=== PATIENT | male | born 1935 | race Caucasian/White ===

== ENCOUNTER → 2016-10-11 | Outpatient (CLI) | payer MEDICARE ==
[2016-07-22 11:00] VITALS: BP 111/53
[~2016-10-11] MED LIST: ALLO300T PO; ALPR0.5T6 PO; ALPR1TAB6 PO; AMIO200T2 PO; AMOX1TAB61 PO; ASPI81TA2 PO; ATOR20TA58 PO; CARV3.12 PO; CARV3.122 PO; CARV6.252 PO; CEFD300C PO; DEXL60CA PO; DIGO125T PO; DILT180C2 PO; FLUT16SP NS; FURO20TA3 PO; GLEEVEC400 MG PO; ISOS30TA4 PO; LANS30CA17 PO; LISI-338 PO; METO100T11 PO; METO25TA9 PO; ONDA-36 PO; PANT40TA5 PO; POTA10CA PO; PRED50TA PO; SIMV20TA3 PO; TAMS0.4C2 PO; TOLT4CAP PO
--- NOTE | 2016-10-11 16:12 | RAD ---
APPROVED REPORT Patient Location: OUT-PATIENT Laterality:Bilateral Indications Bruit Risk Factors CAD, Doppler Spectral Velocity Analysis Right Left mCCA 89/89 cm/smCCA 71/71 cm/s ECA 82/ cm/sECA 79/ cm/s pICA 75/20 cm/spICA 84/23 cm/s Ralph 103/28 cm/smICA 108/29 cm/s dICA 116/25 cm/sdICA 110/33 cm/s ICA/CCA 1.30ICA/CCA 1.60 Findings Bilateral grayscale images of the common carotid, external carotid, internal carotid and vertebral ar teries was performed. There is mild intimal thickening and plaque without any significant obstructiv e disease noted. Spectral waveforms in color Doppler reveals normal flow patterns and no evidence of significant stenosis. Critical Notification Critical Value: No <Conclusion> No high-grade lesions identified in the bilateral carotid arterial vessels. Bilateral antegrade vertebral velocities.
== END | disposition home or self-care (01) ==
LOC: US 10:19
PROVIDERS: ATTEND Internal Medicine Cardiovascular Disease
DX: I25.10 Atherosclerotic heart disease of native coronary artery without angina pectoris (principal)
CPT/HCPCS: 93880

== ENCOUNTER → 2016-11-07 | Outpatient (CLI) | payer MEDICARE ==
[2016-07-22 11:00] VITALS: BP 111/53
--- NOTE | 2016-11-07 16:56 | KCIC ---
PROCEDURE CT maxillofacial without contrast. HISTORY Ringing in the left ear x3 months. Hearing loss. TECHNIQUE Helical CT imaging of the facial bones is performed without IV contrast. PQRS: One or more the following individualized dose reduction techniques were utilized for the study: 1. Automated exposure control. 2. Adjustment of the mA and/or kV according to patient size. 3. Use of iterative reconstruction technique. COMPARISON None. FINDINGS The frontal sinuses are clear. Mild mucosal thickening of the bilateral ethmoid sinuses. Minimal mucosal thickening inferior right sphenoid sinus. There is moderate mucosal thickening of the right maxillary sinus. The left maxillary sinus is clear. There is small curvilinear near bone density in the right maxillary sinus, image 21. Bony nasal septum is midline. The right infundibular canal is narrow but patent. The ostiomeatal complexes are patent. Study does not constitute a diagnostic same of the temporal bones. The slice thickness is 2 millimeters. Given this limitation, the mastoid air cells are opacified bilaterally. There is soft tissue density in the bilateral middle ear cavities. No obvious erosion of the ossicular chain is seen. Cochleae and semicircular canals unremarkable. No obvious midline shift or mass effect in the brain. Probable cerebral atrophy. The globes and orbits are intact. IMPRESSION 1. Bilateral mastoid air cells and middle ear cavities are opacified. Otomastoiditis is in the differential. 2. Ostiomeatal complexes are narrow but patent. 3. Moderate mucosal thickening of the right maxillary sinus. No acute sinusitis. Electronically signed by: Froilan Horton MD (Nov 07, 2016 16:54:39)
== END | disposition home or self-care (01) ==
LOC: KCIC CT 10:46
PROVIDERS: ATTEND Otolaryngology
DX: J32.9 Chronic sinusitis, unspecified (principal)
CPT/HCPCS: 70486

== ENCOUNTER 2017-01-19 12:06 | Emergency (ER) | payer BC ==
[~2017-01-19] VITALS: Ht 188 cm; Wt 101.6 kg
[~2017-01-19 12:06] MED LIST changes: -POTA10CA PO; +POTASSIUM CHLO10 MEQ PO
[2017-01-19 12:20] LABS: BASO # 0.1 x10^3/uL (0.0-0.2); BASO % 1 % (0-3); EOS % 4 % (0-3); HEMATOCRIT 39.5 % (39.0-53.0); HEMOGLOBIN 13.2 g/dL (13.0-17.5); LYMPH # 0.9 x10^3/uL (1.0-4.8); LYMPH % 12 % (24-48); MEAN CORPUSCULAR HEMOGLOBIN 34 pg (25-35); MEAN CORPUSCULAR HGB CONC 34 g/dL (31-37); MEAN CORPUSCULAR VOLUME 102 fL (79-100); MONO % 7 % (0-9); NEUT % 77 % (31-73); PLATELET COUNT 156 x10^3/uL (140-400); RED BLOOD COUNT 3.89 x10^6/uL (4.30-5.70); RED CELL DISTRIBUTION WIDTH 13.5 % (11.5-14.5); WHITE BLOOD COUNT 7.3 x10^3/uL (4.0-11.0)
--- NOTE | 2017-01-19 12:28 | EKG ---
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
[2017-01-19 12:29] LABS: CALCIUM 8.7 mg/dL (8.5-10.1); CREATININE 1.4 mg/dL (0.7-1.3); GFR 48.6; POTASSIUM 4.2 mmol/L (3.5-5.1)
[2017-01-19 12:36] LABS: ALBUMIN 3.7 g/dL (3.4-5.0); TOTAL PROTEIN 6.1 g/dL (6.4-8.2)
[2017-01-19 12:37] LABS: ALBUMIN/GLOBULIN RATIO 1.5 (1.0-1.7); TOTAL BILIRUBIN 0.5 mg/dL (0.2-1.0)
[2017-01-19] MEDS ORDERED: GABA-585 PO (12:37)
--- NOTE | 2017-01-19 12:38 | PHYS DOC ---
Past Medical History Past Medical History: CAD, Cancer, COPD, [place], Other Additional Past Medical Histor: stomach CA TREATED W/ CHEMO,LEUKEMIA, pancreatic cancer Past Surgical History: Angioplasty, Lumbar Laminectomy Additional Past Surgical Histo: STENTS X'S 3, right port a cath,L KNEE SURG Alcohol Use: Rarely Drug Use: None Adult General Chief Complaint Chief Complaint: LOWER EXT PAIN HPI HPI 81-year-old male presenting to the emergency department with a pain sensation in his lower extremities bilaterally for the last 2 months. He describes it as a sharp electric shooting pain that is worse at night and without alleviating factors. It radiates down the legs bilaterally. He reports having a small bit of anxiety prior to arrival. He felt mildly anxious. Currently he does not feel anxious he does not have chest pain or shortness of breath. The primary reason the patient is here is for his leg pain. Review of systems is negative for abdominal pain nausea vomiting diaphoresis fevers chills cough diarrhea or constipation. All other review of systems is negative unless otherwise noted in history of present illness. Pertinent physical exam findings showed a normal neurologic exam. Sensation present in both lower extremities. Able to move his extremities. Abdomen is soft and nontender and lungs are clear to auscultation bilaterally. ED course: 81-year-old male presenting to the emergency department with bilateral leg pain. Afebrile with a mildly bradycardic heart rate which is chronic for the patient. Physical exam is unremarkable. The patient deserved pain sounds like a peripheral neuropathy area the patient does not have diabetes. He does not drink alcohol excessively. The patient was given oral gabapentin in the emergency department. Basic blood work and EKG were performed. ProBNP is mildly elevated. Patient is not hypoxic and is able to walk without shortness of breath. The patient was then discharged home in stable condition to follow up with their primary care physician over the next 2- 3 days. They were to return if their symptoms worsened or if they were concerned for any reason. [id number] discharge instructions and return precautions were given. Patient's questions were answered to their satisfaction. Patient is comfortable plan. Review of Systems Review of Systems SEE ABOVE. Current Medications Current Medications Current Medications Medications (Trade) Dose Ordered Sig/Winifred Start Time Stop Time Status Last Admin Dose Admin Gabapentin (Neurontin) 100 mg 1X ONCE 01/19/17 12:45 01/19/17 12:46 DC 01/19/17 12:33 100 MG Allergies Allergies Allergies Coded Allergies Type Severity Reaction Last Updated Verified codeine Allergy Intermediate 03/02/15 Yes tetanus and diphtheria toxoids Allergy Intermediate 10/19/15 Yes Physical Exam Physical Exam Constitutional: Well developed, well nourished, no acute distress, non-toxic appearance. [] HENT: Normocephalic, atraumatic, bilateral external ears normal, oropharynx moist, no oral exudates, nose normal. [] Eyes: PERRLA, EOMI, conjunctiva normal, no discharge. [] Neck: Normal range of motion, no tenderness, supple, no stridor. [] Cardiovascular:Heart rate regular rhythm, no murmur [] Lungs & Thorax: Bilateral breath sounds clear to auscultation [] Abdomen: Bowel sounds normal, soft, no tenderness, no masses, no pulsatile masses. [] Skin: Warm, dry, no erythema, no rash. [] Back: No tenderness, no CVA tenderness. [] Extremities: No tenderness, no cyanosis, no clubbing, no edema. see above Neurologic: Alert and oriented X 3, normal motor function, normal sensory function, no focal deficits noted. [] Psychologic: Affect normal, judgement normal, mood normal. [] Current Patient Data Vital Signs Vital Signs Date Time Temp Pulse Resp B/P (MAP) Pulse Ox O2 Delivery O2 Flow Rate FiO2 01/19/17 12:06 98.0 53 18 142/67 (92) 96 Room Air 98.0 Lab Values Laboratory Tests Test 01/19/17 12:12 White Blood Count 7.3 x10^3/uL (4.0-11.0) Red Blood Count 3.89 x10^6/uL (4.30-5.70) L Hemoglobin 13.2 g/dL (13.0-17.5) Hematocrit 39.5 % (39.0-53.0) Mean Corpuscular Volume 102 fL (79-100) H Mean Corpuscular Hemoglobin 34 pg (25-35) Mean Corpuscular Hemoglobin Concent 34 g/dL (31-37) Red Cell Distribution Width 13.5 % (11.5-14.5) Platelet Count 156 x10^3/uL (140-400) Neutrophils (%) (Auto) 77 % (31-73) H Lymphocytes (%) (Auto) 12 % (24-48) L Monocytes (%) (Auto) 7 % (0-9) Eosinophils (%) (Auto) 4 % (0-3) H Basophils (%) (Auto) 1 % (0-3) Neutrophils # (Auto) 5.6 x10^3uL (1.8-7.7) Lymphocytes # (Auto) 0.9 x10^3/uL (1.0-4.8) L Monocytes # (Auto) 0.5 x10^3/uL (0.0-1.1) Eosinophils # (Auto) 0.3 x10^3/uL (0.0-0.7) Basophils # (Auto) 0.1 x10^3/uL (0.0-0.2) Sodium Level 142 mmol/L (136-145) Potassium Level 4.2 mmol/L (3.5-5.1) Chloride Level 107 mmol/L (98-107) Carbon Dioxide Level 29 mmol/L (21-32) Anion Gap 6 (6-14) Blood Urea Nitrogen 18 mg/dL (8-26) Creatinine 1.4 mg/dL (0.7-1.3) H Estimated GFR (Cockcroft-Gault) 48.6 BUN/Creatinine Ratio 13 (6-20) Glucose Level 107 mg/dL (70-99) H Calcium Level 8.7 mg/dL (8.5-10.1) Total Bilirubin 0.5 mg/dL (0.2-1.0) Aspartate Amino Transferase (AST) 29 U/L (15-37) Alanine Aminotransferase (ALT) 29 U/L (16-63) Alkaline Phosphatase 107 U/L (46-116) Troponin I Quantitative 0.030 ng/mL (0.000-0.055) MQ-Qyd-L-Type Natriuretic Peptide 1846 pg/mL (0-449) H Total Protein 6.1 g/dL (6.4-8.2) L Albumin 3.7 g/dL (3.4-5.0) Albumin/Globulin Ratio 1.5 (1.0-1.7) Lipase 110 U/L (73-393) Laboratory Tests 01/19/17 12:12 Laboratory Tests 01/19/17 12:12 EKG EKG EKG compared to previous on April 25, 2014 shows no acute changes. Mildly bradycardic. Sinus rhythm. [place] is leftward. Intervals show prolonged QRS. ST segments are congruent. Reviewed by myself. [] Radiology/Procedures Radiology/Procedures [] Course & Med Decision Making Course & Med Decision Making Pertinent Labs and Imaging studies reviewed. (See chart for details) [] Dragon Disclaimer Dragon Disclaimer This electronic medical record was generated, in whole or in part, using a voice recognition dictation system. Departure Departure Impression: Primary Impression: Peripheral neuropathy Disposition: HOME, SELF-CARE Condition: STABLE Referrals: KVNG BADILLO DO (PCP) Patient Instructions: Pain, Neuropathic Additional Instructions: Thank you for allowing us to participate in your care today. Followup with your primary care physician in 3 days if your symptoms do not improve. If you do not have a primary care provider you can ask for a list of our primary care providers. Return to the emergency department you have any new or concerning findings. This should be evaluated by the primary care physician and any necessary consulting services for continued management within a few days after discharge. Return to emergency room if you have any new or concerning symptoms including but not limited to fever, chills, nausea, vomiting, intractable pain, any new rashes, chest pain, shortness of air, uncontrolled bleeding, difficulty breathing, and/or vision loss. Scripts Gabapentin (GABAPENTIN) 100 Mg Capsule 100 MG PO TID, #12 CAP Prov: SYDNEE BROWNLEE MD 01/19/17 Problem Qualifiers Primary Impression: Peripheral neuropathy Peripheral neuropathy type: polyneuropathy, unspecified Qualified Codes: G62.9 - Polyneuropathy, unspecified SYDNEE BROWNLEE MD Jan 19, 2017 12:38
[2017-01-19] MEDS ORDERED: GABAPENTIN 100 MG CAPSULE. PO ONE (12:45)
[2017-01-19 13:39] VITALS: BP 121/58
== END 2017-01-19 13:39 | disposition home or self-care (01) ==
LOC: ER 12:06
DX: G62.9 Polyneuropathy, unspecified (principal); F41.9 Anxiety disorder, unspecified; R00.1 Bradycardia, unspecified; I25.10 Atherosclerotic heart disease of native coronary artery without angina pectoris; J44.9 Chronic obstructive pulmonary disease, unspecified; I25.2 Old myocardial infarction; Z88.5 Allergy status to narcotic agent; Z88.7 Allergy status to serum and vaccine; Z95.5 Presence of coronary angioplasty implant and graft; Z95.1 Presence of aortocoronary bypass graft
CPT/HCPCS: 36415; 80053; 83690; 83880; 84484; 85027; 93005; 99285-25

== ENCOUNTER 2017-04-19 17:10 | Emergency (ER) | payer BC ==
[~2017-04-19] VITALS: Ht 188 cm; Wt 99.8 kg
[~2017-04-19 17:10] MED LIST changes: +ASPI-630 PO; -ASPI81TA2 PO; -DEXL60CA PO; +DEXL60CA2 PO; +GABA-585 PO; -LANS30CA17 PO; +LANS30CA66 PO; +METO-239 PO; +METO-247 PO; -METO100T11 PO; -METO25TA9 PO; -ONDA-36 PO; +ONDA8TAB14 PO
[2017-04-19 17:36] LABS: BASO % 0 % (0-3); EOS % 3 % (0-3); HEMATOCRIT 37.7 % (39.0-53.0); LYMPH % 9 % (24-48); MEAN CORPUSCULAR HEMOGLOBIN 36 pg (25-35); MEAN CORPUSCULAR HGB CONC 35 g/dL (31-37); MEAN CORPUSCULAR VOLUME 103 fL (79-100); MONO % 12 % (0-9); NEUT % 75 % (31-73); PLATELET COUNT 196 x10^3/uL (140-400); RED BLOOD COUNT 3.67 x10^6/uL (4.30-5.70); RED CELL DISTRIBUTION WIDTH 13.5 % (11.5-14.5); WHITE BLOOD COUNT 10.6 x10^3/uL (4.0-11.0)
[2017-04-19 17:44] LABS: CALCIUM 8.2 mg/dL (8.5-10.1); CREATININE 1.3 mg/dL (0.7-1.3); POTASSIUM 3.6 mmol/L (3.5-5.1)
--- NOTE | 2017-04-19 17:45 | PHYS DOC ---
Past Medical History Past Medical History: CAD, Cancer, COPD, [place], Other Additional Past Medical Histor: stomach CA TREATED W/ CHEMO,LEUKEMIA, pancreatic cancer Past Surgical History: Angioplasty, Lumbar Laminectomy Additional Past Surgical Histo: STENTS X'S 3, right port a cath,L KNEE SURG Alcohol Use: Rarely Drug Use: None Adult General Chief Complaint Chief Complaint: ABDOMINAL PAIN HPI HPI Patient is a 81 year old male with a history of lymphoma who last had chemotherapy treatment on the presents with complaints of headache similar to previous for which he's had multiple workups but no source found the headache started since an episode of head trauma but also the patient today's having some abdominal discomfort/pain with vomiting. No diarrhea. No fevers no rashes. No known sick contacts. No other in the mid members in the family having the same symptoms. Patient thinks his abdomen may be a little bit more distended than usual. Patient will complaints of bilateral hip pain but does also chronic. Review of Systems Review of Systems Constitutional: Denies fever or chills [] Eyes: Denies change in visual acuity, redness, or eye pain [] HENT: Denies nasal congestion or sore throat [] Respiratory: Denies cough or shortness of breath [] Cardiovascular: No additional information not addressed in HPI [] GI: Denies abdominal pain, nausea, vomiting, bloody stools or diarrhea [] : Denies dysuria or hematuria [] Musculoskeletal: Denies back pain or joint pain [] Integument: Denies rash or skin lesions [] Neurologic: Denies headache, focal weakness or sensory changes [] Endocrine: Denies polyuria or polydipsia [] Current Medications Current Medications Current Medications Medications (Trade) Dose Ordered Sig/Winifred Start Time Stop Time Status Last Admin Dose Admin Fentanyl Citrate (Fentanyl 2ml Vial) 75 mcg 1X ONCE 04/19/17 18:00 04/19/17 18:01 DC 04/19/17 17:57 75 MCG Info (Do NOT chart on this entry -- for MONITORING) 1 each PRN DAILY PRN 04/19/17 18:00 04/21/17 17:59 Iohexol (Omnipaque 300 Mg/ml) 60 ml 1X ONCE 04/19/17 18:00 04/19/17 18:01 DC 04/19/17 18:04 60 ML Ondansetron HCl (Zofran) 4 mg 1X ONCE 04/19/17 18:00 04/19/17 18:01 DC 04/19/17 17:56 4 MG Sodium Chloride 1,000 ml @ 1,000 mls/hr 1X ONCE 04/19/17 18:00 04/19/17 18:59 DC 04/19/17 17:56 1,000 MLS/HR Allergies Allergies Allergies Coded Allergies Type Severity Reaction Last Updated Verified codeine Allergy Intermediate 03/02/15 Yes tetanus and diphtheria toxoids Allergy Intermediate 10/19/15 Yes Physical Exam Physical Exam Constitutional: Well developed, well nourished, mild distress, non-toxic appearance. [] HENT: Normocephalic, atraumatic, bilateral external ears normal, oropharynx dry , no oral exudates, nose normal. [] Eyes: EOMI, conjunctiva normal, no discharge. [] Neck: Normal range of motion, no tenderness, supple, no stridor. [] Cardiovascular:Heart rate regular rhythm, no murmur, normal perfusion, equal pulses Lungs & Thorax: Bilateral breath sounds clear to auscultation, no tachypnea Abdomen: Bowel sounds normal, soft, no tenderness, no masses, no pulsatile masses. [] Skin: Warm, dry, no erythema, no rash. [] Back: No tenderness, no CVA tenderness. [] Extremities: No tenderness, no cyanosis, no DVT ROM intact, no edema. [] Neurologic: Alert and oriented X 3, normal motor function, ambulates in the ED with the assistance of a cane that is his baseline, no focal deficits noted. [] Psychologic: Affect normal, judgement normal, mood normal. [] Current Patient Data Vital Signs Vital Signs Date Time Temp Pulse Resp B/P (MAP) Pulse Ox O2 Delivery O2 Flow Rate FiO2 04/19/17 18:43 58 20 123/59 (80) 95 Room Air 04/19/17 17:20 97.5 97.5 Lab Values Laboratory Tests Test 04/19/17 17:25 04/19/17 17:41 White Blood Count 10.6 x10^3/uL (4.0-11.0) Red Blood Count 3.67 x10^6/uL (4.30-5.70) L Hemoglobin 13.0 g/dL (13.0-17.5) Hematocrit 37.7 % (39.0-53.0) L Mean Corpuscular Volume 103 fL (79-100) H Mean Corpuscular Hemoglobin 36 pg (25-35) H Mean Corpuscular Hemoglobin Concent 35 g/dL (31-37) Red Cell Distribution Width 13.5 % (11.5-14.5) Platelet Count 196 x10^3/uL (140-400) Neutrophils (%) (Auto) 75 % (31-73) H Lymphocytes (%) (Auto) 9 % (24-48) L Monocytes (%) (Auto) 12 % (0-9) H Eosinophils (%) (Auto) 3 % (0-3) Basophils (%) (Auto) 0 % (0-3) Neutrophils # (Auto) 8.0 x10^3uL (1.8-7.7) H Lymphocytes # (Auto) 1.0 x10^3/uL (1.0-4.8) Monocytes # (Auto) 1.3 x10^3/uL (0.0-1.1) H Eosinophils # (Auto) 0.3 x10^3/uL (0.0-0.7) Basophils # (Auto) 0.0 x10^3/uL (0.0-0.2) Sodium Level 140 mmol/L (136-145) Potassium Level 3.6 mmol/L (3.5-5.1) Chloride Level 105 mmol/L (98-107) Carbon Dioxide Level 27 mmol/L (21-32) Anion Gap 8 (6-14) Blood Urea Nitrogen 19 mg/dL (8-26) Creatinine 1.3 mg/dL (0.7-1.3) Estimated GFR (Cockcroft-Gault) 53.0 BUN/Creatinine Ratio 15 (6-20) Glucose Level 104 mg/dL (70-99) H Calcium Level 8.2 mg/dL (8.5-10.1) L Total Bilirubin 0.5 mg/dL (0.2-1.0) Aspartate Amino Transferase (AST) 20 U/L (15-37) Alanine Aminotransferase (ALT) 21 U/L (16-63) Alkaline Phosphatase 123 U/L (46-116) H Total Protein 5.8 g/dL (6.4-8.2) L Albumin 3.3 g/dL (3.4-5.0) L Albumin/Globulin Ratio 1.3 (1.0-1.7) Lipase 177 U/L (73-393) Urine Collection Type Unknown Urine Color Yellow Urine Clarity Clear Urine pH 6.0 Urine Specific [place] 1.020 Urine Protein Negative mg/dL (NEG-TRACE) Urine Glucose (UA) Negative mg/dL (NEG) Urine Ketones (Stick) Negative mg/dL (NEG) Urine Blood Negative (NEG) Urine Nitrite Negative (NEG) Urine Bilirubin Negative (NEG) Urine Urobilinogen Dipstick 0.2 mg/dL (0.2 mg/dL) Urine Leukocyte Esterase Negative (NEG) Urine RBC 0 /HPF (0-2) Urine WBC Occ /HPF (0-4) Urine Squamous Epithelial Cells Occ /LPF Urine Bacteria 0 /HPF (0-FEW) Urine Mucus Mod /LPF Laboratory Tests 04/19/17 17:25 Laboratory Tests 04/19/17 17:25 EKG EKG 61 SR no stemi, similar to previous 02/01[] Radiology/Procedures Radiology/Procedures CT read noted: Inflammation or lymph nodes, possibly inflammation of the pancreas[] Course & Med Decision Making Course & Med Decision Making Pertinent Labs and Imaging studies reviewed. (See chart for details) 2001 patient feels improved. Results of labs and CT discussed with the family, there are no reservations being discharged home. Pt is having his usual headaches for which he has had multiple negative work ups. There are no signs of meningitis. Pt has not vomited in the ED. I explained this may be an early process and observation at home is warranted. Strict return precautions discussed as well as other modes of treatment for headache. Nurse in ED is family member and she will be checking on him [] Dragon Disclaimer Dragon Disclaimer This electronic medical record was generated, in whole or in part, using a voice recognition dictation system. Departure Departure Impression: Primary Impression: Abdominal pain Additional Impression: Headache Disposition: 01 HOME, SELF-CARE Condition: STABLE Referrals: KVNG BADILLO DO (PCP) follow up with your doctor for recheck and re-evaluation in 2-3 days. Please discuss possible need for referral to neurology for further treatment of recurrent headaches. Patient Instructions: Abdominal Pain (Nonspecific), Epidural Blood Patching in Spinal Headache Problem Qualifiers Renny TEJEDA MD Apr 19, 2017 17:45
[2017-04-19 17:49] LABS: BILIRUBIN,URINE NEGATIVE (NEG); GLUCOSE,URINE NEGATIVE (NEG); NITRITE,URINE NEGATIVE (NEG); PROTEIN,URINE NEGATIVE (NEG-TRACE); UROBILINOGEN,URINE 0.2 mg/dL (0.2 mg/dL)
[2017-04-19 17:50] LABS: ALBUMIN 3.3 g/dL (3.4-5.0); ALBUMIN/GLOBULIN RATIO 1.3 (1.0-1.7); TOTAL BILIRUBIN 0.5 mg/dL (0.2-1.0); TOTAL PROTEIN 5.8 g/dL (6.4-8.2)
[2017-04-19 17:57] LABS: BACTERIA,URINE 0 /HPF (0-FEW); RBC,URINE 0 /HPF (0-2); SQUAMOUS EPITHELIAL CELL,UR OCC /LPF; WBC,URINE OCC /HPF (0-4)
[2017-04-19] MEDS ORDERED: IOHEXOL 300 MG/ML 75 ML VIAL IV ONE (18:00)
[2017-04-19] MEDS ORDERED: fentaNYL PF VIAL 100 MCG/2 ML VIAL IV ONE (18:00)
[2017-04-19] MEDS ORDERED: IV NORMAL SALINE 1000ML BAG 1,000 ML IV ONE (18:00)
[2017-04-19] MEDS ORDERED: CONTRAST GIVEN MC PRN (18:00)
[2017-04-19] MEDS ORDERED: ONDANSETRON PF 4 MG/2 ML VIAL. IV ONE (18:00)
--- NOTE | 2017-04-19 18:50 | RAD ---
Examination: CT of the abdomen pelvis with IV contrast HISTORY: History of abdominal pain COMPARISON: 08/13/2016 TECHNIQUE: Axial CT images of the abdomen pelvis were performed with IV contrast. Coronal and sagittal reformats are performed. Exposure: One or more of the following individualized dose reduction techniques were utilized for this examination: 1. Automated exposure control 2. Adjustment of the mA and/or kV according to patient size 3. Use of iterative reconstruction technique Findings: Minimal bibasilar lung atelectasis. No evidence of free air identified in the abdomen. The visualized liver demonstrates tiny subcentimeter cystic is identified in the left lobe of the liver which is too small to characterize. The gallbladder is mildly distended. The visualized spleen demonstrates a few calcified granulomas. The stomach is mildly distended. There is moderate inflammatory fat stranding identified around the pancreas with the mild edema. The small bowel is nondilated. Few prominent mesenteric lymph nodes identified on the pancreas. The appendix is normal. Feces and gas noted in the colon Urinary bladder is mildly distended. Moderate aortic atherosclerosis. The bilateral kidneys enhance symmetrically. No evidence of hydronephrosis. Moderately enlarged prostate gland. Few enlarged retroperitoneal lymph nodes identified with the largest measuring 2.1 cm. Moderate degenerative changes lumbar spine. 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 IMPRESSION: 1. Moderate inflammatory fat stranding identified about the pancreas likely acute pancreatitis. Correlate with lab values. 2. Few prominent mesenteric and retroperitoneal lymph nodes probably reactive. Electronically signed by: Kris Luther MD (04/19/2017 6:47 PM) [facility]
[2017-04-19 19:45] VITALS: BP 132/63
--- NOTE | 2017-04-20 11:02 | EKG ---
[facility] [address] [place] [address] Test Date: 2017-04-19 Test Time: 17:25:33 Pat Name: HARSHIL MALONE Department: Room: Gender: M [employer] G[employer]: : 1935 Requested By: Renny TEJEDA Order Number: [id number] Reading MD: Jorge Carlos Measurements Intervals [place] Rate: 61 P: [place]: QRS: -38 QRSD: 122 T: -24 QT: 432 QTc: 436 Interpretive Statements SR 1ST DEGREE AVB RBBB Electronically Signed On 04-22-2017 10:15:34 CDT by Jorge Carlos
== END 2017-04-19 20:15 | disposition home or self-care (01) ==
LOC: ER 17:10
DX: R51 Headache (principal); R10.9 Unspecified abdominal pain; J44.9 Chronic obstructive pulmonary disease, unspecified; I25.2 Old myocardial infarction; I25.10 Atherosclerotic heart disease of native coronary artery without angina pectoris; Z85.028 Personal history of other malignant neoplasm of stomach; Z85.07 Personal history of malignant neoplasm of pancreas; Z85.72 Personal history of non-Hodgkin lymphomas; Z95.5 Presence of coronary angioplasty implant and graft; Z51.11 Encounter for antineoplastic chemotherapy; Z88.5 Allergy status to narcotic agent; Z88.7 Allergy status to serum and vaccine
CPT/HCPCS: 36415; 74177; 80053; 81001; 83690; 85025; 93005; 96361; 96374; 96375; 99285; J2405; J3010; J7030; Q9967

== ENCOUNTER → 2017-05-07 | Outpatient (CLI) | payer BC ==
[2017-04-19 19:45] VITALS: BP 132/63
[2017-05-07 16:56] LABS: BASO # 0.1 x10^3/uL (0.0-0.2); BASO % 1 % (0-3); EOS % 5 % (0-3); HEMATOCRIT 38.3 % (39.0-53.0); LYMPH # 1.5 x10^3/uL (1.0-4.8); LYMPH % 19 % (24-48); MEAN CORPUSCULAR HEMOGLOBIN 35 pg (25-35); MEAN CORPUSCULAR HGB CONC 34 g/dL (31-37); MEAN CORPUSCULAR VOLUME 103 fL (79-100); MONO % 9 % (0-9); NEUT % 66 % (31-73); PLATELET COUNT 245 x10^3/uL (140-400); RED BLOOD COUNT 3.73 x10^6/uL (4.30-5.70); WHITE BLOOD COUNT 7.7 x10^3/uL (4.0-11.0)
[2017-05-07 17:18] LABS: ALBUMIN 3.4 g/dL (3.4-5.0); ALBUMIN/GLOBULIN RATIO 1.4 (1.0-1.7); CALCIUM 8.3 mg/dL (8.5-10.1); CREATININE 1.4 mg/dL (0.7-1.3); GFR 48.6; TOTAL BILIRUBIN 0.3 mg/dL (0.2-1.0); TOTAL PROTEIN 5.8 g/dL (6.4-8.2)
== END | disposition home or self-care (01) ==
LOC: LAB 16:33
PROVIDERS: ATTEND Psychiatry & Neurology Neurology
DX: R51 Headache (principal); R41.89 Other symptoms and signs involving cognitive functions and awareness
CPT/HCPCS: 36415; 80053; 82607; 85025; 85651

== ENCOUNTER 2017-05-11 16:54 | Inpatient (IN) | payer BC ==
[~2017-05-11] VITALS: Ht 188 cm; Wt 107.5 kg
[2017-05-11] MEDS ORDERED: IV NORMAL SALINE 1000ML BAG 1,000 ML IV SCH (17:09)
[2017-05-11 17:19] LABS: BASO # 0.2 x10^3/uL (0.0-0.2); BASO % 1 % (0-3); EOS % 0 % (0-3); HEMATOCRIT 39.2 % (39.0-53.0); HEMOGLOBIN 13.3 g/dL (13.0-17.5); LYMPH # 0.5 x10^3/uL (1.0-4.8); LYMPH % 2 % (24-48); MEAN CORPUSCULAR HEMOGLOBIN 35 pg (25-35); MEAN CORPUSCULAR HGB CONC 34 g/dL (31-37); MEAN CORPUSCULAR VOLUME 103 fL (79-100); MONO % 9 % (0-9); NEUT % 88 % (31-73); PLATELET COUNT 167 x10^3/uL (140-400); RED CELL DISTRIBUTION WIDTH 14.1 % (11.5-14.5); WHITE BLOOD COUNT 22.6 x10^3/uL (4.0-11.0)
[2017-05-11 17:26] LABS: BILIRUBIN,URINE NEGATIVE (NEG); GLUCOSE,URINE NEGATIVE (NEG); NITRITE,URINE NEGATIVE (NEG); PH,URINE 6.5; PROTEIN,URINE 30 mg/dL (NEG-TRACE)
[2017-05-11 17:27] LABS: CALCIUM 8.9 mg/dL (8.5-10.1); CREATININE 1.8 mg/dL (0.7-1.3); GFR 36.4; POTASSIUM 3.9 mmol/L (3.5-5.1)
[2017-05-11 17:33] LABS: ALBUMIN 3.5 g/dL (3.4-5.0); ALBUMIN/GLOBULIN RATIO 1.3 (1.0-1.7); TOTAL BILIRUBIN 0.8 mg/dL (0.2-1.0); TOTAL PROTEIN 6.2 g/dL (6.4-8.2)
[2017-05-11 17:33] LABS: BACTERIA,URINE MANY /HPF (0-FEW); RBC,URINE OCC /HPF (0-2); SQUAMOUS EPITHELIAL CELL,UR OCC /LPF; WBC,URINE 20-40 /HPF (0-4)
--- NOTE | 2017-05-11 17:52 | PHYS DOC ---
Past Medical History Past Medical History: CAD, Cancer, COPD, VA, Other Additional Past Medical Histor: stomach CA TREATED W/ CHEMO,LEUKEMIA, pancreatic cancer Past Surgical History: Angioplasty, Lumbar Laminectomy Additional Past Surgical Histo: STENTS X'S 3, right port a cath,L KNEE SURG Alcohol Use: Rarely Drug Use: None Adult General Chief Complaint Chief Complaint: WEAKNESS/GENERALIZED HPI HPI Patient is a 81 year old male brought from home by EMS with a complaint of weakness today. The patient is a bit confused and the history is from his . Patient got up and vomited last night. He got hot and had chills during the night. EMS reported a tympanic temp of 100.4. Today, the patient has been weak and "his legs just won't work". Temp like he has generalized weakness and was not able to support himself with his legs. Patient denies any pain right now but says earlier he had a headache. Patient's says that Review of Systems Review of Systems Constitutional: Positive fever and chills Eyes: Denies change in visual acuity, redness, or eye pain [] HENT: Denies nasal congestion or sore throat [] Respiratory: Denies cough or shortness of breath [] Cardiovascular: Denies chest pain GI: He had one episode of nausea and vomiting last night : Denies dysuria or hematuria [] Musculoskeletal: Denies back pain or joint pain [] Integument: Denies rash or skin lesions [] Neurologic: He has had headaches lately and was recently started on a new medication for "migraines". Current Medications Current Medications Current Medications Medications (Trade) Dose Ordered Sig/Winifred Start Time Stop Time Status Last Admin Dose Admin Levofloxacin/ Dextrose 100 ml @ 100 mls/hr 1X ONCE 05/11/17 18:30 05/11/17 19:29 Sodium Chloride 1,000 ml @ 1,000 mls/hr Q1H 05/11/17 17:09 05/11/17 18:08 DC 05/11/17 17:33 1,000 MLS/HR Allergies Allergies Allergies Coded Allergies Type Severity Reaction Last Updated Verified codeine Allergy Intermediate 03/02/15 Yes tetanus and diphtheria toxoids Allergy Intermediate 10/19/15 Yes Physical Exam Physical Exam Constitutional: Well developed, well nourished, alert, seems a little globally confused, does answer questions mostly appropriately, warm and dry. HENT: Normocephalic, atraumatic, bilateral external ears normal, oropharynx slightly dry, nose normal. [] Eyes: conjunctiva normal, no discharge. [] Neck: Normal range of motion, no stridor. [] Cardiovascular:Heart rate regular rhythm, no murmur [] Lungs & Thorax: Bilateral breath sounds clear to auscultation [] Abdomen: Bowel sounds normal, soft, no tenderness, no masses, no pulsatile masses. [] Skin: Warm, dry, no erythema, no rash. [] Extremities: No tenderness, no cyanosis, no clubbing, ROM intact, no edema. [] Neurologic: Alert and oriented X 3, normal motor function, no focal deficits noted. [] Current Patient Data Vital Signs Vital Signs Date Time Temp Pulse Resp B/P (MAP) Pulse Ox O2 Delivery O2 Flow Rate FiO2 05/11/17 17:00 98.8 77 20 133/62 (85) 97 Room Air 98.8 Lab Values Laboratory Tests Test 05/11/17 17:07 05/11/17 17:18 White Blood Count 22.6 x10^3/uL (4.0-11.0) H Red Blood Count 3.80 x10^6/uL (4.30-5.70) L Hemoglobin 13.3 g/dL (13.0-17.5) Hematocrit 39.2 % (39.0-53.0) Mean Corpuscular Volume 103 fL (79-100) H Mean Corpuscular Hemoglobin 35 pg (25-35) Mean Corpuscular Hemoglobin Concent 34 g/dL (31-37) Red Cell Distribution Width 14.1 % (11.5-14.5) Platelet Count 167 x10^3/uL (140-400) Neutrophils (%) (Auto) 88 % (31-73) H Lymphocytes (%) (Auto) 2 % (24-48) L Monocytes (%) (Auto) 9 % (0-9) Eosinophils (%) (Auto) 0 % (0-3) Basophils (%) (Auto) 1 % (0-3) Neutrophils # (Auto) 19.9 x10^3uL (1.8-7.7) H Lymphocytes # (Auto) 0.5 x10^3/uL (1.0-4.8) L Monocytes # (Auto) 2.0 x10^3/uL (0.0-1.1) H Eosinophils # (Auto) 0.0 x10^3/uL (0.0-0.7) Basophils # (Auto) 0.2 x10^3/uL (0.0-0.2) Segmented Neutrophils % 74 % (35-66) H Band Neutrophils % 15 % (0-9) H Lymphocytes % 5 % (24-48) L Monocytes % 6 % (0-10) Toxic Granulation Slight Platelet Estimate Adequate (ADEQUATE) Sodium Level 139 mmol/L (136-145) Potassium Level 3.9 mmol/L (3.5-5.1) Chloride Level 103 mmol/L (98-107) Carbon Dioxide Level 27 mmol/L (21-32) Anion Gap 9 (6-14) Blood Urea Nitrogen 24 mg/dL (8-26) Creatinine 1.8 mg/dL (0.7-1.3) H Estimated GFR (Cockcroft-Gault) 36.4 BUN/Creatinine Ratio 13 (6-20) Glucose Level 139 mg/dL (70-99) H Lactic Acid Level 2.4 mmol/L (0.4-2.0) H Calcium Level 8.9 mg/dL (8.5-10.1) Total Bilirubin 0.8 mg/dL (0.2-1.0) Aspartate Amino Transferase (AST) 24 U/L (15-37) Alanine Aminotransferase (ALT) 29 U/L (16-63) Alkaline Phosphatase 105 U/L (46-116) Total Protein 6.2 g/dL (6.4-8.2) L Albumin 3.5 g/dL (3.4-5.0) Albumin/Globulin Ratio 1.3 (1.0-1.7) Urine Collection Type Unknown Urine Color Yellow Urine Clarity Cloudy Urine pH 6.5 Urine Specific [place] 1.015 Urine Protein 30 mg/dL (NEG-TRACE) Urine Glucose (UA) Negative mg/dL (NEG) Urine Ketones (Stick) Negative mg/dL (NEG) Urine Blood Negative (NEG) Urine Nitrite Negative (NEG) Urine Bilirubin Negative (NEG) Urine Urobilinogen Dipstick 1.0 mg/dL (0.2 mg/dL) Urine Leukocyte Esterase Moderate (NEG) Urine RBC Occ /HPF (0-2) Urine WBC 20-40 /HPF (0-4) Urine Squamous Epithelial Cells Occ /LPF Urine Bacteria Many /HPF (0-FEW) Urine Mucus Slight /LPF Laboratory Tests 05/11/17 17:07 Laboratory Tests 05/11/17 17:07 EKG EKG Twelve-lead EKG read by me. Sinus rhythm. Heart rate 74. Right bundle branch block. There are ST abnormalities resulting from repolarization changes, there are no acute ST or T wave changes indicative of ischemia or infarction. No STEMI. [id number][] Radiology/Procedures Radiology/Procedures One view portable chest x-ray read by me. No acute infiltrates.[] Course & Med Decision Making Course & Med Decision Making Pertinent Labs and Imaging studies reviewed. (See chart for details) 81-year-old male brought by EMS for weakness. He has some mild global confusion. He is nonfocal. He looks septic to me. He was started on IV fluids while labs were pending. Patient does have a UTI and his white count is elevated. He was given a dose of Levaquin. X-rays 500 mg because his creatinine is elevated. I discussed with the patient and his family that I recommend admitting him to the hospital for IV fluids and IV antibiotics. They are agreeable to that. Discussed the case with Dr. Franklin who will admit the patient. I wrote bridge orders. [] Dragon Disclaimer Dragon Disclaimer This electronic medical record was generated, in whole or in part, using a voice recognition dictation system. Departure Departure Impression: Primary Impression: Sepsis Additional Impression: UTI (urinary tract infection) Disposition: ADMITTED INPATIENT Admitting Physician: Pamela Franklin Condition: STABLE Referrals: KVNG BADILLO DO (PCP) Problem Qualifiers DIMAS BALL MD May 11, 2017 17:52
[2017-05-11 17:58] LABS: PLT ESTIMATE ADEQUATE (ADEQUATE); TOXIC GRANULATION SLIGHT
[2017-05-11] MEDS ORDERED: ONDANSETRON PF 4 MG/2 ML VIAL. IV PRN ×2 (18:30→19:15)
[2017-05-11] MEDS: IV NORMAL SALINE 1000ML BAG 1,000 ML IV SCH (19:04)
[2017-05-11] MEDS ORDERED: DOCUSATE SODIUM 100 MG CAPSULE. PO PRN (19:15)
[2017-05-11] MEDS ORDERED: hydrALAZINE 20 MG/ML VIAL. IVP PRN (19:15)
[2017-05-11] MEDS ORDERED: VANCOMYCIN PER PHARMACY MC PRN (19:15)
[2017-05-11] MEDS ORDERED: MORPHINE SULFATE 2 MG/ML DISP.SYRIN. IV PRN (19:15)
[2017-05-11] MEDS ORDERED: traMADol 50 MG TABLET PO PRN (19:15)
--- NOTE | 2017-05-11 19:27 | PDOC1 ---
History and Physical Date of Admission Date of Admission 05/11/17 Identification/Chief Complaint Chief Complaint generalized weakness Problems: Source Source: Caregiver, Chart review, Patient History of Present Illness History of Present Illness HPI HPI Patient is a 81 year old male brought from home by EMS with a complaint of weakness today. Pt looks very weak, his help for the history. Pt has been ok till last night, felt both subjective fever, chills, then N/V non bloody nor greenish. He then feels very tired, fatigue, generalized weakness , slept a lot. He admits has dysuria, h/o BPH with more frequency urination now. EMS reported a tympanic temp of 100.4. h/o pancreatic Ca 1.5ys ago, on chemo every 2months with dr. Villalta. mild cough with some mucus, denies sick contact or traveling recently. Past Medical History Cardiovascular: CAD, CHF, HTN, Hyperlipidemia Pulmonary: COPD, Other CENTRAL NERVOUS SYSTEM: Other GI: GERD Heme/Onc: Other Hepatobiliary: No pertinent hx Psych: Anxiety Rheumatologic: No pertinent hx Infectious disease: No pertinent hx Renal/: Chronic renal insuff, Benign prostatic enlarg. Endocrine: No pertinent hx Past Surgical History Past Surgical History Lumbar Laminectomy Past Surgical History: Other Family History Family History: Coronary Artery Disease, Hypertension Social History Smoke: No ALCOHOL: none Drugs: None Current Problem List Problem List Problems Medical Problems: (1) Sepsis Status: Acute (2) UTI (urinary tract infection) Status: Acute Current Medications Current Medications Current Medications Medications (Trade) Dose Ordered Sig/Winifred Start Time Stop Time Status Last Admin Dose Admin Acetaminophen (Tylenol) 650 mg PRN Q4HRS PRN 05/11/17 18:30 05/12/17 18:29 Levofloxacin/ Dextrose 100 ml @ 100 mls/hr 1X ONCE 05/11/17 18:30 05/11/17 19:29 05/11/17 18:38 100 MLS/HR Ondansetron HCl (Zofran) 4 mg PRN Q8HRS PRN 05/11/17 18:30 05/12/17 18:29 Sodium Chloride 1,000 ml @ 100 mls/hr Q10H 05/11/17 18:29 05/12/17 18:28 05/11/17 19:04 100 MLS/HR Allergies Allergies Allergies Coded Allergies Type Severity Reaction Last Updated Verified codeine Allergy Intermediate 03/02/15 Yes tetanus and diphtheria toxoids Allergy Intermediate 10/19/15 Yes ROS Review of System CONSTITUTIONAL: No fever or chills EYES: No recent changes SKIN: No rash or itching CARDIOVASCULAR: No chest pain, syncope, palpitations, or edema RESPIRATORY: No SOB or cough GASTROINTESTINAL: No nausea, vomiting or abdominal pain NEUROLOGICAL: No headaches or weakness ENDOCRINE: No cold or heat intolerance GENITOURINARY: No urgency or frequency of urination MUSCULOSKELETAL: No back pain or joint pain LYMPHATICS: No enlarged lymph nodes PSYCHIATRIC: No anxiety or depression Physical Exam Physical Exam GEN.: No apparent distress. Alert and oriented. looks very weak. HEENT: Head is normocephalic, atraumatic NECK: Supple. LUNGS: Clear to auscultation. HEART: RRR, S1, S2 present. Peripheral pulses intact ABDOMEN: Soft, nontender. Positive bowel sounds. EXTREMITIES: Without any cyanosis. NEUROLOGIC: Normal speech, normal tone PSYCHIATRIC: Normal affect, normal mood. SKIN: No ulcerations Vitals Vitals Vital Signs Date Time Temp Pulse Resp B/P (MAP) Pulse Ox O2 Delivery O2 Flow Rate FiO2 05/11/17 19:00 77 127/61 (83) 97 Room Air 05/11/17 17:00 98.8 20 98.8 Labs Labs Laboratory Tests Test 05/11/17 17:07 05/11/17 17:18 White Blood Count 22.6 x10^3/uL (4.0-11.0) Red Blood Count 3.80 x10^6/uL (4.30-5.70) Hemoglobin 13.3 g/dL (13.0-17.5) Hematocrit 39.2 % (39.0-53.0) Mean Corpuscular Volume 103 fL (79-100) Mean Corpuscular Hemoglobin 35 pg (25-35) Mean Corpuscular Hemoglobin Concent 34 g/dL (31-37) Red Cell Distribution Width 14.1 % (11.5-14.5) Platelet Count 167 x10^3/uL (140-400) Neutrophils (%) (Auto) 88 % (31-73) Lymphocytes (%) (Auto) 2 % (24-48) Monocytes (%) (Auto) 9 % (0-9) Eosinophils (%) (Auto) 0 % (0-3) Basophils (%) (Auto) 1 % (0-3) Neutrophils # (Auto) 19.9 x10^3uL (1.8-7.7) Lymphocytes # (Auto) 0.5 x10^3/uL (1.0-4.8) Monocytes # (Auto) 2.0 x10^3/uL (0.0-1.1) Eosinophils # (Auto) 0.0 x10^3/uL (0.0-0.7) Basophils # (Auto) 0.2 x10^3/uL (0.0-0.2) Segmented Neutrophils % 74 % (35-66) Band Neutrophils % 15 % (0-9) Lymphocytes % 5 % (24-48) Monocytes % 6 % (0-10) Toxic Granulation Slight Platelet Estimate Adequate (ADEQUATE) Sodium Level 139 mmol/L (136-145) Potassium Level 3.9 mmol/L (3.5-5.1) Chloride Level 103 mmol/L (98-107) Carbon Dioxide Level 27 mmol/L (21-32) Anion Gap 9 (6-14) Blood Urea Nitrogen 24 mg/dL (8-26) Creatinine 1.8 mg/dL (0.7-1.3) Estimated GFR (Cockcroft-Gault) 36.4 BUN/Creatinine Ratio 13 (6-20) Glucose Level 139 mg/dL (70-99) Lactic Acid Level 2.4 mmol/L (0.4-2.0) Calcium Level 8.9 mg/dL (8.5-10.1) Total Bilirubin 0.8 mg/dL (0.2-1.0) Aspartate Amino Transf (AST/SGOT) 24 U/L (15-37) Alanine Aminotransferase (ALT/SGPT) 29 U/L (16-63) Alkaline Phosphatase 105 U/L (46-116) Total Protein 6.2 g/dL (6.4-8.2) Albumin 3.5 g/dL (3.4-5.0) Albumin/Globulin Ratio 1.3 (1.0-1.7) Urine Collection Type Unknown Urine Color Yellow Urine Clarity Cloudy Urine pH 6.5 Urine Specific [place] 1.015 Urine Protein 30 mg/dL (NEG-TRACE) Urine Glucose (UA) Negative mg/dL (NEG) Urine Ketones (Stick) Negative mg/dL (NEG) Urine Blood Negative (NEG) Urine Nitrite Negative (NEG) Urine Bilirubin Negative (NEG) Urine Urobilinogen Dipstick 1.0 mg/dL (0.2 mg/dL) Urine Leukocyte Esterase Moderate (NEG) Urine RBC Occ /HPF (0-2) Urine WBC 20-40 /HPF (0-4) Urine Squamous Epithelial Cells Occ /LPF Urine Bacteria Many /HPF (0-FEW) Urine Mucus Slight /LPF Laboratory Tests Test 05/11/17 17:07 05/11/17 17:18 White Blood Count 22.6 x10^3/uL (4.0-11.0) Red Blood Count 3.80 x10^6/uL (4.30-5.70) Hemoglobin 13.3 g/dL (13.0-17.5) Hematocrit 39.2 % (39.0-53.0) Mean Corpuscular Volume 103 fL (79-100) Mean Corpuscular Hemoglobin 35 pg (25-35) Mean Corpuscular Hemoglobin Concent 34 g/dL (31-37) Red Cell Distribution Width 14.1 % (11.5-14.5) Platelet Count 167 x10^3/uL (140-400) Neutrophils (%) (Auto) 88 % (31-73) Lymphocytes (%) (Auto) 2 % (24-48) Monocytes (%) (Auto) 9 % (0-9) Eosinophils (%) (Auto) 0 % (0-3) Basophils (%) (Auto) 1 % (0-3) Neutrophils # (Auto) 19.9 x10^3uL (1.8-7.7) Lymphocytes # (Auto) 0.5 x10^3/uL (1.0-4.8) Monocytes # (Auto) 2.0 x10^3/uL (0.0-1.1) Eosinophils # (Auto) 0.0 x10^3/uL (0.0-0.7) Basophils # (Auto) 0.2 x10^3/uL (0.0-0.2) Segmented Neutrophils % 74 % (35-66) Band Neutrophils % 15 % (0-9) Lymphocytes % 5 % (24-48) Monocytes % 6 % (0-10) Toxic Granulation Slight Platelet Estimate Adequate (ADEQUATE) Sodium Level 139 mmol/L (136-145) Potassium Level 3.9 mmol/L (3.5-5.1) Chloride Level 103 mmol/L (98-107) Carbon Dioxide Level 27 mmol/L (21-32) Anion Gap 9 (6-14) Blood Urea Nitrogen 24 mg/dL (8-26) Creatinine 1.8 mg/dL (0.7-1.3) Estimated GFR (Cockcroft-Gault) 36.4 BUN/Creatinine Ratio 13 (6-20) Glucose Level 139 mg/dL (70-99) Lactic Acid Level 2.4 mmol/L (0.4-2.0) Calcium Level 8.9 mg/dL (8.5-10.1) Total Bilirubin 0.8 mg/dL (0.2-1.0) Aspartate Amino Transf (AST/SGOT) 24 U/L (15-37) Alanine Aminotransferase (ALT/SGPT) 29 U/L (16-63) Alkaline Phosphatase 105 U/L (46-116) Total Protein 6.2 g/dL (6.4-8.2) Albumin 3.5 g/dL (3.4-5.0) Albumin/Globulin Ratio 1.3 (1.0-1.7) Urine Collection Type Unknown Urine Color Yellow Urine Clarity Cloudy Urine pH 6.5 Urine Specific [place] 1.015 Urine Protein 30 mg/dL (NEG-TRACE) Urine Glucose (UA) Negative mg/dL (NEG) Urine Ketones (Stick) Negative mg/dL (NEG) Urine Blood Negative (NEG) Urine Nitrite Negative (NEG) Urine Bilirubin Negative (NEG) Urine Urobilinogen Dipstick 1.0 mg/dL (0.2 mg/dL) Urine Leukocyte Esterase Moderate (NEG) Urine RBC Occ /HPF (0-2) Urine WBC 20-40 /HPF (0-4) Urine Squamous Epithelial Cells Occ /LPF Urine Bacteria Many /HPF (0-FEW) Urine Mucus Slight /LPF VTE Prophylaxis Ordered VTE Prophylaxis Devices: Yes VTE Pharmacological Prophylaxi: Yes Assessment/Plan Assessment/Plan generalized weakness, 2/2 sepsis likely sepsis with UTI likely BPH ANNMARIE, vasomotor pancreatic Ca on chemo chronically chronic lower back pain h/o CAD WITH PCI lactate acidosis right port cath for chemo [id number] h/o COPD PAFIB? plan; h/o UTI with enterococcus, add vanco for now, change levaquin to ceftriaxone cont home meds, need verify ivf fu ucx, bcx check flu, labs tmr renal US clear liquid diet for now dvt ppx PTOT REBECCA BRIONES MD May 11, 2017 19:26
[2017-05-11] MEDS ORDERED: VANCOMYCIN 2 GM in IV NORMAL SALINE 500ML BAG 500 ML IV ONE (20:00)
[2017-05-11] MEDS: ATORVASTATIN CALCIUM 20 MG TABLET PO SCH (20:36)
[2017-05-11] MEDS: ALLOPURINOL 300 MG TABLET. PO SCH (20:37)
[2017-05-11] MEDS: GABAPENTIN 100 MG CAPSULE. PO SCH (20:37)
[2017-05-11] MEDS: HEPARIN PF for SUB-Q USE 5,000 UNIT/0.5 ML VIAL. SQ SCH (20:45)
[2017-05-11 23:00] VITALS: BP 137/48
[2017-05-12] VITALS (7 sets, daily range): BP systolic 97–141; BP diastolic 44–61
[2017-05-12] MEDS: ACETAMINOPHEN 325 MG TABLET. PO PRN ×2 (03:16→15:19)
[2017-05-12] MEDS: HEPARIN PF for SUB-Q USE 5,000 UNIT/0.5 ML VIAL. SQ SCH ×3 (05:16→21:22)
[2017-05-12] MEDS: IV NORMAL SALINE 1000ML BAG 1,000 ML IV SCH ×2 (05:17→14:29)
[2017-05-12 05:32] LABS: BASO # 0.1 x10^3/uL (0.0-0.2); BASO % 0 % (0-3); EOS % 0 % (0-3); HEMOGLOBIN 11.8 g/dL (13.0-17.5); LYMPH # 0.8 x10^3/uL (1.0-4.8); LYMPH % 4 % (24-48); MEAN CORPUSCULAR HEMOGLOBIN 35 pg (25-35); MEAN CORPUSCULAR HGB CONC 34 g/dL (31-37); MEAN CORPUSCULAR VOLUME 104 fL (79-100); MONO % 11 % (0-9); NEUT % 85 % (31-73); PLATELET COUNT 136 x10^3/uL (140-400); RED BLOOD COUNT 3.36 x10^6/uL (4.30-5.70); RED CELL DISTRIBUTION WIDTH 13.5 % (11.5-14.5)
[2017-05-12 06:15] LABS: GFR 32.2; POTASSIUM 3.3 mmol/L (3.5-5.1)
--- NOTE | 2017-05-12 07:47 | EKG ---
[facility] [address] [place] [address] Test Date: 2017-05-11 Test Time: 16:59:52 Pat Name: HARSHIL MALONE Department: Room: 674 1 Gender: M [employer]iller: : 1935 Requested By: DIMAS BALL Order Number: [id number] Reading MD: Imtiaz Phipps Measurements Intervals [place] Rate: 74 P: -8 SC: 206 QRS: -33 QRSD: 126 T: -20 QT: 474 QTc: 533 Interpretive Statements SINUS RHYTHM ABNORMAL LEFT AXIS DEVIATION RIGHT BUNDLE BRANCH BLOCK QRS(T) CONTOUR ABNORMALITY CONSIDER ANTEROLATERAL MYOCARDIAL DAMAGE CONSISTENT WITH INFERIOR INFARCT AGE UNDETERMINED RI6.01 Unconfirmed report Compared to ECG 04/19/2017 17:25:33 Left-axis deviation now present Myocardial infarct finding now present Electronically Signed On 05-23-2017 12:10:15 CDT by Imtiaz Phipps
--- NOTE | 2017-05-12 07:48 | RAD ---
EXAM: Renal/retroperitonal ultrasound HISTORY: Acute renal injury. COMPARISON: CT 04/19/2017. FINDINGS: Ultrasound of the kidneys, bladder and retroperitoneum was performed. The right kidney measures 11.9 cm. Cortical thickness and echogenicity are preserved. There is no hydronephrosis. Hypoechoic focus in the right interpolar region measures 8 x 7 mm. There is no clear correlate on prior CT. The left kidney measures 11.2 cm. Cortical thickness and echogenicity are preserved. There is no hydronephrosis. Images of the bladder reveal no gross abnormality. The prostate is severely enlarged at 8.3 x 6.4 x 5.1 cm. It impresses on the bladder base. IMPRESSION: 1. Severe benign prostatic hypertrophy. 2. A 7 mm hyperechoic focus in the right renal interpolar region is not well seen on prior CT. Disc and may followed sonographically or with CT in 6 months to exclude an underlying small mass.
[2017-05-12] MEDS: DIGOXIN 125 MCG TABLET. PO SCH (09:00)
[2017-05-12] MEDS: FLUTICASONE 50MCG/NASAL SPRAY 16GM BOTTLE. NS SCH (09:00)
[2017-05-12] MEDS: METOPROLOL SUCC 24HR ER 25 MG TAB.ER.24H. PO SCH (09:00)
--- NOTE | 2017-05-12 09:50 | RAD ---
EXAM: Chest one view. HISTORY: Fever. COMPARISON: 04/13/2016. FINDINGS: A frontal view of the chest is obtained. A right-sided port catheter has its tip in the superior cavoatrial junction. There are no confluent infiltrates. Hyperinflation is consistent with chronic obstructive pulmonary disease. There is a calcified granuloma in the left upper lobe. There is no pneumothorax or pleural effusion. The heart is moderately enlarged. The aorta is calcified and tortuous. IMPRESSION: 1. Chronic obstructive pulmonary disease. 2. Moderate cardiomegaly.
[2017-05-12] MEDS: PANTOPRAZOLE 40 MG TABLET.DR. PO SCH (10:20)
[2017-05-12] MEDS: AMIODARONE HCL 200 MG TABLET. PO SCH (10:31)
[2017-05-12] MEDS: ASPIRIN CHEWABLE 81 MG TABLET. PO SCH (10:32)
[2017-05-12] MEDS: GABAPENTIN 100 MG CAPSULE. PO SCH ×3 (10:33→21:19)
--- NOTE | 2017-05-12 11:21 | PDOC ---
Infectious Disease Note Vital Sign Vital Signs Vital Signs Date Time Temp Pulse Resp B/P (MAP) Pulse Ox O2 Delivery O2 Flow Rate FiO2 05/12/17 10:31 56 97/46 05/12/17 07:20 98.4 24 96 Nasal Cannula 2.0 98.4 Labs Lab Laboratory Tests Test 05/11/17 17:07 05/11/17 17:18 05/12/17 05:15 White Blood Count 22.6 x10^3/uL (4.0-11.0) 21.0 x10^3/uL (4.0-11.0) Red Blood Count 3.80 x10^6/uL (4.30-5.70) 3.36 x10^6/uL (4.30-5.70) Hemoglobin 13.3 g/dL (13.0-17.5) 11.8 g/dL (13.0-17.5) Hematocrit 39.2 % (39.0-53.0) 35.0 % (39.0-53.0) Mean Corpuscular Volume 103 fL (79-100) 104 fL (79-100) Mean Corpuscular Hemoglobin 35 pg (25-35) 35 pg (25-35) Mean Corpuscular Hemoglobin Concent 34 g/dL (31-37) 34 g/dL (31-37) Red Cell Distribution Width 14.1 % (11.5-14.5) 13.5 % (11.5-14.5) Platelet Count 167 x10^3/uL (140-400) 136 x10^3/uL (140-400) Neutrophils (%) (Auto) 88 % (31-73) 85 % (31-73) Lymphocytes (%) (Auto) 2 % (24-48) 4 % (24-48) Monocytes (%) (Auto) 9 % (0-9) 11 % (0-9) Eosinophils (%) (Auto) 0 % (0-3) 0 % (0-3) Basophils (%) (Auto) 1 % (0-3) 0 % (0-3) Neutrophils # (Auto) 19.9 x10^3uL (1.8-7.7) 17.8 x10^3uL (1.8-7.7) Lymphocytes # (Auto) 0.5 x10^3/uL (1.0-4.8) 0.8 x10^3/uL (1.0-4.8) Monocytes # (Auto) 2.0 x10^3/uL (0.0-1.1) 2.3 x10^3/uL (0.0-1.1) Eosinophils # (Auto) 0.0 x10^3/uL (0.0-0.7) 0.0 x10^3/uL (0.0-0.7) Basophils # (Auto) 0.2 x10^3/uL (0.0-0.2) 0.1 x10^3/uL (0.0-0.2) Segmented Neutrophils % 74 % (35-66) Band Neutrophils % 15 % (0-9) Lymphocytes % 5 % (24-48) Monocytes % 6 % (0-10) Toxic Granulation Slight Platelet Estimate Adequate (ADEQUATE) Sodium Level 139 mmol/L (136-145) 140 mmol/L (136-145) Potassium Level 3.9 mmol/L (3.5-5.1) 3.3 mmol/L (3.5-5.1) Chloride Level 103 mmol/L (98-107) 107 mmol/L (98-107) Carbon Dioxide Level 27 mmol/L (21-32) 24 mmol/L (21-32) Anion Gap 9 (6-14) 9 (6-14) Blood Urea Nitrogen 24 mg/dL (8-26) 29 mg/dL (8-26) Creatinine 1.8 mg/dL (0.7-1.3) 2.0 mg/dL (0.7-1.3) Estimated GFR (Cockcroft-Gault) 36.4 32.2 BUN/Creatinine Ratio 13 (6-20) Glucose Level 139 mg/dL (70-99) 121 mg/dL (70-99) Lactic Acid Level 2.4 mmol/L (0.4-2.0) 1.1 mmol/L (0.4-2.0) Calcium Level 8.9 mg/dL (8.5-10.1) 8.0 mg/dL (8.5-10.1) Total Bilirubin 0.8 mg/dL (0.2-1.0) Aspartate Amino Transf (AST/SGOT) 24 U/L (15-37) Alanine Aminotransferase (ALT/SGPT) 29 U/L (16-63) Alkaline Phosphatase 105 U/L (46-116) Total Protein 6.2 g/dL (6.4-8.2) Albumin 3.5 g/dL (3.4-5.0) Albumin/Globulin Ratio 1.3 (1.0-1.7) Urine Collection Type Unknown Urine Color Yellow Urine Clarity Cloudy Urine pH 6.5 Urine Specific [place] 1.015 Urine Protein 30 mg/dL (NEG-TRACE) Urine Glucose (UA) Negative mg/dL (NEG) Urine Ketones (Stick) Negative mg/dL (NEG) Urine Blood Negative (NEG) Urine Nitrite Negative (NEG) Urine Bilirubin Negative (NEG) Urine Urobilinogen Dipstick 1.0 mg/dL (0.2 mg/dL) Urine Leukocyte Esterase Moderate (NEG) Urine RBC Occ /HPF (0-2) Urine WBC 20-40 /HPF (0-4) Urine Squamous Epithelial Cells Occ /LPF Urine Bacteria Many /HPF (0-FEW) Urine Mucus Slight /LPF Objective Assessment G neg arcelia bacteremia UTI with sepsis Fever and chills Leukocytosis Renal insuff BPH rule out obstruction Plan Plan of Care zosyn cont levaquin check culture and adjust supportive care care GRAHAM TRISTAN MD May 12, 2017 11:21
[2017-05-12 12:24] LABS: OBC FLU VALID
[2017-05-12] MEDS: PIPERACILLIN/TAZOBACTAM 3.375 GM in IV NORMAL SALINE 50ML 50 ML IV SCH ×3 (12:43→23:54)
--- NOTE | 2017-05-12 13:54 | PDOC ---
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 chronically chronic lower back pain h/o CAD WITH PCI weakness, acquired h/o COPD History of Present Illness History of Present Illness bolus NS liter 10 hr after that IV abx pt and ot as randy Vitals Vitals Vital Signs Date Time Temp Pulse Resp B/P (MAP) Pulse Ox O2 Delivery O2 Flow Rate FiO2 05/12/17 11:11 97.8 55 24 97/46 (63) 94 Room Air 97.8 05/12/17 08:00 2.0 Physical Exam General: Alert, Oriented X3, Cooperative, No acute distress Heart: Regular rate, No murmurs Lungs: Clear Abdomen: Normal bowel sounds Skin: No breakdown Labs LABS Laboratory Tests Test 05/11/17 17:07 05/11/17 17:18 05/12/17 05:15 05/12/17 11:58 White Blood Count 22.6 x10^3/uL (4.0-11.0) 21.0 x10^3/uL (4.0-11.0) Red Blood Count 3.80 x10^6/uL (4.30-5.70) 3.36 x10^6/uL (4.30-5.70) Hemoglobin 13.3 g/dL (13.0-17.5) 11.8 g/dL (13.0-17.5) Hematocrit 39.2 % (39.0-53.0) 35.0 % (39.0-53.0) Mean Corpuscular Volume 103 fL (79-100) 104 fL (79-100) Mean Corpuscular Hemoglobin 35 pg (25-35) 35 pg (25-35) Mean Corpuscular Hemoglobin Concent 34 g/dL (31-37) 34 g/dL (31-37) Red Cell Distribution Width 14.1 % (11.5-14.5) 13.5 % (11.5-14.5) Platelet Count 167 x10^3/uL (140-400) 136 x10^3/uL (140-400) Neutrophils (%) (Auto) 88 % (31-73) 85 % (31-73) Lymphocytes (%) (Auto) 2 % (24-48) 4 % (24-48) Monocytes (%) (Auto) 9 % (0-9) 11 % (0-9) Eosinophils (%) (Auto) 0 % (0-3) 0 % (0-3) Basophils (%) (Auto) 1 % (0-3) 0 % (0-3) Neutrophils # (Auto) 19.9 x10^3uL (1.8-7.7) 17.8 x10^3uL (1.8-7.7) Lymphocytes # (Auto) 0.5 x10^3/uL (1.0-4.8) 0.8 x10^3/uL (1.0-4.8) Monocytes # (Auto) 2.0 x10^3/uL (0.0-1.1) 2.3 x10^3/uL (0.0-1.1) Eosinophils # (Auto) 0.0 x10^3/uL (0.0-0.7) 0.0 x10^3/uL (0.0-0.7) Basophils # (Auto) 0.2 x10^3/uL (0.0-0.2) 0.1 x10^3/uL (0.0-0.2) Segmented Neutrophils % 74 % (35-66) Band Neutrophils % 15 % (0-9) Lymphocytes % 5 % (24-48) Monocytes % 6 % (0-10) Toxic Granulation Slight Platelet Estimate Adequate (ADEQUATE) Sodium Level 139 mmol/L (136-145) 140 mmol/L (136-145) Potassium Level 3.9 mmol/L (3.5-5.1) 3.3 mmol/L (3.5-5.1) Chloride Level 103 mmol/L (98-107) 107 mmol/L (98-107) Carbon Dioxide Level 27 mmol/L (21-32) 24 mmol/L (21-32) Anion Gap 9 (6-14) 9 (6-14) Blood Urea Nitrogen 24 mg/dL (8-26) 29 mg/dL (8-26) Creatinine 1.8 mg/dL (0.7-1.3) 2.0 mg/dL (0.7-1.3) Estimated GFR (Cockcroft-Gault) 36.4 32.2 BUN/Creatinine Ratio 13 (6-20) Glucose Level 139 mg/dL (70-99) 121 mg/dL (70-99) Lactic Acid Level 2.4 mmol/L (0.4-2.0) 1.1 mmol/L (0.4-2.0) Calcium Level 8.9 mg/dL (8.5-10.1) 8.0 mg/dL (8.5-10.1) Total Bilirubin 0.8 mg/dL (0.2-1.0) Aspartate Amino Transf (AST/SGOT) 24 U/L (15-37) Alanine Aminotransferase (ALT/SGPT) 29 U/L (16-63) Alkaline Phosphatase 105 U/L (46-116) Total Protein 6.2 g/dL (6.4-8.2) Albumin 3.5 g/dL (3.4-5.0) Albumin/Globulin Ratio 1.3 (1.0-1.7) Urine Collection Type Unknown Urine Color Yellow Urine Clarity Cloudy Urine pH 6.5 Urine Specific [place] 1.015 Urine Protein 30 mg/dL (NEG-TRACE) Urine Glucose (UA) Negative mg/dL (NEG) Urine Ketones (Stick) Negative mg/dL (NEG) Urine Blood Negative (NEG) Urine Nitrite Negative (NEG) Urine Bilirubin Negative (NEG) Urine Urobilinogen Dipstick 1.0 mg/dL (0.2 mg/dL) Urine Leukocyte Esterase Moderate (NEG) Urine RBC Occ /HPF (0-2) Urine WBC 20-40 /HPF (0-4) Urine Squamous Epithelial Cells Occ /LPF Urine Bacteria Many /HPF (0-FEW) Urine Mucus Slight /LPF Influenza Type A Antigen Negative (NEGATIVE) Influenza Type B Antigen Negative (NEGATIVE) Review of Systems Review of Systems no n.v.d' sitting up, reports feeling stronger today Assessment and Plan Assessmemt and Plan Problems Medical Problems: (1) Sepsis Status: Acute (2) UTI (urinary tract infection) Status: Acute Problems: Comment Review of Relevant I have reviewed the following items jannet (where applicable) has been applied. Labs Laboratory Tests Test 05/11/17 17:07 05/11/17 17:18 05/12/17 05:15 05/12/17 11:58 White Blood Count 22.6 x10^3/uL (4.0-11.0) 21.0 x10^3/uL (4.0-11.0) Red Blood Count 3.80 x10^6/uL (4.30-5.70) 3.36 x10^6/uL (4.30-5.70) Hemoglobin 13.3 g/dL (13.0-17.5) 11.8 g/dL (13.0-17.5) Hematocrit 39.2 % (39.0-53.0) 35.0 % (39.0-53.0) Mean Corpuscular Volume 103 fL (79-100) 104 fL (79-100) Mean Corpuscular Hemoglobin 35 pg (25-35) 35 pg (25-35) Mean Corpuscular Hemoglobin Concent 34 g/dL (31-37) 34 g/dL (31-37) Red Cell Distribution Width 14.1 % (11.5-14.5) 13.5 % (11.5-14.5) Platelet Count 167 x10^3/uL (140-400) 136 x10^3/uL (140-400) Neutrophils (%) (Auto) 88 % (31-73) 85 % (31-73) Lymphocytes (%) (Auto) 2 % (24-48) 4 % (24-48) Monocytes (%) (Auto) 9 % (0-9) 11 % (0-9) Eosinophils (%) (Auto) 0 % (0-3) 0 % (0-3) Basophils (%) (Auto) 1 % (0-3) 0 % (0-3) Neutrophils # (Auto) 19.9 x10^3uL (1.8-7.7) 17.8 x10^3uL (1.8-7.7) Lymphocytes # (Auto) 0.5 x10^3/uL (1.0-4.8) 0.8 x10^3/uL (1.0-4.8) Monocytes # (Auto) 2.0 x10^3/uL (0.0-1.1) 2.3 x10^3/uL (0.0-1.1) Eosinophils # (Auto) 0.0 x10^3/uL (0.0-0.7) 0.0 x10^3/uL (0.0-0.7) Basophils # (Auto) 0.2 x10^3/uL (0.0-0.2) 0.1 x10^3/uL (0.0-0.2) Segmented Neutrophils % 74 % (35-66) Band Neutrophils % 15 % (0-9) Lymphocytes % 5 % (24-48) Monocytes % 6 % (0-10) Toxic Granulation Slight Platelet Estimate Adequate (ADEQUATE) Sodium Level 139 mmol/L (136-145) 140 mmol/L (136-145) Potassium Level 3.9 mmol/L (3.5-5.1) 3.3 mmol/L (3.5-5.1) Chloride Level 103 mmol/L (98-107) 107 mmol/L (98-107) Carbon Dioxide Level 27 mmol/L (21-32) 24 mmol/L (21-32) Anion Gap 9 (6-14) 9 (6-14) Blood Urea Nitrogen 24 mg/dL (8-26) 29 mg/dL (8-26) Creatinine 1.8 mg/dL (0.7-1.3) 2.0 mg/dL (0.7-1.3) Estimated GFR (Cockcroft-Gault) 36.4 32.2 BUN/Creatinine Ratio 13 (6-20) Glucose Level 139 mg/dL (70-99) 121 mg/dL (70-99) Lactic Acid Level 2.4 mmol/L (0.4-2.0) 1.1 mmol/L (0.4-2.0) Calcium Level 8.9 mg/dL (8.5-10.1) 8.0 mg/dL (8.5-10.1) Total Bilirubin 0.8 mg/dL (0.2-1.0) Aspartate Amino Transf (AST/SGOT) 24 U/L (15-37) Alanine Aminotransferase (ALT/SGPT) 29 U/L (16-63) Alkaline Phosphatase 105 U/L (46-116) Total Protein 6.2 g/dL (6.4-8.2) Albumin 3.5 g/dL (3.4-5.0) Albumin/Globulin Ratio 1.3 (1.0-1.7) Urine Collection Type Unknown Urine Color Yellow Urine Clarity Cloudy Urine pH 6.5 Urine Specific [place] 1.015 Urine Protein 30 mg/dL (NEG-TRACE) Urine Glucose (UA) Negative mg/dL (NEG) Urine Ketones (Stick) Negative mg/dL (NEG) Urine Blood Negative (NEG) Urine Nitrite Negative (NEG) Urine Bilirubin Negative (NEG) Urine Urobilinogen Dipstick 1.0 mg/dL (0.2 mg/dL) Urine Leukocyte Esterase Moderate (NEG) Urine RBC Occ /HPF (0-2) Urine WBC 20-40 /HPF (0-4) Urine Squamous Epithelial Cells Occ /LPF Urine Bacteria Many /HPF (0-FEW) Urine Mucus Slight /LPF Influenza Type A Antigen Negative (NEGATIVE) Influenza Type B Antigen Negative (NEGATIVE) Laboratory Tests Test 05/11/17 17:07 05/11/17 17:18 05/12/17 05:15 05/12/17 11:58 White Blood Count 22.6 x10^3/uL (4.0-11.0) 21.0 x10^3/uL (4.0-11.0) Red Blood Count 3.80 x10^6/uL (4.30-5.70) 3.36 x10^6/uL (4.30-5.70) Hemoglobin 13.3 g/dL (13.0-17.5) 11.8 g/dL (13.0-17.5) Hematocrit 39.2 % (39.0-53.0) 35.0 % (39.0-53.0) Mean Corpuscular Volume 103 fL (79-100) 104 fL (79-100) Mean Corpuscular Hemoglobin 35 pg (25-35) 35 pg (25-35) Mean Corpuscular Hemoglobin Concent 34 g/dL (31-37) 34 g/dL (31-37) Red Cell Distribution Width 14.1 % (11.5-14.5) 13.5 % (11.5-14.5) Platelet Count 167 x10^3/uL (140-400) 136 x10^3/uL (140-400) Neutrophils (%) (Auto) 88 % (31-73) 85 % (31-73) Lymphocytes (%) (Auto) 2 % (24-48) 4 % (24-48) Monocytes (%) (Auto) 9 % (0-9) 11 % (0-9) Eosinophils (%) (Auto) 0 % (0-3) 0 % (0-3) Basophils (%) (Auto) 1 % (0-3) 0 % (0-3) Neutrophils # (Auto) 19.9 x10^3uL (1.8-7.7) 17.8 x10^3uL (1.8-7.7) Lymphocytes # (Auto) 0.5 x10^3/uL (1.0-4.8) 0.8 x10^3/uL (1.0-4.8) Monocytes # (Auto) 2.0 x10^3/uL (0.0-1.1) 2.3 x10^3/uL (0.0-1.1) Eosinophils # (Auto) 0.0 x10^3/uL (0.0-0.7) 0.0 x10^3/uL (0.0-0.7) Basophils # (Auto) 0.2 x10^3/uL (0.0-0.2) 0.1 x10^3/uL (0.0-0.2) Segmented Neutrophils % 74 % (35-66) Band Neutrophils % 15 % (0-9) Lymphocytes % 5 % (24-48) Monocytes % 6 % (0-10) Toxic Granulation Slight Platelet Estimate Adequate (ADEQUATE) Sodium Level 139 mmol/L (136-145) 140 mmol/L (136-145) Potassium Level 3.9 mmol/L (3.5-5.1) 3.3 mmol/L (3.5-5.1) Chloride Level 103 mmol/L (98-107) 107 mmol/L (98-107) Carbon Dioxide Level 27 mmol/L (21-32) 24 mmol/L (21-32) Anion Gap 9 (6-14) 9 (6-14) Blood Urea Nitrogen 24 mg/dL (8-26) 29 mg/dL (8-26) Creatinine 1.8 mg/dL (0.7-1.3) 2.0 mg/dL (0.7-1.3) Estimated GFR (Cockcroft-Gault) 36.4 32.2 BUN/Creatinine Ratio 13 (6-20) Glucose Level 139 mg/dL (70-99) 121 mg/dL (70-99) Lactic Acid Level 2.4 mmol/L (0.4-2.0) 1.1 mmol/L (0.4-2.0) Calcium Level 8.9 mg/dL (8.5-10.1) 8.0 mg/dL (8.5-10.1) Total Bilirubin 0.8 mg/dL (0.2-1.0) Aspartate Amino Transf (AST/SGOT) 24 U/L (15-37) Alanine Aminotransferase (ALT/SGPT) 29 U/L (16-63) Alkaline Phosphatase 105 U/L (46-116) Total Protein 6.2 g/dL (6.4-8.2) Albumin 3.5 g/dL (3.4-5.0) Albumin/Globulin Ratio 1.3 (1.0-1.7) Urine Collection Type Unknown Urine Color Yellow Urine Clarity Cloudy Urine pH 6.5 Urine Specific [place] 1.015 Urine Protein 30 mg/dL (NEG-TRACE) Urine Glucose (UA) Negative mg/dL (NEG) Urine Ketones (Stick) Negative mg/dL (NEG) Urine Blood Negative (NEG) Urine Nitrite Negative (NEG) Urine Bilirubin Negative (NEG) Urine Urobilinogen Dipstick 1.0 mg/dL (0.2 mg/dL) Urine Leukocyte Esterase Moderate (NEG) Urine RBC Occ /HPF (0-2) Urine WBC 20-40 /HPF (0-4) Urine Squamous Epithelial Cells Occ /LPF Urine Bacteria Many /HPF (0-FEW) Urine Mucus Slight /LPF Influenza Type A Antigen Negative (NEGATIVE) Influenza Type B Antigen Negative (NEGATIVE) Microbiology 05/11/17 Blood Culture - Final, Complete 05/11/17 Urine Culture - Preliminary, Resulted 05/11/17 Urine Culture Result 1 (MAZIN) - Preliminary, Resulted Medications Current Medications Sodium Chloride 1,000 ml @ 1,000 mls/hr Q1H IV Last administered on 05/11/17 17:33; Start 05/11/17 at 17:09; Stop 05/11/17 at 18:08; Status DC Levofloxacin/ Dextrose 100 ml @ 100 mls/hr 1X ONCE IV Last administered on 18:38; Start 05/11/17 at 18:30; Stop 05/11/17 at 19:29; Status DC Ondansetron HCl (Zofran) 4 mg PRN Q8HRS PRN IV NAUSEA/VOMITING; Start 05/11/17 at 18:30; Stop 05/12/17 at 18:29 Sodium Chloride 1,000 ml @ 100 mls/hr Q10H IV Last administered on 05/12/17 05:17; Start 05/11/17 at 18:29; Stop 05/12/17 at 18:28 Acetaminophen (Tylenol) 650 mg PRN Q4HRS PRN PO FEVER Last administered on 05/12 03:16; Start 05/11/17 at 18:30; Stop 05/12/17 at 18:29 Allopurinol (Zyloprim) 300 mg HS PO Last administered on 05/11/17 20:37; Start 05/11/17 at 21:00 Amiodarone HCl (Cordarone) 200 mg DAILY PO Last administered on 05/12/17 10:31 ; Start 05/12/17 at 09:00 Aspirin (Children'S Aspirin) 81 mg DAILY PO Last administered on 05/12/17 10: 32; Start 05/12/17 at 09:00 Atorvastatin Calcium (Lipitor) 20 mg QHS PO Last administered on 05/11/17 20: 36; Start 05/11/17 at 21:00 Digoxin (Lanoxin) 125 mcg DAILY PO ; Start 05/12/17 at 09:00 Fluticasone Propionate (Flonase) 2 spray DAILY NS ; Start 05/12/17 at 09:00 Gabapentin (Neurontin) 100 mg TID PO Last administered on 05/12/17 10:33; Start 05/11/17 at 21:00 Metoprolol Succinate (Toprol Xl) 25 mg DAILY PO ; Start 05/12/17 at 09:00 Pantoprazole Sodium (Protonix) 40 mg DAILYAC PO Last administered on 05/12/17 10:20; Start 05/12/17 at 07:30 Heparin Sodium (Porcine) (Heparin Sq) 5,000 unit Q8HRS SQ Last administered on 05/12/17 05:16; Start 05/11/17 at 20:00 Vancomycin HCl 2 gm/Sodium Chloride 500 ml @ 250 mls/hr 1X ONCE IV Last administered on 05/11/17 22:01; Start 05/11/17 at 20:00; Stop 05/11/17 at 21:59 ; Status DC Vancomycin HCl (Vanco Per Pharmacy) 1 each PRN DAILY PRN MC SEE COMMENTS Last administered on 05/11/17 21:52; Start 05/11/17 at 19:15; Stop 05/12/17 at 11:17 ; Status DC Acetaminophen (Tylenol) 650 mg PRN Q6HRS PRN PO FEVER; Start 05/11/17 at 19:15 Ondansetron HCl (Zofran) 4 mg PRN Q6HRS PRN IV NAUSEA/VOMITING; Start 05/11/17 at 19:15 Morphine Sulfate 2 mg PRN Q2HR PRN IV PAIN; Start 05/11/17 at 19:15 Tramadol HCl (Ultram) 50 mg PRN Q6HRS PRN PO PAIN; Start 05/11/17 at 19:15 Hydralazine HCl (Apresoline) 10 mg PRN Q4HRS PRN IVP ELEVATED BP, SEE COMMENTS ; Start 05/11/17 at 19:15 Docusate Sodium (Colace) 100 mg PRN DAILY PRN PO CONSTIPATION; Start 05/11/17 at 19:15 Ceftriaxone Sodium 1 gm/ Sodium Chloride 50 ml @ 100 mls/hr Q24H IV Last administered on 05/11/17 22:36; Start 05/11/17 at 20:00; Stop 05/12/17 at 11:23 ; Status DC Vancomycin HCl 1.5 gm/Sodium Chloride 500 ml @ 250 mls/hr Q24H IV ; Start 05/12 at 22:00; Stop 05/12/17 at 22:00; Status DC Vancomycin HCl 1 each 1X ONCE MC ; Start 05/13/17 at 21:30; Stop 05/13/17 at 21 :30; Status DC Piperacillin Sod/ Tazobactam Sod 3.375 gm/Sodium Chloride 50 ml @ 100 mls/hr Q6HRS IV Last administered on 05/12/17 12:43; Start 05/12/17 at 12:00 Active Scripts Active Gabapentin 100 Mg Capsule 100 Mg PO TID Augmentin 875-125 Tablet (Amoxicillin/Potassium Clav) 1 Each Tablet 1 Tab PO BID Metoprolol Succinate ( Xl ) (Metoprolol Succinate) 25 Mg Tab.er.24h 1 Tab PO DAILY Reported Atorvastatin Calcium 20 Mg Tablet 20 Mg PO DAILY Ondansetron Hcl 8 Mg Tablet 8 Mg PO BID PRN Fluticasone Propionate Nasal [place] (Fluticasone Propionate) 16 Gm [place].susp 2 [place] NS DAILY Allopurinol 300 Mg Tablet 1 Tab PO HS Gleevec (Imatinib Mesylate) 400 Mg Tablet 400 Mg PO DAILY Digoxin 125 Mcg Tablet 1 Tab PO DAILY Amiodarone Hcl 200 Mg Tablet 1 Tab PO DAILY Aspirin 81 Mg Tab.chew 1 Tab PO DAILY Prevacid (Lansoprazole) 30 Mg Capsule.dr 1 Cap PO DAILY Alprazolam 0.5 Mg Tablet 1 Tab PO BID Vitals/I & O Vital Sign - Last 24 Hours 05/11/17 05/11/17 05/11/17 05/11/17 17:00 18:00 19:00 20:30 Temp 98.8 98.8 Pulse 77 74 77 Resp 20 B/P (MAP) 133/62 (85) 129/59 (82) 127/61 (83) Pulse Ox 97 98 97 O2 Delivery Room Air Room Air Room Air Nasal Cannula O2 Flow Rate 2.0 05/11/17 05/12/17 05/12/17 05/12/17 23:00 03:00 04:00 07:20 Temp 100.1 101.2 99.8 98.4 100.1 101.2 99.8 98.4 Pulse 75 73 56 Resp 19 22 24 B/P (MAP) 137/48 (77) 115/49 (71) 105/50 (68) Pulse Ox 97 92 96 O2 Delivery Nasal Cannula Nasal Cannula Nasal Cannula O2 Flow Rate 2.0 2.0 2.0 05/12/17 05/12/17 05/12/17 05/12/17 08:00 09:00 09:00 10:31 Pulse 56 56 56 B/P (MAP) 97/46 97/46 97/46 O2 Delivery Nasal Cannula O2 Flow Rate 2.0 05/12/17 11:11 Temp 97.8 97.8 Pulse 55 Resp 24 B/P (MAP) 97/46 (63) Pulse Ox 94 O2 Delivery Room Air JT BOSS MD May 12, 2017 13:54
--- NOTE | 2017-05-12 15:17 | CONS ---
DATE OF CONSULTATION: 05/12/2017 DATE OF SERVICE: 05/12/2017 REQUESTING PHYSICIAN: Dr. Franklin. REASON FOR CONSULTATION: Gram-negative arcelia bacteremia. HISTORY OF PRESENT ILLNESS: This is an 81-year-old gentleman with history of COPD, coronary artery disease. He has had cancer chemotherapy in the past, who comes in, on Friday, he started having fever and chills. He is still chilling, but has Gram-negative arcelia in the blood. He has had temperature up to 101.2 here. Blood pressure is actually dropping on the low side, 97 now systolic. White count has been high at 22,000. Urinalysis showed 240 wbc's and BUN and creatinine is abnormal. The patient was given Levaquin 1 dose and on Rocephin and vancomycin and consult has been requested. The patient denies any nausea, vomiting, diarrhea. Denies any chest pain, shortness of breath, abdominal pain, urinary symptoms. He did have urinary frequency, but no burning or pain, denies any diarrhea, headache or visual symptoms. PAST MEDICAL HISTORY: Positive for COPD, coronary artery disease, SD in the past, stomach cancer versus pancreatic cancer, has had chemotherapy. He has had a lumbar laminectomy done and a knee surgery done. SOCIAL HISTORY: Negative for smoking, alcohol, illicit drug use. ALLERGIES: Listed as ALLERGIC TO TETANUS AND DIPHTHERIA TOXOID, CODEINE. CURRENT MEDICATIONS: Reviewed. REVIEW OF SYSTEMS: As per HPI, all other systems reviewed are negative. PHYSICAL EXAMINATION: GENERAL: Alert, oriented gentleman, not in any distress. VITAL SIGNS: Stable. Afebrile, although, he had a 101.2 not too long ago earlier today. HEENT: Anicteric. NECK: Supple, no JVP, no lymphadenopathy. LUNGS: Clear. HEART: S1, S2 regular. ABDOMEN: Benign. EXTREMITIES: No edema or cyanosis. SKIN: Unremarkable. NEUROLOGIC: The patient is neurologically intact. LABORATORY DATA: White count is 21,000, platelets are 136. BUN 29, creatinine 2.0. Lactic acid was 2.4. Urinalysis abnormal. Blood culture is Gram-negative arcelia. Urine culture is pending. IMPRESSION: 1. Gram-negative arcelia bacteremia with sepsis. 2. Fever with chills. 3. Leukocytosis. 4. Urinary tract infection with sepsis. 5. Benign prostatic hypertrophy. 6. Coronary artery disease. 7. Hypotension. 8. Chronic obstructive pulmonary disease. RECOMMENDATION: Would change Rocephin to Zosyn, one dose of Levaquin is given, although there is really concerning to redose because of amiodarone, more fluids, supportive care, close monitoring, check the cultures and adjust and we will continue to follow. Thank you very much Dr. Franklin for giving me the opportunity to participate in this patient's care. GRAHAM TRISTAN MD DR: YINA/jenny JOB#: [id number] / [id number]
[2017-05-12] MEDS: ATORVASTATIN CALCIUM 20 MG TABLET PO SCH (21:19)
[2017-05-12] MEDS: ALLOPURINOL 300 MG TABLET. PO SCH (21:19)
[2017-05-12] MEDS ORDERED: VANCOMYCIN 1.5 GM in IV NORMAL SALINE 500ML BAG 500 ML IV SCH (22:00)
[2017-05-13] VITALS (7 sets, daily range): BP systolic 91–160; BP diastolic 35–72
[2017-05-13] MEDS: IV NORMAL SALINE 1000ML BAG 1,000 ML IV SCH ×2 (00:01→10:00)
[2017-05-13] MEDS: PIPERACILLIN/TAZOBACTAM 3.375 GM in IV NORMAL SALINE 50ML 50 ML IV SCH ×3 (05:47→21:44)
[2017-05-13] MEDS: HEPARIN PF for SUB-Q USE 5,000 UNIT/0.5 ML VIAL. SQ SCH ×3 (05:53→21:46)
[2017-05-13] MEDS: ACETAMINOPHEN 325 MG TABLET. PO PRN ×2 (07:25→21:46)
[2017-05-13] MEDS: PANTOPRAZOLE 40 MG TABLET.DR. PO SCH (07:36)
--- NOTE | 2017-05-13 09:50 | PDOC ---
Infectious Disease Note Subjective Subjective pt still running fever, weak ROS ROS HEENT: Denies blurred vision, sore throat CV: Denies chest pain RESP: Denies shortness of air, cough GI: Denies n/v/d NEURO: Denies confusion, dizziness MSK: Denies weakness, joint pain/swelling Vital Sign Vital Signs Vital Signs Date Time Temp Pulse Resp B/P (MAP) Pulse Ox O2 Delivery O2 Flow Rate FiO2 05/13/17 07:40 102.2 79 18 115/64 (81) 92 Nasal Cannula 2.0 102.2 Physical Exam PHYSICAL EXAM GENERAL: NAD, Alert HEENT: PERRL, OC/OP NECK: Supple, no JVD, no LN LUNGS: Clear HEART: S1S2, no gallop, no murmur ABD: Soft, NT, no organomegaly, no rebound EXT: No edema, no cyanosis STRINGED 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
[2017-05-13] MEDS ORDERED: CONTRAST GIVEN MC PRN (10:15)
[2017-05-13] MEDS ORDERED: IOHEXOL 240 MG/ML 50ML VIAL. PO ONE (10:15)
[2017-05-13] MEDS: ASPIRIN CHEWABLE 81 MG TABLET. PO SCH (10:17)
[2017-05-13] MEDS: GABAPENTIN 100 MG CAPSULE. PO SCH ×3 (10:17→21:44)
[2017-05-13] MEDS: DIGOXIN 125 MCG TABLET. PO SCH (10:18)
[2017-05-13] MEDS: METOPROLOL SUCC 24HR ER 25 MG TAB.ER.24H. PO SCH (10:18)
[2017-05-13] MEDS: AMIODARONE HCL 200 MG TABLET. PO SCH (10:19)
[2017-05-13] MEDS: FLUTICASONE 50MCG/NASAL SPRAY 16GM BOTTLE. NS SCH (10:19)
--- NOTE | 2017-05-13 11:36 | PDOC2 ---
CONSULT Date of Consult Date of Consult DATE: 05/13/17 TIME: 11:29 Reason for Consult Reason for Consult: ANNMARIE Referring Physician Referring Physician: ANSELMO Identification/Chief Complaint Chief Complaint WEAKNESS Problems: Source Source: Chart review, Patient History of Present Illness Reason for Visit: THIS IS AN 81 YR OLD ADMITTED WITH WEAKNESS, N/V AND FEVERS. HE HAS BEEN DX WITH GRAM NEG [place] SEPSIS. CR IS 2.0. HE HAS CKD WITH CR OF 1.5. HE HAS HAD SOME LOW BP BUT NOW IMPROVED. HX NOTABLE FOR PANCREATIC CA AND HAS ON CHEMO EVERY COUPLE MONTHS. NO APPETITE. NO HX OF ANY KIDNEY OR BLADDER SURGERIES HEMATURIA DYSURIA OR FREQUENCY NOTED Past Medical History Past Medical History PANCREATIC CA WITH ONGOING CHEMO Cardiovascular: CAD, CHF, HTN, Hyperlipidemia Pulmonary: COPD, Other CENTRAL NERVOUS SYSTEM: Other GI: GERD Heme/Onc: Other Hepatobiliary: No pertinent hx Psych: Anxiety Musculoskeletal: low back pain, Osteoarthritis Rheumatologic: No pertinent hx Infectious disease: No pertinent hx Renal/: Chronic renal insuff, Benign prostatic enlarg. Endocrine: No pertinent hx Past Surgical History Past Surgical History: Other Family History Family History: Coronary Artery Disease, Hypertension Social History No ALCOHOL: none Drugs: None Lives: with Family Domestic Violence: Neg Current Problem List Problem List Problems Medical Problems: (1) Sepsis Status: Acute (2) UTI (urinary tract infection) Status: Acute Current Medications Current Medications Current Medications Sodium Chloride 1,000 ml @ 1,000 mls/hr Q1H IV Last administered on 05/11/17 17:33; Start 05/11/17 at 17:09; Stop 05/11/17 at 18:08; Status DC Levofloxacin/ Dextrose 100 ml @ 100 mls/hr 1X ONCE IV Last administered on 18:38; Start 05/11/17 at 18:30; Stop 05/11/17 at 19:29; Status DC Ondansetron HCl (Zofran) 4 mg PRN Q8HRS PRN IV NAUSEA/VOMITING; Start 05/11/17 at 18:30; Stop 05/12/17 at 18:29; Status DC Sodium Chloride 1,000 ml @ 100 mls/hr Q10H IV Last administered on 05/12/17 05:17; Start 05/11/17 at 18:29; Stop 05/12/17 at 18:28; Status DC Acetaminophen (Tylenol) 650 mg PRN Q4HRS PRN PO FEVER Last administered on 05/12 15:19; Start 05/11/17 at 18:30; Stop 05/12/17 at 18:29; Status DC Allopurinol (Zyloprim) 300 mg HS PO Last administered on 05/12/17 21:19; Start 05/11/17 at 21:00 Amiodarone HCl (Cordarone) 200 mg DAILY PO Last administered on 05/13/17 10:19 ; Start 05/12/17 at 09:00 Aspirin (Children'S Aspirin) 81 mg DAILY PO Last administered on 05/13/17 10: 17; Start 05/12/17 at 09:00 Atorvastatin Calcium (Lipitor) 20 mg QHS PO Last administered on 05/12/17 21: 19; Start 05/11/17 at 21:00 Digoxin (Lanoxin) 125 mcg DAILY PO Last administered on 05/13/17 10:18; Start 05/12/17 at 09:00 Fluticasone Propionate (Flonase) 2 spray DAILY NS Last administered on 10:19; Start 05/12/17 at 09:00 Gabapentin (Neurontin) 100 mg TID PO Last administered on 05/13/17 10:17; Start 05/11/17 at 21:00 Metoprolol Succinate (Toprol Xl) 25 mg DAILY PO Last administered on 05/13/17 10:18; Start 05/12/17 at 09:00 Pantoprazole Sodium (Protonix) 40 mg DAILYAC PO Last administered on 05/13/17 07:36; Start 05/12/17 at 07:30 Heparin Sodium (Porcine) (Heparin Sq) 5,000 unit Q8HRS SQ Last administered on 05/13/17 05:53; Start 05/11/17 at 20:00 Vancomycin HCl 2 gm/Sodium Chloride 500 ml @ 250 mls/hr 1X ONCE IV Last administered on 05/11/17 22:01; Start 05/11/17 at 20:00; Stop 05/11/17 at 21:59 ; Status DC Vancomycin HCl (Vanco Per Pharmacy) 1 each PRN DAILY PRN MC SEE COMMENTS Last administered on 05/11/17 21:52; Start 05/11/17 at 19:15; Stop 05/12/17 at 11:17 ; Status DC Acetaminophen (Tylenol) 650 mg PRN Q6HRS PRN PO FEVER Last administered on 05/13 07:25; Start 05/11/17 at 19:15 Ondansetron HCl (Zofran) 4 mg PRN Q6HRS PRN IV NAUSEA/VOMITING; Start 05/11/17 at 19:15 Morphine Sulfate 2 mg PRN Q2HR PRN IV PAIN Last administered on 05/13/17 03:50 ; Start 05/11/17 at 19:15 Tramadol HCl (Ultram) 50 mg PRN Q6HRS PRN PO PAIN; Start 05/11/17 at 19:15 Hydralazine HCl (Apresoline) 10 mg PRN Q4HRS PRN IVP ELEVATED BP, SEE COMMENTS ; Start 05/11/17 at 19:15 Docusate Sodium (Colace) 100 mg PRN DAILY PRN PO CONSTIPATION; Start 05/11/17 at 19:15 Ceftriaxone Sodium 1 gm/ Sodium Chloride 50 ml @ 100 mls/hr Q24H IV Last administered on 05/11/17 22:36; Start 05/11/17 at 20:00; Stop 05/12/17 at 11:23 ; Status DC Vancomycin HCl 1.5 gm/Sodium Chloride 500 ml @ 250 mls/hr Q24H IV ; Start 05/12 at 22:00; Stop 05/12/17 at 22:00; Status DC Vancomycin HCl 1 each 1X ONCE MC ; Start 05/13/17 at 21:30; Stop 05/13/17 at 21 :30; Status DC Piperacillin Sod/ Tazobactam Sod 3.375 gm/Sodium Chloride 50 ml @ 100 mls/hr Q6HRS IV Last administered on 05/13/17 05:47; Start 05/12/17 at 12:00 Sodium Chloride 1,000 ml @ 100 mls/hr Q10H IV Last administered on 05/13/17 00:01; Start 05/13/17 at 00:00 Iohexol (Omnipaque 240 Mg/ml) 30 ml 1X ONCE PO ; Start 05/13/17 at 10:15; Stop 05/13/17 at 10:16; Status DC Info (Do NOT chart on this entry -- for MONITORING) 1 each PRN DAILY PRN MC SEE COMMENTS; Start 05/13/17 at 10:15; Stop 05/15/17 at 10:14 Active Scripts Active Gabapentin 100 Mg Capsule 100 Mg PO TID Augmentin 875-125 Tablet (Amoxicillin/Potassium Clav) 1 Each Tablet 1 Tab PO BID Metoprolol Succinate ( Xl ) (Metoprolol Succinate) 25 Mg Tab.er.24h 1 Tab PO DAILY Reported Atorvastatin Calcium 20 Mg Tablet 20 Mg PO DAILY Ondansetron Hcl 8 Mg Tablet 8 Mg PO BID PRN Fluticasone Propionate Nasal [place] (Fluticasone Propionate) 16 Gm [place].susp 2 [place] NS DAILY Allopurinol 300 Mg Tablet 1 Tab PO HS Gleevec (Imatinib Mesylate) 400 Mg Tablet 400 Mg PO DAILY Digoxin 125 Mcg Tablet 1 Tab PO DAILY Amiodarone Hcl 200 Mg Tablet 1 Tab PO DAILY Aspirin 81 Mg Tab.chew 1 Tab PO DAILY Prevacid (Lansoprazole) 30 Mg Capsule.dr 1 Cap PO DAILY Alprazolam 0.5 Mg Tablet 1 Tab PO BID Allergies Allergies: Coded Allergies: codeine (Verified Allergy, Intermediate, 05/11/17) Has tolerated Hydromorphone, Tramadol and Oxycodone in the past. tetanus and diphtheria toxoids (Verified Allergy, Intermediate, 10/19/15) immunocompromised ROS Review of System VERY POOR HISTORIAN. DENIES EVERYTHING EXCEPT ABOVE DUE TO FATIGUE AND WANTING TO SLEEP Physical Exam General: Alert, Cooperative, No acute distress HEENT: Atraumatic, PERRLA, Other (DRY MUCOSA) Lungs: Clear to auscultation Heart: Regular rate Abdomen: Normal bowel sounds, No tenderness Extremities: No clubbing Skin: No breakdown Neuro: Normal speech Psych/Mental Status: Other (FLAT AFFECT) MUSCULOSKELETAL: No joint tenderness, Other (DIFFUSE MUSCLE ATROPHY) Vitals VITALS Vital Signs Date Time Temp Pulse Resp B/P (MAP) Pulse Ox O2 Delivery O2 Flow Rate FiO2 05/13/17 10:19 79 115/64 05/13/17 08:00 Nasal Cannula 2.0 05/13/17 07:40 102.2 18 92 102.2 Labs Labs Laboratory Tests Test 05/11/17 17:07 05/11/17 17:18 05/12/17 05:15 05/12/17 11:58 White Blood Count 22.6 x10^3/uL (4.0-11.0) 21.0 x10^3/uL (4.0-11.0) Red Blood Count 3.80 x10^6/uL (4.30-5.70) 3.36 x10^6/uL (4.30-5.70) Hemoglobin 13.3 g/dL (13.0-17.5) 11.8 g/dL (13.0-17.5) Hematocrit 39.2 % (39.0-53.0) 35.0 % (39.0-53.0) Mean Corpuscular Volume 103 fL (79-100) 104 fL (79-100) Mean Corpuscular Hemoglobin 35 pg (25-35) 35 pg (25-35) Mean Corpuscular Hemoglobin Concent 34 g/dL (31-37) 34 g/dL (31-37) Red Cell Distribution Width 14.1 % (11.5-14.5) 13.5 % (11.5-14.5) Platelet Count 167 x10^3/uL (140-400) 136 x10^3/uL (140-400) Neutrophils (%) (Auto) 88 % (31-73) 85 % (31-73) Lymphocytes (%) (Auto) 2 % (24-48) 4 % (24-48) Monocytes (%) (Auto) 9 % (0-9) 11 % (0-9) Eosinophils (%) (Auto) 0 % (0-3) 0 % (0-3) Basophils (%) (Auto) 1 % (0-3) 0 % (0-3) Neutrophils # (Auto) 19.9 x10^3uL (1.8-7.7) 17.8 x10^3uL (1.8-7.7) Lymphocytes # (Auto) 0.5 x10^3/uL (1.0-4.8) 0.8 x10^3/uL (1.0-4.8) Monocytes # (Auto) 2.0 x10^3/uL (0.0-1.1) 2.3 x10^3/uL (0.0-1.1) Eosinophils # (Auto) 0.0 x10^3/uL (0.0-0.7) 0.0 x10^3/uL (0.0-0.7) Basophils # (Auto) 0.2 x10^3/uL (0.0-0.2) 0.1 x10^3/uL (0.0-0.2) Segmented Neutrophils % 74 % (35-66) Band Neutrophils % 15 % (0-9) Lymphocytes % 5 % (24-48) Monocytes % 6 % (0-10) Toxic Granulation Slight Platelet Estimate Adequate (ADEQUATE) Sodium Level 139 mmol/L (136-145) 140 mmol/L (136-145) Potassium Level 3.9 mmol/L (3.5-5.1) 3.3 mmol/L (3.5-5.1) Chloride Level 103 mmol/L (98-107) 107 mmol/L (98-107) Carbon Dioxide Level 27 mmol/L (21-32) 24 mmol/L (21-32) Anion Gap 9 (6-14) 9 (6-14) Blood Urea Nitrogen 24 mg/dL (8-26) 29 mg/dL (8-26) Creatinine 1.8 mg/dL (0.7-1.3) 2.0 mg/dL (0.7-1.3) Estimated GFR (Cockcroft-Gault) 36.4 32.2 BUN/Creatinine Ratio 13 (6-20) Glucose Level 139 mg/dL (70-99) 121 mg/dL (70-99) Lactic Acid Level 2.4 mmol/L (0.4-2.0) 1.1 mmol/L (0.4-2.0) Calcium Level 8.9 mg/dL (8.5-10.1) 8.0 mg/dL (8.5-10.1) Total Bilirubin 0.8 mg/dL (0.2-1.0) Aspartate Amino Transf (AST/SGOT) 24 U/L (15-37) Alanine Aminotransferase (ALT/SGPT) 29 U/L (16-63) Alkaline Phosphatase 105 U/L (46-116) Total Protein 6.2 g/dL (6.4-8.2) Albumin 3.5 g/dL (3.4-5.0) Albumin/Globulin Ratio 1.3 (1.0-1.7) Urine Collection Type Unknown Urine Color Yellow Urine Clarity Cloudy Urine pH 6.5 Urine Specific [place] 1.015 Urine Protein 30 mg/dL (NEG-TRACE) Urine Glucose (UA) Negative mg/dL (NEG) Urine Ketones (Stick) Negative mg/dL (NEG) Urine Blood Negative (NEG) Urine Nitrite Negative (NEG) Urine Bilirubin Negative (NEG) Urine Urobilinogen Dipstick 1.0 mg/dL (0.2 mg/dL) Urine Leukocyte Esterase Moderate (NEG) Urine RBC Occ /HPF (0-2) Urine WBC 20-40 /HPF (0-4) Urine Squamous Epithelial Cells Occ /LPF Urine Bacteria Many /HPF (0-FEW) Urine Mucus Slight /LPF Influenza Type A Antigen Negative (NEGATIVE) Influenza Type B Antigen Negative (NEGATIVE) Laboratory Tests Test 05/12/17 11:58 Influenza Type A Antigen Negative (NEGATIVE) Influenza Type B Antigen Negative (NEGATIVE) Assessment/Plan Assessment/Plan IMP SEPSIS ANNMARIE WITH CR OF 2.0 CKD STAGE 3 WITH CR OF 1.5 URINARY TRACT INFECTION HYPOTENSION HYPOKALEMIA DEHYDRATION PANCREATIC CA IMMUNOCOMPROMISED PLAN IVF'S PPN REPLACE K ANTIBIOTICS LABS IN AM LEE OTTO MD May 13, 2017 11:36
[2017-05-13] MEDS: POTASSIUM CHLORIDE 10MEQ 100 ML IV SCH ×2 (12:48→17:14)
--- NOTE | 2017-05-13 14:26 | RAD ---
Examination: CT chest abdomen pelvis without IV contrast and with oral contrast History: History of fever. Comparison: CT abdomen and pelvis from 04/19/[address] chest abdomen pelvis from 08/13/2016 Technique: Axial CT images of the abdomen is performed with oral contrast. No IV contrast was given. Coronal and sagittal reformats were performed PQRS Compliance Statement: One or more of the following individualized dose reduction techniques were utilized for this examination: 1. Automated exposure control 2. Adjustment of the mA and/or kV according to patient size 3. Use of iterative reconstruction technique Findings: The visualized thyroid gland grossly appears unremarkable. The central airways are patent. The ascending aorta measures 4.2 cm in transverse dimension. Mild cardiomegaly. Diffuse coronary artery calcifications. Minimal bibasal lung atelectasis with trace bilateral pleural effusions are identified. No evidence of free air identified in the abdomen. The visualized noncontrasted liver, spleen, adrenals grossly appears unremarkable. The gallbladder is moderately distended. The small bowel is nondilated. There is mild inflammatory fat stranding identified about the head of the pancreas. No evidence of intrarenal collecting system calculi identified. Mild prominent appearing descending an yacht master lymph nodes identified with the largest measuring 1.2 cm in the retroperitoneum. Small amount of fluid identified in the retroperitoneum. The appendix is not identified. Contrast and fluid identified in the colon throughout. Few sigmoid colon diverticulosis. Small duodenal diverticulum identified in the third part of the duodenum. Urinary bladder is mildly distended. Mildly limited fat stranding identified on the urinary bladder. The prostate is moderately enlarged. 6.6 cm fatty density identified in the anterior aspect of the right gluteal muscles grossly similar to prior exam likely lipoma. Moderate aortic atherosclerosis Moderate degenerative changes throughout the lumbar spine. Impression: 1. Mild inflammatory fat stranding identified about the head of the pancreas likely acute pancreatitis. Compared to prior exam from 04/19/2017 the inflammation has somewhat decreased. 2. Mild inflammatory fat stranding identified around the urinary bladder. Correlate for cystitis. 3. Moderate prostatomegaly. 4. Moderate distended gallbladder. 5. Mild bibasal lung atelectasis with trace bilateral pleural effusions. 6. Diffuse coronary artery calcifications.
[2017-05-13] MEDS: AMINO AC 3%/ELECTROLYTE/GLYCER 1,000 ML IV SCH (14:48)
--- NOTE | 2017-05-13 16:22 | PDOC ---
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 chronically chronic lower back pain h/o CAD WITH PCI weakness, acquired h/o COPD History of Present Illness History of Present Illness still weak BP still low range pain OK IV abx pt and ot Vitals Vitals Vital Signs Date Time Temp Pulse Resp B/P (MAP) Pulse Ox O2 Delivery O2 Flow Rate FiO2 05/13/17 15:41 98.5 52 18 106/60 (75) 95 Nasal Cannula 2.0 98.5 Physical Exam General: Alert, Oriented X3, Cooperative, No acute distress Heart: Regular rate Lungs: Clear Abdomen: Normal bowel sounds, No tenderness Extremities: No clubbing Skin: No breakdown Review of Systems Review of Systems lethargy, weak Assessment and Plan Assessmemt and Plan Problems Medical Problems: (1) Sepsis Status: Acute (2) UTI (urinary tract infection) Status: Acute Problems: Comment Review of Relevant I have reviewed the following items jannet (where applicable) has been applied. Labs Laboratory Tests Test 05/11/17 17:07 05/11/17 17:18 05/12/17 05:15 05/12/17 11:58 White Blood Count 22.6 x10^3/uL (4.0-11.0) 21.0 x10^3/uL (4.0-11.0) Red Blood Count 3.80 x10^6/uL (4.30-5.70) 3.36 x10^6/uL (4.30-5.70) Hemoglobin 13.3 g/dL (13.0-17.5) 11.8 g/dL (13.0-17.5) Hematocrit 39.2 % (39.0-53.0) 35.0 % (39.0-53.0) Mean Corpuscular Volume 103 fL (79-100) 104 fL (79-100) Mean Corpuscular Hemoglobin 35 pg (25-35) 35 pg (25-35) Mean Corpuscular Hemoglobin Concent 34 g/dL (31-37) 34 g/dL (31-37) Red Cell Distribution Width 14.1 % (11.5-14.5) 13.5 % (11.5-14.5) Platelet Count 167 x10^3/uL (140-400) 136 x10^3/uL (140-400) Neutrophils (%) (Auto) 88 % (31-73) 85 % (31-73) Lymphocytes (%) (Auto) 2 % (24-48) 4 % (24-48) Monocytes (%) (Auto) 9 % (0-9) 11 % (0-9) Eosinophils (%) (Auto) 0 % (0-3) 0 % (0-3) Basophils (%) (Auto) 1 % (0-3) 0 % (0-3) Neutrophils # (Auto) 19.9 x10^3uL (1.8-7.7) 17.8 x10^3uL (1.8-7.7) Lymphocytes # (Auto) 0.5 x10^3/uL (1.0-4.8) 0.8 x10^3/uL (1.0-4.8) Monocytes # (Auto) 2.0 x10^3/uL (0.0-1.1) 2.3 x10^3/uL (0.0-1.1) Eosinophils # (Auto) 0.0 x10^3/uL (0.0-0.7) 0.0 x10^3/uL (0.0-0.7) Basophils # (Auto) 0.2 x10^3/uL (0.0-0.2) 0.1 x10^3/uL (0.0-0.2) Segmented Neutrophils % 74 % (35-66) Band Neutrophils % 15 % (0-9) Lymphocytes % 5 % (24-48) Monocytes % 6 % (0-10) Toxic Granulation Slight Platelet Estimate Adequate (ADEQUATE) Sodium Level 139 mmol/L (136-145) 140 mmol/L (136-145) Potassium Level 3.9 mmol/L (3.5-5.1) 3.3 mmol/L (3.5-5.1) Chloride Level 103 mmol/L (98-107) 107 mmol/L (98-107) Carbon Dioxide Level 27 mmol/L (21-32) 24 mmol/L (21-32) Anion Gap 9 (6-14) 9 (6-14) Blood Urea Nitrogen 24 mg/dL (8-26) 29 mg/dL (8-26) Creatinine 1.8 mg/dL (0.7-1.3) 2.0 mg/dL (0.7-1.3) Estimated GFR (Cockcroft-Gault) 36.4 32.2 BUN/Creatinine Ratio 13 (6-20) Glucose Level 139 mg/dL (70-99) 121 mg/dL (70-99) Lactic Acid Level 2.4 mmol/L (0.4-2.0) 1.1 mmol/L (0.4-2.0) Calcium Level 8.9 mg/dL (8.5-10.1) 8.0 mg/dL (8.5-10.1) Total Bilirubin 0.8 mg/dL (0.2-1.0) Aspartate Amino Transf (AST/SGOT) 24 U/L (15-37) Alanine Aminotransferase (ALT/SGPT) 29 U/L (16-63) Alkaline Phosphatase 105 U/L (46-116) Total Protein 6.2 g/dL (6.4-8.2) Albumin 3.5 g/dL (3.4-5.0) Albumin/Globulin Ratio 1.3 (1.0-1.7) Urine Collection Type Unknown Urine Color Yellow Urine Clarity Cloudy Urine pH 6.5 Urine Specific [place] 1.015 Urine Protein 30 mg/dL (NEG-TRACE) Urine Glucose (UA) Negative mg/dL (NEG) Urine Ketones (Stick) Negative mg/dL (NEG) Urine Blood Negative (NEG) Urine Nitrite Negative (NEG) Urine Bilirubin Negative (NEG) Urine Urobilinogen Dipstick 1.0 mg/dL (0.2 mg/dL) Urine Leukocyte Esterase Moderate (NEG) Urine RBC Occ /HPF (0-2) Urine WBC 20-40 /HPF (0-4) Urine Squamous Epithelial Cells Occ /LPF Urine Bacteria Many /HPF (0-FEW) Urine Mucus Slight /LPF Influenza Type A Antigen Negative (NEGATIVE) Influenza Type B Antigen Negative (NEGATIVE) Microbiology 05/11/17 Blood Culture - Preliminary, Resulted 05/11/17 Blood Culture Result 1 (MAZIN) - Preliminary, Resulted 05/11/17 Urine Culture - Final, Complete 05/11/17 Urine Culture Result 1 (MAZIN) - Final, Complete 05/11/17 Antimicrobic Susceptibility - Final, Complete Medications Current Medications Sodium Chloride 1,000 ml @ 1,000 mls/hr Q1H IV Last administered on 05/11/17 17:33; Start 05/11/17 at 17:09; Stop 05/11/17 at 18:08; Status DC Levofloxacin/ Dextrose 100 ml @ 100 mls/hr 1X ONCE IV Last administered on 18:38; Start 05/11/17 at 18:30; Stop 05/11/17 at 19:29; Status DC Ondansetron HCl (Zofran) 4 mg PRN Q8HRS PRN IV NAUSEA/VOMITING; Start 05/11/17 at 18:30; Stop 05/12/17 at 18:29; Status DC Sodium Chloride 1,000 ml @ 100 mls/hr Q10H IV Last administered on 05/12/17 05:17; Start 05/11/17 at 18:29; Stop 05/12/17 at 18:28; Status DC Acetaminophen (Tylenol) 650 mg PRN Q4HRS PRN PO FEVER Last administered on 05/12 15:19; Start 05/11/17 at 18:30; Stop 05/12/17 at 18:29; Status DC Allopurinol (Zyloprim) 300 mg HS PO Last administered on 05/12/17 21:19; Start 05/11/17 at 21:00 Amiodarone HCl (Cordarone) 200 mg DAILY PO Last administered on 05/13/17 10:19 ; Start 05/12/17 at 09:00 Aspirin (Children'S Aspirin) 81 mg DAILY PO Last administered on 05/13/17 10: 17; Start 05/12/17 at 09:00 Atorvastatin Calcium (Lipitor) 20 mg QHS PO Last administered on 05/12/17 21: 19; Start 05/11/17 at 21:00 Digoxin (Lanoxin) 125 mcg DAILY PO Last administered on 05/13/17 10:18; Start 05/12/17 at 09:00 Fluticasone Propionate (Flonase) 2 spray DAILY NS Last administered on 10:19; Start 05/12/17 at 09:00 Gabapentin (Neurontin) 100 mg TID PO Last administered on 05/13/17 15:37; Start 05/11/17 at 21:00 Metoprolol Succinate (Toprol Xl) 25 mg DAILY PO Last administered on 05/13/17 10:18; Start 05/12/17 at 09:00 Pantoprazole Sodium (Protonix) 40 mg DAILYAC PO Last administered on 05/13/17 07:36; Start 05/12/17 at 07:30 Heparin Sodium (Porcine) (Heparin Sq) 5,000 unit Q8HRS SQ Last administered on 05/13/17 15:42; Start 05/11/17 at 20:00 Vancomycin HCl 2 gm/Sodium Chloride 500 ml @ 250 mls/hr 1X ONCE IV Last administered on 05/11/17 22:01; Start 05/11/17 at 20:00; Stop 05/11/17 at 21:59 ; Status DC Vancomycin HCl (Vanco Per Pharmacy) 1 each PRN DAILY PRN MC SEE COMMENTS Last administered on 05/11/17 21:52; Start 05/11/17 at 19:15; Stop 05/12/17 at 11:17 ; Status DC Acetaminophen (Tylenol) 650 mg PRN Q6HRS PRN PO FEVER Last administered on 05/13 07:25; Start 05/11/17 at 19:15 Ondansetron HCl (Zofran) 4 mg PRN Q6HRS PRN IV NAUSEA/VOMITING; Start 05/11/17 at 19:15 Morphine Sulfate 2 mg PRN Q2HR PRN IV PAIN Last administered on 05/13/17 03:50 ; Start 05/11/17 at 19:15 Tramadol HCl (Ultram) 50 mg PRN Q6HRS PRN PO PAIN; Start 05/11/17 at 19:15 Hydralazine HCl (Apresoline) 10 mg PRN Q4HRS PRN IVP ELEVATED BP, SEE COMMENTS ; Start 05/11/17 at 19:15 Docusate Sodium (Colace) 100 mg PRN DAILY PRN PO CONSTIPATION; Start 05/11/17 at 19:15 Ceftriaxone Sodium 1 gm/ Sodium Chloride 50 ml @ 100 mls/hr Q24H IV Last administered on 05/11/17 22:36; Start 05/11/17 at 20:00; Stop 05/12/17 at 11:23 ; Status DC Vancomycin HCl 1.5 gm/Sodium Chloride 500 ml @ 250 mls/hr Q24H IV ; Start 05/12 at 22:00; Stop 05/12/17 at 22:00; Status DC Vancomycin HCl 1 each 1X ONCE MC ; Start 05/13/17 at 21:30; Stop 05/13/17 at 21 :30; Status DC Piperacillin Sod/ Tazobactam Sod 3.375 gm/Sodium Chloride 50 ml @ 100 mls/hr Q6HRS IV Last administered on 05/13/17 15:32; Start 05/12/17 at 12:00 Sodium Chloride 1,000 ml @ 50 mls/hr Q20H IV Last administered on 05/13/17 00 :01; Start 05/13/17 at 00:00 Iohexol (Omnipaque 240 Mg/ml) 30 ml 1X ONCE PO Last administered on 05/13/17 10:15; Start 05/13/17 at 10:15; Stop 05/13/17 at 10:16; Status DC Info (Do NOT chart on this entry -- for MONITORING) 1 each PRN DAILY PRN MC SEE COMMENTS; Start 05/13/17 at 10:15; Stop 05/15/17 at 10:14 Amino Acids/ Glycerin/ Electrolytes 1,000 ml @ 80 mls/hr [id number] IV Last administered on 05/13/17 14:48; Start 05/13/17 at 12:00 Potassium Chloride 100 ml @ 100 mls/hr Q1H IV Last administered on 05/13/17 12:48; Start 05/13/17 at 12:00; Stop 05/13/17 at 13:59; Status DC Active Scripts Active Gabapentin 100 Mg Capsule 100 Mg PO TID Augmentin 875-125 Tablet (Amoxicillin/Potassium Clav) 1 Each Tablet 1 Tab PO BID Metoprolol Succinate ( Xl ) (Metoprolol Succinate) 25 Mg Tab.er.24h 1 Tab PO DAILY Reported Atorvastatin Calcium 20 Mg Tablet 20 Mg PO DAILY Ondansetron Hcl 8 Mg Tablet 8 Mg PO BID PRN Fluticasone Propionate Nasal [place] (Fluticasone Propionate) 16 Gm Mineral.susp 2 Mineral NS DAILY Allopurinol 300 Mg Tablet 1 Tab PO HS Gleevec (Imatinib Mesylate) 400 Mg Tablet 400 Mg PO DAILY Digoxin 125 Mcg Tablet 1 Tab PO DAILY Amiodarone Hcl 200 Mg Tablet 1 Tab PO DAILY Aspirin 81 Mg Tab.chew 1 Tab PO DAILY Prevacid (Lansoprazole) 30 Mg Capsule.dr 1 Cap PO DAILY Alprazolam 0.5 Mg Tablet 1 Tab PO BID Vitals/I & O Vital Sign - Last 24 Hours 05/12/17 05/12/17 05/12/17 05/12/17 19:55 21:45 21:45 23:17 Temp 99.5 103.1 100.6 99.5 103.1 100.6 Pulse 81 79 Resp 16 16 B/P (MAP) 141/61 (87) 115/48 (70) Pulse Ox 94 92 O2 Delivery Nasal Cannula Nasal Cannula Nasal Cannula O2 Flow Rate 2.0 2.0 2.0 05/13/17 05/13/17 05/13/17 05/13/17 03:40 03:50 04:20 07:40 Temp 101.2 102.2 101.2 102.2 Pulse 91 79 Resp 18 22 24 18 B/P (MAP) 138/71 (93) 115/64 (81) Pulse Ox 96 92 O2 Delivery Nasal Cannula Nasal Cannula Nasal Cannula Nasal Cannula O2 Flow Rate 2.0 2.0 2.0 2.0 05/13/17 05/13/17 05/13/17 05/13/17 08:00 10:18 10:18 10:19 Pulse 79 79 79 B/P (MAP) 115/64 115/64 115/64 O2 Delivery Nasal Cannula O2 Flow Rate 2.0 05/13/17 05/13/17 11:37 15:41 Temp 98.9 98.5 98.9 98.5 Pulse 57 52 Resp 19 18 B/P (MAP) 91/35 (53) 106/60 (75) Pulse Ox 93 95 O2 Delivery Nasal Cannula Nasal Cannula O2 Flow Rate 2.0 2.0 JT BOSS MD May 13, 2017 16:22
[2017-05-13] MEDS: ATORVASTATIN CALCIUM 20 MG TABLET PO SCH (21:44)
[2017-05-13] MEDS: ALLOPURINOL 300 MG TABLET. PO SCH (21:44)
[2017-05-14] MEDS: PIPERACILLIN/TAZOBACTAM 3.375 GM in IV NORMAL SALINE 50ML 50 ML IV SCH ×2 (01:37→06:17)
[2017-05-14 03:00] VITALS: BP 142/56
[2017-05-14] MEDS: AMINO AC 3%/ELECTROLYTE/GLYCER 1,000 ML IV SCH ×2 (03:42→17:33)
[2017-05-14] MEDS: ALBUTEROL SULFATE 2.5 MG/3 ML NEBU. NEB PRN (04:35)
[2017-05-14] MEDS: guaiFENesin DM 200MG/20MG 10 ML SYRUP PO PRN (04:49)
[2017-05-14] MEDS: ACETAMINOPHEN 325 MG TABLET. PO PRN (06:11)
[2017-05-14] MEDS: HEPARIN PF for SUB-Q USE 5,000 UNIT/0.5 ML VIAL. SQ SCH ×3 (06:13→22:19)
[2017-05-14] MEDS: PANTOPRAZOLE 40 MG TABLET.DR. PO SCH (06:13)
[2017-05-14] MEDS: IV NORMAL SALINE 1000ML BAG 1,000 ML IV SCH (06:15)
[2017-05-14] MEDS: IPRATRPIUM/ALBUTEROL 0.5/2.5MG 3 ML NEBU. NEB SCH ×4 (07:25→19:17)
[2017-05-14 07:39] LABS: CALCIUM 8.3 mg/dL (8.5-10.1); CREATININE 1.7 mg/dL (0.7-1.3); GFR 38.9; PHOSPHORUS 2.2 mg/dL (2.6-4.7); POTASSIUM 3.7 mmol/L (3.5-5.1)
[2017-05-14 07:40] VITALS: BP 122/50
--- NOTE | 2017-05-14 09:12 | PDOC ---
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 chronically chronic lower back pain h/o CAD WITH PCI weakness, acquired h/o COPD History of Present Illness History of Present Illness still weak BP still low range pain OK IV abx pt and ot Vitals Vitals Vital Signs Date Time Temp Pulse Resp B/P (MAP) Pulse Ox O2 Delivery O2 Flow Rate FiO2 05/14/17 07:40 98.2 57 19 122/50 (74) 96 Nasal Cannula 2.0 98.2 Physical Exam General: Alert, Oriented X3, Cooperative, No acute distress Heart: Regular rate Lungs: Clear Abdomen: Normal bowel sounds, No tenderness Extremities: No clubbing Skin: No breakdown Labs LABS Laboratory Tests Test 05/14/17 06:30 Sodium Level 142 mmol/L (136-145) Potassium Level 3.7 mmol/L (3.5-5.1) Chloride Level 109 mmol/L (98-107) Carbon Dioxide Level 26 mmol/L (21-32) Anion Gap 7 (6-14) Blood Urea Nitrogen 25 mg/dL (8-26) Creatinine 1.7 mg/dL (0.7-1.3) Estimated GFR (Cockcroft-Gault) 38.9 Glucose Level 111 mg/dL (70-99) Calcium Level 8.3 mg/dL (8.5-10.1) Phosphorus Level 2.2 mg/dL (2.6-4.7) Magnesium Level 2.0 mg/dL (1.8-2.4) Review of Systems Review of Systems str better still weak some clear liq PO intake no event Assessment and Plan Assessmemt and Plan Problems Medical Problems: (1) Sepsis Status: Acute (2) UTI (urinary tract infection) Status: Acute Problems: Comment Review of Relevant I have reviewed the following items jannet (where applicable) has been applied. Labs Laboratory Tests Test 05/12/17 11:58 05/14/17 06:30 Influenza Type A Antigen Negative (NEGATIVE) Influenza Type B Antigen Negative (NEGATIVE) Sodium Level 142 mmol/L (136-145) Potassium Level 3.7 mmol/L (3.5-5.1) Chloride Level 109 mmol/L (98-107) Carbon Dioxide Level 26 mmol/L (21-32) Anion Gap 7 (6-14) Blood Urea Nitrogen 25 mg/dL (8-26) Creatinine 1.7 mg/dL (0.7-1.3) Estimated GFR (Cockcroft-Gault) 38.9 Glucose Level 111 mg/dL (70-99) Calcium Level 8.3 mg/dL (8.5-10.1) Phosphorus Level 2.2 mg/dL (2.6-4.7) Magnesium Level 2.0 mg/dL (1.8-2.4) Laboratory Tests Test 05/14/17 06:30 Sodium Level 142 mmol/L (136-145) Potassium Level 3.7 mmol/L (3.5-5.1) Chloride Level 109 mmol/L (98-107) Carbon Dioxide Level 26 mmol/L (21-32) Anion Gap 7 (6-14) Blood Urea Nitrogen 25 mg/dL (8-26) Creatinine 1.7 mg/dL (0.7-1.3) Estimated GFR (Cockcroft-Gault) 38.9 Glucose Level 111 mg/dL (70-99) Calcium Level 8.3 mg/dL (8.5-10.1) Phosphorus Level 2.2 mg/dL (2.6-4.7) Magnesium Level 2.0 mg/dL (1.8-2.4) Microbiology 05/11/17 Blood Culture - Preliminary, Resulted 05/11/17 Blood Culture Result 1 (MAZIN) - Preliminary, Resulted 05/11/17 Urine Culture - Final, Complete 05/11/17 Urine Culture Result 1 (MAZIN) - Final, Complete 05/11/17 Antimicrobic Susceptibility - Final, Complete Medications Current Medications Sodium Chloride 1,000 ml @ 1,000 mls/hr Q1H IV Last administered on 05/11/17 17:33; Start 05/11/17 at 17:09; Stop 05/11/17 at 18:08; Status DC Levofloxacin/ Dextrose 100 ml @ 100 mls/hr 1X ONCE IV Last administered on 18:38; Start 05/11/17 at 18:30; Stop 05/11/17 at 19:29; Status DC Ondansetron HCl (Zofran) 4 mg PRN Q8HRS PRN IV NAUSEA/VOMITING; Start 05/11/17 at 18:30; Stop 05/12/17 at 18:29; Status DC Sodium Chloride 1,000 ml @ 100 mls/hr Q10H IV Last administered on 05/12/17 05:17; Start 05/11/17 at 18:29; Stop 05/12/17 at 18:28; Status DC Acetaminophen (Tylenol) 650 mg PRN Q4HRS PRN PO FEVER Last administered on 05/12 15:19; Start 05/11/17 at 18:30; Stop 05/12/17 at 18:29; Status DC Allopurinol (Zyloprim) 300 mg HS PO Last administered on 05/13/17 21:44; Start 05/11/17 at 21:00 Amiodarone HCl (Cordarone) 200 mg DAILY PO Last administered on 05/13/17 10:19 ; Start 05/12/17 at 09:00 Aspirin (Children'S Aspirin) 81 mg DAILY PO Last administered on 05/13/17 10: 17; Start 05/12/17 at 09:00 Atorvastatin Calcium (Lipitor) 20 mg QHS PO Last administered on 05/13/17 21: 44; Start 05/11/17 at 21:00 Digoxin (Lanoxin) 125 mcg DAILY PO Last administered on 05/13/17 10:18; Start 05/12/17 at 09:00 Fluticasone Propionate (Flonase) 2 spray DAILY NS Last administered on 10:19; Start 05/12/17 at 09:00 Gabapentin (Neurontin) 100 mg TID PO Last administered on 05/13/17 21:44; Start 05/11/17 at 21:00 Metoprolol Succinate (Toprol Xl) 25 mg DAILY PO Last administered on 05/13/17 10:18; Start 05/12/17 at 09:00 Pantoprazole Sodium (Protonix) 40 mg DAILYAC PO Last administered on 05/14/17 06:13; Start 05/12/17 at 07:30 Heparin Sodium (Porcine) (Heparin Sq) 5,000 unit Q8HRS SQ Last administered on 05/14/17 06:13; Start 05/11/17 at 20:00 Vancomycin HCl 2 gm/Sodium Chloride 500 ml @ 250 mls/hr 1X ONCE IV Last administered on 05/11/17 22:01; Start 05/11/17 at 20:00; Stop 05/11/17 at 21:59 ; Status DC Vancomycin HCl (Vanco Per Pharmacy) 1 each PRN DAILY PRN MC SEE COMMENTS Last administered on 05/11/17 21:52; Start 05/11/17 at 19:15; Stop 05/12/17 at 11:17 ; Status DC Acetaminophen (Tylenol) 650 mg PRN Q6HRS PRN PO FEVER Last administered on 05/14 06:11; Start 05/11/17 at 19:15 Ondansetron HCl (Zofran) 4 mg PRN Q6HRS PRN IV NAUSEA/VOMITING; Start 05/11/17 at 19:15 Morphine Sulfate 2 mg PRN Q2HR PRN IV PAIN Last administered on 05/13/17 03:50 ; Start 05/11/17 at 19:15 Tramadol HCl (Ultram) 50 mg PRN Q6HRS PRN PO PAIN; Start 05/11/17 at 19:15 Hydralazine HCl (Apresoline) 10 mg PRN Q4HRS PRN IVP ELEVATED BP, SEE COMMENTS ; Start 05/11/17 at 19:15 Docusate Sodium (Colace) 100 mg PRN DAILY PRN PO CONSTIPATION; Start 05/11/17 at 19:15 Ceftriaxone Sodium 1 gm/ Sodium Chloride 50 ml @ 100 mls/hr Q24H IV Last administered on 05/11/17 22:36; Start 05/11/17 at 20:00; Stop 05/12/17 at 11:23 ; Status DC Vancomycin HCl 1.5 gm/Sodium Chloride 500 ml @ 250 mls/hr Q24H IV ; Start 05/12 at 22:00; Stop 05/12/17 at 22:00; Status DC Vancomycin HCl 1 each 1X ONCE MC ; Start 05/13/17 at 21:30; Stop 05/13/17 at 21 :30; Status DC Piperacillin Sod/ Tazobactam Sod 3.375 gm/Sodium Chloride 50 ml @ 100 mls/hr Q6HRS IV Last administered on 05/14/17 06:17; Start 05/12/17 at 12:00 Sodium Chloride 1,000 ml @ 50 mls/hr Q20H IV Last administered on 05/14/17 06 :15; Start 05/13/17 at 00:00 Iohexol (Omnipaque 240 Mg/ml) 30 ml 1X ONCE PO Last administered on 05/13/17 10:15; Start 05/13/17 at 10:15; Stop 05/13/17 at 10:16; Status DC Info (Do NOT chart on this entry -- for MONITORING) 1 each PRN DAILY PRN MC SEE COMMENTS; Start 05/13/17 at 10:15; Stop 05/15/17 at 10:14 Amino Acids/ Glycerin/ Electrolytes 1,000 ml @ 80 mls/hr [id number] IV Last administered on 05/14/17 03:42; Start 05/13/17 at 12:00 Potassium Chloride 100 ml @ 100 mls/hr Q1H IV Last administered on 05/13/17 17:14; Start 05/13/17 at 12:00; Stop 05/13/17 at 13:59; Status DC Albuterol/ Ipratropium (Duoneb) 3 ml RTQID NEB Last administered on 05/14/17 07:25; Start 05/14/17 at 08:00 Albuterol Sulfate (Ventolin Neb Soln) 2.5 mg PRN Q2HR PRN NEB SHORTNESS OF BREATH Last administered on 05/14/17 04:35; Start 05/14/17 at 04:30 Guaifenesin (Robitussin Dm) 10 ml PRN QID PRN PO cough Last administered on 04:49; Start 05/14/17 at 04:30 Active Scripts Active Gabapentin 100 Mg Capsule 100 Mg PO TID Augmentin 875-125 Tablet (Amoxicillin/Potassium Clav) 1 Each Tablet 1 Tab PO BID Metoprolol Succinate ( Xl ) (Metoprolol Succinate) 25 Mg Tab.er.24h 1 Tab PO DAILY Reported Atorvastatin Calcium 20 Mg Tablet 20 Mg PO DAILY Ondansetron Hcl 8 Mg Tablet 8 Mg PO BID PRN Fluticasone Propionate Nasal Ririe (Fluticasone Propionate) 16 Gm Ririe.susp 2 Ririe NS DAILY Allopurinol 300 Mg Tablet 1 Tab PO HS Gleevec (Imatinib Mesylate) 400 Mg Tablet 400 Mg PO DAILY Digoxin 125 Mcg Tablet 1 Tab PO DAILY Amiodarone Hcl 200 Mg Tablet 1 Tab PO DAILY Aspirin 81 Mg Tab.chew 1 Tab PO DAILY Prevacid (Lansoprazole) 30 Mg Capsule.dr 1 Cap PO DAILY Alprazolam 0.5 Mg Tablet 1 Tab PO BID Vitals/I & O Vital Sign - Last 24 Hours 05/13/17 05/13/17 05/13/17 05/13/17 10:18 10:18 10:19 11:37 Temp 98.9 98.9 Pulse 79 79 79 57 Resp 19 B/P (MAP) 115/64 115/64 115/64 91/35 (53) Pulse Ox 93 O2 Delivery Nasal Cannula O2 Flow Rate 2.0 05/13/17 05/13/17 05/13/17 05/13/17 15:41 19:00 20:00 23:00 Temp 98.5 101.2 100.0 98.5 101.2 100.0 Pulse 52 69 56 Resp 18 24 21 B/P (MAP) 106/60 (75) 160/58 (92) 108/39 (62) Pulse Ox 95 93 94 O2 Delivery Nasal Cannula Nasal Cannula Nasal Cannula Nasal Cannula O2 Flow Rate 2.0 2.0 2.0 2.0 05/14/17 05/14/17 05/14/17 03:00 04:36 07:40 Temp 100.3 98.2 100.3 98.2 Pulse 51 57 Resp 21 19 B/P (MAP) 142/56 (84) 122/50 (74) Pulse Ox 94 98 96 O2 Delivery Nasal Cannula Nasal Cannula Nasal Cannula O2 Flow Rate 2.0 2.0 2.0 Intake and Output 05/14/17 05/14/17 05/15/17 15:00 23:00 07:00 Output Total 100 ml Balance -100 ml JT BOSS MD May 14, 2017 09:12
[2017-05-14] MEDS: FLUTICASONE 50MCG/NASAL SPRAY 16GM BOTTLE. NS SCH (09:32)
[2017-05-14] MEDS: ASPIRIN CHEWABLE 81 MG TABLET. PO SCH (09:52)
[2017-05-14] MEDS: METOPROLOL SUCC 24HR ER 25 MG TAB.ER.24H. PO SCH (09:52)
[2017-05-14] MEDS: GABAPENTIN 100 MG CAPSULE. PO SCH ×3 (09:52→22:12)
[2017-05-14] MEDS: AMIODARONE HCL 200 MG TABLET. PO SCH (09:52)
[2017-05-14] MEDS: DIGOXIN 125 MCG TABLET. PO SCH (09:53)
--- NOTE | 2017-05-14 10:33 | PDOC ---
Infectious Disease Note Subjective Subjective pt feeling better ROS ROS GEN: Denies fevers, chills, sweats HEENT: Denies blurred vision, sore throat CV: Denies chest pain RESP: Denies shortness of air, cough GI: Denies n/v/d NEURO: Denies confusion, dizziness MSK: Denies weakness, joint pain/swelling Vital Sign Vital Signs Vital Signs Date Time Temp Pulse Resp B/P (MAP) Pulse Ox O2 Delivery O2 Flow Rate FiO2 05/14/17 09:59 98 Nasal Cannula 2.0 05/14/17 09:53 57 122/50 05/14/17 07:40 98.2 19 98.2 Physical Exam PHYSICAL EXAM GENERAL: NAD, Alert HEENT: PERRL, OC/OP NECK: Supple, no JVD, no LN LUNGS: Clear HEART: S1S2, no gallop, no murmur ABD: Soft, NT, no organomegaly, no rebound EXT: No edema, no cyanosis 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, 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, no focal neurologic deficit SKIN: No rash IV: ok Labs Lab Laboratory Tests Test 05/14/17 06:30 Sodium Level 142 mmol/L (136-145) Potassium Level 3.7 mmol/L (3.5-5.1) Chloride Level 109 mmol/L (98-107) Carbon Dioxide Level 26 mmol/L (21-32) Anion Gap 7 (6-14) Blood Urea Nitrogen 25 mg/dL (8-26) Creatinine 1.7 mg/dL (0.7-1.3) Estimated GFR (Cockcroft-Gault) 38.9 Glucose Level 111 mg/dL (70-99) Calcium Level 8.3 mg/dL (8.5-10.1) Phosphorus Level 2.2 mg/dL (2.6-4.7) Magnesium Level 2.0 mg/dL (1.8-2.4) Micro BLOOD CULTURE PRL Preliminary Preliminary report BLD CULT RESULT 1 Preliminary Klebsiella ozaenae Recovered from anaerobic bottle only. ANTIMICROBIAL SUSCEPTIBILITY Preliminary Comment S = Susceptible; I = Intermediate; R = Resistant P = Positive; N = Negative MICS are expressed in micrograms per mL Antibiotic RSLT#1 RSLT#2 RSLT#3 RSLT#4 Amoxicillin/Clavulanic Acid S Ampicillin R Cefepime S Ceftriaxone S Cefuroxime S Cephalothin S Ciprofloxacin S Ertapenem S Gentamicin S Imipenem S Levofloxacin S Nitrofurantoin I Piperacillin S Tetracycline S Tobramycin S Trimethoprim/Sulfa S Performed at: [facility] [place], [place] [id number] Dna Analyst: Nancy Sierra MD, Phone: [phone] END OF REPORT URINE CULTURE Final Final report URINE CULTURE RES 1 Final Klebsiella pneumoniae Greater than 100,000 colony forming units per mL Cefazolin <=4 ug/mL Cefazolin with an MAZIN <=16 predicts susceptibility to the oral agents cefaclor, cefdinir, cefpodoxime, cefprozil, cefuroxime, cephalexin, and loracarbef when used for therapy of uncomplicated urinary tract infections due to E. coli, Klebsiella pneumoniae, and Proteus mirabilis. ANTIMICROBIAL SUSCEPTIBILITY Final Comment S = Susceptible; I = Intermediate; R = Resistant P = Positive; N = Negative MICS are expressed in micrograms per mL Antibiotic RSLT#1 RSLT#2 RSLT#3 RSLT#4 Amoxicillin/Clavulanic Acid S Ampicillin R Cefepime S Ceftriaxone S Cefuroxime S Cephalothin S Ciprofloxacin S Ertapenem S Gentamicin S Imipenem S Levofloxacin S Nitrofurantoin I Piperacillin S Tetracycline S Tobramycin S Trimethoprim/Sulfa S Performed at: [facility] [place], [place] [id number] CONTINUED ON NEXT PAGE RUN DATE: 05/13/17 PAGE 2 RUN TIME: 6292 [facility] [address] [place] [address] Daryl Yang M.D., Rf Test Technician Objective Assessment G neg arcelia bacteremia UTI with sepsis Fever and chills Leukocytosis Renal insuff BPH Plan Plan of Care cont levaquin, d/c zosyn, repeat culture to rule out port infection check culture and adjust supportive care care ct chest, abd and pelvis noted GRAHAM TRISTAN MD May 14, 2017 10:33
[2017-05-14 11:20] VITALS: BP 132/57
--- NOTE | 2017-05-14 12:56 | PDOC ---
Renal-Progress Notes Subjective Notes Notes NONE History of Present Illness Hx of present illness NO CHANGE Vitals Vitals Vital Signs Date Time Temp Pulse Resp B/P (MAP) Pulse Ox O2 Delivery O2 Flow Rate FiO2 05/14/17 11:32 Nasal Cannula 2.0 05/14/17 11:20 97.9 51 19 132/57 (82) 97 97.9 Weight Weight [ ] I.O. Intake and Output Intake and Output 05/15/17 07:00 Output Total 100 ml Balance -100 ml Output Urine Total 100 ml Labs Labs Laboratory Tests Test 05/14/17 06:30 Sodium Level 142 mmol/L (136-145) Potassium Level 3.7 mmol/L (3.5-5.1) Chloride Level 109 mmol/L (98-107) Carbon Dioxide Level 26 mmol/L (21-32) Anion Gap 7 (6-14) Blood Urea Nitrogen 25 mg/dL (8-26) Creatinine 1.7 mg/dL (0.7-1.3) Estimated GFR (Cockcroft-Gault) 38.9 Glucose Level 111 mg/dL (70-99) Calcium Level 8.3 mg/dL (8.5-10.1) Phosphorus Level 2.2 mg/dL (2.6-4.7) Magnesium Level 2.0 mg/dL (1.8-2.4) Micro Micro Microbiology 05/11/17 Blood Culture - Preliminary, Resulted 05/11/17 Blood Culture Result 1 (MAZIN) - Preliminary, Resulted 05/11/17 Antimicrobic Susceptibility - Preliminary, Resulted 05/11/17 Urine Culture - Final, Complete 05/11/17 Urine Culture Result 1 (MAZIN) - Final, Complete 05/11/17 Antimicrobic Susceptibility - Final, Complete Review of Systems Constitutional: yes: weakness, alert Ears/Nose/Throat: Yes: no symptom reported Eyes: Yes: no symptom reported Cardiovascular: Yes no symptom reported Gastrointestional: Yes: nausea Genitourinary: Yes: no symptom reported Musculoskeletal: Yes: muscle stiffness Skin: Yes no symptom reported Psychiatric/Neurological: Yes: no symptom reported Endocrine: Yes: no symptom reported Hematologic/Lymphatic: Yes: no symptom reported Physical Exam General Appearance: no apparent distress Respiratory: bilateral CTA Heart: S1S2 Abdomen: soft, bowel sounds present Genitourinary: bladder flat Extremities: pulses present Neurology: alert Assessment Assessment IMP G NEG [place] SEPSIS ANNMARIE-CR DOWN TO 1.7 CKD STAGE 3 WITH CR OF 1.0 UTI DEHYDRATION BPH PANCREATIC CA HX PLAN CONT PPN CONT IVF'S CONT ANTIBIOTICS LABS IN AM LEE OTTO MD May 14, 2017 12:56
[2017-05-14 15:26] VITALS: BP 131/59
[2017-05-14 19:26] VITALS: BP 147/72
[2017-05-14] MEDS: ATORVASTATIN CALCIUM 20 MG TABLET PO SCH (22:12)
[2017-05-14] MEDS: ALLOPURINOL 300 MG TABLET. PO SCH (22:12)
[2017-05-14 23:00] VITALS: BP 129/37
[2017-05-15] MEDS: guaiFENesin DM 200MG/20MG 10 ML SYRUP PO PRN ×3 (00:39→22:05)
[2017-05-15 03:26] VITALS: BP 152/68
[2017-05-15] MEDS: IV NORMAL SALINE 1000ML BAG 1,000 ML IV SCH (03:41)
[2017-05-15] MEDS: PANTOPRAZOLE 40 MG TABLET.DR. PO SCH (06:04)
[2017-05-15] MEDS: AMINO AC 3%/ELECTROLYTE/GLYCER 1,000 ML IV SCH ×2 (06:04→20:12)
[2017-05-15] MEDS: HEPARIN PF for SUB-Q USE 5,000 UNIT/0.5 ML VIAL. SQ SCH ×3 (06:16→22:15)
[2017-05-15 07:03] LABS: BASO # 0.1 x10^3/uL (0.0-0.2); BASO % 1 % (0-3); EOS % 6 % (0-3); HEMATOCRIT 31.4 % (39.0-53.0); HEMOGLOBIN 10.9 g/dL (13.0-17.5); LYMPH # 0.5 x10^3/uL (1.0-4.8); LYMPH % 9 % (24-48); MEAN CORPUSCULAR HEMOGLOBIN 35 pg (25-35); MEAN CORPUSCULAR HGB CONC 35 g/dL (31-37); MEAN CORPUSCULAR VOLUME 101 fL (79-100); MONO % 15 % (0-9); NEUT % 70 % (31-73); PLATELET COUNT 82 x10^3/uL (140-400); RED BLOOD COUNT 3.11 x10^6/uL (4.30-5.70); WHITE BLOOD COUNT 6.1 x10^3/uL (4.0-11.0)
[2017-05-15 07:14] LABS: ALBUMIN 2.6 g/dL (3.4-5.0); CALCIUM 7.9 mg/dL (8.5-10.1); CREATININE 1.3 mg/dL (0.7-1.3); POTASSIUM 3.1 mmol/L (3.5-5.1); TOTAL BILIRUBIN 0.3 mg/dL (0.2-1.0); TOTAL PROTEIN 5.1 g/dL (6.4-8.2)
[2017-05-15 07:26] VITALS: BP 156/77
[2017-05-15] MEDS: IPRATRPIUM/ALBUTEROL 0.5/2.5MG 3 ML NEBU. NEB SCH ×4 (07:49→20:06)
[2017-05-15] MEDS: DIGOXIN 125 MCG TABLET. PO SCH (09:00)
[2017-05-15] MEDS: GABAPENTIN 100 MG CAPSULE. PO SCH ×3 (09:29→22:05)
[2017-05-15] MEDS: FLUTICASONE 50MCG/NASAL SPRAY 16GM BOTTLE. NS SCH (09:29)
[2017-05-15] MEDS: AMIODARONE HCL 200 MG TABLET. PO SCH (09:29)
[2017-05-15] MEDS: METOPROLOL SUCC 24HR ER 25 MG TAB.ER.24H. PO SCH (09:30)
[2017-05-15] MEDS: ASPIRIN CHEWABLE 81 MG TABLET. PO SCH (09:31)
--- NOTE | 2017-05-15 10:15 | PDOC ---
Infectious Disease Note Subjective Subjective pt feeling better , no fever ROS ROS GEN: Denies fevers, chills, sweats HEENT: Denies blurred vision, sore throat CV: Denies chest pain RESP: Denies shortness of air, cough GI: Denies n/v/d NEURO: Denies confusion, dizziness MSK: Denies weakness, joint pain/swelling Vital Sign Vital Signs Vital Signs Date Time Temp Pulse Resp B/P (MAP) Pulse Ox O2 Delivery O2 Flow Rate FiO2 05/15/17 09:30 59 156/77 05/15/17 08:00 Nasal Cannula 2.0 05/15/17 07:49 95 05/15/17 07:26 98.2 19 98.2 Physical Exam PHYSICAL EXAM GENERAL: NAD, Alert HEENT: PERRL, OC/OP NECK: Supple, no JVD, no LN LUNGS: Clear HEART: S1S2, no gallop, no murmur ABD: Soft, NT, no organomegaly, no rebound EXT: No edema, no cyanosis 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, 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, no focal neurologic deficit SKIN: No rash IV: ok Labs Lab Laboratory Tests Test 05/15/17 05:45 White Blood Count 6.1 x10^3/uL (4.0-11.0) Red Blood Count 3.11 x10^6/uL (4.30-5.70) Hemoglobin 10.9 g/dL (13.0-17.5) Hematocrit 31.4 % (39.0-53.0) Mean Corpuscular Volume 101 fL (79-100) Mean Corpuscular Hemoglobin 35 pg (25-35) Mean Corpuscular Hemoglobin Concent 35 g/dL (31-37) Red Cell Distribution Width 14.0 % (11.5-14.5) Platelet Count 82 x10^3/uL (140-400) Neutrophils (%) (Auto) 70 % (31-73) Lymphocytes (%) (Auto) 9 % (24-48) Monocytes (%) (Auto) 15 % (0-9) Eosinophils (%) (Auto) 6 % (0-3) Basophils (%) (Auto) 1 % (0-3) Neutrophils # (Auto) 4.2 x10^3uL (1.8-7.7) Lymphocytes # (Auto) 0.5 x10^3/uL (1.0-4.8) Monocytes # (Auto) 0.9 x10^3/uL (0.0-1.1) Eosinophils # (Auto) 0.4 x10^3/uL (0.0-0.7) Basophils # (Auto) 0.1 x10^3/uL (0.0-0.2) Sodium Level 140 mmol/L (136-145) Potassium Level 3.1 mmol/L (3.5-5.1) Chloride Level 107 mmol/L (98-107) Carbon Dioxide Level 25 mmol/L (21-32) Anion Gap 8 (6-14) Blood Urea Nitrogen 20 mg/dL (8-26) Creatinine 1.3 mg/dL (0.7-1.3) Estimated GFR (Cockcroft-Gault) 53.0 BUN/Creatinine Ratio 15 (6-20) Glucose Level 102 mg/dL (70-99) Calcium Level 7.9 mg/dL (8.5-10.1) Total Bilirubin 0.3 mg/dL (0.2-1.0) Aspartate Amino Transf (AST/SGOT) 32 U/L (15-37) Alanine Aminotransferase (ALT/SGPT) 34 U/L (16-63) Alkaline Phosphatase 93 U/L (46-116) Total Protein 5.1 g/dL (6.4-8.2) Albumin 2.6 g/dL (3.4-5.0) Albumin/Globulin Ratio 1.0 (1.0-1.7) Micro BLOOD CULTURE PRL Preliminary Preliminary report BLD CULT RESULT 1 Preliminary Klebsiella ozaenae Recovered from anaerobic bottle only. ANTIMICROBIAL SUSCEPTIBILITY Preliminary Comment S = Susceptible; I = Intermediate; R = Resistant P = Positive; N = Negative MICS are expressed in micrograms per mL Antibiotic RSLT#1 RSLT#2 RSLT#3 RSLT#4 Amoxicillin/Clavulanic Acid S Ampicillin R Cefepime S Ceftriaxone S Cefuroxime S Cephalothin S Ciprofloxacin S Ertapenem S Gentamicin S Imipenem S Levofloxacin S Nitrofurantoin I Piperacillin S Tetracycline S Tobramycin S Trimethoprim/Sulfa S Performed at: [address], [place], [place] [id number] Test Engine Mechanic: Nancy Sierra MD, Phone: [phone] END OF REPORT URINE CULTURE Final Final report URINE CULTURE RES 1 Final Klebsiella pneumoniae Greater than 100,000 colony forming units per mL Cefazolin <=4 ug/mL Cefazolin with an MAZIN <=16 predicts susceptibility to the oral agents cefaclor, cefdinir, cefpodoxime, cefprozil, cefuroxime, cephalexin, and loracarbef when used for therapy of uncomplicated urinary tract infections due to E. coli, Klebsiella pneumoniae, and Proteus mirabilis. ANTIMICROBIAL SUSCEPTIBILITY Final Comment S = Susceptible; I = Intermediate; R = Resistant P = Positive; N = Negative MICS are expressed in micrograms per mL Antibiotic RSLT#1 RSLT#2 RSLT#3 RSLT#4 Amoxicillin/Clavulanic Acid S Ampicillin R Cefepime S Ceftriaxone S Cefuroxime S Cephalothin S Ciprofloxacin S Ertapenem S Gentamicin S Imipenem S Levofloxacin S Nitrofurantoin I Piperacillin S Tetracycline S Tobramycin S Trimethoprim/Sulfa S Performed at: [address] [id number] CONTINUED ON NEXT PAGE RUN DATE: 05/13/17 PAGE 2 RUN TIME: 1532 [facility] [address] [place] [address] Daryl Yang M.D., Lead Case Manager Objective Assessment Kleb bacteremia UTI with sepsis Fever and chills Leukocytosis Renal insuff BPH Plan Plan of Care kaylee lemos/ to rehab soon on po vantin check culture and adjust supportive care care ct chest, abd and pelvis noted GRAHAM TRISTAN MD May 15, 2017 10:15
[2017-05-15 11:12] VITALS: BP 144/95
--- NOTE | 2017-05-15 11:47 | PDOC ---
Renal-Progress Notes Subjective Notes Notes NO NEW COMPLAINTS History of Present Illness Hx of present illness STABLE Vitals Vitals Vital Signs Date Time Temp Pulse Resp B/P (MAP) Pulse Ox O2 Delivery O2 Flow Rate FiO2 05/15/17 11:12 98.1 60 18 144/95 (111) 98 Room Air 98.1 05/15/17 08:00 2.0 Weight Weight [ ] Labs Labs Laboratory Tests Test 05/15/17 05:45 White Blood Count 6.1 x10^3/uL (4.0-11.0) Red Blood Count 3.11 x10^6/uL (4.30-5.70) Hemoglobin 10.9 g/dL (13.0-17.5) Hematocrit 31.4 % (39.0-53.0) Mean Corpuscular Volume 101 fL (79-100) Mean Corpuscular Hemoglobin 35 pg (25-35) Mean Corpuscular Hemoglobin Concent 35 g/dL (31-37) Red Cell Distribution Width 14.0 % (11.5-14.5) Platelet Count 82 x10^3/uL (140-400) Neutrophils (%) (Auto) 70 % (31-73) Lymphocytes (%) (Auto) 9 % (24-48) Monocytes (%) (Auto) 15 % (0-9) Eosinophils (%) (Auto) 6 % (0-3) Basophils (%) (Auto) 1 % (0-3) Neutrophils # (Auto) 4.2 x10^3uL (1.8-7.7) Lymphocytes # (Auto) 0.5 x10^3/uL (1.0-4.8) Monocytes # (Auto) 0.9 x10^3/uL (0.0-1.1) Eosinophils # (Auto) 0.4 x10^3/uL (0.0-0.7) Basophils # (Auto) 0.1 x10^3/uL (0.0-0.2) Sodium Level 140 mmol/L (136-145) Potassium Level 3.1 mmol/L (3.5-5.1) Chloride Level 107 mmol/L (98-107) Carbon Dioxide Level 25 mmol/L (21-32) Anion Gap 8 (6-14) Blood Urea Nitrogen 20 mg/dL (8-26) Creatinine 1.3 mg/dL (0.7-1.3) Estimated GFR (Cockcroft-Gault) 53.0 BUN/Creatinine Ratio 15 (6-20) Glucose Level 102 mg/dL (70-99) Calcium Level 7.9 mg/dL (8.5-10.1) Total Bilirubin 0.3 mg/dL (0.2-1.0) Aspartate Amino Transf (AST/SGOT) 32 U/L (15-37) Alanine Aminotransferase (ALT/SGPT) 34 U/L (16-63) Alkaline Phosphatase 93 U/L (46-116) Total Protein 5.1 g/dL (6.4-8.2) Albumin 2.6 g/dL (3.4-5.0) Albumin/Globulin Ratio 1.0 (1.0-1.7) Micro Micro Microbiology 05/11/17 Blood Culture - Preliminary, Resulted 05/11/17 Blood Culture Result 1 (MAZIN) - Preliminary, Resulted 05/11/17 Antimicrobic Susceptibility - Preliminary, Resulted 05/11/17 Urine Culture - Final, Complete 05/11/17 Urine Culture Result 1 (MAZIN) - Final, Complete 05/11/17 Antimicrobic Susceptibility - Final, Complete Review of Systems Constitutional: yes: weakness, alert Ears/Nose/Throat: Yes: no symptom reported Eyes: Yes: no symptom reported Cardiovascular: Yes no symptom reported Gastrointestional: Yes: nausea Genitourinary: Yes: no symptom reported Musculoskeletal: Yes: muscle stiffness Skin: Yes no symptom reported Psychiatric/Neurological: Yes: no symptom reported Endocrine: Yes: no symptom reported Hematologic/Lymphatic: Yes: no symptom reported Physical Exam General Appearance: no apparent distress Respiratory: bilateral CTA Heart: S1S2 Abdomen: soft, bowel sounds present Genitourinary: bladder flat Extremities: pulses present Neurology: alert Assessment Assessment IMP G NEG [place] SEPSIS ANNMARIE-CR DOWN TO 1.3 CKD STAGE 3 WITH CR OF 1.0 UTI DEHYDRATION BPH PANCREATIC CA HX HYPOKALEMIA LEUCOCYTOSIS-BETTER PLAN CONT PPN STOP IVF'S CONT ANTIBIOTICS REPLACE K AND CHECK MAG LABS IN AM LEE OTTO MD May 15, 2017 11:47
[2017-05-15] MEDS ORDERED: POTASSIUM CHLORIDE 20 MEQ TABLET.ER. PO ONE (12:00)
[2017-05-15 12:44] LABS: % EOS 3 % (0-5)
[2017-05-15 12:45] LABS: PLT ESTIMATE DECREASED (ADEQUATE)
[2017-05-15] MEDS: POTASSIUM CHLORIDE 10MEQ 100 ML IV SCH ×2 (13:26→15:04)
[2017-05-15 15:15] VITALS: BP 133/67
--- NOTE | 2017-05-15 15:20 | PDOC ---
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 chronically chronic lower back pain h/o CAD WITH PCI weakness, acquired h/o COPD History of Present Illness History of Present Illness str better vitals OK pain OK IV abx pt and ot Vitals Vitals Vital Signs Date Time Temp Pulse Resp B/P (MAP) Pulse Ox O2 Delivery O2 Flow Rate FiO2 05/15/17 15:15 98.3 56 20 133/67 (89) 94 Room Air 98.3 05/15/17 08:00 2.0 Physical Exam General: Alert, Oriented X3, Cooperative, No acute distress Heart: Regular rate Lungs: Clear Abdomen: Normal bowel sounds, No tenderness Extremities: No clubbing Skin: No breakdown Labs LABS Laboratory Tests Test 05/15/17 05:45 White Blood Count 6.1 x10^3/uL (4.0-11.0) Red Blood Count 3.11 x10^6/uL (4.30-5.70) Hemoglobin 10.9 g/dL (13.0-17.5) Hematocrit 31.4 % (39.0-53.0) Mean Corpuscular Volume 101 fL (79-100) Mean Corpuscular Hemoglobin 35 pg (25-35) Mean Corpuscular Hemoglobin Concent 35 g/dL (31-37) Red Cell Distribution Width 14.0 % (11.5-14.5) Platelet Count 82 x10^3/uL (140-400) Neutrophils (%) (Auto) 70 % (31-73) Lymphocytes (%) (Auto) 9 % (24-48) Monocytes (%) (Auto) 15 % (0-9) Eosinophils (%) (Auto) 6 % (0-3) Basophils (%) (Auto) 1 % (0-3) Neutrophils # (Auto) 4.2 x10^3uL (1.8-7.7) Lymphocytes # (Auto) 0.5 x10^3/uL (1.0-4.8) Monocytes # (Auto) 0.9 x10^3/uL (0.0-1.1) Eosinophils # (Auto) 0.4 x10^3/uL (0.0-0.7) Basophils # (Auto) 0.1 x10^3/uL (0.0-0.2) Segmented Neutrophils % 74 % (35-66) Band Neutrophils % 5 % (0-9) Lymphocytes % 8 % (24-48) Monocytes % 10 % (0-10) Eosinophils % 3 % (0-5) Platelet Estimate Decreased (ADEQUATE) Sodium Level 140 mmol/L (136-145) Potassium Level 3.1 mmol/L (3.5-5.1) Chloride Level 107 mmol/L (98-107) Carbon Dioxide Level 25 mmol/L (21-32) Anion Gap 8 (6-14) Blood Urea Nitrogen 20 mg/dL (8-26) Creatinine 1.3 mg/dL (0.7-1.3) Estimated GFR (Cockcroft-Gault) 53.0 BUN/Creatinine Ratio 15 (6-20) Glucose Level 102 mg/dL (70-99) Calcium Level 7.9 mg/dL (8.5-10.1) Total Bilirubin 0.3 mg/dL (0.2-1.0) Aspartate Amino Transf (AST/SGOT) 32 U/L (15-37) Alanine Aminotransferase (ALT/SGPT) 34 U/L (16-63) Alkaline Phosphatase 93 U/L (46-116) Total Protein 5.1 g/dL (6.4-8.2) Albumin 2.6 g/dL (3.4-5.0) Albumin/Globulin Ratio 1.0 (1.0-1.7) Review of Systems Review of Systems insomnia last night str. better no n.v/d Assessment and Plan Assessmemt and Plan ambien PRN cont current may do well with rehab, SNU soon, pt prefer home health Problems Medical Problems: (1) Sepsis Status: Acute (2) UTI (urinary tract infection) Status: Acute Problems: Comment Review of Relevant I have reviewed the following items jannet (where applicable) has been applied. Labs Laboratory Tests Test 05/14/17 06:30 05/15/17 05:45 Sodium Level 142 mmol/L (136-145) 140 mmol/L (136-145) Potassium Level 3.7 mmol/L (3.5-5.1) 3.1 mmol/L (3.5-5.1) Chloride Level 109 mmol/L (98-107) 107 mmol/L (98-107) Carbon Dioxide Level 26 mmol/L (21-32) 25 mmol/L (21-32) Anion Gap 7 (6-14) 8 (6-14) Blood Urea Nitrogen 25 mg/dL (8-26) 20 mg/dL (8-26) Creatinine 1.7 mg/dL (0.7-1.3) 1.3 mg/dL (0.7-1.3) Estimated GFR (Cockcroft-Gault) 38.9 53.0 Glucose Level 111 mg/dL (70-99) 102 mg/dL (70-99) Calcium Level 8.3 mg/dL (8.5-10.1) 7.9 mg/dL (8.5-10.1) Phosphorus Level 2.2 mg/dL (2.6-4.7) Magnesium Level 2.0 mg/dL (1.8-2.4) White Blood Count 6.1 x10^3/uL (4.0-11.0) Red Blood Count 3.11 x10^6/uL (4.30-5.70) Hemoglobin 10.9 g/dL (13.0-17.5) Hematocrit 31.4 % (39.0-53.0) Mean Corpuscular Volume 101 fL (79-100) Mean Corpuscular Hemoglobin 35 pg (25-35) Mean Corpuscular Hemoglobin Concent 35 g/dL (31-37) Red Cell Distribution Width 14.0 % (11.5-14.5) Platelet Count 82 x10^3/uL (140-400) Neutrophils (%) (Auto) 70 % (31-73) Lymphocytes (%) (Auto) 9 % (24-48) Monocytes (%) (Auto) 15 % (0-9) Eosinophils (%) (Auto) 6 % (0-3) Basophils (%) (Auto) 1 % (0-3) Neutrophils # (Auto) 4.2 x10^3uL (1.8-7.7) Lymphocytes # (Auto) 0.5 x10^3/uL (1.0-4.8) Monocytes # (Auto) 0.9 x10^3/uL (0.0-1.1) Eosinophils # (Auto) 0.4 x10^3/uL (0.0-0.7) Basophils # (Auto) 0.1 x10^3/uL (0.0-0.2) Segmented Neutrophils % 74 % (35-66) Band Neutrophils % 5 % (0-9) Lymphocytes % 8 % (24-48) Monocytes % 10 % (0-10) Eosinophils % 3 % (0-5) Platelet Estimate Decreased (ADEQUATE) BUN/Creatinine Ratio 15 (6-20) Total Bilirubin 0.3 mg/dL (0.2-1.0) Aspartate Amino Transf (AST/SGOT) 32 U/L (15-37) Alanine Aminotransferase (ALT/SGPT) 34 U/L (16-63) Alkaline Phosphatase 93 U/L (46-116) Total Protein 5.1 g/dL (6.4-8.2) Albumin 2.6 g/dL (3.4-5.0) Albumin/Globulin Ratio 1.0 (1.0-1.7) Laboratory Tests Test 05/15/17 05:45 White Blood Count 6.1 x10^3/uL (4.0-11.0) Red Blood Count 3.11 x10^6/uL (4.30-5.70) Hemoglobin 10.9 g/dL (13.0-17.5) Hematocrit 31.4 % (39.0-53.0) Mean Corpuscular Volume 101 fL (79-100) Mean Corpuscular Hemoglobin 35 pg (25-35) Mean Corpuscular Hemoglobin Concent 35 g/dL (31-37) Red Cell Distribution Width 14.0 % (11.5-14.5) Platelet Count 82 x10^3/uL (140-400) Neutrophils (%) (Auto) 70 % (31-73) Lymphocytes (%) (Auto) 9 % (24-48) Monocytes (%) (Auto) 15 % (0-9) Eosinophils (%) (Auto) 6 % (0-3) Basophils (%) (Auto) 1 % (0-3) Neutrophils # (Auto) 4.2 x10^3uL (1.8-7.7) Lymphocytes # (Auto) 0.5 x10^3/uL (1.0-4.8) Monocytes # (Auto) 0.9 x10^3/uL (0.0-1.1) Eosinophils # (Auto) 0.4 x10^3/uL (0.0-0.7) Basophils # (Auto) 0.1 x10^3/uL (0.0-0.2) Segmented Neutrophils % 74 % (35-66) Band Neutrophils % 5 % (0-9) Lymphocytes % 8 % (24-48) Monocytes % 10 % (0-10) Eosinophils % 3 % (0-5) Platelet Estimate Decreased (ADEQUATE) Sodium Level 140 mmol/L (136-145) Potassium Level 3.1 mmol/L (3.5-5.1) Chloride Level 107 mmol/L (98-107) Carbon Dioxide Level 25 mmol/L (21-32) Anion Gap 8 (6-14) Blood Urea Nitrogen 20 mg/dL (8-26) Creatinine 1.3 mg/dL (0.7-1.3) Estimated GFR (Cockcroft-Gault) 53.0 BUN/Creatinine Ratio 15 (6-20) Glucose Level 102 mg/dL (70-99) Calcium Level 7.9 mg/dL (8.5-10.1) Total Bilirubin 0.3 mg/dL (0.2-1.0) Aspartate Amino Transf (AST/SGOT) 32 U/L (15-37) Alanine Aminotransferase (ALT/SGPT) 34 U/L (16-63) Alkaline Phosphatase 93 U/L (46-116) Total Protein 5.1 g/dL (6.4-8.2) Albumin 2.6 g/dL (3.4-5.0) Albumin/Globulin Ratio 1.0 (1.0-1.7) Microbiology 05/14/17 Blood Culture - Preliminary, Resulted NO GROWTH AFTER 1 DAY 05/11/17 Urine Culture - Final, Complete 05/11/17 Urine Culture Result 1 (MAZIN) - Final, Complete 05/11/17 Antimicrobic Susceptibility - Final, Complete Medications Current Medications Sodium Chloride 1,000 ml @ 1,000 mls/hr Q1H IV Last administered on 05/11/17 17:33; Start 05/11/17 at 17:09; Stop 05/11/17 at 18:08; Status DC Levofloxacin/ Dextrose 100 ml @ 100 mls/hr 1X ONCE IV Last administered on 18:38; Start 05/11/17 at 18:30; Stop 05/11/17 at 19:29; Status DC Ondansetron HCl (Zofran) 4 mg PRN Q8HRS PRN IV NAUSEA/VOMITING; Start 05/11/17 at 18:30; Stop 05/12/17 at 18:29; Status DC Sodium Chloride 1,000 ml @ 100 mls/hr Q10H IV Last administered on 05/12/17 05:17; Start 05/11/17 at 18:29; Stop 05/12/17 at 18:28; Status DC Acetaminophen (Tylenol) 650 mg PRN Q4HRS PRN PO FEVER Last administered on 05/12 15:19; Start 05/11/17 at 18:30; Stop 05/12/17 at 18:29; Status DC Allopurinol (Zyloprim) 300 mg HS PO Last administered on 05/14/17 22:12; Start 05/11/17 at 21:00 Amiodarone HCl (Cordarone) 200 mg DAILY PO Last administered on 05/15/17 09:29 ; Start 05/12/17 at 09:00 Aspirin (Children'S Aspirin) 81 mg DAILY PO Last administered on 05/15/17 09: 31; Start 05/12/17 at 09:00 Atorvastatin Calcium (Lipitor) 20 mg QHS PO Last administered on 05/14/17 22: 12; Start 05/11/17 at 21:00 Digoxin (Lanoxin) 125 mcg DAILY PO Last administered on 05/14/17 09:53; Start 05/12/17 at 09:00 Fluticasone Propionate (Flonase) 2 spray DAILY NS Last administered on 09:29; Start 05/12/17 at 09:00 Gabapentin (Neurontin) 100 mg TID PO Last administered on 05/15/17 15:04; Start 05/11/17 at 21:00 Metoprolol Succinate (Toprol Xl) 25 mg DAILY PO Last administered on 05/15/17 09:30; Start 05/12/17 at 09:00 Pantoprazole Sodium (Protonix) 40 mg DAILYAC PO Last administered on 05/15/17 06:04; Start 05/12/17 at 07:30 Heparin Sodium (Porcine) (Heparin Sq) 5,000 unit Q8HRS SQ Last administered on 05/15/17 15:08; Start 05/11/17 at 20:00 Vancomycin HCl 2 gm/Sodium Chloride 500 ml @ 250 mls/hr 1X ONCE IV Last administered on 05/11/17 22:01; Start 05/11/17 at 20:00; Stop 05/11/17 at 21:59 ; Status DC Vancomycin HCl (Vanco Per Pharmacy) 1 each PRN DAILY PRN MC SEE COMMENTS Last administered on 05/11/17 21:52; Start 05/11/17 at 19:15; Stop 05/12/17 at 11:17 ; Status DC Acetaminophen (Tylenol) 650 mg PRN Q6HRS PRN PO FEVER Last administered on 05/14 06:11; Start 05/11/17 at 19:15 Ondansetron HCl (Zofran) 4 mg PRN Q6HRS PRN IV NAUSEA/VOMITING; Start 05/11/17 at 19:15 Morphine Sulfate 2 mg PRN Q2HR PRN IV PAIN Last administered on 05/13/17 03:50 ; Start 05/11/17 at 19:15 Tramadol HCl (Ultram) 50 mg PRN Q6HRS PRN PO PAIN; Start 05/11/17 at 19:15 Hydralazine HCl (Apresoline) 10 mg PRN Q4HRS PRN IVP ELEVATED BP, SEE COMMENTS ; Start 05/11/17 at 19:15 Docusate Sodium (Colace) 100 mg PRN DAILY PRN PO CONSTIPATION; Start 05/11/17 at 19:15 Ceftriaxone Sodium 1 gm/ Sodium Chloride 50 ml @ 100 mls/hr Q24H IV Last administered on 05/11/17 22:36; Start 05/11/17 at 20:00; Stop 05/12/17 at 11:23 ; Status DC Vancomycin HCl 1.5 gm/Sodium Chloride 500 ml @ 250 mls/hr Q24H IV ; Start 05/12 at 22:00; Stop 05/12/17 at 22:00; Status DC Vancomycin HCl 1 each 1X ONCE MC ; Start 05/13/17 at 21:30; Stop 05/13/17 at 21 :30; Status DC Piperacillin Sod/ Tazobactam Sod 3.375 gm/Sodium Chloride 50 ml @ 100 mls/hr Q6HRS IV Last administered on 05/14/17 06:17; Start 05/12/17 at 12:00; Stop at 10:34; Status DC Sodium Chloride 1,000 ml @ 50 mls/hr Q20H IV Last administered on 05/15/17 03 :41; Start 05/13/17 at 00:00; Stop 05/15/17 at 11:48; Status DC Iohexol (Omnipaque 240 Mg/ml) 30 ml 1X ONCE PO Last administered on 05/13/17 10:15; Start 05/13/17 at 10:15; Stop 05/13/17 at 10:16; Status DC Info (Do NOT chart on this entry -- for MONITORING) 1 each PRN DAILY PRN MC SEE COMMENTS; Start 05/13/17 at 10:15; Stop 05/15/17 at 10:14; Status DC Amino Acids/ Glycerin/ Electrolytes 1,000 ml @ 80 mls/hr [id number] IV Last administered on 05/15/17 06:04; Start 05/13/17 at 12:00 Potassium Chloride 100 ml @ 100 mls/hr Q1H IV Last administered on 05/13/17 17:14; Start 05/13/17 at 12:00; Stop 05/13/17 at 13:59; Status DC Albuterol/ Ipratropium (Duoneb) 3 ml RTQID NEB Last administered on 05/15/17 11:53; Start 05/14/17 at 08:00 Albuterol Sulfate (Ventolin Neb Soln) 2.5 mg PRN Q2HR PRN NEB SHORTNESS OF BREATH Last administered on 05/14/17 04:35; Start 05/14/17 at 04:30 Guaifenesin (Robitussin Dm) 10 ml PRN QID PRN PO cough Last administered on 00:39; Start 05/14/17 at 04:30 Ceftriaxone Sodium 1 gm/ Sodium Chloride 50 ml @ 100 mls/hr Q24H IV Last administered on 05/15/17 12:08; Start 05/14/17 at 11:00 Potassium Chloride 100 ml @ 100 mls/hr Q1H IV Last administered on 05/15/17 15:04; Start 05/15/17 at 12:00; Stop 05/15/17 at 13:59; Status DC Potassium Chloride (Klor-Con) 20 meq 1X ONCE PO Last administered on t 12:23; Start 05/15/17 at 12:00; Stop 05/15/17 at 12:01; Status DC Active Scripts Active Gabapentin 100 Mg Capsule 100 Mg PO TID Augmentin 875-125 Tablet (Amoxicillin/Potassium Clav) 1 Each Tablet 1 Tab PO BID Metoprolol Succinate ( Xl ) (Metoprolol Succinate) 25 Mg Tab.er.24h 1 Tab PO DAILY Reported Atorvastatin Calcium 20 Mg Tablet 20 Mg PO DAILY Ondansetron Hcl 8 Mg Tablet 8 Mg PO BID PRN Fluticasone Propionate Nasal [place] (Fluticasone Propionate) 16 Gm [place].susp 2 [place] NS DAILY Allopurinol 300 Mg Tablet 1 Tab PO HS Gleevec (Imatinib Mesylate) 400 Mg Tablet 400 Mg PO DAILY Digoxin 125 Mcg Tablet 1 Tab PO DAILY Amiodarone Hcl 200 Mg Tablet 1 Tab PO DAILY Aspirin 81 Mg Tab.chew 1 Tab PO DAILY Prevacid (Lansoprazole) 30 Mg Capsule.dr 1 Cap PO DAILY Alprazolam 0.5 Mg Tablet 1 Tab PO BID Vitals/I & O Vital Sign - Last 24 Hours 05/14/17 05/14/17 05/14/17 05/14/17 15:26 16:46 19:18 19:26 Temp 96.6 97.9 96.6 97.9 Pulse 55 58 Resp 20 18 B/P (MAP) 131/59 (83) 147/72 (97) Pulse Ox 96 96 96 O2 Delivery Nasal Cannula Nasal Cannula Room Air Room Air O2 Flow Rate 2.0 2.0 05/14/17 05/14/17 05/15/17 05/15/17 20:00 23:00 03:26 07:26 Temp 97.8 97.9 98.2 97.8 97.9 98.2 Pulse 58 60 59 Resp 18 18 19 B/P (MAP) 129/37 (67) 152/68 (96) 156/77 (103) Pulse Ox 94 94 96 O2 Delivery Nasal Cannula Room Air Room Air Room Air O2 Flow Rate 2.0 05/15/17 05/15/17 05/15/17 05/15/17 07:49 08:00 09:00 09:29 Pulse 59 59 B/P (MAP) 156/77 156/77 Pulse Ox 95 O2 Delivery Nasal Cannula Nasal Cannula O2 Flow Rate 2.0 2.0 05/15/17 05/15/17 05/15/17 05/15/17 09:30 11:12 11:54 15:15 Temp 98.1 98.3 98.1 98.3 Pulse 59 60 56 Resp 18 20 B/P (MAP) 156/77 144/95 (111) 133/67 (89) Pulse Ox 98 96 94 O2 Delivery Room Air Room Air Room Air JT BOSS MD May 15, 2017 15:20
[2017-05-15] MEDS ORDERED: ZOLPIDEM 5 MG TABLET. PO PRN (15:30)
[2017-05-15] MEDS: ACETAMINOPHEN 325 MG TABLET. PO PRN (19:17)
[2017-05-15 19:47] VITALS: BP 161/75
[2017-05-15] MEDS ORDERED: diphenhydrAMINE HCL 25 MG CAPSULE PO PRN (20:45)
[2017-05-15] MEDS: ALLOPURINOL 300 MG TABLET. PO SCH (22:05)
[2017-05-15] MEDS: ATORVASTATIN CALCIUM 20 MG TABLET PO SCH (22:05)
[2017-05-15 23:25] VITALS: BP 151/70
[2017-05-16] MEDS: ALBUTEROL SULFATE 2.5 MG/3 ML NEBU. NEB PRN (00:55)
[2017-05-16] MEDS: AMINO AC 3%/ELECTROLYTE/GLYCER 1,000 ML IV SCH (02:30)
[2017-05-16 03:25] VITALS: BP 156/72
[2017-05-16 05:03] LABS: BASO % 0 % (0-3); EOS % 4 % (0-3); HEMATOCRIT 34.7 % (39.0-53.0); HEMOGLOBIN 11.8 g/dL (13.0-17.5); LYMPH # 0.5 x10^3/uL (1.0-4.8); LYMPH % 6 % (24-48); MEAN CORPUSCULAR HEMOGLOBIN 35 pg (25-35); MEAN CORPUSCULAR HGB CONC 34 g/dL (31-37); MEAN CORPUSCULAR VOLUME 103 fL (79-100); MONO % 11 % (0-9); NEUT % 79 % (31-73); PLATELET COUNT 107 x10^3/uL (140-400); RED BLOOD COUNT 3.38 x10^6/uL (4.30-5.70); RED CELL DISTRIBUTION WIDTH 13.8 % (11.5-14.5); WHITE BLOOD COUNT 8.7 x10^3/uL (4.0-11.0)
[2017-05-16 05:40] LABS: CALCIUM 8.4 mg/dL (8.5-10.1); CREATININE 1.3 mg/dL (0.7-1.3); POTASSIUM 3.3 mmol/L (3.5-5.1)
[2017-05-16] MEDS: HEPARIN PF for SUB-Q USE 5,000 UNIT/0.5 ML VIAL. SQ SCH (06:00)
[2017-05-16] MEDS: IPRATRPIUM/ALBUTEROL 0.5/2.5MG 3 ML NEBU. NEB SCH ×2 (07:01→10:59)
[2017-05-16 07:18] VITALS: BP 156/80
[2017-05-16] MEDS: FLUTICASONE 50MCG/NASAL SPRAY 16GM BOTTLE. NS SCH (09:06)
[2017-05-16] MEDS: GABAPENTIN 100 MG CAPSULE. PO SCH (09:07)
[2017-05-16] MEDS: PANTOPRAZOLE 40 MG TABLET.DR. PO SCH (09:07)
[2017-05-16] MEDS: METOPROLOL SUCC 24HR ER 25 MG TAB.ER.24H. PO SCH (09:07)
[2017-05-16] MEDS: AMIODARONE HCL 200 MG TABLET. PO SCH (09:08)
[2017-05-16] MEDS: DIGOXIN 125 MCG TABLET. PO SCH (09:08)
[2017-05-16] MEDS: ASPIRIN CHEWABLE 81 MG TABLET. PO SCH (09:08)
--- NOTE | 2017-05-16 09:25 | PDOC ---
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 chronically chronic lower back pain h/o CAD WITH PCI weakness, acquired h/o COPD History of Present Illness History of Present Illness str better vitals OK pain OK IV abx pt and ot At baseline, will dc to [facility] See dictation Vitals Vitals Vital Signs Date Time Temp Pulse Resp B/P (MAP) Pulse Ox O2 Delivery O2 Flow Rate FiO2 05/16/17 09:08 84 156/80 05/16/17 08:00 Room Air 05/16/17 07:18 99.0 18 95 99.0 05/15/17 08:00 2.0 Physical Exam General: Alert, Oriented X3, Cooperative, No acute distress Heart: Regular rate Lungs: Clear Abdomen: Normal bowel sounds, No tenderness Extremities: No clubbing Skin: No breakdown Labs LABS Laboratory Tests Test 05/16/17 04:37 White Blood Count 8.7 x10^3/uL (4.0-11.0) Red Blood Count 3.38 x10^6/uL (4.30-5.70) Hemoglobin 11.8 g/dL (13.0-17.5) Hematocrit 34.7 % (39.0-53.0) Mean Corpuscular Volume 103 fL (79-100) Mean Corpuscular Hemoglobin 35 pg (25-35) Mean Corpuscular Hemoglobin Concent 34 g/dL (31-37) Red Cell Distribution Width 13.8 % (11.5-14.5) Platelet Count 107 x10^3/uL (140-400) Neutrophils (%) (Auto) 79 % (31-73) Lymphocytes (%) (Auto) 6 % (24-48) Monocytes (%) (Auto) 11 % (0-9) Eosinophils (%) (Auto) 4 % (0-3) Basophils (%) (Auto) 0 % (0-3) Neutrophils # (Auto) 6.9 x10^3uL (1.8-7.7) Lymphocytes # (Auto) 0.5 x10^3/uL (1.0-4.8) Monocytes # (Auto) 1.0 x10^3/uL (0.0-1.1) Eosinophils # (Auto) 0.3 x10^3/uL (0.0-0.7) Basophils # (Auto) 0.0 x10^3/uL (0.0-0.2) Sodium Level 144 mmol/L (136-145) Potassium Level 3.3 mmol/L (3.5-5.1) Chloride Level 108 mmol/L (98-107) Carbon Dioxide Level 26 mmol/L (21-32) Anion Gap 10 (6-14) Blood Urea Nitrogen 18 mg/dL (8-26) Creatinine 1.3 mg/dL (0.7-1.3) Estimated GFR (Cockcroft-Gault) 53.0 Glucose Level 118 mg/dL (70-99) Calcium Level 8.4 mg/dL (8.5-10.1) Magnesium Level 2.0 mg/dL (1.8-2.4) Assessment and Plan Assessmemt and Plan Problems Medical Problems: (1) Sepsis Status: Acute (2) UTI (urinary tract infection) Status: Acute Problems: Comment Review of Relevant I have reviewed the following items jannet (where applicable) has been applied. Labs Laboratory Tests Test 05/15/17 05:45 05/16/17 04:37 White Blood Count 6.1 x10^3/uL (4.0-11.0) 8.7 x10^3/uL (4.0-11.0) Red Blood Count 3.11 x10^6/uL (4.30-5.70) 3.38 x10^6/uL (4.30-5.70) Hemoglobin 10.9 g/dL (13.0-17.5) 11.8 g/dL (13.0-17.5) Hematocrit 31.4 % (39.0-53.0) 34.7 % (39.0-53.0) Mean Corpuscular Volume 101 fL (79-100) 103 fL (79-100) Mean Corpuscular Hemoglobin 35 pg (25-35) 35 pg (25-35) Mean Corpuscular Hemoglobin Concent 35 g/dL (31-37) 34 g/dL (31-37) Red Cell Distribution Width 14.0 % (11.5-14.5) 13.8 % (11.5-14.5) Platelet Count 82 x10^3/uL (140-400) 107 x10^3/uL (140-400) Neutrophils (%) (Auto) 70 % (31-73) 79 % (31-73) Lymphocytes (%) (Auto) 9 % (24-48) 6 % (24-48) Monocytes (%) (Auto) 15 % (0-9) 11 % (0-9) Eosinophils (%) (Auto) 6 % (0-3) 4 % (0-3) Basophils (%) (Auto) 1 % (0-3) 0 % (0-3) Neutrophils # (Auto) 4.2 x10^3uL (1.8-7.7) 6.9 x10^3uL (1.8-7.7) Lymphocytes # (Auto) 0.5 x10^3/uL (1.0-4.8) 0.5 x10^3/uL (1.0-4.8) Monocytes # (Auto) 0.9 x10^3/uL (0.0-1.1) 1.0 x10^3/uL (0.0-1.1) Eosinophils # (Auto) 0.4 x10^3/uL (0.0-0.7) 0.3 x10^3/uL (0.0-0.7) Basophils # (Auto) 0.1 x10^3/uL (0.0-0.2) 0.0 x10^3/uL (0.0-0.2) Segmented Neutrophils % 74 % (35-66) Band Neutrophils % 5 % (0-9) Lymphocytes % 8 % (24-48) Monocytes % 10 % (0-10) Eosinophils % 3 % (0-5) Platelet Estimate Decreased (ADEQUATE) Sodium Level 140 mmol/L (136-145) 144 mmol/L (136-145) Potassium Level 3.1 mmol/L (3.5-5.1) 3.3 mmol/L (3.5-5.1) Chloride Level 107 mmol/L (98-107) 108 mmol/L (98-107) Carbon Dioxide Level 25 mmol/L (21-32) 26 mmol/L (21-32) Anion Gap 8 (6-14) 10 (6-14) Blood Urea Nitrogen 20 mg/dL (8-26) 18 mg/dL (8-26) Creatinine 1.3 mg/dL (0.7-1.3) 1.3 mg/dL (0.7-1.3) Estimated GFR (Cockcroft-Gault) 53.0 53.0 BUN/Creatinine Ratio 15 (6-20) Glucose Level 102 mg/dL (70-99) 118 mg/dL (70-99) Calcium Level 7.9 mg/dL (8.5-10.1) 8.4 mg/dL (8.5-10.1) Total Bilirubin 0.3 mg/dL (0.2-1.0) Aspartate Amino Transf (AST/SGOT) 32 U/L (15-37) Alanine Aminotransferase (ALT/SGPT) 34 U/L (16-63) Alkaline Phosphatase 93 U/L (46-116) Total Protein 5.1 g/dL (6.4-8.2) Albumin 2.6 g/dL (3.4-5.0) Albumin/Globulin Ratio 1.0 (1.0-1.7) Magnesium Level 2.0 mg/dL (1.8-2.4) Laboratory Tests Test 05/16/17 04:37 White Blood Count 8.7 x10^3/uL (4.0-11.0) Red Blood Count 3.38 x10^6/uL (4.30-5.70) Hemoglobin 11.8 g/dL (13.0-17.5) Hematocrit 34.7 % (39.0-53.0) Mean Corpuscular Volume 103 fL (79-100) Mean Corpuscular Hemoglobin 35 pg (25-35) Mean Corpuscular Hemoglobin Concent 34 g/dL (31-37) Red Cell Distribution Width 13.8 % (11.5-14.5) Platelet Count 107 x10^3/uL (140-400) Neutrophils (%) (Auto) 79 % (31-73) Lymphocytes (%) (Auto) 6 % (24-48) Monocytes (%) (Auto) 11 % (0-9) Eosinophils (%) (Auto) 4 % (0-3) Basophils (%) (Auto) 0 % (0-3) Neutrophils # (Auto) 6.9 x10^3uL (1.8-7.7) Lymphocytes # (Auto) 0.5 x10^3/uL (1.0-4.8) Monocytes # (Auto) 1.0 x10^3/uL (0.0-1.1) Eosinophils # (Auto) 0.3 x10^3/uL (0.0-0.7) Basophils # (Auto) 0.0 x10^3/uL (0.0-0.2) Sodium Level 144 mmol/L (136-145) Potassium Level 3.3 mmol/L (3.5-5.1) Chloride Level 108 mmol/L (98-107) Carbon Dioxide Level 26 mmol/L (21-32) Anion Gap 10 (6-14) Blood Urea Nitrogen 18 mg/dL (8-26) Creatinine 1.3 mg/dL (0.7-1.3) Estimated GFR (Cockcroft-Gault) 53.0 Glucose Level 118 mg/dL (70-99) Calcium Level 8.4 mg/dL (8.5-10.1) Magnesium Level 2.0 mg/dL (1.8-2.4) Microbiology 05/14/17 Blood Culture - Preliminary, Resulted NO GROWTH AFTER 1 DAY 05/11/17 Urine Culture - Final, Complete 05/11/17 Urine Culture Result 1 (MAZIN) - Final, Complete 05/11/17 Antimicrobic Susceptibility - Final, Complete Medications Current Medications Sodium Chloride 1,000 ml @ 1,000 mls/hr Q1H IV Last administered on 05/11/17 17:33; Start 05/11/17 at 17:09; Stop 05/11/17 at 18:08; Status DC Levofloxacin/ Dextrose 100 ml @ 100 mls/hr 1X ONCE IV Last administered on 18:38; Start 05/11/17 at 18:30; Stop 05/11/17 at 19:29; Status DC Ondansetron HCl (Zofran) 4 mg PRN Q8HRS PRN IV NAUSEA/VOMITING; Start 05/11/17 at 18:30; Stop 05/12/17 at 18:29; Status DC Sodium Chloride 1,000 ml @ 100 mls/hr Q10H IV Last administered on 05/12/17 05:17; Start 05/11/17 at 18:29; Stop 05/12/17 at 18:28; Status DC Acetaminophen (Tylenol) 650 mg PRN Q4HRS PRN PO FEVER Last administered on 05/12 15:19; Start 05/11/17 at 18:30; Stop 05/12/17 at 18:29; Status DC Allopurinol (Zyloprim) 300 mg HS PO Last administered on 05/15/17 22:05; Start 05/11/17 at 21:00 Amiodarone HCl (Cordarone) 200 mg DAILY PO Last administered on 05/16/17 09:08 ; Start 05/12/17 at 09:00 Aspirin (Children'S Aspirin) 81 mg DAILY PO Last administered on 05/16/17 09: 08; Start 05/12/17 at 09:00 Atorvastatin Calcium (Lipitor) 20 mg QHS PO Last administered on 05/15/17 22: 05; Start 05/11/17 at 21:00 Digoxin (Lanoxin) 125 mcg DAILY PO Last administered on 05/16/17 09:08; Start 05/12/17 at 09:00 Fluticasone Propionate (Flonase) 2 spray DAILY NS Last administered on 09:06; Start 05/12/17 at 09:00 Gabapentin (Neurontin) 100 mg TID PO Last administered on 05/16/17 09:07; Start 05/11/17 at 21:00 Metoprolol Succinate (Toprol Xl) 25 mg DAILY PO Last administered on 05/16/17 09:07; Start 05/12/17 at 09:00 Pantoprazole Sodium (Protonix) 40 mg DAILYAC PO Last administered on 05/16/17 09:07; Start 05/12/17 at 07:30 Heparin Sodium (Porcine) (Heparin Sq) 5,000 unit Q8HRS SQ Last administered on 05/15/17 22:15; Start 05/11/17 at 20:00 Vancomycin HCl 2 gm/Sodium Chloride 500 ml @ 250 mls/hr 1X ONCE IV Last administered on 05/11/17 22:01; Start 05/11/17 at 20:00; Stop 05/11/17 at 21:59 ; Status DC Vancomycin HCl (Vanco Per Pharmacy) 1 each PRN DAILY PRN MC SEE COMMENTS Last administered on 05/11/17 21:52; Start 05/11/17 at 19:15; Stop 05/12/17 at 11:17 ; Status DC Acetaminophen (Tylenol) 650 mg PRN Q6HRS PRN PO FEVER Last administered on 05/15 19:17; Start 05/11/17 at 19:15 Ondansetron HCl (Zofran) 4 mg PRN Q6HRS PRN IV NAUSEA/VOMITING; Start 05/11/17 at 19:15 Morphine Sulfate 2 mg PRN Q2HR PRN IV PAIN Last administered on 05/13/17 03:50 ; Start 05/11/17 at 19:15 Tramadol HCl (Ultram) 50 mg PRN Q6HRS PRN PO PAIN; Start 05/11/17 at 19:15 Hydralazine HCl (Apresoline) 10 mg PRN Q4HRS PRN IVP ELEVATED BP, SEE COMMENTS ; Start 05/11/17 at 19:15 Docusate Sodium (Colace) 100 mg PRN DAILY PRN PO CONSTIPATION; Start 05/11/17 at 19:15 Ceftriaxone Sodium 1 gm/ Sodium Chloride 50 ml @ 100 mls/hr Q24H IV Last administered on 05/11/17 22:36; Start 05/11/17 at 20:00; Stop 05/12/17 at 11:23 ; Status DC Vancomycin HCl 1.5 gm/Sodium Chloride 500 ml @ 250 mls/hr Q24H IV ; Start 05/12 at 22:00; Stop 05/12/17 at 22:00; Status DC Vancomycin HCl 1 each 1X ONCE MC ; Start 05/13/17 at 21:30; Stop 05/13/17 at 21 :30; Status DC Piperacillin Sod/ Tazobactam Sod 3.375 gm/Sodium Chloride 50 ml @ 100 mls/hr Q6HRS IV Last administered on 05/14/17 06:17; Start 05/12/17 at 12:00; Stop at 10:34; Status DC Sodium Chloride 1,000 ml @ 50 mls/hr Q20H IV Last administered on 05/15/17 03 :41; Start 05/13/17 at 00:00; Stop 05/15/17 at 11:48; Status DC Iohexol (Omnipaque 240 Mg/ml) 30 ml 1X ONCE PO Last administered on 05/13/17 10:15; Start 05/13/17 at 10:15; Stop 05/13/17 at 10:16; Status DC Info (Do NOT chart on this entry -- for MONITORING) 1 each PRN DAILY PRN MC SEE COMMENTS; Start 05/13/17 at 10:15; Stop 05/15/17 at 10:14; Status DC Amino Acids/ Glycerin/ Electrolytes 1,000 ml @ 80 mls/hr [id number] IV Last administered on 05/15/17 20:12; Start 05/13/17 at 12:00 Potassium Chloride 100 ml @ 100 mls/hr Q1H IV Last administered on 05/13/17 17:14; Start 05/13/17 at 12:00; Stop 05/13/17 at 13:59; Status DC Albuterol/ Ipratropium (Duoneb) 3 ml RTQID NEB Last administered on 05/15/17 20:06; Start 05/14/17 at 08:00 Albuterol Sulfate (Ventolin Neb Soln) 2.5 mg PRN Q2HR PRN NEB SHORTNESS OF BREATH Last administered on 05/16/17 00:55; Start 05/14/17 at 04:30 Guaifenesin (Robitussin Dm) 10 ml PRN QID PRN PO cough Last administered on 22:05; Start 05/14/17 at 04:30 Ceftriaxone Sodium 1 gm/ Sodium Chloride 50 ml @ 100 mls/hr Q24H IV Last administered on 05/15/17 12:08; Start 05/14/17 at 11:00 Potassium Chloride 100 ml @ 100 mls/hr Q1H IV Last administered on 05/15/17 15:04; Start 05/15/17 at 12:00; Stop 05/15/17 at 13:59; Status DC Potassium Chloride (Klor-Con) 20 meq 1X ONCE PO Last administered on 12:23; Start 05/15/17 at 12:00; Stop 05/15/17 at 12:01; Status DC Zolpidem Tartrate (Ambien) 5 mg PRN QHS PRN PO INSOMNIA; Start 05/15/17 at 15: 30 Diphenhydramine HCl (Benadryl) 25 mg PRN QHS PRN PO INSOMNIA Last administered on 9/28/17at 22:05; Start 05/15/17 at 20:45 Active Scripts Active Gabapentin 100 Mg Capsule 100 Mg PO TID Augmentin 875-125 Tablet (Amoxicillin/Potassium Clav) 1 Each Tablet 1 Tab PO BID Metoprolol Succinate ( Xl ) (Metoprolol Succinate) 25 Mg Tab.er.24h 1 Tab PO DAILY Reported Atorvastatin Calcium 20 Mg Tablet 20 Mg PO DAILY Ondansetron Hcl 8 Mg Tablet 8 Mg PO BID PRN Fluticasone Propionate Nasal [place] (Fluticasone Propionate) 16 Gm [place].susp 2 [place] NS DAILY Allopurinol 300 Mg Tablet 1 Tab PO HS Gleevec (Imatinib Mesylate) 400 Mg Tablet 400 Mg PO DAILY Digoxin 125 Mcg Tablet 1 Tab PO DAILY Amiodarone Hcl 200 Mg Tablet 1 Tab PO DAILY Aspirin 81 Mg Tab.chew 1 Tab PO DAILY Prevacid (Lansoprazole) 30 Mg Capsule.dr 1 Cap PO DAILY Alprazolam 0.5 Mg Tablet 1 Tab PO BID Vitals/I & O Vital Sign - Last 24 Hours 05/15/17 05/15/17 05/15/17 05/15/17 09:29 09:30 11:12 11:54 Temp 98.1 98.1 Pulse 59 59 60 Resp 18 B/P (MAP) 156/77 156/77 144/95 (111) Pulse Ox 98 96 O2 Delivery Room Air Room Air 05/15/17 05/15/17 05/15/17 05/15/17 15:15 15:31 19:47 20:00 Temp 98.3 97.9 98.3 97.9 Pulse 56 57 Resp 20 19 B/P (MAP) 133/67 (89) 161/75 (103) Pulse Ox 94 95 O2 Delivery Room Air Room Air Room Air Room Air 05/15/17 05/15/17 05/16/17 05/16/17 20:08 23:25 00:55 03:25 Temp 96.6 98.1 96.6 98.1 Pulse 58 66 Resp 24 21 B/P (MAP) 151/70 (97) 156/72 (100) Pulse Ox 92 94 94 O2 Delivery Room Air Room Air Room Air Room Air 05/16/17 05/16/17 05/16/17 05/16/17 07:18 08:00 09:07 09:08 Temp 99.0 99.0 Pulse 84 84 84 Resp 18 B/P (MAP) 156/80 (105) 156/80 156/80 Pulse Ox 95 O2 Delivery Room Air Room Air 05/16/17 09:08 Pulse 84 B/P (MAP) 156/80 CARY WILD III DO May 16, 2017 09:25
--- NOTE | 2017-05-16 09:36 | PDOC ---
Infectious Disease Note Subjective Subjective pt feeling better , no fever ROS ROS GEN: Denies fevers, chills, sweats HEENT: Denies blurred vision, sore throat CV: Denies chest pain RESP: Denies shortness of air, cough GI: Denies n/v/d NEURO: Denies confusion, dizziness MSK: Denies weakness, joint pain/swelling Vital Sign Vital Signs Vital Signs Date Time Temp Pulse Resp B/P (MAP) Pulse Ox O2 Delivery O2 Flow Rate FiO2 05/16/17 09:08 84 156/80 05/16/17 08:00 Room Air 05/16/17 07:18 99.0 18 95 99.0 05/15/17 08:00 2.0 Physical Exam PHYSICAL EXAM GENERAL: NAD, Alert HEENT: PERRL, OC/OP NECK: Supple, no JVD, no LN LUNGS: Clear HEART: S1S2, no gallop, no murmur ABD: Soft, NT, no organomegaly, no rebound EXT: No edema, no cyanosis 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: Alert, 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, no focal neurologic deficit SKIN: No rash IV: ok Labs Lab Laboratory Tests Test 05/16/17 04:37 White Blood Count 8.7 x10^3/uL (4.0-11.0) Red Blood Count 3.38 x10^6/uL (4.30-5.70) Hemoglobin 11.8 g/dL (13.0-17.5) Hematocrit 34.7 % (39.0-53.0) Mean Corpuscular Volume 103 fL (79-100) Mean Corpuscular Hemoglobin 35 pg (25-35) Mean Corpuscular Hemoglobin Concent 34 g/dL (31-37) Red Cell Distribution Width 13.8 % (11.5-14.5) Platelet Count 107 x10^3/uL (140-400) Neutrophils (%) (Auto) 79 % (31-73) Lymphocytes (%) (Auto) 6 % (24-48) Monocytes (%) (Auto) 11 % (0-9) Eosinophils (%) (Auto) 4 % (0-3) Basophils (%) (Auto) 0 % (0-3) Neutrophils # (Auto) 6.9 x10^3uL (1.8-7.7) Lymphocytes # (Auto) 0.5 x10^3/uL (1.0-4.8) Monocytes # (Auto) 1.0 x10^3/uL (0.0-1.1) Eosinophils # (Auto) 0.3 x10^3/uL (0.0-0.7) Basophils # (Auto) 0.0 x10^3/uL (0.0-0.2) Sodium Level 144 mmol/L (136-145) Potassium Level 3.3 mmol/L (3.5-5.1) Chloride Level 108 mmol/L (98-107) Carbon Dioxide Level 26 mmol/L (21-32) Anion Gap 10 (6-14) Blood Urea Nitrogen 18 mg/dL (8-26) Creatinine 1.3 mg/dL (0.7-1.3) Estimated GFR (Cockcroft-Gault) 53.0 Glucose Level 118 mg/dL (70-99) Calcium Level 8.4 mg/dL (8.5-10.1) Magnesium Level 2.0 mg/dL (1.8-2.4) Micro BLOOD CULTURE PRL Preliminary Preliminary report BLD CULT RESULT 1 Preliminary Klebsiella ozaenae Recovered from anaerobic bottle only. ANTIMICROBIAL SUSCEPTIBILITY Preliminary Comment S = Susceptible; I = Intermediate; R = Resistant P = Positive; N = Negative MICS are expressed in micrograms per mL Antibiotic RSLT#1 RSLT#2 RSLT#3 RSLT#4 Amoxicillin/Clavulanic Acid S Ampicillin R Cefepime S Ceftriaxone S Cefuroxime S Cephalothin S Ciprofloxacin S Ertapenem S Gentamicin S Imipenem S Levofloxacin S Nitrofurantoin I Piperacillin S Tetracycline S Tobramycin S Trimethoprim/Sulfa S Performed at: [address] [id number] Radiophone Operator: Nancy Sierra MD, Phone: [phone] END OF REPORT URINE CULTURE Final Final report URINE CULTURE RES 1 Final Klebsiella pneumoniae Greater than 100,000 colony forming units per mL Cefazolin <=4 ug/mL Cefazolin with an MAZIN <=16 predicts susceptibility to the oral agents cefaclor, cefdinir, cefpodoxime, cefprozil, cefuroxime, cephalexin, and loracarbef when used for therapy of uncomplicated urinary tract infections due to E. coli, Klebsiella pneumoniae, and Proteus mirabilis. ANTIMICROBIAL SUSCEPTIBILITY Final Comment S = Susceptible; I = Intermediate; R = Resistant P = Positive; N = Negative MICS are expressed in micrograms per mL Antibiotic RSLT#1 RSLT#2 RSLT#3 RSLT#4 Amoxicillin/Clavulanic Acid S Ampicillin R Cefepime S Ceftriaxone S Cefuroxime S Cephalothin S Ciprofloxacin S Ertapenem S Gentamicin S Imipenem S Levofloxacin S Nitrofurantoin I Piperacillin S Tetracycline S Tobramycin S Trimethoprim/Sulfa S Performed at: [address] [id number] CONTINUED ON NEXT PAGE RUN DATE: 05/13/17 PAGE 2 RUN TIME: 1532 [facility] [address] [place] [address] Daryl Yang M.D., Rod Hanger Objective Assessment Kleb bacteremia UTI with sepsis Fever and chills Leukocytosis Renal insuff BPH Plan Plan of Care po vantin for 7 more days check culture and adjust supportive care care ct chest, abd and pelvis noted GRAHAM TRISTAN MD May 16, 2017 09:36
[2017-05-16 11:20] VITALS: BP 171/92
--- NOTE | 2017-05-16 12:44 | PDOC ---
Renal-Progress Notes Subjective Notes Notes NONE History of Present Illness Hx of present illness NO CHANGE Vitals Vitals Vital Signs Date Time Temp Pulse Resp B/P (MAP) Pulse Ox O2 Delivery O2 Flow Rate FiO2 05/16/17 11:20 98.6 89 20 171/92 (118) 96 Room Air 98.6 05/15/17 08:00 2.0 Weight Weight [ ] Labs Labs Laboratory Tests Test 05/16/17 04:37 White Blood Count 8.7 x10^3/uL (4.0-11.0) Red Blood Count 3.38 x10^6/uL (4.30-5.70) Hemoglobin 11.8 g/dL (13.0-17.5) Hematocrit 34.7 % (39.0-53.0) Mean Corpuscular Volume 103 fL (79-100) Mean Corpuscular Hemoglobin 35 pg (25-35) Mean Corpuscular Hemoglobin Concent 34 g/dL (31-37) Red Cell Distribution Width 13.8 % (11.5-14.5) Platelet Count 107 x10^3/uL (140-400) Neutrophils (%) (Auto) 79 % (31-73) Lymphocytes (%) (Auto) 6 % (24-48) Monocytes (%) (Auto) 11 % (0-9) Eosinophils (%) (Auto) 4 % (0-3) Basophils (%) (Auto) 0 % (0-3) Neutrophils # (Auto) 6.9 x10^3uL (1.8-7.7) Lymphocytes # (Auto) 0.5 x10^3/uL (1.0-4.8) Monocytes # (Auto) 1.0 x10^3/uL (0.0-1.1) Eosinophils # (Auto) 0.3 x10^3/uL (0.0-0.7) Basophils # (Auto) 0.0 x10^3/uL (0.0-0.2) Sodium Level 144 mmol/L (136-145) Potassium Level 3.3 mmol/L (3.5-5.1) Chloride Level 108 mmol/L (98-107) Carbon Dioxide Level 26 mmol/L (21-32) Anion Gap 10 (6-14) Blood Urea Nitrogen 18 mg/dL (8-26) Creatinine 1.3 mg/dL (0.7-1.3) Estimated GFR (Cockcroft-Gault) 53.0 Glucose Level 118 mg/dL (70-99) Calcium Level 8.4 mg/dL (8.5-10.1) Magnesium Level 2.0 mg/dL (1.8-2.4) Micro Micro Microbiology 05/14/17 Blood Culture - Preliminary, Resulted NO GROWTH AFTER 1 DAY 05/11/17 Urine Culture - Final, Complete 05/11/17 Urine Culture Result 1 (MAZIN) - Final, Complete 05/11/17 Antimicrobic Susceptibility - Final, Complete Review of Systems Constitutional: yes: weakness, alert Ears/Nose/Throat: Yes: no symptom reported Eyes: Yes: no symptom reported Cardiovascular: Yes no symptom reported Gastrointestional: Yes: nausea Genitourinary: Yes: no symptom reported Musculoskeletal: Yes: muscle stiffness Skin: Yes no symptom reported Psychiatric/Neurological: Yes: no symptom reported Endocrine: Yes: no symptom reported Hematologic/Lymphatic: Yes: no symptom reported Physical Exam General Appearance: no apparent distress Respiratory: bilateral CTA Heart: S1S2 Abdomen: soft, bowel sounds present Genitourinary: bladder flat Extremities: pulses present Neurology: alert Assessment Assessment IMP G NEG [place] SEPSIS ANNMARIE-RESOLVED CKD STAGE 3 WITH CR OF 1.0 UTI DEHYDRATION BPH PANCREATIC CA HX HYPOKALEMIA-BETTER LEUCOCYTOSIS-RESOLVED PLAN STOP PPN REPLACE K NEEDED WILL SIGN OFF LEE OTTO MD May 16, 2017 12:44
[2017-05-30] MEDS ORDERED: ALPR0.5T6 PO (09:52)
[2017-05-30] MEDS ORDERED: CIPR250T30 PO (09:52)
[2017-05-30] MEDS ORDERED: TAMS0.4C97 PO (09:52)
--- NOTE | 2017-06-05 13:11 | DS ---
DATE OF DISCHARGE: 05/16/2017 ADMISSION DIAGNOSIS: Sepsis. DISCHARGE DIAGNOSIS: Resolving sepsis. HOSPITAL COURSE: The patient is a pleasant 81-year-old male who presented with sepsis and metabolic encephalopathy. He was admitted. We gave him fluids, IV antibiotics. We did physical therapy and occupational therapy. We consulted Nephrology and Infectious Disease. He did well. We discharged to skilled. DISPOSITION: Skilled. ACTIVITY: As tolerated. DIET: Low sodium. MEDICATIONS: Please see the MRAD. TOTAL TIME: 34 minutes. CARY WILD DO DR: ANDREIA/jenny JOB#: [id number] / [id number]
[2017-06-14] MEDS ORDERED: DOCU-109 PO (00:07)
== END 2017-05-16 13:20 | disposition home health service (06) | DRG 871 ==
LOC: ER 16:54 → 6 SOUTH 18:25
PROVIDERS: ADMIT Internal Medicine; ATTEND Internal Medicine
DX: A41.50 Gram-negative sepsis, unspecified (principal); N17.0 Acute kidney failure with tubular necrosis; E87.2 Acidosis; I95.9 Hypotension, unspecified; D89.9 Disorder involving the immune mechanism, unspecified; I13.0 Hypertensive heart and chronic kidney disease with heart failure and stage 1 through stage 4 chronic kidney disease, or unspecified chronic kidney disease; C25.9 Malignant neoplasm of pancreas, unspecified; I50.9 Heart failure, unspecified; N39.0 Urinary tract infection, site not specified; J44.9 Chronic obstructive pulmonary disease, unspecified; N18.3 Chronic kidney disease, stage 3 (moderate); E86.0 Dehydration; E78.5 Hyperlipidemia, unspecified; E87.6 Hypokalemia; F41.9 Anxiety disorder, unspecified; N40.1 Benign prostatic hyperplasia with lower urinary tract symptoms; K21.9 Gastro-esophageal reflux disease without esophagitis; G89.29 Other chronic pain; M54.5 Low back pain; I25.10 Atherosclerotic heart disease of native coronary artery without angina pectoris; I25.2 Old myocardial infarction; Z82.49 Family history of ischemic heart disease and other diseases of the circulatory system; Z85.72 Personal history of non-Hodgkin lymphomas; Z92.21 Personal history of antineoplastic chemotherapy; Z88.5 Allergy status to narcotic agent; Z88.7 Allergy status to serum and vaccine; Z85.028 Personal history of other malignant neoplasm of stomach
CPT/HCPCS: 36415; 71010; 71250; 74176; 76770; 80048; 80053; 81001; 83605; 83735; 84100; 85007; 85025; 87040; 87086; 87186; 87205; 87804; 93005; 94250; 94640; 96360; J0696; J1956; J2270; J2543; J3370; J3480; J7030; J7040; J7613; J7620; Q0163; Q9966; 97110; 97116; 97530; 97535; 99285-25

== ENCOUNTER → 2017-05-26 | Outpatient (CLI) | payer BC ==
[2017-05-16 11:20] VITALS: BP 171/92
[~2017-05-26] MED LIST changes: +CIPR250T30 PO; +GADOBUTROL 10 MMOL/10 ML VIAL IV ONE; +HEPARIN PF 500 UNIT/5 ML DISP.SYRIN. IV ONE; +TAMS0.4C97 PO
--- NOTE | 2017-05-26 10:48 | RAD ---
MRI Cervical Spine with and without contrast History: Unsteady gait, left hand tingling and numbness Technique: Multiplanar, multi sequential pre and postcontrast MR imaging was performed of the cervical spine. Contrast: 10 cc Gadavist Comparison: None Findings: Cervical vertebral body stature is preserved. There is negligible anterior spondylolisthesis C6-7. There is no significant abnormality of the cervical medullary junction. Mild posterior C3-4 endplate edema is likely reactive/degenerative in etiology. Cervical cord caliber is within normal limits without focal signal abnormality or enhancement. There is mild degenerative disc disease greater posteriorly at C3-4, very mild degenerative disc disease at C5-C6, and mild disc desiccation C4-5 and C6-7. There is moderate to severe mucosal thickening of the visualized right maxillary sinus. Barely included, there are likely small old lacunar infarcts of the bilateral cerebellum. There is a 1.2 cm T2 and T1 hyperintense nodule along the superior margin of the left thyroid gland. C2-C3: Spinal canal and neural foramina are adequate. There is mild right facet hypertrophic change. C3-C4: There is buckling of the ligamentum flavum. There is severe left and mild right facet hypertrophic change. There is mild left uncovertebral degenerative change. Central canal is narrowed to 6 to 7 mm. There is fairly severe narrowing of the left neural foramen, right neural foramen adequate. C4-C5: There is severe left facet hypertrophic change. Spinal canal and neural foramina are adequate. C5-C6: There is severe right greater than left facet hypertrophic change. Central canal is borderline 10 mm. There is mild uncovertebral degenerative change. Neural foramina are overall adequate. C6-C7: There is severe left facet hypertrophic change. There is shallow extrusion extending above the intervertebral disc space more centrally. Central canal is adequate 11 mm. Right neural foramen is adequate. There is mild left uncovertebral degenerative change. There is fairly severe narrowing of the left neural foramen. C7-T1: Spinal canal and the neural foramina are adequate. Impression: 1. There is spinal stenosis to 6 to 7 mm at C3-4. 2. There is multilevel facet hypertrophic change, contributes to severe narrowing of the left C6-7 and C3-4 neural foramina. 3. There is a 1.2 cm T2 and T1 hyperintense nodule along the superior margin of the left thyroid gland. 4. There is mild degenerative disc disease as stated. 5. There is moderate to severe degenerative disc disease of visualized right maxillary sinus. Electronically signed by: Jaime Mcgowan MD (05/26/2017 10:45 AM) [id number]
--- NOTE | 2017-05-26 11:22 | RAD ---
MRI Brain with and without contrast History: Unsteady gait, left hand tingling and numbness, pancreatic cancer Technique: Multiplanar, multi sequential pre and postcontrast MR imaging was performed of the brain. Contrast: 10 cc Gadavist Comparison: None Findings: There is no evidence of recent infarct or cytotoxic edema. Ventricular size is within normal limits. There is mild to moderate generalized supratentorial atrophy.There is no significant midline shift, intraaxial mass effect, or focal abnormal extra-axial fluid collection. There is minimal T2 and FLAIR hyperintense signal abnormality of the supratentorial periventricular white matter bilaterally, also tiny focus right deleon radiata. 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 There is tiny focus of old microhemorrhage/hemosiderin deposition of the right occipital lobe. There is no nodular parenchymal or leptomeningeal enhancement. There is preservation of the major intracranial flow-voids at the skull base. The cerebellar tonsils are normal in location. There is no significant abnormality of the pineal gland or pituitary gland. Paranasal sinuses are overall aerated. There is preserved marrow signal of the clivus. There is oblong focus of T2 and T1 hyperintense signal of the right frontal calvarium, associated with mild bony expansion. This measures up to 2.2 cm AP by 0.8 cm transverse by 1.3 cm cc. There has been lens surgery bilaterally. There is moderate to severe right maxillary sinus mucosal thickening, associated mucous retention cyst 1.6 cm. There is prominent fluid in the right mastoid air cells, to lesser degree on the left. There is patchy mild/moderate ethmoid air cell mucosal thickening. There is approximate 1 cm nonenhancing likely cyst associated with the deep aspect of the right parotid gland. Impression: 1. There is no evidence of recent infarct or abnormal intracranial enhancement. 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 Very mild T2 and FLAIR hyperintense abnormality of the supratentorial white matter is nonspecific, may be due to chronic microvascular ischemic disease in a patient this age. 2. There is mild to moderate generalized supratentorial atrophy. 3. Somewhat expansile focus of signal abnormality of the right frontal calvarium may be due to a hemangioma. 4. There is prominent fluid of the right mastoid air cells, to lesser degree on the left of uncertain sterility. 5. There is paranasal sinus mucosal thickening as stated greatest of the right maxillary sinus. Electronically signed by: Jaime Mcgowan MD (05/26/2017 11:18 AM) [id number]
== END | disposition home or self-care (01) ==
LOC: MRI 08:40
PROVIDERS: ATTEND Psychiatry & Neurology Neurology
DX: C91.92 Lymphoid leukemia, unspecified, in relapse (principal); M48.02 Spinal stenosis, cervical region; M50.321 Other cervical disc degeneration at C4-C5 level; M50.323 Other cervical disc degeneration at C6-C7 level; R26.81 Unsteadiness on feet; R20.0 Anesthesia of skin; R20.2 Paresthesia of skin; R51 Headache; Z79.01 Long term (current) use of anticoagulants
CPT/HCPCS: 70553; 72156; A9585

== ENCOUNTER 2017-06-14 19:57 | Emergency (ER) | payer BC ==
[~2017-06-14] VITALS: Ht 188 cm; Wt 98.4 kg
[~2017-06-14 19:57] MED LIST changes: +DOCU-109 PO; -GADOBUTROL 10 MMOL/10 ML VIAL IV ONE; -HEPARIN PF 500 UNIT/5 ML DISP.SYRIN. IV ONE
[2017-06-14 20:35] VITALS: BP 143/68
[2017-06-14] MEDS ORDERED: LIDOCAINE 2% JELLY 6ML IN APPLICATOR. ONE (20:46)
[2017-06-14 21:08] LABS: BILIRUBIN,URINE NEGATIVE (NEG); GLUCOSE,URINE NEGATIVE (NEG); NITRITE,URINE NEGATIVE (NEG); PH,URINE 5.5; PROTEIN,URINE 100 mg/dL (NEG-TRACE); UROBILINOGEN,URINE 0.2 mg/dL (0.2 mg/dL)
[2017-06-14] MEDS ORDERED: CIPR500T94 PO (21:11)
--- NOTE | 2017-06-14 21:11 | PHYS DOC ---
Past Medical History Past Medical History: CAD, Cancer, COPD, [place], Other Additional Past Medical Histor: stomach CA TREATED W/ CHEMO,LEUKEMIA, pancreatic cancer Past Surgical History: Angioplasty, Lumbar Laminectomy Additional Past Surgical Histo: STENTS X'S 3, right port a cath,L KNEE SURG Alcohol Use: None Drug Use: None Adult General Chief Complaint Chief Complaint: URINE CATHETER PROBLEM HPI HPI Patient is a 81 year old male who presents with obstructed angle catheter. The patient recently admitted to the hospital for urosepsis, had angel catheter placed due to urinary retention. He complains of decreased catheter output for the past 6 hours, has noticed clots in the catheter tubing. Reports lower abdominal pain & distention. Denies fevers/chills, nausea/vomiting, flank pain. He saw a urologist after hospital discharge & has follow up appointment in 3 days. He completed antibiotics given at hospital discharge. Review of Systems Review of Systems Constitutional: Denies fever or chills HENT: Denies nasal congestion or sore throat Respiratory: Denies cough or shortness of breath Cardiovascular: Denies chest pain GI: Reports abdominal pain, denies nausea, vomiting : Reports hematuria & catheter obstruction Musculoskeletal: Denies back pain or joint pain Integument: Denies rash Neurologic: Denies headache Current Medications Current Medications Current Medications Medications (Trade) Dose Ordered Sig/[facility] Start Time Stop Time Status Last Admin Dose Admin Lidocaine HCl (Glydo (Lidocaine) Jelly) 1 brooke 1X ONCE 06/14/17 22:30 06/14/17 22:31 DC 06/14/17 20:47 1 BROOKE Oxybutynin Chloride (Ditropan) 5 mg 1X ONCE 06/14/17 22:00 06/14/17 22:01 DC 06/14/17 21:25 5 MG Allergies Allergies Allergies Coded Allergies Type Severity Reaction Last Updated Verified codeine Allergy Intermediate 05/11/17 Yes tetanus and diphtheria toxoids Allergy Intermediate 10/19/15 Yes Physical Exam Physical Exam Constitutional: Well developed, well nourished, no acute distress, non-toxic appearance. HENT: Normocephalic, atraumatic, bilateral external ears normal, oropharynx moist, nose normal. Eyes: conjunctiva normal, no discharge. Cardiovascular: no edema. Lungs & Thorax: no respiratory distress. Abdomen: soft, mild suprapubig tenderness without significant distention, no rebound/guarding, no masses or pulsatile masses. angel catheter with few clots , no output at this time. Skin: Warm, dry, no erythema, no rash. Back: No CVA tenderness. Extremities: No tenderness, no edema. Neurologic: Alert and oriented X 3 Current Patient Data Vital Signs Vital Signs Date Time Temp Pulse Resp B/P (MAP) Pulse Ox O2 Delivery O2 Flow Rate FiO2 06/14/17 20:35 97.5 86 22 143/68 (93) 98 Room Air 97.5 Lab Values Laboratory Tests Test 06/14/17 20:52 Urine Collection Type Unknown Urine Color Red Urine Clarity Cloudy Urine pH 5.5 Urine Specific [place] 1.015 Urine Protein 100 mg/dL (NEG-TRACE) Urine Glucose (UA) Negative mg/dL (NEG) Urine Ketones (Stick) Negative mg/dL (NEG) Urine Blood Large (NEG) Urine Nitrite Negative (NEG) Urine Bilirubin Negative (NEG) Urine Urobilinogen Dipstick 0.2 mg/dL (0.2 mg/dL) Urine Leukocyte Esterase Large (NEG) Urine RBC Tntc /HPF (0-2) Urine WBC 11-20 /HPF (0-4) Urine Squamous Epithelial Cells None /LPF Urine Amorphous Sediment Present /HPF Urine Bacteria 0 /HPF (0-FEW) Urine Mucus Slight /LPF Microbiology 06/14/17 Urine Culture - Preliminary, Resulted 06/14/17 Urine Culture Result 1 (MAZIN) - Preliminary, Resulted EKG EKG [] Radiology/Procedures Radiology/Procedures [] Course & Med Decision Making Course & Med Decision Making Pertinent Labs and Imaging studies reviewed. (See chart for details) The patient presents with malfunctioning angel catheter. RN attempted to flush but could not clear obstruction. Replaced with 3 way angel, had output of >100 mL of urine, UA consistent with hematuria possible UTI. He felt better after catheter was changed but had bladder spasm, gave oxybutinin here as well as prescription, also prescribed cipro for UTI. Recommend rest, hydration, follow up with urology as scheduled. Come back for high fever, severe pain, uncontrolled vomiting, any otherwise worsening condition. Discharged home in stable & improved condition. [] Dragon Disclaimer Dragon Disclaimer This electronic medical record was generated, in whole or in part, using a voice recognition dictation system. Departure Departure Impression: Primary Impression: Obstructed Angel catheter Disposition: 01 HOME, SELF-CARE Condition: STABLE Referrals: KVNG BADILLO DO (PCP) Patient Instructions: Angel Catheter Care, Adult Additional Instructions: You were seen in the emergency department today for problems with Angel catheter. A new catheter was placed here. Please take the prescribed antibiotic. Drink fluids to stay hydrated. Follow-up with urology as scheduled this week. Return to the emergency department for high fever, severe pain, uncontrolled vomiting, any otherwise worsening condition. Scripts Oxybutynin Chloride (OXYBUTYNIN CHLORIDE) 5 Mg Tablet 1 TAB PO BID, #20 TAB 0 Refills Prov: JUANJOSE AGUIRRE MD 06/14/17 Ciprofloxacin Hcl (CIPRO) 500 Mg Tablet 1 TAB PO BID, #14 TAB Prov: JUANJOSE AGUIRRE MD 06/14/17 JUANJOSE AGUIRRE MD Jun 14, 2017 21:11
[2017-06-14 21:15] LABS: BACTERIA,URINE 0 /HPF (0-FEW); RBC,URINE TNTC /HPF (0-2)
[2017-06-14] MEDS ORDERED: OXYB5TAB7 PO (21:42)
[2017-06-14] MEDS ORDERED: OXYBUTYNIN CHLORIDE 5 MG TABLET PO ONE (22:00)
[2017-06-14] MEDS ORDERED: LIDOCAINE 2% JELLY 6ML IN APPLICATOR. MM ONE (22:30)
== END 2017-06-14 21:36 | disposition home or self-care (01) ==
LOC: ER 19:57
DX: T83.098A Other mechanical complication of other urinary catheter, initial encounter (principal); J44.9 Chronic obstructive pulmonary disease, unspecified; I25.10 Atherosclerotic heart disease of native coronary artery without angina pectoris; I25.2 Old myocardial infarction; Z90.49 Acquired absence of other specified parts of digestive tract; Z88.5 Allergy status to narcotic agent; Z88.7 Allergy status to serum and vaccine; Z85.028 Personal history of other malignant neoplasm of stomach; Y82.8 Other medical devices associated with adverse incidents; Y92.89 Other specified places as the place of occurrence of the external cause
CPT/HCPCS: 81001; 87086; 99284

== ENCOUNTER 2017-08-25 08:06 | Outpatient (CLI) | payer BC ==
[2017-08-25] MEDS ORDERED: LIDOCAINE 2%/EPI 1:100,000 20 ML VIAL. (09:07)
[2017-08-25 09:36] LABS: ADD MAN DIFF? NO
[2017-08-25 09:42] LABS: BASO # 0.1 x10^3/uL (0.0-0.2); BASO % 1 % (0-3); EOS # 0.5 x10^3/uL (0.0-0.7); EOS % 7 % (0-3); HEMATOCRIT 42.5 % (39.0-53.0); HEMOGLOBIN 13.8 g/dL (13.0-17.5); LYMPH # 1.1 x10^3/uL (1.0-4.8); LYMPH % 13 % (24-48); MEAN CORPUSCULAR HEMOGLOBIN 32 pg (25-35); MEAN CORPUSCULAR HGB CONC 32 g/dL (31-37); MEAN CORPUSCULAR VOLUME 99 fL (79-100); MONO # 0.7 x10^3/uL (0.0-1.1); MONO % 9 % (0-9); NEUT # 5.9 x10^3uL (1.8-7.7); NEUT % 71 % (31-73); PLATELET COUNT 172 x10^3/uL (140-400); RED BLOOD COUNT 4.32 x10^6/uL (4.30-5.70); RED CELL DISTRIBUTION WIDTH 15.3 % (11.5-14.5); WHITE BLOOD COUNT 8.3 x10^3/uL (4.0-11.0)
[2017-08-25 09:54] LABS: PROTHROMBIN TIME PATIENT 12.3 SEC (11.7-14.0)
[2017-08-25] MEDS: LIDOCAINE 2%/EPI 1:100,000 20 ML VIAL. IJ (10:47)
== END 2017-08-25 11:30 | disposition home or self-care (01) ==
LOC: INTRAD 08:06
DX: Z45.2 Encounter for adjustment and management of vascular access device (principal); Z79.01 Long term (current) use of anticoagulants; I11.0 Hypertensive heart disease with heart failure; I50.9 Heart failure, unspecified; J44.9 Chronic obstructive pulmonary disease, unspecified; E78.00 Pure hypercholesterolemia, unspecified; I25.10 Atherosclerotic heart disease of native coronary artery without angina pectoris; F17.200 Nicotine dependence, unspecified, uncomplicated; F41.9 Anxiety disorder, unspecified; K21.9 Gastro-esophageal reflux disease without esophagitis; Z87.39 Personal history of other diseases of the musculoskeletal system and connective tissue; Z88.6 Allergy status to analgesic agent
CPT/HCPCS: 36415; 36590; 77001; 85025; 85610; 99152; 99153; J3490

== ENCOUNTER 2018-10-20 16:06 | Emergency (ER) | payer BC ==
[~2018-10-20] VITALS: Ht 188 cm; Wt 108.9 kg
[~2018-10-20 16:06] MED LIST changes: -AMIO200T2 PO; +AMIO200T4 PO; +CARV3.1210 PO; -CARV3.122 PO; +CARV6.2511 PO; -CARV6.252 PO; +CHOL2000 PO; +CIPR500T94 PO; +OMEP40CA5 PO; +OXYB5TAB7 PO; +POTA10TA12 PO; -POTASSIUM CHLO10 MEQ PO; +TOPI25TA7 PO
[2018-10-20] MEDS ORDERED: IV NORMAL SALINE 500ML BAG 500 ML IV ONE (16:30)
[2018-10-20] MEDS ORDERED: ONDANSETRON PF 4 MG/2 ML VIAL. IV ONE (16:45)
[2018-10-20 16:49] LABS: BILIRUBIN,URINE NEGATIVE (NEG); CLARITY,URINE CLEAR; COLOR,URINE YELLOW; NITRITE,URINE NEGATIVE (NEG); PH,URINE 7.5; PROTEIN,URINE NEGATIVE (NEG-TRACE); UROBILINOGEN,URINE 0.2 mg/dL (0.2 mg/dL)
[2018-10-20 16:57] LABS: BACTERIA,URINE 0 /HPF (0-FEW); RBC,URINE OCC /HPF (0-2); SQUAMOUS EPITHELIAL CELL,UR OCC /LPF; WBC,URINE OCC /HPF (0-4)
[2018-10-20 17:18] LABS: BASO # 0.1 x10^3/uL (0.0-0.2); BASO % 1 % (0-3); EOS # 0.2 x10^3/uL (0.0-0.7); EOS % 2 % (0-3); HEMATOCRIT 43.3 % (39.0-53.0); HEMOGLOBIN 14.9 g/dL (13.0-17.5); LYMPH # 1.3 x10^3/uL (1.0-4.8); LYMPH % 17 % (24-48); MEAN CORPUSCULAR HEMOGLOBIN 33 pg (25-35); MEAN CORPUSCULAR HGB CONC 34 g/dL (31-37); MEAN CORPUSCULAR VOLUME 97 fL (79-100); MONO # 0.7 x10^3/uL (0.0-1.1); MONO % 9 % (0-9); NEUT # 5.5 x10^3uL (1.8-7.7); NEUT % 71 % (31-73); PLATELET COUNT 196 x10^3/uL (140-400); RED BLOOD COUNT 4.46 x10^6/uL (4.30-5.70); WHITE BLOOD COUNT 7.7 x10^3/uL (4.0-11.0)
[2018-10-20 17:30] LABS: CALCIUM 9.2 mg/dL (8.5-10.1); CREATININE 1.6 mg/dL (0.7-1.3); GFR 41.5; POTASSIUM 4.1 mmol/L (3.5-5.1)
[2018-10-20 17:38] LABS: ALBUMIN 3.9 g/dL (3.4-5.0); ALBUMIN/GLOBULIN RATIO 1.3 (1.0-1.7); TOTAL BILIRUBIN 0.7 mg/dL (0.2-1.0); TOTAL PROTEIN 6.8 g/dL (6.4-8.2)
[2018-10-20] MEDS ORDERED: hydrALAZINE 20 MG/ML VIAL. IVP ONE (17:45)
[2018-10-20] MEDS ORDERED: IOHEXOL 240 MG/ML 50ML VIAL. PO ONE (17:45)
[2018-10-20] MEDS ORDERED: CONTRAST GIVEN. MC PRN (17:45)
--- NOTE | 2018-10-20 18:07 | PHYS DOC ---
Past Medical History Past Medical History: CAD, Cancer, COPD, [place], Other Additional Past Medical Histor: stomach CA TREATED W/ CHEMO,LEUKEMIA, pancreatic cancer (BRYN DOBBS MD) Past Surgical History: Angioplasty, Lumbar Laminectomy Additional Past Surgical Histo: STENTS X'S 3, right port a cath,L KNEE SURG (BRYN DOBBS MD) Additional Information: Denies smoking: Alcohol Use: Sober Additional Information: ETOH Stopped 1972 Drug Use: None (BRYN DOBBS MD) Adult General Chief Complaint Chief Complaint: CONSTIPATION HPI HPI Patient is a 83 year old male brought in by EMS because of constipation. Patient states he did not have a good bowel movement for the last 2-3 months and small amount of bowel movement 4 days ago and since then did not have any bowel movement. Patient states he passes foul smelling gas like his usual and complaining of distention of abdomen. Patient states he has had dry heaves since this morning without vomiting. Patient states he had anorexia and did not eat anything since yesterday and had small amount of liquid today. Patient denies fever or chills, urinary symptoms, history of abdominal surgery, taking narcotic pain medication, melena and hematemesis. Patient was seen at urgent care today and 911 was called to bring him to the hospital. Patient had unremarkable EGD and colonoscopy several years ago. (BRYN DOBBS MD) Review of Systems Review of Systems Constitutional: Denies fever or chills [] Eyes: Denies change in visual acuity, redness, or eye pain [] HENT: Denies nasal congestion or sore throat [] Respiratory: Denies cough or shortness of breath [] Cardiovascular: No additional information not addressed in HPI [] GI: Reports abdominal pain, nausea, constipation, denies vomiting and bloody stools. : Denies dysuria or hematuria [] Musculoskeletal: Denies back pain or joint pain [] Integument: Denies rash or skin lesions [] Neurologic: Denies headache, focal weakness or sensory changes [] Endocrine: Denies polyuria or polydipsia [] All other systems were reviewed and found to be within normal limits, except as documented in this note. (BRYN DOBBS MD) Current Medications Current Medications Current Medications Medications (Trade) Dose Ordered Sig/[facility]red Start Time Stop Time Status Last Admin Dose Admin Hydralazine HCl (Apresoline Inj) 10 mg 1X ONCE 10/20/18 17:45 10/20/18 17:46 DC 10/20/18 18:11 10 MG Info (CONTRAST GIVEN -- Rx MONITORING) 1 each PRN DAILY PRN 10/20/18 17:45 10/20/18 21:25 DC Iohexol (Omnipaque 240 Mg/ml) 30 ml 1X ONCE 10/20/18 17:45 10/20/18 17:46 DC 10/20/18 17:45 30 ML Ondansetron HCl (Zofran) 4 mg 1X ONCE 10/20/18 16:45 10/20/18 16:46 DC Sodium Chloride 500 ml @ 500 mls/hr 1X ONCE 10/20/18 16:30 10/20/18 17:29 DC 10/20/18 17:02 500 MLS/HR (CAMI FERMIN DO) Allergies Allergies Allergies Coded Allergies Type Severity Reaction Last Updated Verified codeine Allergy Intermediate 05/11/17 Yes tetanus and diphtheria toxoids Allergy Intermediate 10/19/15 Yes (CAMI FERMIN DO) Physical Exam Physical Exam Constitutional: Well developed, well nourished, mild distress, non-toxic appearance. [] HENT: Normocephalic, atraumatic, oropharynx moist. Eyes: PERRLA, EOMI, conjunctiva normal, no discharge. [] Neck: Normal range of motion, no tenderness, supple, no stridor. [] Cardiovascular: Sinus bradycardia Thorax: Bilateral breath sounds clear to auscultation [] Abdomen: Bowel sounds hyperactive, mildly distended with gas, soft, no tenderness, no masses, no pulsatile masses. Rectal exam with present of mallet cutter showed small amount told liquid stool in rectum without fecal impaction no gross blood. Skin: Warm, dry, no erythema, no rash. [] Back: No tenderness, no CVA tenderness. [] Extremities: No tenderness, no cyanosis, no clubbing, ROM intact, no edema. [] Neurologic: Alert and oriented X 3, normal motor function, normal sensory function, no focal deficits noted. [] Psychologic: Affect is anxious, judgement normal, mood normal. [] (BRYN DOBBS MD) Physical Exam Constitutional: Well developed, well nourished, mild distress, non-toxic appearance. [] Abdomen: Mildly distended, soft, no tenderness Skin: Warm, dry, no erythema, no rash. [] Neurologic: Alert and oriented X 3, no focal deficits noted. [] (CAMI FERMIN DO) Current Patient Data Vital Signs Vital Signs Date Time Temp Pulse Resp B/P (MAP) Pulse Ox O2 Delivery O2 Flow Rate FiO2 10/20/18 21:05 82 23 166/96 (119) 98 Room Air 10/20/18 16:15 97.8 97.8 (CAMI FERMIN DO) Lab Values Laboratory Tests Test 10/20/18 16:40 10/20/18 16:55 Urine Collection Type Void Urine Color Yellow Urine Clarity Clear Urine pH 7.5 Urine Specific [place] <=1.005 Urine Protein Negative mg/dL (NEG-TRACE) Urine Glucose (UA) Negative mg/dL (NEG) Urine Ketones (Stick) Negative mg/dL (NEG) Urine Blood Negative (NEG) Urine Nitrite Negative (NEG) Urine Bilirubin Negative (NEG) Urine Urobilinogen Dipstick 0.2 mg/dL (0.2 mg/dL) Urine Leukocyte Esterase Negative (NEG) Urine RBC Occ /HPF (0-2) Urine WBC Occ /HPF (0-4) Urine Squamous Epithelial Cells Occ /LPF Urine Bacteria 0 /HPF (0-FEW) White Blood Count 7.7 x10^3/uL (4.0-11.0) Red Blood Count 4.46 x10^6/uL (4.30-5.70) Hemoglobin 14.9 g/dL (13.0-17.5) Hematocrit 43.3 % (39.0-53.0) Mean Corpuscular Volume 97 fL (79-100) Mean Corpuscular Hemoglobin 33 pg (25-35) Mean Corpuscular Hemoglobin Concent 34 g/dL (31-37) Red Cell Distribution Width 13.0 % (11.5-14.5) Platelet Count 196 x10^3/uL (140-400) Neutrophils (%) (Auto) 71 % (31-73) Lymphocytes (%) (Auto) 17 % (24-48) L Monocytes (%) (Auto) 9 % (0-9) Eosinophils (%) (Auto) 2 % (0-3) Basophils (%) (Auto) 1 % (0-3) Neutrophils # (Auto) 5.5 x10^3uL (1.8-7.7) Lymphocytes # (Auto) 1.3 x10^3/uL (1.0-4.8) Monocytes # (Auto) 0.7 x10^3/uL (0.0-1.1) Eosinophils # (Auto) 0.2 x10^3/uL (0.0-0.7) Basophils # (Auto) 0.1 x10^3/uL (0.0-0.2) Sodium Level 144 mmol/L (136-145) Potassium Level 4.1 mmol/L (3.5-5.1) Chloride Level 105 mmol/L (98-107) Carbon Dioxide Level 29 mmol/L (21-32) Anion Gap 10 (6-14) Blood Urea Nitrogen 12 mg/dL (8-26) Creatinine 1.6 mg/dL (0.7-1.3) H Estimated GFR (Cockcroft-Gault) 41.5 BUN/Creatinine Ratio 8 (6-20) Glucose Level 106 mg/dL (70-99) H Calcium Level 9.2 mg/dL (8.5-10.1) Total Bilirubin 0.7 mg/dL (0.2-1.0) Aspartate Amino Transferase (AST) 22 U/L (15-37) Alanine Aminotransferase (ALT) 22 U/L (16-63) Alkaline Phosphatase 113 U/L (46-116) Troponin I Quantitative < 0.017 ng/mL (0.000-0.055) GG-Hky-J-Type Natriuretic Peptide 1268 pg/mL (0-449) H Total Protein 6.8 g/dL (6.4-8.2) Albumin 3.9 g/dL (3.4-5.0) Albumin/Globulin Ratio 1.3 (1.0-1.7) Lipase 82 U/L (73-393) Laboratory Tests 10/20/18 16:55 Laboratory Tests 10/20/18 16:55 (CAMI FERMIN DO) EKG EKG [] (BRYN DOBBS MD) EKG @1825 Sinus bradycardia at 52bpm, NO ST elevation (CAMI FERMIN DO) Radiology/Procedures Radiology/Procedures [] (BRYN DOBBS MD) Course & Med Decision Making Course & Med Decision Making Pertinent Labs and Imaging studies reviewed. (See chart for details) Evaluation of patient in ER showed 82-year-old male patient with complaining of constipation. Patient had mild distention of abdomen. CT of abdomen and pelvis is pending. Patient had blood pressure of more than 200 without history of hypertension. Hydralazine was given. CT of abdomen and pelvis is pending. Patient care transferred to Dr. Fermin at 1800 . (BRYN DOBBS MD) Course & Med Decision Making 1800- Sign out received from Dr. Dobbs for patient with history of constipation. Labs reviewed. CT abd/pelvis pending. Patient seen and evaluated by myself. CT abd/pelvis with signs of constipation. Hx of pancreatic abnormality which appears improved from prior. A copy of CT results provided to patient to give to PCP. Patient stable for discharge with outpatient follow-up with PCP. Discussed findings and plan with patient and family, who acknowledge understanding and agreement. (CAMI FERMIN DO) Dragon Disclaimer Dragon Disclaimer This electronic medical record was generated, in whole or in part, using a voice recognition dictation system. (BRYN DOBBS MD) Departure Departure Impression: Primary Impression: Constipation Disposition: 01 HOME, SELF-CARE Condition: STABLE Referrals: KVNG BADILLO DO (PCP) Patient Instructions: Constipation, Adult, Icyx-qm-Eavc Scripts Peg 3350/Na Sulf,Bicarb,Cl/Kcl (GOLYTELY SOLUTION) 4,000 Ml Soln.recon 4000 ML PO 1X PRN for CONSTIPATION, #1 BOT Prov: CAMI FERMIN DO 10/20/18 Sennosides/Docusate Sodium (Colace 2-in-1 Tablet) 1 Each Tablet 1-2 EACH PO QHS PRN for CONSTIPATION, #30 TAB Prov: CAMI FERMIN DO 10/20/18 Problem Qualifiers Primary Impression: Constipation Constipation type: unspecified constipation type Qualified Codes: K59.00 - Constipation, unspecified BRYN DOBBS MD Oct 20, 2018 18:07 CAMI FERMIN DO Oct 20, 2018 20:02
--- NOTE | 2018-10-20 18:37 | RAD ---
CT ABD PEL W/ORAL CONTRST ONLY Indication: Abdominal pain, distention, constipation Technique: Noncontrast CT imaging was performed of the abdomen and pelvis, multiplanar reconstruction images submitted. Oral contrast was given. One or more of the following individualized dose reduction techniques were utilized for this examination: 1. Automated exposure control 2. Adjustment of the mA and/or kV according to patient size 3. Use of iterative reconstruction technique. Comparison: May 13, 2017 Findings: There is stable small left lower lobe nodule about 0.3 to 0.4 cm axial image 3 series 2. Evaluation of the abdominal visceral organs is limited without intravenous contrast. There is no new obvious focal abnormality liver or spleen. There are splenic granulomas. There is stable hypodense lesion left lobe of the liver about 1 cm, density measurements cyst 8 Hounsfield units. There is coronary calcification. There is no adrenal nodularity. Gallbladder is present without obvious intraluminal abnormality by CT. There is no renal calculus or hydronephrosis, mild left segmental hydroureter unchanged. There is atherosclerotic calcification abdominal aorta and iliac arteries. There is some persistent although decreased density of the more central mesenteric fat extending about the superior mesenteric artery and vein, extent near the inferior margin of the pancreatic head, other mild adjacent hazy density also less prominent than previously. There are several small nonspecific mesenteric nodes somewhat less prominent. Bowel is not significantly dilated. There is no free air or free fluid. There is mild distention of urinary bladder. There is fat in the inguinal canals greater on the left, no bowel. There is again intramuscular lipoma anterior to the right proximal femur. There is multilevel lumbar facet degenerative change. There is likely moderate to severe spinal stenosis L4-5 and to lesser degree at L3-4. IMPRESSION: 1. There is persistent although decreased nonspecific density extending inferior to the pancreatic head about the superior mesenteric artery and vein. Sequela of more focal pancreatitis would be included in the differential considerations. Mass in this region is difficult to exclude although again findings less prominent than 2017 exam. Sequela of fibrosis is another consideration. There is no focal fluid collection. No other significant inflammatory type change is identified. Short-term follow-up such as in 3 months may be beneficial. Electronically signed by: Jaime Mcgowan MD (10/20/2018 6:34 PM) [facility]
[2018-10-20] MEDS ORDERED: SENN-121 PO (20:02)
[2018-10-20] MEDS ORDERED: PEG4000S8 PO (20:02)
[2018-10-20 21:05] VITALS: BP 166/96
--- NOTE | 2018-10-21 06:49 | EKG ---
[facility] [address] [place] [address] Test Date: 2018-10-20 Test Time: 18:25:00 Pat Name: HARSHIL MALONE Department: Room: Gender: M Health Service Coordinator: : 1935 Requested By: BRYN DOBBS Order Number: [id number] Reading MD: Jorge Carlos MD Measurements Intervals [place] Rate: 52 P: 0 DC: 220 QRS: -36 QRSD: 130 T: -24 QT: 498 QTc: 465 Interpretive Statements SINUS RHYTHM PROLONGED DC INTERVAL ABNORMAL LEFT AXIS DEVIATION RBBB CONSISTENT WITH INFERIOR INFARCT AGE UNDETERMINED ABNORMAL ECG Electronically Signed On 10-22-2018 11:29:36 VIDEO PRODUCTION SPECIALIST by Jorge Carlos MD
== END 2018-10-20 21:20 | disposition home or self-care (01) ==
LOC: ER 16:06
DX: K59.00 Constipation, unspecified (principal); R14.0 Abdominal distension (gaseous); R63.0 Anorexia; I25.10 Atherosclerotic heart disease of native coronary artery without angina pectoris; J44.9 Chronic obstructive pulmonary disease, unspecified; I25.2 Old myocardial infarction; Z88.5 Allergy status to narcotic agent; Z88.7 Allergy status to serum and vaccine
CPT/HCPCS: 36415; 74176; 80053; 81001; 83690; 83880; 84484; 85025; 93005; 96374; 99284; J0360; J7040; Q9966; 96361

== ENCOUNTER 2018-12-24 12:23 | Emergency (ER) | payer BC ==
[~2018-12-24] VITALS: Ht 188 cm; Wt 109.3 kg
[~2018-12-24 12:23] MED LIST changes: +PEG4000S8 PO; +SENN-121 PO
[2018-12-24 13:30] LABS: BILIRUBIN,URINE NEGATIVE (NEG); CLARITY,URINE CLEAR; COLOR,URINE YELLOW; NITRITE,URINE NEGATIVE (NEG); PROTEIN,URINE NEGATIVE (NEG-TRACE); UROBILINOGEN,URINE 0.2 mg/dL (0.2 mg/dL)
[2018-12-24 13:31] LABS: BASO # 0.1 x10^3/uL (0.0-0.2); BASO % 1 % (0-3); EOS # 0.4 x10^3/uL (0.0-0.7); EOS % 4 % (0-3); HEMATOCRIT 44.5 % (39.0-53.0); HEMOGLOBIN 14.8 g/dL (13.0-17.5); LYMPH # 1.2 x10^3/uL (1.0-4.8); LYMPH % 13 % (24-48); MEAN CORPUSCULAR HEMOGLOBIN 32 pg (25-35); MEAN CORPUSCULAR HGB CONC 33 g/dL (31-37); MEAN CORPUSCULAR VOLUME 96 fL (79-100); MONO # 0.9 x10^3/uL (0.0-1.1); MONO % 10 % (0-9); NEUT # 6.7 x10^3uL (1.8-7.7); NEUT % 72 % (31-73); PLATELET COUNT 203 x10^3/uL (140-400); RED BLOOD COUNT 4.63 x10^6/uL (4.30-5.70); RED CELL DISTRIBUTION WIDTH 12.4 % (11.5-14.5); WHITE BLOOD COUNT 9.2 x10^3/uL (4.0-11.0)
[2018-12-24 13:39] LABS: CALCIUM 8.9 mg/dL (8.5-10.1); CREATININE 1.7 mg/dL (0.7-1.3); GFR 38.7; POTASSIUM 4.3 mmol/L (3.5-5.1)
[2018-12-24 13:48] LABS: ALBUMIN 3.7 g/dL (3.4-5.0); ALBUMIN/GLOBULIN RATIO 1.4 (1.0-1.7); TOTAL BILIRUBIN 0.4 mg/dL (0.2-1.0); TOTAL PROTEIN 6.4 g/dL (6.4-8.2)
[2018-12-24 13:48] LABS: BACTERIA,URINE 0 /HPF (0-FEW); RBC,URINE 0 /HPF (0-2); SQUAMOUS EPITHELIAL CELL,UR OCC /LPF; WBC,URINE 0 /HPF (0-4)
[2018-12-24] MEDS ORDERED: MORPHINE SULFATE 4 MG/ML VIAL. IV ONE (14:00)
[2018-12-24] MEDS ORDERED: ONDANSETRON PF 4 MG/2 ML VIAL. IV ONE (14:00)
--- NOTE | 2018-12-24 14:33 | RAD ---
Three-view lumbar spine series Clinical indications: Low back pain. FINDINGS: No compression fracture or discitis or lytic process or anterolisthesis is seen. The transverse processes are intact. There is mild degenerative endplate spurring and mild disc space narrowing throughout the lumbar spine. More prominent bridging anterior endplate osteophyte is seen at L2-3. IMPRESSION: No acute compression fracture. Degenerative lumbar spondylosis. Electronically signed by: Simone Myers MD (12/24/2018 2:31 PM) [place] [id number]
[2018-12-24 14:50] VITALS: BP 168/80
--- NOTE | 2018-12-24 15:32 | RAD ---
CT study of the abdomen and pelvis without contrast Clinical indications: Abdominal pain. TECHNIQUE: Noncontrast helical CT scanning of the abdomen and pelvis was performed. Without contrast, the sensitivity to detect organ pathology and GI tract pathology is decreased. PQRS compliance Statement One or more of the following individualized dose reduction techniques were utilized for this study: 1. Automated exposure control 2. Adjustment of the mA and/or kV according to patient size 3. Use of iterative reconstruction technique COMPARISON: October 20, 2018. FINDINGS: There is a small cyst of the dome of the medial segment left lobe of the liver. Smaller indeterminate nodules within the lateral segment of the left lobe liver which are stable. Spleen is not enlarged. Again seen is peripancreatic inflammation around the head and neck of the pancreas which extends inferiorly into the root of the mesentery. This is unchanged. Gallbladder is normal and no extra hepatic biliary ductal dilatation is seen. No adrenal mass is evident. No hydronephrosis or hydroureter is evident. No renal stone or ureteral stone is evident. There is enlargement of the prostate gland which indents the floor of the urinary bladder more so on left side. Urinary bladder is not abnormally distended. There is mild circumferential urinary bladder wall thickening. Prostate gland measures 4.6 cm in transverse dimension. This is unchanged. There is a central hypodensity within the prostate which could represent a TURP. No focal aneurysmal dilatation of the abdominal aorta is seen. No enlarging abdominal or pelvic lymphadenopathy is evident. Left inguinal hernia is seen containing only fat. This is stable. Sigmoid diverticulosis is seen without diverticulitis. Terminal ileum is unremarkable. The appendix is normal. No obstructive bowel pattern is evident. No free air or free fluid or mesenteric edema is seen. There is a small granuloma of the left lower lobe which is stable. No new lung consolidation is evident. The heart size is enlarged. No lytic process is seen. IMPRESSION: Stable peripancreatic inflammatory change or fibrosis extending into the mesentery. This could be due to old pancreatitis. Pancreatic neoplasm could have this appearance as well but this is stable since May 13, 2017 making this less likely. Stable hypodense nodules of the liver. Enlarged prostate gland. Urinary bladder wall thickening which may be due to chronic bladder neck obstruction secondary to enlarged prostate gland or this may be seen with mild cystitis if there are clinical findings of such. Electronically signed by: Simone Myers MD (12/24/2018 3:30 PM) [id number]
--- NOTE | 2018-12-24 16:38 | PHYS DOC ---
Past Medical History Past Medical History: CAD, Cancer, COPD, [place], Other Additional Past Medical Histor: stomach CA TREATED W/ CHEMO,LEUKEMIA, pa ncreatic cancer Past Surgical History: Angioplasty, Lumbar Laminectomy Additional Past Surgical Histo: STENTS X'S 3, right port a cath,L KNEE SURG Alcohol Use: Sober Drug Use: None Adult General Chief Complaint Chief Complaint: ABDOMINAL PAIN HPI HPI Patient is a 83 year old L presented to ER today for evaluation of lower back pain that radiated around his right groin area. Patient said he was driving his in his [employer] to [place] yesterday to have lunch. On the way home, he started having pain in his lower back. Patient went to sleep, having pain throughout the night, having trouble getting out of his bed this morning due to pain. The pain is worse with movement or laying down flat on his back. Patient denied any bowel or bladder incontinence, no fever. No nausea or vomiting. Review of Systems Review of Systems Constitutional: Denies fever or chills [] Eyes: Denies change in visual acuity, redness, or eye pain [] HENT: Denies nasal congestion or sore throat [] Respiratory: Denies cough or shortness of breath [] Cardiovascular: No additional information not addressed in HPI [] GI: Denies abdominal pain, nausea, vomiting, bloody stools or diarrhea [] : Denies dysuria or hematuria [] Musculoskeletal: Denies back pain or joint pain [] Integument: Denies rash or skin lesions [] Neurologic: Denies headache, focal weakness or sensory changes [] Endocrine: Denies polyuria or polydipsia [] All other systems were reviewed and found to be within normal limits, except as documented in this note. Current Medications Current Medications Current Medications Medications (Trade) Dose Ordered Sig/[facility] Start Time Stop Time Status Last Admin Dose Admin Morphine Sulfate (Morphine Sulfate) 4 mg 1X ONCE 12/24/18 14:00 12/24/18 14:05 DC 12/24/18 14:19 4 MG Ondansetron HCl (Zofran) 4 mg 1X ONCE 12/24/18 14:00 12/24/18 14:05 DC 12/24/18 14:16 4 MG Allergies Allergies Allergies Coded Allergies Type Severity Reaction Last Updated Verified codeine Allergy Intermediate 05/11/17 Yes tetanus and diphtheria toxoids Allergy Intermediate 10/19/15 Yes Physical Exam Physical Exam Constitutional: Well developed, well nourished, milde acute distress due to pain, non-toxic appearance. [] HENT: Normocephalic, atraumatic, bilateral external ears normal, oropharynx moist, no oral exudates, nose normal. [] Eyes: PERRLA, EOMI, conjunctiva normal, no discharge. [] Neck: Normal range of motion, no tenderness, supple, no stridor. [] Cardiovascular:Heart rate regular rhythm, no murmur [] Lungs & Thorax: Bilateral breath sounds clear to auscultation [] Abdomen: Bowel sounds normal, soft, no tenderness, no masses, no pulsatile masses. [] Skin: Warm, dry, no erythema, no rash. [] Back: there is midline tenderness to palpation at L3/L4, ON RIGHT SIDE PARASPINUS MUSCLE. Extremities: No tenderness, no cyanosis, no clubbing, ROM intact, no edema. [] Neurologic: Alert and oriented X 3, normal motor function, normal sensory function, no focal deficits noted. [] Psychologic: Affect normal, judgement normal, mood normal. [] Current Patient Data Vital Signs Vital Signs Date Time Temp Pulse Resp B/P (MAP) Pulse Ox O2 Delivery O2 Flow Rate FiO2 12/24/18 14:37 48 138/63 (88) 96 Room Air 12/24/18 14:19 22 12/24/18 12:30 97.6 97.6 Lab Values Laboratory Tests Test 12/24/18 12:40 12/24/18 13:11 Urine Collection Type Unknown Urine Color Yellow Urine Clarity Clear Urine pH 8.0 Urine Specific [place] 1.010 Urine Protein Negative mg/dL (NEG-TRACE) Urine Glucose (UA) Negative mg/dL (NEG) Urine Ketones (Stick) Negative mg/dL (NEG) Urine Blood Negative (NEG) Urine Nitrite Negative (NEG) Urine Bilirubin Negative (NEG) Urine Urobilinogen Dipstick 0.2 mg/dL (0.2 mg/dL) Urine Leukocyte Esterase Negative (NEG) Urine RBC 0 /HPF (0-2) Urine WBC 0 /HPF (0-4) Urine Squamous Epithelial Cells Occ /LPF Urine Bacteria 0 /HPF (0-FEW) White Blood Count 9.2 x10^3/uL (4.0-11.0) Red Blood Count 4.63 x10^6/uL (4.30-5.70) Hemoglobin 14.8 g/dL (13.0-17.5) Hematocrit 44.5 % (39.0-53.0) Mean Corpuscular Volume 96 fL (79-100) Mean Corpuscular Hemoglobin 32 pg (25-35) Mean Corpuscular Hemoglobin Concent 33 g/dL (31-37) Red Cell Distribution Width 12.4 % (11.5-14.5) Platelet Count 203 x10^3/uL (140-400) Neutrophils (%) (Auto) 72 % (31-73) Lymphocytes (%) (Auto) 13 % (24-48) L Monocytes (%) (Auto) 10 % (0-9) H Eosinophils (%) (Auto) 4 % (0-3) H Basophils (%) (Auto) 1 % (0-3) Neutrophils # (Auto) 6.7 x10^3uL (1.8-7.7) Lymphocytes # (Auto) 1.2 x10^3/uL (1.0-4.8) Monocytes # (Auto) 0.9 x10^3/uL (0.0-1.1) Eosinophils # (Auto) 0.4 x10^3/uL (0.0-0.7) Basophils # (Auto) 0.1 x10^3/uL (0.0-0.2) Sodium Level 139 mmol/L (136-145) Potassium Level 4.3 mmol/L (3.5-5.1) Chloride Level 102 mmol/L (98-107) Carbon Dioxide Level 27 mmol/L (21-32) Anion Gap 10 (6-14) Blood Urea Nitrogen 14 mg/dL (8-26) Creatinine 1.7 mg/dL (0.7-1.3) H Estimated GFR (Cockcroft-Gault) 38.7 BUN/Creatinine Ratio 8 (6-20) Glucose Level 106 mg/dL (70-99) H Calcium Level 8.9 mg/dL (8.5-10.1) Total Bilirubin 0.4 mg/dL (0.2-1.0) Aspartate Amino Transferase (AST) 20 U/L (15-37) Alanine Aminotransferase (ALT) 24 U/L (16-63) Alkaline Phosphatase 108 U/L (46-116) Total Protein 6.4 g/dL (6.4-8.2) Albumin 3.7 g/dL (3.4-5.0) Albumin/Globulin Ratio 1.4 (1.0-1.7) Lipase 91 U/L (73-393) Laboratory Tests 12/24/18 13:11 Laboratory Tests 12/24/18 13:11 EKG EKG [] Radiology/Procedures Radiology/Procedures [][address] [address] IMAGING REPORT Signed PATIENT: HARSHIL MALOEN I ACCOUNT: [id number] : 1935 LOCATION: ER AGE: 83 SEX: M EXAM STATUS: REG ER ORD. PHYSICIAN: KAELA SAGE DO REASON: LOWER BACK PAIN PROCEDURE: LUMBAR SPINE 2-3V Three-view lumbar spine series Clinical indications: Low back pain. FINDINGS: No compression fracture or discitis or lytic process or anterolisthesis is seen. The transverse processes are intact. There is mild degenerative endplate spurring and mild disc space narrowing throughout the lumbar spine. More prominent bridging anterior endplate osteophyte is seen at L2-3. IMPRESSION: No acute compression fracture. Degenerative lumbar spondylosis. Electronically signed by: Thee Myers MD (12/24/2018 2:31 PM) [facility] DICTATED and SIGNED BY: THEE MYERS MD DATE: 12/24/18 [id number] [place], [place] [id number] IMAGING REPORT Signed PATIENT: HARSHIL MALONE I ACCOUNT: [id number] : 1935 LOCATION: ER AGE: 83 SEX: M EXAM STATUS: REG ER ORD. PHYSICIAN: KAELA SAGE DO REASON: ABDOMINAL PAIN PROCEDURE: CT ABDOMEN PELVIS WO CONTRAST CT study of the abdomen and pelvis without contrast Clinical indications: Abdominal pain. TECHNIQUE: Noncontrast helical CT scanning of the abdomen and pelvis was performed. Without contrast, the sensitivity to detect organ pathology and GI tract pathology is decreased. PQRS compliance Statement One or more of the following individualized dose reduction techniques were utilized for this study: 1. Automated exposure control 2. Adjustment of the mA and/or kV according to patient size 3. Use of iterative reconstruction technique COMPARISON: October 20, 2018. FINDINGS: There is a small cyst of the dome of the medial segment left lobe of the liver. Smaller indeterminate nodules within the lateral segment of the left lobe liver which are stable. Spleen is not enlarged. Again seen is peripancreatic inflammation around the head and neck of the pancreas which extends inferiorly into the root of the mesentery. This is unchanged. Gallbladder is normal and no extra hepatic biliary ductal dilatation is seen. No adrenal mass is evident. No hydronephrosis or hydroureter is evident. No renal stone or ureteral stone is evident. There is enlargement of the prostate gland which indents the floor of the urinary bladder more so on left side. Urinary bladder is not abnormally distended. There is mild circumferential urinary bladder wall thickening. Prostate gland measures 4.6 cm in transverse dimension. This is unchanged. There is a central hypodensity within the prostate which could represent a TURP. No focal aneurysmal dilatation of the abdominal aorta is seen. No enlarging abdominal or pelvic lymphadenopathy is evident. Left inguinal hernia is seen containing only fat. This is stable. Sigmoid diverticulosis is seen without diverticulitis. Terminal ileum is unremarkable. The appendix is normal. No obstructive bowel pattern is evident. No free air or free fluid or mesenteric edema is seen. There is a small granuloma of the left lower lobe which is stable. No new lung consolidation is evident. The heart size is enlarged. No lytic process is seen. IMPRESSION: Stable peripancreatic inflammatory change or fibrosis extending into the mesentery. This could be due to old pancreatitis. Pancreatic neoplasm could have this appearance as well but this is stable since May 13, 2017 making this less likely. Stable hypodense nodules of the liver. Enlarged prostate gland. Urinary bladder wall thickening which may be due to chronic bladder neck obstruction secondary to enlarged prostate gland or this may be seen with mild cystitis if there are clinical findings of such. Electronically signed by: Thee Myers MD (12/24/2018 3:30 PM) [facility] DICTATED and SIGNED BY: THEE MYERS MD DATE: 12/24/18 9278 Course & Med Decision Making Course & Med Decision Making Pertinent Labs and Imaging studies reviewed. (See chart for details) Patient felt much better now. He wanted to go home, does not want to be admitted for pain control.... Dragon Disclaimer Mikey Disclaimer This electronic medical record was generated, in whole or in part, using a voice recognition dictation system. Departure Departure Impression: Primary Impression: Lower back pain Disposition: HOME, SELF-CARE Condition: STABLE Referrals: KVNG BADILLO DO (PCP) PLEASE CALL YOUR DOCTOR FOR FOLLOW UP ON FRIDAY. RETURN IF YOUR SYMPTOMS NOT IMPROVED. Patient Instructions: Back Pain, Adult Scripts Hydrocodone/Apap 5-325 (NORCO 5-325 TABLET) 1 Each Tablet 1 TAB PO PRN Q6HRS PRN for PAIN, #12 TAB 0 Refills Prov: KAELA SAGE DO 12/24/18 Cyclobenzaprine Hcl (CYCLOBENZAPRINE HCL) 5 Mg Tablet 5 MG PO TID PRN for MUSCLE SPASMS, #20 TAB Prov: KAELA SAGE DO 12/24/18 KAELA SAGE DO December 24, 2018 16:38
[2018-12-24] MEDS ORDERED: CYCL5TAB PO (16:45)
[2018-12-24] MEDS ORDERED: HYDR-3164 PO (16:45)
== END 2018-12-24 17:16 | disposition home or self-care (01) ==
LOC: ER 12:23
DX: M54.5 Low back pain (principal); R10.31 Right lower quadrant pain; J44.9 Chronic obstructive pulmonary disease, unspecified; I25.10 Atherosclerotic heart disease of native coronary artery without angina pectoris; I25.2 Old myocardial infarction; Z95.5 Presence of coronary angioplasty implant and graft; Z88.5 Allergy status to narcotic agent; Z88.7 Allergy status to serum and vaccine
CPT/HCPCS: 36415; 72100; 74176; 80053; 81001; 83690; 85025; 96374; 96375; 99285; J2270; J2405

== ENCOUNTER → 2019-06-03 | Outpatient (CLI) | payer BC ==
[~2019-06-03] MED LIST changes: +CYCL5TAB PO; +HYDR-3164 PO; +OMEP40CA45 PO; -OMEP40CA5 PO; +OXYB5TAB10 PO; -OXYB5TAB7 PO; -PANT40TA5 PO; +PANT40TA77 PO
--- NOTE | 2019-06-03 14:39 | CARD ---
MR#: [id number] Date of Study: 06/03/2019 Ordering Physician: RAYO CHEUNG, Referring Physician: RAYO CHEUNG, Tech: Pearl Vazquez [facility] APPROVED REPORT EXAM: Two-dimensional and M-mode echocardiogram with Doppler and color Doppler. Other Information Quality : GoodHR: 50bpm Rhythm : Bradycardia INDICATION Cardiomyopathy 2D DIMENSIONS RVDd3.7 (2.9-3.5cm)Left Atrium(2D)4.1 (1.6-4.0cm) IVSd1.5 (0.7-1.1cm)Aortic Root(2D)4.0 (2.0-3.7cm) LVDd5.9 (3.9-5.9cm)LVOT Diameter2.7 (1.8-2.4cm) PWd1.3 (0.7-1.1cm)LVDs4.1 (2.5-4.0cm) FS (%) 30.2 %SV98.1 ml LVEF(%)55.0 (>50%) Aortic Valve AoV Peak [place].156.7cm/sAoV VTI32.0cm AO Peak GR.9.8mmHgLVOT Peak [place].72.1cm/s AO Mean GR.5mmHgAVA (VMAX)2.55cm2 ARANZA (VTI)2.41hw4HC P 1/2 [id number] Mitral Valve MV E Nmghvpij87.1cm/sMV DECEL [id number] MV A Exhzkrxo88.1cm/sE/A Ratio0.7 Pulmonary Valve PV Peak Ufbblsic97.9cm/s Tricuspid Valve TR P. Hgqqavdn620ts/sRAP CWTFKTLY7lzWj TR Peak Gr.50nvArJZWN69exJm LEFT VENTRICLE The Left Ventricle is mildly dilated. There is mild concentric left ventricular hypertrophy. Left chantal tricle systolic function is mildly decreased. LVEF 45% The septal motion is suggestive of conduction defect. Transmitral Doppler flow pattern is Grade I-abnormal relaxation pattern. RIGHT VENTRICLE The right ventricle is mildly dilated. There is normal right ventricular wall thickness. The right ve ntricular systolic function is normal. ATRIA The left atrium is mildly dilated. The right atrium is mildly dilated. The interatrial septum is inta ct with no evidence for an atrial septal defect or patent foramen ovale as noted on 2-D or Doppler im aging. AORTIC VALVE The aortic valve is thickened but opens well. The aortic valve is trileaflet. Doppler and Color Flow revealed mild aortic regurgitation. There is no significant aortic valvular stenosis. There is no aor tic valvular vegetation. MITRAL VALVE The mitral valve is normal in structure and function. There is no evidence of mitral valve prolapse. There is no mitral valve stenosis. Doppler and Color-flow revealed mild mitral regurgitation. TRICUSPID VALVE The tricuspid valve is normal in structure and function. Doppler and Color Flow revealed mild tricusp id regurgitation. The PA pressure was estimated at 28 mmHg. There is no tricuspid valve prolapse or v egetation. There is no tricuspid valve stenosis. PULMONIC VALVE The pulmonic valve is not well visualized. GREAT VESSELS The aortic root is mildly enlarged at 4.1cm. The ascending aorta is moderately dilated at 4.3cm. The IVC is normal in size and collapses >50% with inspiration. PERICARDIAL EFFUSION There is no evidence of significant pericardial effusion. Critical Notification Critical Value: No <Conclusion> The septal motion is suggestive of conduction defect. Doppler and Color Flow revealed mild aortic regurgitation. The ascending aorta is moderately dilated at 4.3cm. Left ventricle systolic function is mildly decreased. LVEF 45% Signed by : Jorge Carlos, Electronically Approved : 06/03/2019 14:39:27
== END | disposition home or self-care (01) ==
LOC: ECHO 12:57
PROVIDERS: ATTEND Internal Medicine Cardiovascular Disease
DX: I08.3 Combined rheumatic disorders of mitral, aortic and tricuspid valves (principal); I77.89 Other specified disorders of arteries and arterioles; I11.0 Hypertensive heart disease with heart failure; I50.22 Chronic systolic (congestive) heart failure
CPT/HCPCS: 93306

== ENCOUNTER 2019-12-29 17:11 | Emergency (ER) | payer BC ==
[~2019-12-29] VITALS: Ht 188 cm; Wt 84.0 kg
[~2019-12-29 17:11] MED LIST changes: -DIGO125T PO; +DIGO125T3 PO; -ONDA8TAB14 PO; +ONDA8TAB17 PO; +SIMV20TA18 PO; -SIMV20TA3 PO
--- NOTE | 2019-12-29 17:47 | PHYS DOC ---
Past Medical History Past Medical History: CAD, Cancer, COPD, [place], Other Additional Past Medical Histor: stomach CA TREATED W/ CHEMO,LEUKEMIA, pancreatic cancer Past Surgical History: Angioplasty, Lumbar Laminectomy Additional Past Surgical Histo: STENTS X'S 3, right port a cath,L KNEE SURG Smoking Status: Never Smoker Alcohol Use: Sober Drug Use: None General Adult EDM: Chief Complaint: BACK PAIN - NO INJURY HPI: HPI: Patient is a 84 year old male with a history of chronic lower back pain x1 and half years status post fall presents with a chief complaint of increased lower back pain. Patient states around 11:00 this a.m. patient had sudden onset of lower back pain. Patient denies any injuries. Patient states at the time he was sitting in his recliner. Patient denies any saddle anesthesia no loss of bowel or bladder. Patient states he took exercising Tylenol with no relief. Review of Systems: Review of Systems: Constitutional: Denies fever or chills. [] Eyes: Denies change in visual acuity. [] HENT: Denies nasal congestion or sore throat. [] Respiratory: Denies cough or shortness of breath. [] Cardiovascular: Denies chest pain or edema. [] GI: Denies abdominal pain, nausea, vomiting, bloody stools or diarrhea. [] : Denies dysuria. [] Musculoskeletal: Positive back pain Integument: Denies rash. [] Neurologic: Denies headache, focal weakness or sensory changes. [] Endocrine: Denies polyuria or polydipsia. [] Lymphatic: Denies swollen glands. [] Psychiatric: Denies depression or anxiety. [] Heart Score: Risk Factors: Risk Factors: DM, Current or recent (<one month) smoker, HTN, HLP, family history of CAD, obesity. Risk Scores: Score 0 - 3: 2.5% MACE over next 6 weeks - Discharge Home Score 4 - 6: 20.3% MACE over next 6 weeks - Admit for Clinical Observation Score 7 - 10: 72.7% MACE over next 6 weeks - Early Invasive Strategies Allergies: Allergies: Allergies Coded Allergies Type Severity Reaction Last Updated Verified codeine Allergy Intermediate 05/11/17 Yes tetanus and diphtheria toxoids Allergy Intermediate 10/19/15 Yes Physical Exam: PE: Constitutional: Well developed, well nourished, no acute distress, non-toxic appearance. [] HENT: Normocephalic, atraumatic, bilateral external ears normal, oropharynx moist, no oral exudates, nose normal. [] Eyes: PERRLA, EOMI, conjunctiva normal, no discharge. [] Neck: Normal range of motion, no tenderness, supple, no stridor. [] Cardiovascular:Heart rate regular rhythm, no murmur [] Lungs & Thorax: Bilateral breath sounds clear to auscultation [] Abdomen: Bowel sounds normal, soft, no tenderness, no masses, no pulsatile masses. [] Skin: Warm, dry, no erythema, no rash. [] Back: positive tenderness lumbar midline l4-l5 and bilateral paraspinal, no CVA tenderness. [] Extremities: No tenderness, no cyanosis, no clubbing, ROM intact, no edema. [] Neurologic: Alert and oriented X 3, normal motor function, normal sensory function, no focal deficits noted. [] Psychologic: Affect normal, judgement normal, mood normal. [] Current Patient Data: Vital Signs: Vital Signs Date Time Temp Pulse Resp B/P (MAP) Pulse Ox O2 Delivery O2 Flow Rate FiO2 12/29/19 17:29 97.8 54 20 185/86 (119) 100 Room Air 97.8 EKG: EKG: [] Radiology/Procedures: Radiology/Procedures: [] Course & Med Decision Making: Course & Med Decision Making Pertinent Labs and Imaging studies reviewed. (See chart for details) [] Dragon Disclaimer: Dragon Disclaimer: This electronic medical record was generated, in whole or in part, using a voice recognition dictation system. Departure Departure Impression: Primary Impression: Back pain Condition: STABLE Referrals: KVNG BADILLO DO (PCP) ANA CURTIS DO December 29, 2019 17:47
[2019-12-29] MEDS ORDERED: KETOROLAC 15 MG/ML VIAL. IM ONE (18:15)
[2019-12-29] MEDS ORDERED: CYCLOBENZAPRINE 10 MG TABLET. PO ONE (18:15)
[2019-12-29 18:23] VITALS: BP 161/76
[2019-12-29] MEDS ORDERED: LIDO700A21 TP (18:31)
[2019-12-29] MEDS ORDERED: CYCL5TAB PO (18:31)
--- NOTE | 2019-12-29 18:42 | RAD ---
INDICATION: Low back pain COMPARISON: December 24, 2018 IMPRESSION: Lumbar spine: 3 views obtained. Degenerative changes are identified throughout the lumbar spine with osteophyte formation at the vertebral body endplates as well as facet hypertrophy. Mild loss of height of the superior endplate of L1 which appears slightly more prominent than compared to prior examination. Could be from a mild compression deformity of unknown age and would correlate with symptoms in the region. There is also some air-filled prominent loops of bowel in the partially visualized mid abdomen which could be from phase of peristalsis but if the patient is having abdominal symptoms it may be helpful to obtain a dedicated radiograph of the abdomen to better assess Electronically signed by: Asael Kessler MD (12/29/2019 6:39 PM) [id number]
--- NOTE | 2019-12-30 06:33 | EKG ---
[facility] [address] [place] [address] Test Date: 2019-12-29 Test Time: 17:33:36 Pat Name: HARSHIL MALONE Department: Room: Gender: M [employer] Worker: : 1935 Requested By: ANA CURTIS Order Number: [id number] Reading MD: Jasiel Yang Measurements Intervals [place] Rate: 49 P: -38 MA: 222 QRS: -32 QRSD: 130 T: -24 QT: 442 QTc: 402 Interpretive Statements SINUS BRADYCARDIA PROLONGED MA INTERVAL ABNORMAL LEFT AXIS DEVIATION LEFT ANTERIOR FASCICULAR BLOCK RIGHT BUNDLE BRANCH BLOCK BIFASCICULAR BLOCK QRS(T) CONTOUR ABNORMALITY CONSIDER INFERIOR MYOCARDIAL DAMAGE ABNORMAL ECG Electronically Signed On 12-31-2019 8:32:39 CDT by Jasiel Yang
== END 2019-12-29 19:11 | disposition home or self-care (01) ==
LOC: ER 17:11
DX: G89.29 Other chronic pain (principal); M54.5 Low back pain; J44.9 Chronic obstructive pulmonary disease, unspecified; I25.2 Old myocardial infarction; I25.10 Atherosclerotic heart disease of native coronary artery without angina pectoris; Z85.028 Personal history of other malignant neoplasm of stomach; Z85.07 Personal history of malignant neoplasm of pancreas; Z90.89 Acquired absence of other organs; Z98.890 Other specified postprocedural states; Z88.5 Allergy status to narcotic agent; Z88.7 Allergy status to serum and vaccine
CPT/HCPCS: 72100; 93005; 96372; 99284; J1885

== ENCOUNTER 2020-04-15 11:59 | Inpatient (IN) | payer BC ==
[2020-04-15] VITALS (8 sets, daily range): BP systolic 138–161; BP diastolic 63–83
[~2020-04-15] VITALS: Ht 188 cm; Wt 97.9 kg
[~2020-04-15 11:59] MED LIST changes: +LIDO700A21 TP
--- NOTE | 2020-04-15 12:23 | PHYS DOC ---
Past Medical History Past Medical History: CAD, Cancer, COPD, [place], Other Additional Past Medical Histor: stomach CA TREATED W/ CHEMO,LEUKEMIA, pancreatic cancer Past Surgical History: Angioplasty, Lumbar Laminectomy Additional Past Surgical Histo: STENTS X'S 3, right port a cath,L KNEE SURG Smoking Status: Never Smoker Alcohol Use: Sober Drug Use: None General Adult EDM: Chief Complaint: BACK PAIN - NO INJURY HPI: HPI: 84 yo M PMH CAD, COPD, gastric/pancreatic ca s/p chemo/rads (on gleevac), gerd, htn (meto succ 12.5daily) and HLD, presents to the ed bibems after son called daughter's complaining of leg pain shooting down both his legs, burning stomach pain that moved to his chest, weakness and difficulties walking (ambulates w/o assistance at baseline). Daughter does report patient has some memory problems. is also present in the ED and states the patient has not fallen and she gives him his medications daily. Pt took 2 Zantac's prior to coming to the ED. Daughter reports patient has known history of bradycardia and is normally in the 30s, has no pacemaker. Pt c/o leg pain in ed and right paraspinal low back pain. ROS: Limited due to pts' cognitive impairment/likely dementia Allergies: Allergies: Allergies Coded Allergies Type Severity Reaction Last Updated Verified codeine Allergy Intermediate 05/11/17 Yes tetanus and diphtheria toxoids Allergy Intermediate 10/19/15 Yes Physical Exam: PE: Constitutional: Well developed, well nourished, no acute distress, HENT: Normocephalic, atraumatic, no signs of head trauma, dry mucous membranes Eyes: PERRLA, EOMI, conjunctiva normal, no discharge. [] Neck: Normal range of motion, no tenderness, supple, no stridor. [] Cardiovascular:Heart rate regular rhythm, no murmur [] Lungs & Thorax: Bilateral breath sounds clear to auscultation [] Abdomen: Bowel sounds normal, soft, no tenderness, no masses, no pulsatile masses. [] Skin: Warm, dry, no erythema, no rash, no bruising or contusions Back: No tenderness, no CVA tenderness, right lumbar paraspinal ttp Extremities: No tenderness, no cyanosis, no clubbing, ROM intact, +1/4 equal LE edema Neurologic: Alert, normal motor function, normal sensory function, no focal deficits noted. [] Psychologic: Affect normal, judgement normal, mood normal. [] EKG: EKG: sinus bradycardia at 43 bpm, left axis deviation, first-degree AV block with MD interval at 248, QTC 446, T wave inversion lead III and aVF, TWI V4-V6, no ST elevations or ST depressions, compared to 12/2019 ekg with no new changes Radiology/Procedures: Radiology/Procedures: []IMAGING REPORT Signed PATIENT: HARSHIL MALONE I ACCOUNT: [id number] : 1935 LOCATION: ER AGE: 84 SEX: M EXAM STATUS: PRE ER ORD. PHYSICIAN: AMBERLY FRAZIER DO REASON: back pain PROCEDURE: PORTABLE CHEST 1V PORTABLE CHEST 1V History: Back pain Comparison: May 27, 2017 Findings: Single view of the chest is submitted. Pericardial cardiac silhouette is again enlarged. There is again tortuous thoracic aorta. There is no dependent pleural fluid or pneumothorax. There is no new lobar consolidation. There is again nodular opacity of the mid to superior left hemithorax, is calcified as seen on [address] Impression: 1. No acute radiographic abnormality is identified. Electronically signed by: Yessi Luciano MD (04/15/2020 1:10 PM) [id number] DICTATED and SIGNED BY: YESSI LUCIANO MD DATE: 04/15/20 1310 IMAGING REPORT Signed PATIENT: HARSHIL MALONE I ACCOUNT: [id number] : 1935 LOCATION: ER AGE: 84 SEX: M EXAM STATUS: REG ER ORD. PHYSICIAN: AMBERLY FRAZIER DO REASON: back pain/ ABD PAIN PROCEDURE: CT ABD PEL W/ORAL CONTRST ONLY CT ABD PEL W/ORAL CONTRST ONLY History: back pain/ ABD PAIN Comparison: 12/24/2018 Technique: After administration of intravenous contrast, helical CT of the abdomen and pelvis was performed from the lung bases through the ischial tuberosities. Coronal and sagittal reconstructions were obtained. 75 mL of Omnipaque 350 were used. One or more of the following dose reduction techniques were utilized: Automated exposure control (AEC), Adjustment of mA and/or kV according to patient size, Use of iterative reconstruction technique such as ASiR, CT scan done according to ALARA and image gently/image wisely Abdomen Findings: The visualized lung bases are clear. Cardiomegaly. Coronary artery atherosclerotic disease. Stable hepatic cysts. Calcified splenic granulomas. Gallbladder and bilateral adrenal glands are normal. Continued stability of haziness around the pancreatic head and extending to the region of the SMA and SMV. Symmetric renal enhancement. There is no focal renal mass. There is no hydronephrosis. The visualized loops of small bowel are normal. The visualized loops of large bowel are normal. There is no evidence of bowel obstruction. Appendix is not seen. There is no free fluid. There is no mesenteric or retroperitoneal adenopathy. Diffuse aortoiliac atherosclerotic disease. Urinary bladder is normal. No pelvic free fluid. There is no pelvic or inguinal adenopathy. Degenerative changes of the spine. Right anterior thigh intramuscular lipoma. Small left fat-containing inguinal hernia. IMPRESSION: 1. No acute findings. 2. Stable ill-defined haziness about the pancreatic head and mesenteric vasculature. Electronically signed by: Yessi Chandler MD (04/15/2020 2:39 PM) [id number] DICTATED and SIGNED BY: YESSI CHANDLER MD DATE: 04/15/20 1439 IMAGING REPORT Signed PATIENT: HARSHIL MALONE I ACCOUNT: [id number] : 1935 LOCATION: ER AGE: 84 SEX: M EXAM STATUS: REG ER ORD. PHYSICIAN: AMBERLY FRAZIER DO REASON: ams PROCEDURE: CT HEAD WO CONTRAST CT HEAD WO CONTRAST Date: 04/15/2020 1:24 PM Clinical Indication: ams Comparison: 04/13/2016. Technique: 5 mm axial tomographic images were obtained of the head without contrast. These were viewed on brain and bone windows. One or more of the following dose reduction techniques were utilized: Automated exposure control (AEC), Adjustment of mA and/or kV according to patient size, Use of iterative reconstruction technique such as ASiR, CT scan done according to ALARA and image gently/image wisely Findings: Mild generalized cerebral and cerebellar volume loss. Mild nonspecific periventricular hypoattenuation, most commonly seen with chronic small vessel ischemic disease. Calcified atherosclerosis of the bilateral cavernous and paraclinoid internal carotid arteries and intracranial vertebral arteries. No intra- or extra-axial mass or fluid collection. No acute hemorrhage. The ventricles are normal in size, shape, and morphology. The belcher-white matter junction is normal. The subarachnoid cisterns are patent. Opacification of the right maxillary sinus with mucoperiosteal reaction consistent with chronic sinusitis. High density material within may represent fungal elements. The visualized portions of the orbits and globes are normal. The mastoid air cells are clear. The glueline worker topogram shows no lytic lesion or fracture. Stable right frontal calvarial lucency. Impression: No acute intracranial process. Mild cerebral volume loss. Mild chronic small vessel ischemic disease. Electronically signed by: Yessi Chandler MD (04/15/2020 3:05 PM) [id number] DICTATED and SIGNED BY: YESSI CHANDLER MD DATE: 04/15/20 1505 Course & Med Decision Making: Course & Med Decision Making Pertinent Labs and Imaging studies reviewed. (See chart for details) Concern for symptomatic bradycardia in the setting of confusion versus early dementia. CT of the head, abdomen pelvis and chest x-ray wnl. Cr 1.6-same as prior. HR dropped in ed from 42 to 36, responded well to atropine-increased to upper 40's. D/w cards, Dr. Gonzales to admit to ICU, recommended dopamine prn to manage bp, hold BBs x24 hours. Patient stable at time of admission and and daughter agree with this plan. I have spoken with the patient and/or caregivers. I have explained the patient's condition, diagnosis and treatment plan based on the information a vailable to me at this time. I have answered the patient's and/or caregivers questions and answered any concerns. The patient and/or caregivers have as good an understanding of the patient's diagnosis, condition and treatment plan as can be expected at this point. The patient has been stabilized within the capability of the emergency department. The patient will be transported for further care and management or will be moved to an observation or inpatient service. I have communicated with the staff or medical practitioner taking over this patient's care. Critical Care: Authorized and Performed by: Amberly Frazier DO Total critical care time: approximately 40 minutes Due to a high probability of clinically significant, life threatening deterioration, the patient required my highest level of preparedness to intervene emergently and I personally spent this critical care time directly and personally managing the patient. This critical care time included obtaining a history; examining the patient; pulse oximetry; ventilator management if necessary; ordering and review of studies; arranging urgent treatment with development of a management plan; evaluation of patient's response to treatment; frequent reassessment; discussion with patient/family; and, discussions with other providers. This critical care time was performed to assess and manage the high probability of imminent, life-threatening deterioration that could result in multi-organ failure. It was exclusive of separately billable procedures and treating other patients and teaching time. Please see MDM section and the rest of the note for further information on patient assessment and treatment. Dragon Disclaimer: Dragon Disclaimer: This electronic medical record was generated, in whole or in part, using a voice recognition dictation system. Departure Departure Impression: Primary Impression: Symptomatic bradycardia Additional Impressions: Confusion Renal insufficiency Disposition: ADMITTED INPATIENT Admitting Physician: DEYSI (Dr. Min) Condition: GUARDED Referrals: KVNG BADILLO DO (PCP) Justicifation of Admission Dx: Justifications for Admission: Justification of Admission Dx: Yes CHF: Cardiac Arrhythmias AMBERLY FRAZIER DO Apr 15, 2020 12:23
[2020-04-15 12:34] LABS: BASO # 0.1 x10^3/uL (0.0-0.2); BASO % 1 % (0-3); EOS # 0.4 x10^3/uL (0.0-0.7); EOS % 5 % (0-3); HEMATOCRIT 40.9 % (39.0-53.0); HEMOGLOBIN 13.9 g/dL (13.0-17.5); LYMPH # 1.1 x10^3/uL (1.0-4.8); LYMPH % 15 % (24-48); MEAN CORPUSCULAR HEMOGLOBIN 34 pg (25-35); MEAN CORPUSCULAR HGB CONC 34 g/dL (31-37); MEAN CORPUSCULAR VOLUME 99 fL (79-100); MONO # 0.7 x10^3/uL (0.0-1.1); MONO % 10 % (0-9); NEUT # 5.1 x10^3/uL (1.8-7.7); NEUT % 69 % (31-73); PLATELET COUNT 196 x10^3/uL (140-400); RED BLOOD COUNT 4.13 x10^6/uL (4.30-5.70); WHITE BLOOD COUNT 7.4 x10^3/uL (4.0-11.0)
[2020-04-15 12:43] LABS: PROTHROMBIN TIME PATIENT 12.5 SEC (11.7-14.0)
[2020-04-15 12:47] LABS: CALCIUM 8.7 mg/dL (8.5-10.1); CREATININE 1.6 mg/dL (0.7-1.3); GFR 41.4; POTASSIUM 4.4 mmol/L (3.5-5.1)
[2020-04-15 12:58] LABS: ALBUMIN 3.5 g/dL (3.4-5.0); ALBUMIN/GLOBULIN RATIO 1.6 (1.0-1.7); TOTAL BILIRUBIN 0.5 mg/dL (0.2-1.0); TOTAL PROTEIN 5.7 g/dL (6.4-8.2)
[2020-04-15] MEDS ORDERED: CONTRAST GIVEN. MC PRN (13:00)
[2020-04-15] MEDS ORDERED: IOHEXOL 240 MG/ML 50ML VIAL. PO ONE (13:00)
--- NOTE | 2020-04-15 13:13 | RAD ---
PORTABLE CHEST 1V History: Back pain Comparison: May 27, 2017 Findings: Single view of the chest is submitted. Pericardial cardiac silhouette is again enlarged. There is again tortuous thoracic aorta. There is no dependent pleural fluid or pneumothorax. There is no new lobar consolidation. There is again nodular opacity of the mid to superior left hemithorax, is calcified as seen on [address] Impression: 1. No acute radiographic abnormality is identified. Electronically signed by: Jaime Mcgowan MD (04/15/2020 1:10 PM) [id number]
[2020-04-15 13:59] LABS: ACETAMIN 2.4 mcg/ml (10-30); SALIC < 2.8 mg/dL (2.8-20.0)
[2020-04-15] MEDS ORDERED: GABAPENTIN 300 MG CAPSULE. PO ONE (14:00)
[2020-04-15 14:09] LABS: BILIRUBIN,URINE NEGATIVE (NEG); CLARITY,URINE CLEAR; COLOR,URINE YELLOW; NITRITE,URINE NEGATIVE (NEG); PH,URINE 7.5 (<5.0-8.0); PROTEIN,URINE NEGATIVE (NEG-TRACE); UROBILINOGEN,URINE 0.2 mg/dL (0.2 mg/dL)
[2020-04-15 14:18] LABS: BACTERIA,URINE 0 /HPF (0-FEW); RBC,URINE OCC /HPF (0-2); SQUAMOUS EPITHELIAL CELL,UR OCC /LPF
[2020-04-15] MEDS ORDERED: ATROPINE 0.5 MG/5 ML DISP.SYRINGE. IV ONE (14:30)
--- NOTE | 2020-04-15 14:42 | RAD ---
CT ABD PEL W/ORAL CONTRST ONLY History: back pain/ ABD PAIN Comparison: 12/24/2018 Technique: After administration of intravenous contrast, helical CT of the abdomen and pelvis was performed from the lung bases through the ischial tuberosities. Coronal and sagittal reconstructions were obtained. 75 mL of Omnipaque 350 were used. One or more of the following dose reduction techniques were utilized: Automated exposure control (AEC), Adjustment of mA and/or kV according to patient size, Use of iterative reconstruction technique such as ASiR, CT scan done according to ALARA and image gently/image wisely Abdomen Findings: The visualized lung bases are clear. Cardiomegaly. Coronary artery atherosclerotic disease. Stable hepatic cysts. Calcified splenic granulomas. Gallbladder and bilateral adrenal glands are normal. Continued stability of haziness around the pancreatic head and extending to the region of the SMA and SMV. Symmetric renal enhancement. There is no focal renal mass. There is no hydronephrosis. The visualized loops of small bowel are normal. The visualized loops of large bowel are normal. There is no evidence of bowel obstruction. Appendix is not seen. There is no free fluid. There is no mesenteric or retroperitoneal adenopathy. Diffuse aortoiliac atherosclerotic disease. Urinary bladder is normal. No pelvic free fluid. There is no pelvic or inguinal adenopathy. Degenerative changes of the spine. Right anterior thigh intramuscular lipoma. Small left fat-containing inguinal hernia. IMPRESSION: 1. No acute findings. 2. Stable ill-defined haziness about the pancreatic head and mesenteric vasculature. Electronically signed by: Jaime Chandler MD (04/15/2020 2:39 PM) [id number]
--- NOTE | 2020-04-15 15:08 | RAD ---
CT HEAD WO CONTRAST Date: 04/15/2020 1:24 PM Clinical Indication: ams Comparison: 04/13/2016. Technique: 5 mm axial tomographic images were obtained of the head without contrast. These were viewed on brain and bone windows. One or more of the following dose reduction techniques were utilized: Automated exposure control (AEC), Adjustment of mA and/or kV according to patient size, Use of iterative reconstruction technique such as ASiR, CT scan done according to ALARA and image gently/image wisely Findings: Mild generalized cerebral and cerebellar volume loss. Mild nonspecific periventricular hypoattenuation, most commonly seen with chronic small vessel ischemic disease. Calcified atherosclerosis of the bilateral cavernous and paraclinoid internal carotid arteries and intracranial vertebral arteries. No intra- or extra-axial mass or fluid collection. No acute hemorrhage. The ventricles are normal in size, shape, and morphology. The belcher-white matter junction is normal. The subarachnoid cisterns are patent. Opacification of the right maxillary sinus with mucoperiosteal reaction consistent with chronic sinusitis. High density material within may represent fungal elements. The visualized portions of the orbits and globes are normal. The mastoid air cells are clear. The swimming pool serviceperson topogram shows no lytic lesion or fracture. Stable right frontal calvarial lucency. Impression: No acute intracranial process. Mild cerebral volume loss. Mild chronic small vessel ischemic disease. Electronically signed by: Jaime Chandler MD (04/15/2020 3:05 PM) [id number]
--- NOTE | 2020-04-15 16:03 | PDOC1 ---
History and Physical Date of Admission Date of Admission DATE: 04/15/20 TIME: 16:02 Identification/Chief Complaint Chief Complaint seen in er with bradycardia 84 yo M PMH CAD, COPD, gastric/pancreatic ca s/p chemo/rads (on gleevac), gerd, htn (meto succ 12.5daily) and HLD, presents to the ed bibems after son called daughter's complaining of leg pain shooting down both his legs, burning stomach pain that moved to his chest, weakness and difficulties walking (ambulates w/o assistance at baseline). Daughter does report patient has some memory problems. is also present in the ED and states the patient has not fallen and she gives him his medications daily. Pt took 2 Zantac's prior to coming to the ED. known history of bradycardia and is normally in the 30s Past Medical History Past Medical History Past Medical History Past Medical History: CAD, Cancer, COPD, IA, Other Additional Past Medical Histor: stomach CA TREATED W/ CHEMO,LEUKEMIA, pancreatic cancer Past Surgical History: Angioplasty, Lumbar Laminectomy Additional Past Surgical Histo: STENTS X'S 3, right port a cath,L KNEE SURG Smoking Status: Never Smoker Alcohol Use: Sober Drug Use: None FHX CAD Cardiovascular: CAD, CHF, HTN, Hyperlipidemia Pulmonary: COPD, Other CENTRAL NERVOUS SYSTEM: Other GI: GERD Heme/Onc: Other Hepatobiliary: No pertinent hx Psych: Anxiety Rheumatologic: No pertinent hx Infectious disease: No pertinent hx Renal/: Chronic renal insuff, Benign prostatic enlarg. Endocrine: No pertinent hx Past Surgical History Past Surgical History: Other Family History Family History: Coronary Artery Disease, Hypertension Social History Smoke: No ALCOHOL: none Drugs: None Current Problem List Problem List Problems Medical Problems: (1) Confusion Status: Acute (2) Renal insufficiency Status: Acute (3) Symptomatic bradycardia Status: Acute Current Medications Current Medications Current Medications Iohexol (Omnipaque 240 Mg/ml) 30 ml 1X ONCE PO Last administered on 04/15/20at 14:10; Start 04/15/20 at 13:00; Stop 04/15/20 at 13:01; Status DC Info (CONTRAST GIVEN -- Rx MONITORING) 1 each PRN DAILY PRN MC SEE COMMENTS; Start 04/15/20 at 13:00; Stop 04/17/20 at 12:59 Gabapentin (Neurontin) 300 mg TID PO ; Start 04/15/20 at 21:00 Gabapentin (Neurontin) 300 mg ONCE ONCE PO Last administered on 04/15/20at 13:48; Start 04/15/20 at 14:00; Stop 04/15/20 at 14:01; Status DC Atropine Sulfate (ATROPINE 0.5mg SYRINGE) 0.5 mg 1X ONCE IV Last administered on 04/15/20at 15:11; Start 04/15/20 at 14:30; Stop 04/15/20 at 14:37; Status DC Dopamine HCl/ Dextrose 250 ml @ 18.75 mls/ hr 1X ONCE IV Last administered on 04/15/20at 15:45; Start 04/15/20 at 15:00; Stop 04/16/20 at 04:19 Active Scripts Active Lidocaine PATCH (Lidocaine) 1 Each Adh..patch 1 Each TP DAILY 10 Days REMOVE AFTER 12 HOURS Cyclobenzaprine Hcl 5 Mg Tablet 1 Tab PO QHS [place] 5-325 Tablet (Acetaminophen/Hydrocodone Bitart) 1 Each Tablet 1 Tab PO PRN Q6HRS PRN Cyclobenzaprine Hcl 5 Mg Tablet 5 Mg PO TID PRN Golytely Solution (Peg 3350/Na Sulf,Bicarb,Cl/Kcl) 4,000 Ml Soln.recon 4,000 Ml PO 1X PRN Colace 2-in-1 Tablet (Sennosides/Docusate Sodium) 1 Each Tablet 1-2 Each PO QHS PRN Flomax (Tamsulosin Hcl) 0.4 Mg Cap.er.24h 0.4 Mg PO DAILY Alprazolam 0.5 Mg Tablet 0.5 Mg PO PRN BID PRN Metoprolol Succinate ( Xl ) (Metoprolol Succinate) 25 Mg Tab.er.24h 1 Tab PO DAILY Reported Vitamin D (Cholecalciferol (Vitamin D3)) 2,000 Unit Capsule 2 Cap PO DAILY Topiramate 25 Mg Tablet 1 Tab PO DAILY Omeprazole 40 Mg Capsule.dr 1 Cap PO DAILY Atorvastatin Calcium 20 Mg Tablet 20 Mg PO DAILY Gleevec (Imatinib Mesylate) 400 Mg Tablet 400 Mg PO DAILY Amiodarone Hcl 200 Mg Tablet 1 Tab PO DAILY Aspirin 81 Mg Tab.chew 1 Tab PO DAILY Allergies Allergies: Coded Allergies: codeine (Verified Allergy, Intermediate, 05/11/17) Has tolerated Hydromorphone, Tramadol and Oxycodone in the past. tetanus and diphtheria toxoids (Verified Allergy, Intermediate, 10/19/15) immunocompromised ROS Review of System General: YES: Fatigue PSYCHOLOGICAL ROS: No: Anxiety, Behavioral Disorder, Concentration difficultie, Decreased libido, Depression, Disorientation, Hallucinations, Hostility, I rritablity, Memory difficulties, Mood Swings, Obsessive thoughts, Physical abuse, Sexual abuse, Sleep disturbances, Suicidal ideation, Other HEENT: No: Heacaches, Visual Changes, Hearing change, Nasal congestion, Nasal discharge, Oral lesions, Sinus pain, Sore Throat, Epistaxis, Sneezing, Snoring, Tinnitus, Vertigo, Vocal changes, Other ENDOCRINE: No: Breast Changes, Galactorrhea, Hair Pattern Changes, Hot Flashes, Malaise/lethargy, Mood Swings, Palpitations, Polydipsia/polyuria, Skin Changes, Temperature Intolerance, Unexpected Weight Changes, Other Respiratory: No: Cough, Hemoptysis, Orthopnea, Pleuritic Pain, Shortness of breath, SOB with excertion, Sputum Changes, Stridor, Tachypnea, Wheezing, Other Cardiovascular: No Chest Pain, No Palpitations, No Orthopnea, No Paroxysmal Noc. Dyspnea, No Edema, No Lt Headedness, No Other Gastrointestinal: No Nausea, No Vomiting, No Abdominal Pain, No Diarrhea, No Constipation, No Melena, No Hematochezia, No Other Genitourinary: No Dysuria, No Frequency, No Incontinence, No Hematuria, No Retention, No Discharge, No Urgency, No Pain, No Flank Pain, No Other, No , No , No , No , No , No , No Musculoskeletal: Yes Gait Disturbance, Yes Joint Stiffness Neurological: Yes Confusion Skin: No Dry Skin, No Eczema, No Hair Changes, No Lumps, No Mole Changes, No Mottling, No Nail Changes, No Pruritus, No Rash, No Skin Lesion Changes, No Other, No Acne Physical Exam Physical Exam Constitutional: Well developed, well nourished, no acute distress, HENT: Normocephalic, atraumatic, no signs of head trauma, dry mucous membranes Eyes: PERRLA, EOMI, conjunctiva normal, no discharge. [] Neck: Normal range of motion, no tenderness, supple, no stridor. [] Cardiovascular:Heart rate regular rhythm, no murmur [] Lungs & Thorax: Bilateral breath sounds clear to auscultation [] Abdomen: Bowel sounds normal, soft, no tenderness, no masses, no pulsatile masses. [] Skin: Warm, dry, no erythema, no rash, no bruising or contusions Back: No tenderness, no CVA tenderness, right lumbar paraspinal ttp Extremities: No tenderness, no cyanosis, no clubbing, ROM intact, +1/4 equal LE edema Neurologic: Alert, normal motor function, normal sensory function, no focal deficits noted. [] Psychologic: Affect normal, judgement normal, mood normal. [] General: Cooperative, No acute distress Heart: no thrills, no gallops Breasts: Not examined Abdomen: Normal bowel sounds, Soft Rectal Exam: not examined Extremities: No cyanosis Neuro: Normal speech, Cranial nerves 3-12 NL Psych/Mental Status: Mental status NL, Mood NL Vitals Vitals Vital Signs Date Time Temp Pulse Resp B/P (MAP) Pulse Ox O2 Delivery O2 Flow Rate FiO2 04/15/20 12:23 97.5 43 16 167/72 (103) 98 Room Air 97.5 Labs Labs Laboratory Tests Test 04/15/20 12:08 04/15/20 12:15 04/15/20 13:50 04/15/20 14:28 Salicylates Level < 2.8 mg/dL (2.8-20.0) Salicylate Last Dose Date Unknown Salicylate Last Dose Time Unknown Acetaminophen Level 2.4 mcg/ml (10-30) Acetaminophen Last Dose Date Unknown Acetaminophen Last Dose Time Unknown White Blood Count 7.4 x10^3/uL (4.0-11.0) Red Blood Count 4.13 x10^6/uL (4.30-5.70) Hemoglobin 13.9 g/dL (13.0-17.5) Hematocrit 40.9 % (39.0-53.0) Mean Corpuscular Volume 99 fL (79-100) Mean Corpuscular Hemoglobin 34 pg (25-35) Mean Corpuscular Hemoglobin Concent 34 g/dL (31-37) Red Cell Distribution Width 14.0 % (11.5-14.5) Platelet Count 196 x10^3/uL (140-400) Neutrophils (%) (Auto) 69 % (31-73) Lymphocytes (%) (Auto) 15 % (24-48) Monocytes (%) (Auto) 10 % (0-9) Eosinophils (%) (Auto) 5 % (0-3) Basophils (%) (Auto) 1 % (0-3) Neutrophils # (Auto) 5.1 x10^3/uL (1.8-7.7) Lymphocytes # (Auto) 1.1 x10^3/uL (1.0-4.8) Monocytes # (Auto) 0.7 x10^3/uL (0.0-1.1) Eosinophils # (Auto) 0.4 x10^3/uL (0.0-0.7) Basophils # (Auto) 0.1 x10^3/uL (0.0-0.2) Prothrombin Time 12.5 SEC (11.7-14.0) Prothromb Time International Ratio 1.0 (0.8-1.1) Activated Partial Thromboplast Time 29 SEC (24-38) Sodium Level 145 mmol/L (136-145) Potassium Level 4.4 mmol/L (3.5-5.1) Chloride Level 106 mmol/L (98-107) Carbon Dioxide Level 29 mmol/L (21-32) Anion Gap 10 (6-14) Blood Urea Nitrogen 21 mg/dL (8-26) Creatinine 1.6 mg/dL (0.7-1.3) Estimated GFR (Cockcroft-Gault) 41.4 BUN/Creatinine Ratio 13 (6-20) Glucose Level 93 mg/dL (70-99) Calcium Level 8.7 mg/dL (8.5-10.1) Magnesium Level 2.4 mg/dL (1.8-2.4) Total Bilirubin 0.5 mg/dL (0.2-1.0) Aspartate Amino Transf (AST/SGOT) 20 U/L (15-37) Alanine Aminotransferase (ALT/SGPT) 26 U/L (16-63) Alkaline Phosphatase 108 U/L (46-116) Creatine Kinase 126 U/L (39-308) Troponin I Quantitative < 0.017 ng/mL (0.000-0.055) Total Protein 5.7 g/dL (6.4-8.2) Albumin 3.5 g/dL (3.4-5.0) Albumin/Globulin Ratio 1.6 (1.0-1.7) Lipase 71 U/L (73-393) Urine Collection Type Unknown Urine Color Yellow Urine Clarity Clear Urine pH 7.5 (<5.0-8.0) Urine Specific [place] 1.010 (1.000-1.030) Urine Protein Negative mg/dL (NEG-TRACE) Urine Glucose (UA) Negative mg/dL (NEG) Urine Ketones (Stick) Negative mg/dL (NEG) Urine Blood Negative (NEG) Urine Nitrite Negative (NEG) Urine Bilirubin Negative (NEG) Urine Urobilinogen Dipstick 0.2 mg/dL (0.2 mg/dL) Urine Leukocyte Esterase Trace (NEG) Urine RBC Occ /HPF (0-2) Urine WBC 5-10 /HPF (0-4) Urine Squamous Epithelial Cells Occ /LPF Urine Bacteria 0 /HPF (0-FEW) Lactic Acid Level 1.2 mmol/L (0.4-2.0) Laboratory Tests Test 04/15/20 12:08 04/15/20 12:15 04/15/20 13:50 04/15/20 14:28 Salicylates Level < 2.8 mg/dL (2.8-20.0) Salicylate Last Dose Date Unknown Salicylate Last Dose Time Unknown Acetaminophen Level 2.4 mcg/ml (10-30) Acetaminophen Last Dose Date Unknown Acetaminophen Last Dose Time Unknown White Blood Count 7.4 x10^3/uL (4.0-11.0) Red Blood Count 4.13 x10^6/uL (4.30-5.70) Hemoglobin 13.9 g/dL (13.0-17.5) Hematocrit 40.9 % (39.0-53.0) Mean Corpuscular Volume 99 fL (79-100) Mean Corpuscular Hemoglobin 34 pg (25-35) Mean Corpuscular Hemoglobin Concent 34 g/dL (31-37) Red Cell Distribution Width 14.0 % (11.5-14.5) Platelet Count 196 x10^3/uL (140-400) Neutrophils (%) (Auto) 69 % (31-73) Lymphocytes (%) (Auto) 15 % (24-48) Monocytes (%) (Auto) 10 % (0-9) Eosinophils (%) (Auto) 5 % (0-3) Basophils (%) (Auto) 1 % (0-3) Neutrophils # (Auto) 5.1 x10^3/uL (1.8-7.7) Lymphocytes # (Auto) 1.1 x10^3/uL (1.0-4.8) Monocytes # (Auto) 0.7 x10^3/uL (0.0-1.1) Eosinophils # (Auto) 0.4 x10^3/uL (0.0-0.7) Basophils # (Auto) 0.1 x10^3/uL (0.0-0.2) Prothrombin Time 12.5 SEC (11.7-14.0) Prothromb Time International Ratio 1.0 (0.8-1.1) Activated Partial Thromboplast Time 29 SEC (24-38) Sodium Level 145 mmol/L (136-145) Potassium Level 4.4 mmol/L (3.5-5.1) Chloride Level 106 mmol/L (98-107) Carbon Dioxide Level 29 mmol/L (21-32) Anion Gap 10 (6-14) Blood Urea Nitrogen 21 mg/dL (8-26) Creatinine 1.6 mg/dL (0.7-1.3) Estimated GFR (Cockcroft-Gault) 41.4 BUN/Creatinine Ratio 13 (6-20) Glucose Level 93 mg/dL (70-99) Calcium Level 8.7 mg/dL (8.5-10.1) Magnesium Level 2.4 mg/dL (1.8-2.4) Total Bilirubin 0.5 mg/dL (0.2-1.0) Aspartate Amino Transf (AST/SGOT) 20 U/L (15-37) Alanine Aminotransferase (ALT/SGPT) 26 U/L (16-63) Alkaline Phosphatase 108 U/L (46-116) Creatine Kinase 126 U/L (39-308) Troponin I Quantitative < 0.017 ng/mL (0.000-0.055) Total Protein 5.7 g/dL (6.4-8.2) Albumin 3.5 g/dL (3.4-5.0) Albumin/Globulin Ratio 1.6 (1.0-1.7) Lipase 71 U/L (73-393) Urine Collection Type Unknown Urine Color Yellow Urine Clarity Clear Urine pH 7.5 (<5.0-8.0) Urine Specific [place] 1.010 (1.000-1.030) Urine Protein Negative mg/dL (NEG-TRACE) Urine Glucose (UA) Negative mg/dL (NEG) Urine Ketones (Stick) Negative mg/dL (NEG) Urine Blood Negative (NEG) Urine Nitrite Negative (NEG) Urine Bilirubin Negative (NEG) Urine Urobilinogen Dipstick 0.2 mg/dL (0.2 mg/dL) Urine Leukocyte Esterase Trace (NEG) Urine RBC Occ /HPF (0-2) Urine WBC 5-10 /HPF (0-4) Urine Squamous Epithelial Cells Occ /LPF Urine Bacteria 0 /HPF (0-FEW) Lactic Acid Level 1.2 mmol/L (0.4-2.0) Images Images CT ABD PEL W/ORAL CONTRST ONLY History: back pain/ ABD PAIN Comparison: 12/24/2018 Technique: After administration of intravenous contrast, helical CT of the abdomen and pelvis was performed from the lung bases through the ischial tuberosities. Coronal and sagittal reconstructions were obtained. 75 mL of Omnipaque 350 were used. One or more of the following dose reduction techniques were utilized: Automated exposure control (AEC), Adjustment of mA and/or kV according to patient size, Use of iterative reconstruction technique such as ASiR, CT scan done according to ALARA and image gently/image wisely Abdomen Findings: The visualized lung bases are clear. Cardiomegaly. Coronary artery atherosclerotic disease. Stable hepatic cysts. Calcified splenic granulomas. Gallbladder and bilateral adrenal glands are normal. Continued stability of haziness around the pancreatic head and extending to the region of the SMA and SMV. Symmetric renal enhancement. There is no focal renal mass. There is no hydronephrosis. The visualized loops of small bowel are normal. The visualized loops of large bowel are normal. There is no evidence of bowel obstruction. Appendix is not seen. There is no free fluid. There is no mesenteric or retroperitoneal adenopathy. Diffuse aortoiliac atherosclerotic disease. Urinary bladder is normal. No pelvic free fluid. There is no pelvic or inguinal adenopathy. Degenerative changes of the spine. Right anterior thigh intramuscular lipoma. Small left fat-containing inguinal hernia. IMPRESSION: 1. No acute findings. 2. Stable ill-defined haziness about the pancreatic head and mesenteric vasculature. Electronically signed by: Yessi Chandler MD (04/15/2020 2:39 PM) [id number] Clinical Indication: ams Comparison: 04/13/2016. Technique: 5 mm axial tomographic images were obtained of the head without contrast. These were viewed on brain and bone windows. One or more of the following dose reduction techniques were utilized: Automated exposure control (AEC), Adjustment of mA and/or kV according to patient size, Use of iterative reconstruction technique such as ASiR, CT scan done according to ALARA and image gently/image wisely Findings: Mild generalized cerebral and cerebellar volume loss. Mild nonspecific periventricular hypoattenuation, most commonly seen with chronic small vessel ischemic disease. Calcified atherosclerosis of the bilateral cavernous and paraclinoid internal carotid arteries and intracranial vertebral arteries. No intra- or extra-axial mass or fluid collection. No acute hemorrhage. The ventricles are normal in size, shape, and morphology. The belcher-white matter junction is normal. The subarachnoid cisterns are patent. Opacification of the right maxillary sinus with mucoperiosteal reaction consistent with chronic sinusitis. High density material within may represent fungal elements. The visualized portions of the orbits and globes are normal. The mastoid air cells are clear. The scout sniper topogram shows no lytic lesion or fracture. Stable right frontal calvarial lucency. Impression: No acute intracranial process. Mild cerebral volume loss. Mild chronic small vessel ischemic disease. Electronically signed by: Yessi Chandler MD (04/15/2020 3:05 PM) [id number] DICTATED and SIGNED BY: YESSI CHANDLER MD DATE: 04/15/20 1505 APPROVED REPORT EXAM: Two-dimensional and M-mode echocardiogram with Doppler and color Doppler. Other Information Quality : Good HR: 50bpm Rhythm : Bradycardia INDICATION Cardiomyopathy 2D DIMENSIONS RVDd 3.7 (2.9-3.5cm) Left Atrium(2D) 4.1 (1.6-4.0cm) IVSd 1.5 (0.7-1.1cm) Aortic Root(2D) 4.0 (2.0-3.7cm) LVDd 5.9 (3.9-5.9cm) LVOT Diameter 2.7 (1.8-2.4cm) PWd 1.3 (0.7-1.1cm) LVDs 4.1 (2.5-4.0cm) FS (%) 30.2 % SV 98.1 ml LVEF(%) 55.0 (>50%) Aortic Valve AoV Peak [place]. 156.7cm/s AoV VTI 32.0cm AO Peak GR. 9.8mmHg LVOT Peak [place]. 72.1cm/s AO Mean GR. 5mmHg ARANZA (VMAX) 2.55cm2 ARANZA (VTI) 2.60cm2 AI P 1/2 Time 1075ms Mitral Valve MV E Velocity 43.1cm/s MV DECEL TIME 298ms MV A Velocity 63.1cm/s E/A Ratio 0.7 Pulmonary Valve PV Peak Velocity 80.9cm/s Tricuspid Valve TR P. Velocity 251cm/s RAP ESTIMATE 3mmHg TR Peak Gr. 25mmHg RVSP 28mmHg LEFT VENTRICLE The Left Ventricle is mildly dilated. There is mild concentric left ventricular hypertrophy. Left ventricle systolic function is mildly decreased. LVEF 45% The septal motion is suggestive of conduction defect. Transmitral Doppler flow pattern is Grade I-abnormal relaxation pattern. RIGHT VENTRICLE The right ventricle is mildly dilated. There is normal right ventricular wall thickness. The right ventricular systolic function is normal. ATRIA The left atrium is mildly dilated. The right atrium is mildly dilated. The interatrial septum is intact with no evidence for an atrial septal defect or patent foramen ovale as noted on 2-D or Doppler imaging. AORTIC VALVE The aortic valve is thickened but opens well. The aortic valve is trileaflet. Doppler and Color Flow revealed mild aortic regurgitation. There is no significant aortic valvular stenosis. There is no aortic valvular vegetation. MITRAL VALVE The mitral valve is normal in structure and function. There is no evidence of mitral valve prolapse. There is no mitral valve stenosis. Doppler and Color-flow revealed mild mitral regurgitation. TRICUSPID VALVE The tricuspid valve is normal in structure and function. Doppler and Color Flow revealed mild tricuspid regurgitation. The PA pressure was estimated at 28 mmHg. There is no tricuspid valve prolapse or vegetation. There is no tricuspid valve stenosis. PULMONIC VALVE The pulmonic valve is not well visualized. GREAT VESSELS The aortic root is mildly enlarged at 4.1cm. The ascending aorta is moderately dilated at 4.3cm. The IVC is normal in size and collapses >50% with inspiration. PERICARDIAL EFFUSION There is no evidence of significant pericardial effusion. Critical Notification Critical Value: No <Conclusion> The septal motion is suggestive of conduction defect. Doppler and Color Flow revealed mild aortic regurgitation. The ascending aorta is moderately dilated at 4.3cm. Left ventricle systolic function is mildly decreased. LVEF 45% Signed by : Angelika Carlos, Electronically Approved : 06/03/2019 14:39:27 DICTATED and SIGNED BY: ANGELIKA CARLOS MD DATE: 06/03/19 1426 VTE Prophylaxis Ordered VTE Prophylaxis Devices: No VTE Pharmacological Prophylaxi: Yes Assessment/Plan Assessment/Plan Impression: Symptomatic bradycardia echo 2019 septal motion is suggestive of conduction defect.mild aortic regurgitation. ascending aorta is moderately dilated at 4.3cm. Left ventricle systolic function is mildly decreased. LVEF 45% hx mild-mod dementia Confusion Renal insufficiency pancreatic cancer Stable ill-defined haziness about the pancreatic head and mesenteric vasculature. on ct plan ADMITTED icu bed consult cardiology dopamine drip per cardiology prn iv atropine dvt prophylaxis scd's 33 min cc time Justifications for Admission Other Justification LISET SNOW MD Apr 15, 2020 16:02
[2020-04-15] MEDS: GABAPENTIN 300 MG CAPSULE. PO SCH (21:06)
[2020-04-16] VITALS (22 sets, daily range): BP systolic 91–189; BP diastolic 51–95
--- NOTE | 2020-04-16 05:47 | NUR ---
[id number]. PT admitted to 104 on day shift from ED. Dopamine off at shift change. HR remains 35-44. Pt states this is normal for him. No symptoms seen. B/P remains slightly elevated. No distress overnight. Pt states he feels "fine". Admission complete and POC initiated.
[2020-04-16] MEDS: GABAPENTIN 300 MG CAPSULE. PO SCH ×2 (09:00→13:17)
--- NOTE | 2020-04-16 10:29 | PDOC ---
PROGRESS NOTES Date of Service: DATE: 04/16/20 TIME: 10:28 Chief Complaint Chief Complaint VTE Prophylaxis Ordered VTE Prophylaxis Devices: No VTE Pharmacological Prophylaxi: Yes Assessment/Plan Assessment/Plan Impression: Symptomatic bradycardia TO RATES 36 LAST NIGHT METOPROLOL HELD echo 2019 septal motion is suggestive of conduction defect.mild aortic re gurgitation. ascending aorta is moderately dilated at 4.3cm. Left ventricle systolic function is mildly decreased. LVEF 45% hx mild-mod dementia Confusion AT BASELINE Renal insufficiency pancreatic cancer HX Stable ill-defined haziness about the pancreatic head and mesenteric vasculature. on ct HYPERTENSION, LABILE Mild chronic small vessel ischemic disease. plan ADMITTED icu bed consult cardiology dopamine drip per cardiology prn iv atropine dvt prophylaxis scd's HOLD METOPROLOL FREE T4 start losarten 25 mg po daily 34 min cc time Justifications for Admission Justifications for Admission Other Justification History of Present Illness History of Present Illness Identification/Chief Complaint Chief Complaint seen in er with bradycardia 84 yo M PMH CAD, COPD, gastric/pancreatic ca s/p chemo/rads (on gleevac), gerd, htn (meto succ 12.5daily) and HLD, presents to the ed bibems after son called daughter's complaining of leg pain shooting down both his legs, burning stomach pain that moved to his chest, weakness and difficulties walking (ambulates w/o assistance at baseline). Daughter does report patient has some memory problems. is also present in the ED and states the patient has not fallen and she gives him his medications daily. Pt took 2 Zantac's prior to coming to the ED. known history of bradycardia and is normally in the 30s Past Medical History Past Medical History Past Medical History Past Medical History: CAD, Cancer, COPD, [place], Other Additional Past Medical Histor: stomach CA TREATED W/ CHEMO,LEUKEMIA, pancreatic cancer Past Surgical History: Angioplasty, Lumbar Laminectomy Additional Past Surgical Histo: STENTS X'S 3, right port a cath,L KNEE SURG Smoking Status: Never Smoker Alcohol Use: Sober Drug Use: None FHX CAD Cardiovascular: CAD, CHF, HTN, Hyperlipidemia Pulmonary: COPD, Other CENTRAL NERVOUS SYSTEM: Other GI: GERD Heme/Onc: Other Hepatobiliary: No pertinent hx Psych: Anxiety Rheumatologic: No pertinent hx Infectious disease: No pertinent hx Renal/: Chronic renal insuff, Benign prostatic enlarg. Vitals Vitals Vital Signs Date Time Temp Pulse Resp B/P (MAP) Pulse Ox O2 Delivery O2 Flow Rate FiO2 04/16/20 10:00 56 20 175/88 (117) 98 Room Air 04/16/20 08:00 97.8 97.8 Physical Exam General: Alert, Cooperative, No acute distress Lungs: Clear Abdomen: Normal bowel sounds, Soft Extremities: No cyanosis Labs LABS PORTABLE CHEST 1V History: Back pain Comparison: May 27, 2017 Findings: Single view of the chest is submitted. Pericardial cardiac silhouette is again enlarged. There is again tortuous thoracic aorta. There is no dependent pleural fluid or pneumothorax. There is no new lobar consolidation. There is again nodular opacity of the mid to superior left hemithorax, is calcified as seen on [address] Impression: 1. No acute radiographic abnormality is identified. Electronically signed by: Yessi Luciano MD (04/15/2020 1:10 PM) [id number] DICTATED and SIGNED BY: YESSI LUCIANO MD DATE: 04/15/20 1310 Date: 04/15/2020 1:24 PM Clinical Indication: ams Comparison: 04/13/2016. Technique: 5 mm axial tomographic images were obtained of the head without contrast. These were viewed on brain and bone windows. One or more of the following dose reduction techniques were utilized: Automated exposure control (AEC), Adjustment of mA and/or kV according to patient size, Use of iterative reconstruction technique such as ASiR, CT scan done according to ALARA and image gently/image wisely Findings: Mild generalized cerebral and cerebellar volume loss. Mild nonspecific periventricular hypoattenuation, most commonly seen with chronic small vessel ischemic disease. Calcified atherosclerosis of the bilateral cavernous and paraclinoid internal carotid arteries and intracranial vertebral arteries. No intra- or extra-axial mass or fluid collection. No acute hemorrhage. The ventricles are normal in size, shape, and morphology. The belcher-white matter junction is normal. The subarachnoid cisterns are patent. Opacification of the right maxillary sinus with mucoperiosteal reaction consistent with chronic sinusitis. High density material within may represent fungal elements. The visualized portions of the orbits and globes are normal. The mastoid air cells are clear. The calender let off operator topogram shows no lytic lesion or fracture. Stable right frontal calvarial lucency. Impression: No acute intracranial process. Mild cerebral volume loss. Mild chronic small vessel ischemic disease. Electronically signed by: Yessi Chandler MD (04/15/2020 3:05 PM) [id number] DICTATED and SIGNED BY: YESSI CHANDLER MD DATE: 04/15/20 1505 istory: back pain/ ABD PAIN Comparison: 12/24/2018 Technique: After administration of intravenous contrast, helical CT of the abdomen and pelvis was performed from the lung bases through the ischial tuberosities. Coronal and sagittal reconstructions were obtained. 75 mL of Omnipaque 350 were used. One or more of the following dose reduction techniques were utilized: Automated exposure control (AEC), Adjustment of mA and/or kV according to patient size, Use of iterative reconstruction technique such as ASiR, CT scan done according to ALARA and image gently/image wisely Abdomen Findings: The visualized lung bases are clear. Cardiomegaly. Coronary artery atherosclerotic disease. Stable hepatic cysts. Calcified splenic granulomas. Gallbladder and bilateral adrenal glands are normal. Continued stability of haziness around the pancreatic head and extending to the region of the SMA and SMV. Symmetric renal enhancement. There is no focal renal mass. There is no hydronephrosis. The visualized loops of small bowel are normal. The visualized loops of large bowel are normal. There is no evidence of bowel obstruction. Appendix is not seen. There is no free fluid. There is no mesenteric or retroperitoneal adenopathy. Diffuse aortoiliac atherosclerotic disease. Urinary bladder is normal. No pelvic free fluid. There is no pelvic or inguinal adenopathy. Degenerative changes of the spine. Right anterior thigh intramuscular lipoma. Small left fat-containing inguinal hernia. IMPRESSION: 1. No acute findings. 2. Stable ill-defined haziness about the pancreatic head and mesenteric vasculature. Electronically signed by: Yessi Chandler MD (04/15/2020 2:39 PM) [id number] Laboratory Tests Test 04/15/20 12:08 04/15/20 12:15 04/15/20 13:50 04/15/20 14:28 Salicylates Level < 2.8 mg/dL (2.8-20.0) Salicylate Last Dose Date Unknown Salicylate Last Dose Time Unknown Acetaminophen Level 2.4 mcg/ml (10-30) Acetaminophen Last Dose Date Unknown Acetaminophen Last Dose Time Unknown White Blood Count 7.4 x10^3/uL (4.0-11.0) Red Blood Count 4.13 x10^6/uL (4.30-5.70) Hemoglobin 13.9 g/dL (13.0-17.5) Hematocrit 40.9 % (39.0-53.0) Mean Corpuscular Volume 99 fL (79-100) Mean Corpuscular Hemoglobin 34 pg (25-35) Mean Corpuscular Hemoglobin Concent 34 g/dL (31-37) Red Cell Distribution Width 14.0 % (11.5-14.5) Platelet Count 196 x10^3/uL (140-400) Neutrophils (%) (Auto) 69 % (31-73) Lymphocytes (%) (Auto) 15 % (24-48) Monocytes (%) (Auto) 10 % (0-9) Eosinophils (%) (Auto) 5 % (0-3) Basophils (%) (Auto) 1 % (0-3) Neutrophils # (Auto) 5.1 x10^3/uL (1.8-7.7) Lymphocytes # (Auto) 1.1 x10^3/uL (1.0-4.8) Monocytes # (Auto) 0.7 x10^3/uL (0.0-1.1) Eosinophils # (Auto) 0.4 x10^3/uL (0.0-0.7) Basophils # (Auto) 0.1 x10^3/uL (0.0-0.2) Prothrombin Time 12.5 SEC (11.7-14.0) Prothromb Time International Ratio 1.0 (0.8-1.1) Activated Partial Thromboplast Time 29 SEC (24-38) Sodium Level 145 mmol/L (136-145) Potassium Level 4.4 mmol/L (3.5-5.1) Chloride Level 106 mmol/L (98-107) Carbon Dioxide Level 29 mmol/L (21-32) Anion Gap 10 (6-14) Blood Urea Nitrogen 21 mg/dL (8-26) Creatinine 1.6 mg/dL (0.7-1.3) Estimated GFR (Cockcroft-Gault) 41.4 BUN/Creatinine Ratio 13 (6-20) Glucose Level 93 mg/dL (70-99) Calcium Level 8.7 mg/dL (8.5-10.1) Magnesium Level 2.4 mg/dL (1.8-2.4) Total Bilirubin 0.5 mg/dL (0.2-1.0) Aspartate Amino Transf (AST/SGOT) 20 U/L (15-37) Alanine Aminotransferase (ALT/SGPT) 26 U/L (16-63) Alkaline Phosphatase 108 U/L (46-116) Creatine Kinase 126 U/L (39-308) Troponin I Quantitative < 0.017 ng/mL (0.000-0.055) Total Protein 5.7 g/dL (6.4-8.2) Albumin 3.5 g/dL (3.4-5.0) Albumin/Globulin Ratio 1.6 (1.0-1.7) Lipase 71 U/L (73-393) Urine Collection Type Unknown Urine Color Yellow Urine Clarity Clear Urine pH 7.5 (<5.0-8.0) Urine Specific [place] 1.010 (1.000-1.030) Urine Protein Negative mg/dL (NEG-TRACE) Urine Glucose (UA) Negative mg/dL (NEG) Urine Ketones (Stick) Negative mg/dL (NEG) Urine Blood Negative (NEG) Urine Nitrite Negative (NEG) Urine Bilirubin Negative (NEG) Urine Urobilinogen Dipstick 0.2 mg/dL (0.2 mg/dL) Urine Leukocyte Esterase Trace (NEG) Urine RBC Occ /HPF (0-2) Urine WBC 5-10 /HPF (0-4) Urine Squamous Epithelial Cells Occ /LPF Urine Bacteria 0 /HPF (0-FEW) Lactic Acid Level 1.2 mmol/L (0.4-2.0) Assessment and Plan Assessmemt and Plan Problems Medical Problems: (1) Confusion Status: Acute (2) Renal insufficiency Status: Acute (3) Symptomatic bradycardia Status: Acute Comment Review of Relevant I have reviewed the following items jannet (where applicable) has been applied. Labs Laboratory Tests Test 04/15/20 12:08 04/15/20 12:15 04/15/20 13:50 04/15/20 14:28 Salicylates Level < 2.8 mg/dL (2.8-20.0) Salicylate Last Dose Date Unknown Salicylate Last Dose Time Unknown Acetaminophen Level 2.4 mcg/ml (10-30) Acetaminophen Last Dose Date Unknown Acetaminophen Last Dose Time Unknown White Blood Count 7.4 x10^3/uL (4.0-11.0) Red Blood Count 4.13 x10^6/uL (4.30-5.70) Hemoglobin 13.9 g/dL (13.0-17.5) Hematocrit 40.9 % (39.0-53.0) Mean Corpuscular Volume 99 fL (79-100) Mean Corpuscular Hemoglobin 34 pg (25-35) Mean Corpuscular Hemoglobin Concent 34 g/dL (31-37) Red Cell Distribution Width 14.0 % (11.5-14.5) Platelet Count 196 x10^3/uL (140-400) Neutrophils (%) (Auto) 69 % (31-73) Lymphocytes (%) (Auto) 15 % (24-48) Monocytes (%) (Auto) 10 % (0-9) Eosinophils (%) (Auto) 5 % (0-3) Basophils (%) (Auto) 1 % (0-3) Neutrophils # (Auto) 5.1 x10^3/uL (1.8-7.7) Lymphocytes # (Auto) 1.1 x10^3/uL (1.0-4.8) Monocytes # (Auto) 0.7 x10^3/uL (0.0-1.1) Eosinophils # (Auto) 0.4 x10^3/uL (0.0-0.7) Basophils # (Auto) 0.1 x10^3/uL (0.0-0.2) Prothrombin Time 12.5 SEC (11.7-14.0) Prothromb Time International Ratio 1.0 (0.8-1.1) Activated Partial Thromboplast Time 29 SEC (24-38) Sodium Level 145 mmol/L (136-145) Potassium Level 4.4 mmol/L (3.5-5.1) Chloride Level 106 mmol/L (98-107) Carbon Dioxide Level 29 mmol/L (21-32) Anion Gap 10 (6-14) Blood Urea Nitrogen 21 mg/dL (8-26) Creatinine 1.6 mg/dL (0.7-1.3) Estimated GFR (Cockcroft-Gault) 41.4 BUN/Creatinine Ratio 13 (6-20) Glucose Level 93 mg/dL (70-99) Calcium Level 8.7 mg/dL (8.5-10.1) Magnesium Level 2.4 mg/dL (1.8-2.4) Total Bilirubin 0.5 mg/dL (0.2-1.0) Aspartate Amino Transf (AST/SGOT) 20 U/L (15-37) Alanine Aminotransferase (ALT/SGPT) 26 U/L (16-63) Alkaline Phosphatase 108 U/L (46-116) Creatine Kinase 126 U/L (39-308) Troponin I Quantitative < 0.017 ng/mL (0.000-0.055) Total Protein 5.7 g/dL (6.4-8.2) Albumin 3.5 g/dL (3.4-5.0) Albumin/Globulin Ratio 1.6 (1.0-1.7) Lipase 71 U/L (73-393) Urine Collection Type Unknown Urine Color Yellow Urine Clarity Clear Urine pH 7.5 (<5.0-8.0) Urine Specific [place] 1.010 (1.000-1.030) Urine Protein Negative mg/dL (NEG-TRACE) Urine Glucose (UA) Negative mg/dL (NEG) Urine Ketones (Stick) Negative mg/dL (NEG) Urine Blood Negative (NEG) Urine Nitrite Negative (NEG) Urine Bilirubin Negative (NEG) Urine Urobilinogen Dipstick 0.2 mg/dL (0.2 mg/dL) Urine Leukocyte Esterase Trace (NEG) Urine RBC Occ /HPF (0-2) Urine WBC 5-10 /HPF (0-4) Urine Squamous Epithelial Cells Occ /LPF Urine Bacteria 0 /HPF (0-FEW) Lactic Acid Level 1.2 mmol/L (0.4-2.0) Laboratory Tests Test 04/15/20 12:08 04/15/20 12:15 04/15/20 13:50 04/15/20 14:28 Salicylates Level < 2.8 mg/dL (2.8-20.0) Salicylate Last Dose Date Unknown Salicylate Last Dose Time Unknown Acetaminophen Level 2.4 mcg/ml (10-30) Acetaminophen Last Dose Date Unknown Acetaminophen Last Dose Time Unknown White Blood Count 7.4 x10^3/uL (4.0-11.0) Red Blood Count 4.13 x10^6/uL (4.30-5.70) Hemoglobin 13.9 g/dL (13.0-17.5) Hematocrit 40.9 % (39.0-53.0) Mean Corpuscular Volume 99 fL (79-100) Mean Corpuscular Hemoglobin 34 pg (25-35) Mean Corpuscular Hemoglobin Concent 34 g/dL (31-37) Red Cell Distribution Width 14.0 % (11.5-14.5) Platelet Count 196 x10^3/uL (140-400) Neutrophils (%) (Auto) 69 % (31-73) Lymphocytes (%) (Auto) 15 % (24-48) Monocytes (%) (Auto) 10 % (0-9) Eosinophils (%) (Auto) 5 % (0-3) Basophils (%) (Auto) 1 % (0-3) Neutrophils # (Auto) 5.1 x10^3/uL (1.8-7.7) Lymphocytes # (Auto) 1.1 x10^3/uL (1.0-4.8) Monocytes # (Auto) 0.7 x10^3/uL (0.0-1.1) Eosinophils # (Auto) 0.4 x10^3/uL (0.0-0.7) Basophils # (Auto) 0.1 x10^3/uL (0.0-0.2) Prothrombin Time 12.5 SEC (11.7-14.0) Prothromb Time International Ratio 1.0 (0.8-1.1) Activated Partial Thromboplast Time 29 SEC (24-38) Sodium Level 145 mmol/L (136-145) Potassium Level 4.4 mmol/L (3.5-5.1) Chloride Level 106 mmol/L (98-107) Carbon Dioxide Level 29 mmol/L (21-32) Anion Gap 10 (6-14) Blood Urea Nitrogen 21 mg/dL (8-26) Creatinine 1.6 mg/dL (0.7-1.3) Estimated GFR (Cockcroft-Gault) 41.4 BUN/Creatinine Ratio 13 (6-20) Glucose Level 93 mg/dL (70-99) Calcium Level 8.7 mg/dL (8.5-10.1) Magnesium Level 2.4 mg/dL (1.8-2.4) Total Bilirubin 0.5 mg/dL (0.2-1.0) Aspartate Amino Transf (AST/SGOT) 20 U/L (15-37) Alanine Aminotransferase (ALT/SGPT) 26 U/L (16-63) Alkaline Phosphatase 108 U/L (46-116) Creatine Kinase 126 U/L (39-308) Troponin I Quantitative < 0.017 ng/mL (0.000-0.055) Total Protein 5.7 g/dL (6.4-8.2) Albumin 3.5 g/dL (3.4-5.0) Albumin/Globulin Ratio 1.6 (1.0-1.7) Lipase 71 U/L (73-393) Urine Collection Type Unknown Urine Color Yellow Urine Clarity Clear Urine pH 7.5 (<5.0-8.0) Urine Specific [place] 1.010 (1.000-1.030) Urine Protein Negative mg/dL (NEG-TRACE) Urine Glucose (UA) Negative mg/dL (NEG) Urine Ketones (Stick) Negative mg/dL (NEG) Urine Blood Negative (NEG) Urine Nitrite Negative (NEG) Urine Bilirubin Negative (NEG) Urine Urobilinogen Dipstick 0.2 mg/dL (0.2 mg/dL) Urine Leukocyte Esterase Trace (NEG) Urine RBC Occ /HPF (0-2) Urine WBC 5-10 /HPF (0-4) Urine Squamous Epithelial Cells Occ /LPF Urine Bacteria 0 /HPF (0-FEW) Lactic Acid Level 1.2 mmol/L (0.4-2.0) Medications Current Medications Iohexol (Omnipaque 240 Mg/ml) 30 ml 1X ONCE PO Last administered on 04/15/20at 14:10; Start 04/15/20 at 13:00; Stop 04/15/20 at 13:01; Status DC Info (CONTRAST GIVEN -- Rx MONITORING) 1 each PRN DAILY PRN MC SEE COMMENTS; Start 04/15/20 at 13:00; Stop 04/17/20 at 12:59 Gabapentin (Neurontin) 300 mg TID PO Last administered on 04/16/20at 09:00; Start 04/15/20 at 21:00 Gabapentin (Neurontin) 300 mg ONCE ONCE PO Last administered on 04/15/20at 13:48; Start 04/15/20 at 14:00; Stop 04/15/20 at 14:01; Status DC Atropine Sulfate (ATROPINE 0.5mg SYRINGE) 0.5 mg 1X ONCE IV Last administered on 04/15/20at 15:11; Start 04/15/20 at 14:30; Stop 04/15/20 at 14:37; Status DC Dopamine HCl/ Dextrose 250 ml @ 18.75 mls/ hr 1X ONCE IV Last administered on 04/15/20at 15:45; Start 04/15/20 at 15:00; Stop 04/16/20 at 04:19; Status DC Active Scripts Active Lidocaine PATCH (Lidocaine) 1 Each Adh..patch 1 Each TP DAILY 10 Days REMOVE AFTER 12 HOURS Cyclobenzaprine Hcl 5 Mg Tablet 1 Tab PO QHS [place] 5-325 Tablet (Acetaminophen/Hydrocodone Bitart) 1 Each Tablet 1 Tab PO PRN Q6HRS PRN Cyclobenzaprine Hcl 5 Mg Tablet 5 Mg PO TID PRN Golytely Solution (Peg 3350/Na Sulf,Bicarb,Cl/Kcl) 4,000 Ml Soln.recon 4,000 Ml PO 1X PRN Colace 2-in-1 Tablet (Sennosides/Docusate Sodium) 1 Each Tablet 1-2 Each PO QHS PRN Flomax (Tamsulosin Hcl) 0.4 Mg Cap.er.24h 0.4 Mg PO DAILY Alprazolam 0.5 Mg Tablet 0.5 Mg PO PRN BID PRN Metoprolol Succinate ( Xl ) (Metoprolol Succinate) 25 Mg Tab.er.24h 1 Tab PO DAILY Reported Vitamin D (Cholecalciferol (Vitamin D3)) 2,000 Unit Capsule 2 Cap PO DAILY Topiramate 25 Mg Tablet 1 Tab PO DAILY Omeprazole 40 Mg Capsule.dr 1 Cap PO DAILY Atorvastatin Calcium 20 Mg Tablet 20 Mg PO DAILY Gleevec (Imatinib Mesylate) 400 Mg Tablet 400 Mg PO DAILY Amiodarone Hcl 200 Mg Tablet 1 Tab PO DAILY Aspirin 81 Mg Tab.chew 1 Tab PO DAILY Vitals/I & O Vital Sign - Last 24 Hours 04/15/20 04/15/20 04/15/20 04/15/20 12:23 12:31 13:01 13:31 Temp 97.5 97.5 Pulse 43 39 41 38 Resp 16 B/P (MAP) 167/72 (103) 144/72 (96) 149/72 (97) 169/75 (106) Pulse Ox 98 96 98 97 O2 Delivery Room Air Room Air Room Air Room Air 04/15/20 04/15/20 04/15/20 04/15/20 14:01 14:15 14:31 15:01 Pulse 37 38 36 38 B/P (MAP) 159/69 (99) 170/71 (104) 165/67 (99) 163/76 (105) Pulse Ox 97 99 97 100 O2 Delivery Room Air Room Air Room Air Room Air 04/15/20 04/15/20 04/15/20 04/15/20 15:31 16:01 16:41 16:47 Pulse 48 50 82 72 B/P (MAP) 169/84 (112) 185/76 (112) 201/107 (138) 157/72 (100) Pulse Ox 98 98 O2 Delivery Room Air Room Air Room Air Room Air 04/15/20 04/15/20 04/15/20 04/15/20 17:00 17:00 17:15 17:30 Temp 97.2 97.2 Pulse 44 48 42 Resp 20 19 20 B/P (MAP) 138/72 (94) 157/83 (107) 148/73 (98) Pulse Ox 99 100 95 O2 Delivery Room Air Room Air Room Air Room Air 04/15/20 04/15/20 04/15/20 04/15/20 19:00 20:00 20:00 21:00 Temp 97.6 97.6 Pulse 43 39 43 Resp 16 18 20 B/P (MAP) 161/80 (107) 151/63 (92) 153/71 (98) Pulse Ox 97 95 97 O2 Delivery Room Air Room Air Room Air Room Air 04/15/20 04/15/20 04/16/20 04/16/20 22:00 23:00 00:00 00:00 Temp 97.2 97.2 Pulse 41 41 40 Resp 16 16 20 B/P (MAP) 161/77 (105) 160/79 (106) 169/72 (104) Pulse Ox 97 95 98 O2 Delivery Room Air Room Air Room Air Room Air 04/16/20 04/16/20 04/16/20 04/16/20 01:00 02:00 03:00 04:00 Temp 97.2 97.2 Pulse 42 40 39 40 Resp 14 14 14 16 B/P (MAP) 143/67 (92) 140/68 (92) 155/64 (94) 152/69 (96) Pulse Ox 98 98 97 98 O2 Delivery Room Air Room Air Room Air Room Air 04/16/20 04/16/20 04/16/20 04/16/20 04:00 05:00 05:59 07:00 Pulse 42 41 47 Resp 16 16 16 B/P (MAP) 137/68 (91) 137/68 (91) 132/65 (87) Pulse Ox 96 97 96 O2 Delivery Room Air Room Air Room Air Room Air 04/16/20 04/16/20 04/16/20 04/16/20 08:00 08:00 09:00 10:00 Temp 97.8 97.8 Pulse 52 56 56 Resp 19 20 20 B/P (MAP) 185/95 (125) 189/92 (124) 175/88 (117) Pulse Ox 98 98 98 O2 Delivery Room Air Room Air Room Air Room Air Intake and Output 04/15/20 04/15/20 04/16/20 15:00 23:00 07:00 Intake Total 800 ml 150 ml Output Total 1150 ml 600 ml Balance -350 ml -450 ml Justicifation of Admission Dx: Justifications for Admission: Justification of Admission Dx: Yes CHF: Cardiac Arrhythmias LISET SNOW MD Apr 16, 2020 10:29
[2020-04-16] MEDS ORDERED: SENNOSIDES/DOCUSATE 8.6/50MG TABLET. PO PRN (10:45)
[2020-04-16] MEDS ORDERED: TAMSULOSIN 0.4 MG CAP.ER.24H. PO SCH (11:00)
[2020-04-16] MEDS: PANTOPRAZOLE 40 MG TABLET.DR. PO SCH (11:00)
[2020-04-16] MEDS: CHOLECALCIFEROL (VITAMIN D3) 1,000 UNIT TABLET PO SCH (12:23)
[2020-04-16] MEDS: ASPIRIN CHEWABLE 81 MG TABLET. PO SCH (12:23)
[2020-04-16] MEDS: TOPIRAMATE 25 MG TABLET. PO SCH (12:24)
[2020-04-16] MEDS: LIDOCAINE (700MG/PATCH) PATCH. TP SCH (12:25)
[2020-04-16] MEDS: LOSARTAN POTASSIUM 25 MG TABLET. PO SCH (13:18)
--- NOTE | 2020-04-16 13:22 | PDOC2 ---
CONSULT Date of Consult Date of Consult DATE: 04/16/20 TIME: 13:17 Reason for Consult Reason for Consult: Bradycardia Referring Physician Referring Physician: Dr. Min Identification/Chief Complaint Chief Complaint Weakness and abdominal discomfort Source Source: Chart review, Patient History of Present Illness Reason for Visit: The patient is a pleasant 84-year-old male with a history of coronary disease, COPD and cancer treated with chemotherapy who presented to the emergency room for mild abdominal discomfort, leg pain as well as weakness. Patient has a history of coronary disease with previous stenting and an ejection fraction of 45%. On admission the patient had a sinus bradycardia rate of 42 and did have some rates into the upper 30s. He was initially treated with atropine. He was then placed on a dopamine drip which has been discontinued. His beta-blockers have been held. His heart rate is now a 54. He is feeling better. Work-up has been largely negative including CT scans of the abdomen and head showing no acute changes. He is also more alert today. Past Medical History Cardiovascular: CAD, CHF, HTN, Hyperlipidemia, Mitral valve stenosis Pulmonary: COPD, Other CENTRAL NERVOUS SYSTEM: Other GI: GERD Heme/Onc: Cancer, Other Hepatobiliary: No pertinent hx Psych: Anxiety Rheumatologic: No pertinent hx Infectious disease: No pertinent hx Renal/: Chronic renal insuff, Benign prostatic enlarg. Endocrine: No pertinent hx Past Surgical History Past Surgical History: Other (Coronary stents, laminectomy, Port-A-Cath.) Family History Family History: Coronary Artery Disease, Hypertension Social History No ALCOHOL: none Drugs: None Lives: with Family Domestic Violence: Neg Current Problem List Problem List Problems Medical Problems: (1) Confusion Status: Acute (2) Renal insufficiency Status: Acute (3) Symptomatic bradycardia Status: Acute Current Medications Current Medications Current Medications Iohexol (Omnipaque 240 Mg/ml) 30 ml 1X ONCE PO Last administered on 04/15/20at 14:10; Start 04/15/20 at 13:00; Stop 04/15/20 at 13:01; Status DC Info (CONTRAST GIVEN -- Rx MONITORING) 1 each PRN DAILY PRN MC SEE COMMENTS; Start 04/15/20 at 13:00; Stop 04/17/20 at 12:59 Gabapentin (Neurontin) 300 mg TID PO Last administered on 04/16/20at 09:00; Start 04/15/20 at 21:00 Gabapentin (Neurontin) 300 mg ONCE ONCE PO Last administered on 04/15/20at 13:48; Start 04/15/20 at 14:00; Stop 04/15/20 at 14:01; Status DC Atropine Sulfate (ATROPINE 0.5mg SYRINGE) 0.5 mg 1X ONCE IV Last administered on 04/15/20at 15:11; Start 04/15/20 at 14:30; Stop 04/15/20 at 14:37; Status DC Dopamine HCl/ Dextrose 250 ml @ 18.75 mls/ hr 1X ONCE IV Last administered on 04/15/20at 15:45; Start 04/15/20 at 15:00; Stop 04/16/20 at 04:19; Status DC Alprazolam (Xanax) 0.5 mg PRN BID PRN PO ANXIETY; Start 04/16/20 at 10:45 Aspirin (Aspirin Chewable) 81 mg DAILY PO Last administered on 04/16/20at 12:23; Start 04/16/20 at 11:00 Atorvastatin Calcium (Lipitor) 20 mg QHS PO ; Start 04/16/20 at 21:00 Lidocaine (Lidoderm) 1 patch DAILY TP Last administered on 04/16/20at 12:25; Start 04/16/20 at 11:00 Senna/Docusate Sodium (Senna Plus) 1 tab PRN QHS PRN PO CONSTIPATION; Start at 10:45 Tamsulosin HCl (Flomax) 0.4 mg DAILY PO Last administered on 04/16/20at 12:22; Start 04/16/20 at 11:00 Topiramate (Topamax) 25 mg DAILY PO Last administered on 04/16/20at 12:24; Start 04/16/20 at 11:00 Vitamin D (Vitamin D3) 4,000 unit DAILY PO Last administered on 04/16/20at 12:23; Start 04/16/20 at 11:00 Non-Formulary Medication (Imatinib Mesylate (Gleevec)) 400 mg DAILY PO ; Start 04/17/20 at 09:00; Stop 04/16/20 at 12:18; Status DC Pantoprazole Sodium (Protonix) 40 mg DAILYAC PO Last administered on 04/16/20at 11:00; Start 04/16/20 at 11:00 Miscellaneous (Lidoderm Patch Removal) 1 ea QHS MC ; Start 04/16/20 at 21:00 Losartan Potassium (Cozaar) 25 mg DAILY PO ; Start 04/16/20 at 13:00 Active Scripts Active Lidocaine PATCH (Lidocaine) 1 Each Adh..patch 1 Each TP DAILY 10 Days REMOVE AFTER 12 HOURS Cyclobenzaprine Hcl 5 Mg Tablet 1 Tab PO QHS [place] 5-325 Tablet (Acetaminophen/Hydrocodone Bitart) 1 Each Tablet 1 Tab PO PRN Q6HRS PRN Cyclobenzaprine Hcl 5 Mg Tablet 5 Mg PO TID PRN Golytely Solution (Peg 3350/Na Sulf,Bicarb,Cl/Kcl) 4,000 Ml Soln.recon 4,000 Ml PO 1X PRN Colace 2-in-1 Tablet (Sennosides/Docusate Sodium) 1 Each Tablet 1-2 Each PO QHS PRN Flomax (Tamsulosin Hcl) 0.4 Mg Cap.er.24h 0.4 Mg PO DAILY Alprazolam 0.5 Mg Tablet 0.5 Mg PO PRN BID PRN Metoprolol Succinate ( Xl ) (Metoprolol Succinate) 25 Mg Tab.er.24h 1 Tab PO DAILY Reported Vitamin D (Cholecalciferol (Vitamin D3)) 2,000 Unit Capsule 2 Cap PO DAILY Topiramate 25 Mg Tablet 1 Tab PO DAILY Omeprazole 40 Mg Capsule.dr 1 Cap PO DAILY Atorvastatin Calcium 20 Mg Tablet 20 Mg PO DAILY Gleevec (Imatinib Mesylate) 400 Mg Tablet 400 Mg PO DAILY Amiodarone Hcl 200 Mg Tablet 1 Tab PO DAILY Aspirin 81 Mg Tab.chew 1 Tab PO DAILY Allergies Allergies: Coded Allergies: codeine (Verified Allergy, Intermediate, 05/11/17) Has tolerated Hydromorphone, Tramadol and Oxycodone in the past. tetanus and diphtheria toxoids (Verified Allergy, Intermediate, 10/19/15) immunocompromised ROS General: YES: Fatigue Gastrointestinal: Yes Abdominal Pain Physical Exam General: mild distress HEENT: Atraumatic Lungs: Clear to auscultation Heart: Regular rate Abdomen: Normal bowel sounds Vitals VITALS Vital Signs Date Time Temp Pulse Resp B/P (MAP) Pulse Ox O2 Delivery O2 Flow Rate FiO2 04/16/20 12:00 97.9 49 20 140/65 (90) 99 Room Air 97.9 Labs Labs Laboratory Tests Test 04/15/20 12:08 04/15/20 12:15 04/15/20 13:50 04/15/20 14:28 Salicylates Level < 2.8 mg/dL (2.8-20.0) Salicylate Last Dose Date Unknown Salicylate Last Dose Time Unknown Acetaminophen Level 2.4 mcg/ml (10-30) Acetaminophen Last Dose Date Unknown Acetaminophen Last Dose Time Unknown White Blood Count 7.4 x10^3/uL (4.0-11.0) Red Blood Count 4.13 x10^6/uL (4.30-5.70) Hemoglobin 13.9 g/dL (13.0-17.5) Hematocrit 40.9 % (39.0-53.0) Mean Corpuscular Volume 99 fL (79-100) Mean Corpuscular Hemoglobin 34 pg (25-35) Mean Corpuscular Hemoglobin Concent 34 g/dL (31-37) Red Cell Distribution Width 14.0 % (11.5-14.5) Platelet Count 196 x10^3/uL (140-400) Neutrophils (%) (Auto) 69 % (31-73) Lymphocytes (%) (Auto) 15 % (24-48) Monocytes (%) (Auto) 10 % (0-9) Eosinophils (%) (Auto) 5 % (0-3) Basophils (%) (Auto) 1 % (0-3) Neutrophils # (Auto) 5.1 x10^3/uL (1.8-7.7) Lymphocytes # (Auto) 1.1 x10^3/uL (1.0-4.8) Monocytes # (Auto) 0.7 x10^3/uL (0.0-1.1) Eosinophils # (Auto) 0.4 x10^3/uL (0.0-0.7) Basophils # (Auto) 0.1 x10^3/uL (0.0-0.2) Prothrombin Time 12.5 SEC (11.7-14.0) Prothromb Time International Ratio 1.0 (0.8-1.1) Activated Partial Thromboplast Time 29 SEC (24-38) Sodium Level 145 mmol/L (136-145) Potassium Level 4.4 mmol/L (3.5-5.1) Chloride Level 106 mmol/L (98-107) Carbon Dioxide Level 29 mmol/L (21-32) Anion Gap 10 (6-14) Blood Urea Nitrogen 21 mg/dL (8-26) Creatinine 1.6 mg/dL (0.7-1.3) Estimated GFR (Cockcroft-Gault) 41.4 BUN/Creatinine Ratio 13 (6-20) Glucose Level 93 mg/dL (70-99) Calcium Level 8.7 mg/dL (8.5-10.1) Magnesium Level 2.4 mg/dL (1.8-2.4) Total Bilirubin 0.5 mg/dL (0.2-1.0) Aspartate Amino Transf (AST/SGOT) 20 U/L (15-37) Alanine Aminotransferase (ALT/SGPT) 26 U/L (16-63) Alkaline Phosphatase 108 U/L (46-116) Creatine Kinase 126 U/L (39-308) Troponin I Quantitative < 0.017 ng/mL (0.000-0.055) Total Protein 5.7 g/dL (6.4-8.2) Albumin 3.5 g/dL (3.4-5.0) Albumin/Globulin Ratio 1.6 (1.0-1.7) Lipase 71 U/L (73-393) Free Thyroxine 1.22 ng/dL (0.76-1.46) Urine Collection Type Unknown Urine Color Yellow Urine Clarity Clear Urine pH 7.5 (<5.0-8.0) Urine Specific [place] 1.010 (1.000-1.030) Urine Protein Negative mg/dL (NEG-TRACE) Urine Glucose (UA) Negative mg/dL (NEG) Urine Ketones (Stick) Negative mg/dL (NEG) Urine Blood Negative (NEG) Urine Nitrite Negative (NEG) Urine Bilirubin Negative (NEG) Urine Urobilinogen Dipstick 0.2 mg/dL (0.2 mg/dL) Urine Leukocyte Esterase Trace (NEG) Urine RBC Occ /HPF (0-2) Urine WBC 5-10 /HPF (0-4) Urine Squamous Epithelial Cells Occ /LPF Urine Bacteria 0 /HPF (0-FEW) Lactic Acid Level 1.2 mmol/L (0.4-2.0) Laboratory Tests Test 04/15/20 13:50 04/15/20 14:28 Urine Collection Type Unknown Urine Color Yellow Urine Clarity Clear Urine pH 7.5 (<5.0-8.0) Urine Specific [place] 1.010 (1.000-1.030) Urine Protein Negative mg/dL (NEG-TRACE) Urine Glucose (UA) Negative mg/dL (NEG) Urine Ketones (Stick) Negative mg/dL (NEG) Urine Blood Negative (NEG) Urine Nitrite Negative (NEG) Urine Bilirubin Negative (NEG) Urine Urobilinogen Dipstick 0.2 mg/dL (0.2 mg/dL) Urine Leukocyte Esterase Trace (NEG) Urine RBC Occ /HPF (0-2) Urine WBC 5-10 /HPF (0-4) Urine Squamous Epithelial Cells Occ /LPF Urine Bacteria 0 /HPF (0-FEW) Lactic Acid Level 1.2 mmol/L (0.4-2.0) Images Images CT scan of the abdomen and head shows no acute changes. Chest x-ray shows no acute changes Assessment/Plan Assessment/Plan 1. Bradycardia. Probably secondary to the patient's beta-blockers. His rate is now in the low 50s. He is feeling better. We will continue to hold beta- blockers and monitor. Patient may go to a telemetry floor. 2. Abdominal discomfort. Largely resolved. CT scan showed no acute changes. 3. History of coronary disease with previous stenting. No acute EKG ischemic changes. No chest pain. Continue baseline medications except his beta- blockers. 4. Pancreatic cancer noma. Has been treated with chemo therapy and will continue as per the oncology service. Thank you for allowing us to participate in the care of your patient. RAYO CHEUNG MD Apr 16, 2020 13:22
[2020-04-16] MEDS: ALPRAZolam 0.5 MG TABLET PO PRN ×2 (16:42→16:44)
[2020-04-16] MEDS ORDERED: CALCIUM CARBONATE 500 MG TAB.CHEW PO PRN (16:45)
[2020-04-16] MEDS: PATCH REMOVAL. MC SCH (21:21)
[2020-04-16] MEDS: ATORVASTATIN CALCIUM 20 MG TABLET PO SCH (21:21)
[2020-04-17 04:20] VITALS: BP 101/45
[2020-04-17 05:34] LABS: CALCIUM 7.7 mg/dL (8.5-10.1); CREATININE 1.6 mg/dL (0.7-1.3); GFR 41.4; POTASSIUM 3.8 mmol/L (3.5-5.1)
--- NOTE | 2020-04-17 06:20 | NUR ---
Patient called and when RN came to room, patient states. 'I fell. When I was turning over in the bed I notiiced I was sliding out of the bed. I grabbed the siderail and eased myself to the floor." Patient denies hitting his head or any other part of his body and denies pain at this time. Patient assisted to recliner and reinforced need to call RN when ready to get back to bed or use the bathroom to avoid any further falls. Patient verbalized understanding and again reiterated that he was not attempting to get out of bed when he fell, just turning over.
[2020-04-17] MEDS: PANTOPRAZOLE 40 MG TABLET.DR. PO SCH (07:52)
[2020-04-17] MEDS: ASPIRIN CHEWABLE 81 MG TABLET. PO SCH (07:52)
[2020-04-17] MEDS: LOSARTAN POTASSIUM 25 MG TABLET. PO SCH ×2 (07:53→10:08)
[2020-04-17] MEDS: TOPIRAMATE 25 MG TABLET. PO SCH (07:53)
[2020-04-17] MEDS: CHOLECALCIFEROL (VITAMIN D3) 1,000 UNIT TABLET PO SCH (07:57)
[2020-04-17] MEDS: LIDOCAINE (700MG/PATCH) PATCH. TP SCH (07:58)
[2020-04-17 08:00] VITALS: BP 125/61
[2020-04-17] MEDS ORDERED: NON FORMULARY ITEM (Imatinib Mesylate (Gleevec) 400 MG) PO SCH (09:00)
--- NOTE | 2020-04-17 09:51 | PDOC ---
PROGRESS NOTES Date of Service: DATE: 04/17/20 TIME: 09:50 Chief Complaint Chief Complaint VTE Prophylaxis Ordered VTE Prophylaxis Devices: No VTE Pharmacological Prophylaxi: Yes Assessment/Plan Assessment/Plan Impression: Symptomatic bradycardia TO RATES 36 LAST NIGHT METOPROLOL HELD echo 2019 septal motion is suggestive of conduction defect.mild aortic re gurgitation. ascending aorta is moderately dilated at 4.3cm. Left ventricle systolic function is mildly decreased. LVEF 45% hx mild-mod dementia Confusion AT BASELINE Renal insufficiency pancreatic cancer HX Stable ill-defined haziness about the pancreatic head and mesenteric vasculature. on ct HYPERTENSION, LABILE Mild chronic small vessel ischemic disease. plan ADMITTED icu bed consult cardiology dopamine drip per cardiology prn iv atropine dvt prophylaxis scd's HOLD METOPROLOL FREE T4 start losarten 12.5 mg po daily 34 min cc time Justifications for Admission Justifications for Admission Other Justification History of Present Illness History of Present Illness Identification/Chief Complaint Chief Complaint seen in er with bradycardia 84 yo M PMH CAD, COPD, gastric/pancreatic ca s/p chemo/rads (on gleevac), gerd, htn (meto succ 12.5daily) and HLD, presents to the ed bibems after son called daughter's complaining of leg pain shooting down both his legs, burning stomach pain that moved to his chest, weakness and difficulties walking (ambulates w/o assistance at baseline). Daughter does report patient has some memory problems. is also present in the ED and states the patient has not fallen and she gives him his medications daily. Pt took 2 Zantac's prior to coming to the ED. known history of bradycardia and is normally in the 30s Past Medical History Past Medical History Past Medical History Past Medical History: CAD, Cancer, COPD, [place], Other Additional Past Medical Histor: stomach CA TREATED W/ CHEMO,LEUKEMIA, pancreatic cancer Past Surgical History: Angioplasty, Lumbar Laminectomy Additional Past Surgical Histo: STENTS X'S 3, right port a cath,L KNEE SURG Smoking Status: Never Smoker Alcohol Use: Sober Drug Use: None FHX CAD Cardiovascular: CAD, CHF, HTN, Hyperlipidemia Pulmonary: COPD, Other CENTRAL NERVOUS SYSTEM: Other GI: GERD Heme/Onc: Other Hepatobiliary: No pertinent hx Psych: Anxiety Rheumatologic: No pertinent hx Infectious disease: No pertinent hx Renal/: Chronic renal insuff, Benign prostatic enlarg. Vitals Vitals Vital Signs Date Time Temp Pulse Resp B/P (MAP) Pulse Ox O2 Delivery O2 Flow Rate FiO2 04/17/20 08:00 Room Air 04/17/20 08:00 97.2 46 16 125/61 (82) 100 97.2 Physical Exam Physical Exam Constitutional: Well developed, well nourished, no acute distress, HENT: Normocephalic, atraumatic, no signs of head trauma, dry mucous membranes Eyes: PERRLA, EOMI, conjunctiva normal, no discharge. [] Neck: Normal range of motion, no tenderness, supple, no stridor. [] Cardiovascular:Heart rate regular rhythm, no murmur [] Lungs & Thorax: Bilateral breath sounds clear to auscultation [] Abdomen: Bowel sounds normal, soft, no tenderness, no masses, no pulsatile masses. [] Skin: Warm, dry, no erythema, no rash, no bruising or contusions Back: No tenderness, no CVA tenderness, right lumbar paraspinal ttp Extremities: No tenderness, no cyanosis, no clubbing, ROM intact, +1/4 equal LE edema Neurologic: Alert, normal motor function, normal sensory function, no focal deficits noted. [] Psychologic: Affect normal, judgment normal, mood normal. [] General: Cooperative, No acute distress mild confusion at baseline General: Alert, Cooperative, mild distress Heart: Regular rate Lungs: Clear Abdomen: Normal bowel sounds Extremities: No cyanosis Labs LABS URINE CULTURE Final Final No Growth on 04/17/20 at 0918 Testing Performed by: [address] [address] For Inquires, the Physician may contact the Microbiology department at [phone] Unless otherwise specified, Testing Performed by: [address] [address] For Inquires, the Physician may contact the Microbiology department at [phone] Laboratory Tests Test 04/17/20 04:20 Sodium Level 142 mmol/L (136-145) Potassium Level 3.8 mmol/L (3.5-5.1) Chloride Level 107 mmol/L (98-107) Carbon Dioxide Level 27 mmol/L (21-32) Anion Gap 8 (6-14) Blood Urea Nitrogen 20 mg/dL (8-26) Creatinine 1.6 mg/dL (0.7-1.3) Estimated GFR (Cockcroft-Gault) 41.4 Glucose Level 93 mg/dL (70-99) Calcium Level 7.7 mg/dL (8.5-10.1) Assessment and Plan Assessmemt and Plan Problems Medical Problems: (1) Confusion Status: Acute (2) Renal insufficiency Status: Acute (3) Symptomatic bradycardia Status: Acute Comment Review of Relevant I have reviewed the following items jannet (where applicable) has been applied. Labs Laboratory Tests Test 04/15/20 12:08 04/15/20 12:15 04/15/20 13:50 04/15/20 14:28 Salicylates Level < 2.8 mg/dL (2.8-20.0) Salicylate Last Dose Date Unknown Salicylate Last Dose Time Unknown Acetaminophen Level 2.4 mcg/ml (10-30) Acetaminophen Last Dose Date Unknown Acetaminophen Last Dose Time Unknown White Blood Count 7.4 x10^3/uL (4.0-11.0) Red Blood Count 4.13 x10^6/uL (4.30-5.70) Hemoglobin 13.9 g/dL (13.0-17.5) Hematocrit 40.9 % (39.0-53.0) Mean Corpuscular Volume 99 fL (79-100) Mean Corpuscular Hemoglobin 34 pg (25-35) Mean Corpuscular Hemoglobin Concent 34 g/dL (31-37) Red Cell Distribution Width 14.0 % (11.5-14.5) Platelet Count 196 x10^3/uL (140-400) Neutrophils (%) (Auto) 69 % (31-73) Lymphocytes (%) (Auto) 15 % (24-48) Monocytes (%) (Auto) 10 % (0-9) Eosinophils (%) (Auto) 5 % (0-3) Basophils (%) (Auto) 1 % (0-3) Neutrophils # (Auto) 5.1 x10^3/uL (1.8-7.7) Lymphocytes # (Auto) 1.1 x10^3/uL (1.0-4.8) Monocytes # (Auto) 0.7 x10^3/uL (0.0-1.1) Eosinophils # (Auto) 0.4 x10^3/uL (0.0-0.7) Basophils # (Auto) 0.1 x10^3/uL (0.0-0.2) Prothrombin Time 12.5 SEC (11.7-14.0) Prothromb Time International Ratio 1.0 (0.8-1.1) Activated Partial Thromboplast Time 29 SEC (24-38) Sodium Level 145 mmol/L (136-145) Potassium Level 4.4 mmol/L (3.5-5.1) Chloride Level 106 mmol/L (98-107) Carbon Dioxide Level 29 mmol/L (21-32) Anion Gap 10 (6-14) Blood Urea Nitrogen 21 mg/dL (8-26) Creatinine 1.6 mg/dL (0.7-1.3) Estimated GFR (Cockcroft-Gault) 41.4 BUN/Creatinine Ratio 13 (6-20) Glucose Level 93 mg/dL (70-99) Calcium Level 8.7 mg/dL (8.5-10.1) Magnesium Level 2.4 mg/dL (1.8-2.4) Total Bilirubin 0.5 mg/dL (0.2-1.0) Aspartate Amino Transf (AST/SGOT) 20 U/L (15-37) Alanine Aminotransferase (ALT/SGPT) 26 U/L (16-63) Alkaline Phosphatase 108 U/L (46-116) Creatine Kinase 126 U/L (39-308) Troponin I Quantitative < 0.017 ng/mL (0.000-0.055) Total Protein 5.7 g/dL (6.4-8.2) Albumin 3.5 g/dL (3.4-5.0) Albumin/Globulin Ratio 1.6 (1.0-1.7) Lipase 71 U/L (73-393) Free Thyroxine 1.22 ng/dL (0.76-1.46) Urine Collection Type Unknown Urine Color Yellow Urine Clarity Clear Urine pH 7.5 (<5.0-8.0) Urine Specific [place] 1.010 (1.000-1.030) Urine Protein Negative mg/dL (NEG-TRACE) Urine Glucose (UA) Negative mg/dL (NEG) Urine Ketones (Stick) Negative mg/dL (NEG) Urine Blood Negative (NEG) Urine Nitrite Negative (NEG) Urine Bilirubin Negative (NEG) Urine Urobilinogen Dipstick 0.2 mg/dL (0.2 mg/dL) Urine Leukocyte Esterase Trace (NEG) Urine RBC Occ /HPF (0-2) Urine WBC 5-10 /HPF (0-4) Urine Squamous Epithelial Cells Occ /LPF Urine Bacteria 0 /HPF (0-FEW) Lactic Acid Level 1.2 mmol/L (0.4-2.0) Test 04/17/20 04:20 Sodium Level 142 mmol/L (136-145) Potassium Level 3.8 mmol/L (3.5-5.1) Chloride Level 107 mmol/L (98-107) Carbon Dioxide Level 27 mmol/L (21-32) Anion Gap 8 (6-14) Blood Urea Nitrogen 20 mg/dL (8-26) Creatinine 1.6 mg/dL (0.7-1.3) Estimated GFR (Cockcroft-Gault) 41.4 Glucose Level 93 mg/dL (70-99) Calcium Level 7.7 mg/dL (8.5-10.1) Laboratory Tests Test 04/17/20 04:20 Sodium Level 142 mmol/L (136-145) Potassium Level 3.8 mmol/L (3.5-5.1) Chloride Level 107 mmol/L (98-107) Carbon Dioxide Level 27 mmol/L (21-32) Anion Gap 8 (6-14) Blood Urea Nitrogen 20 mg/dL (8-26) Creatinine 1.6 mg/dL (0.7-1.3) Estimated GFR (Cockcroft-Gault) 41.4 Glucose Level 93 mg/dL (70-99) Calcium Level 7.7 mg/dL (8.5-10.1) Microbiology 04/15/20 Blood Culture - Preliminary, Resulted NO GROWTH AFTER 1 DAY 04/15/20 Urine Culture - Final, Complete Medications Current Medications Iohexol (Omnipaque 240 Mg/ml) 30 ml 1X ONCE PO Last administered on 04/15/20at 14:10; Start 04/15/20 at 13:00; Stop 04/15/20 at 13:01; Status DC Info (CONTRAST GIVEN -- Rx MONITORING) 1 each PRN DAILY PRN MC SEE COMMENTS; Start 04/15/20 at 13:00; Stop 04/17/20 at 12:59 Gabapentin (Neurontin) 300 mg TID PO Last administered on 04/16/20at 13:17; Start 04/15/20 at 21:00; Stop 04/16/20 at 17:47; Status DC Gabapentin (Neurontin) 300 mg ONCE ONCE PO Last administered on 04/15/20at 13:48; Start 04/15/20 at 14:00; Stop 04/15/20 at 14:01; Status DC Atropine Sulfate (ATROPINE 0.5mg SYRINGE) 0.5 mg 1X ONCE IV Last administered on 04/15/20at 15:11; Start 04/15/20 at 14:30; Stop 04/15/20 at 14:37; Status DC Dopamine HCl/ Dextrose 250 ml @ 18.75 mls/ hr 1X ONCE IV Last administered on 04/15/20at 15:45; Start 04/15/20 at 15:00; Stop 04/16/20 at 04:19; Status DC Alprazolam (Xanax) 0.5 mg PRN BID PRN PO ANXIETY Last administered on 04/16/20at 16:44; Start 04/16/20 at 10:45 Aspirin (Aspirin Chewable) 81 mg DAILY PO Last administered on 04/17/20at 07:52; Start 04/16/20 at 11:00 Atorvastatin Calcium (Lipitor) 20 mg QHS PO Last administered on 04/16/20at 21:21; Start 04/16/20 at 21:00 Lidocaine (Lidoderm) 1 patch DAILY TP Last administered on 04/16/20at 12:25; Start 04/16/20 at 11:00 Senna/Docusate Sodium (Senna Plus) 1 tab PRN QHS PRN PO CONSTIPATION; Start 04/16/20 at 10:45 Tamsulosin HCl (Flomax) 0.4 mg DAILY PO Last administered on 04/16/20at 12:22; Start 04/16/20 at 11:00; Stop 04/16/20 at 17:47; Status DC Topiramate (Topamax) 25 mg DAILY PO Last administered on 04/17/20at 07:53; Start 04/16/20 at 11:00 Vitamin D (Vitamin D3) 4,000 unit DAILY PO Last administered on 04/17/20at 07:57; Start 04/16/20 at 11:00 Non-Formulary Medication (Imatinib Mesylate (Gleevec)) 400 mg DAILY PO ; Start 04/17/20 at 09:00; Stop 04/16/20 at 12:18; Status DC Pantoprazole Sodium (Protonix) 40 mg DAILYAC PO Last administered on 04/17/20at 07:52; Start 04/16/20 at 11:00 Miscellaneous (Lidoderm Patch Removal) 1 ea QHS MC Last administered on 04/16/20at 21:21; Start 04/16/20 at 21:00 Losartan Potassium (Cozaar) 25 mg DAILY PO Last administered on 04/17/20at 07:53; Start 04/16/20 at 13:00 Calcium Carbonate/ Glycine (Tums) 500 mg PRN AFTMEALHC PRN PO INDIGESTION; Start 04/16/20 at 16:45 Active Scripts Active Lidocaine PATCH (Lidocaine) 1 Each Adh..patch 1 Each TP DAILY 10 Days REMOVE AFTER 12 HOURS Cyclobenzaprine Hcl 5 Mg Tablet 1 Tab PO QHS [place] 5-325 Tablet (Acetaminophen/Hydrocodone Bitart) 1 Each Tablet 1 Tab PO PRN Q6HRS PRN Cyclobenzaprine Hcl 5 Mg Tablet 5 Mg PO TID PRN Golytely Solution (Peg 3350/Na Sulf,Bicarb,Cl/Kcl) 4,000 Ml Soln.recon 4,000 Ml PO 1X PRN Colace 2-in-1 Tablet (Sennosides/Docusate Sodium) 1 Each Tablet 1-2 Each PO QHS PRN Flomax (Tamsulosin Hcl) 0.4 Mg Cap.er.24h 0.4 Mg PO DAILY Alprazolam 0.5 Mg Tablet 0.5 Mg PO PRN BID PRN Metoprolol Succinate ( Xl ) (Metoprolol Succinate) 25 Mg Tab.er.24h 1 Tab PO DAILY Reported Vitamin D (Cholecalciferol (Vitamin D3)) 2,000 Unit Capsule 2 Cap PO DAILY Topiramate 25 Mg Tablet 1 Tab PO DAILY Omeprazole 40 Mg Capsule.dr 1 Cap PO DAILY Atorvastatin Calcium 20 Mg Tablet 20 Mg PO DAILY Gleevec (Imatinib Mesylate) 400 Mg Tablet 400 Mg PO DAILY Amiodarone Hcl 200 Mg Tablet 1 Tab PO DAILY Aspirin 81 Mg Tab.chew 1 Tab PO DAILY Vitals/I & O Vital Sign - Last 24 Hours 04/16/20 04/16/20 04/16/20 04/16/20 10:00 11:00 12:00 12:00 Temp 97.9 97.9 Pulse 56 56 49 Resp 20 20 20 B/P (MAP) 175/88 (117) 100/78 (85) 140/65 (90) Pulse Ox 98 99 99 O2 Delivery Room Air Room Air Room Air Room Air 04/16/20 04/16/20 04/16/20 04/16/20 13:00 13:18 14:00 15:00 Pulse 52 51 59 65 Resp 20 20 20 B/P (MAP) 169/85 (113) 169/85 137/74 (95) 132/69 (90) Pulse Ox 99 99 99 O2 Delivery Room Air Room Air Room Air 04/16/20 04/16/20 04/16/20 04/16/20 16:00 16:00 17:00 18:00 Temp 97.7 97.7 Pulse 63 57 61 Resp 20 20 20 B/P (MAP) 134/69 (90) 103/62 (76) 102/54 (70) Pulse Ox 99 99 99 O2 Delivery Room Air Room Air Room Air Room Air 04/16/20 04/16/20 04/16/20 04/16/20 19:00 20:00 20:00 23:59 Temp 98.0 97.7 98.0 97.7 Pulse 56 54 51 Resp 20 20 18 B/P (MAP) 91/51 (64) 102/54 (70) 118/62 (80) Pulse Ox 98 100 O2 Delivery Room Air Room Air Room Air Room Air 04/17/20 04/17/20 04/17/20 04/17/20 04:20 07:53 08:00 08:00 Temp 97.7 97.2 97.7 97.2 Pulse 44 46 46 Resp 16 16 B/P (MAP) 101/45 (63) 125/61 125/61 (82) Pulse Ox 100 100 O2 Delivery Room Air Room Air Room Air Intake and Output 04/16/20 04/16/20 04/17/20 15:00 23:00 07:00 Intake Total 650 ml 300 ml 540 ml Output Total 400 ml 250 ml Balance 250 ml 300 ml 290 ml Justicifation of Admission Dx: Justifications for Admission: Justification of Admission Dx: Yes CHF: Cardiac Arrhythmias LISET SNOW MD Apr 17, 2020 09:51
[2020-04-17] MEDS: ALPRAZolam 0.5 MG TABLET PO PRN ×2 (10:07→20:07)
[2020-04-17 10:28] LABS: BASO % 1 % (0-3); EOS # 0.4 x10^3/uL (0.0-0.7); EOS % 5 % (0-3); HEMATOCRIT 39.5 % (39.0-53.0); HEMOGLOBIN 13.5 g/dL (13.0-17.5); LYMPH # 1.2 x10^3/uL (1.0-4.8); LYMPH % 16 % (24-48); MEAN CORPUSCULAR HEMOGLOBIN 34 pg (25-35); MEAN CORPUSCULAR HGB CONC 34 g/dL (31-37); MEAN CORPUSCULAR VOLUME 100 fL (79-100); MONO # 0.8 x10^3/uL (0.0-1.1); MONO % 11 % (0-9); NEUT # 4.8 x10^3/uL (1.8-7.7); NEUT % 67 % (31-73); PLATELET COUNT 189 x10^3/uL (140-400); RED BLOOD COUNT 3.95 x10^6/uL (4.30-5.70); RED CELL DISTRIBUTION WIDTH 14.4 % (11.5-14.5); WHITE BLOOD COUNT 7.2 x10^3/uL (4.0-11.0)
--- NOTE | 2020-04-17 11:09 | EKG ---
[facility] [address] [place] [address] Test Date: 2020-04-15 Test Time: 12:08:34 Pat Name: HARSHIL MALONE Department: Room: Gender: M [employer] Specialist: : [id number] Requested By: BLAISE FRAZIER Order Number: [id number] Reading MD: Measurements Intervals [place] Rate: 43 P: -54 MD: 248 QRS: -21 QRSD: 102 T: -51 QT: 526 QTc: 446 Interpretive Statements SINUS BRADYCARDIA PROLONGED MD INTERVAL LEFTWARD AXIS R-S TRANSITION ZONE IN V LEADS DISPLACED TO THE RIGHT LVH WITH REPOLARIZATION ABNORMALITY ABNORMAL ECG RI6.02 No previous ECG available for comparison
[2020-04-17 12:00] VITALS: BP 171/73
--- NOTE | 2020-04-17 14:34 | NUR ---
SS following for discharge planning. SS reviewed pt chart and discussed with pt RN. Pt is from home with spouse and is currently on room air. PT/OT ordered. SS will continue to follow for discharge planning.
--- NOTE | 2020-04-17 16:44 | PDOC ---
PROGRESS NOTES Date of Service DATE: 04/17/20 TIME: 16:43 Subjective Subjective Patient seen and examined Objective Objective Vital Signs Date Time Temp Pulse Resp B/P (MAP) Pulse Ox O2 Delivery O2 Flow Rate FiO2 04/17/20 12:00 97.6 54 16 171/73 (105) 100 Room Air 97.6 Intake and Output 04/17/20 07:00 Intake Total 1490 ml Output Total 650 ml Balance 840 ml Intake Oral 1490 ml Output Urine Total 650 ml # Voids 1 # Bowel Movements 1 Physical Exam Abdomen: Normal bowel sounds Heart: Regular rate, Other (Rate 56) Extremities: No clubbing General: No acute distress Lungs: Other (Slightly decreased breath sounds) Assessment Assessment Problems Medical Problems: (1) Confusion Status: Acute (2) Renal insufficiency Status: Acute (3) Symptomatic bradycardia Status: Acute 1. Bradycardia. Probably secondary to the patient's beta-blockers. Rate is improved once his beta-blockers were discontinued. Continue to monitor. 2. Abdominal discomfort. Largely resolved. CT scan showed no acute changes. 3. History of coronary disease with previous stenting. No acute EKG ischemic changes. No chest pain. Continue baseline medications except his beta-b lockers. 4. Pancreatic cancer noma. Has been treated with chemo therapy and will continue as per the oncology service. Comment Review of Relevant I have reviewed the following items jannet (where applicable) has been applied. Labs Laboratory Tests Test 04/17/20 04:20 White Blood Count 7.2 x10^3/uL (4.0-11.0) Red Blood Count 3.95 x10^6/uL (4.30-5.70) Hemoglobin 13.5 g/dL (13.0-17.5) Hematocrit 39.5 % (39.0-53.0) Mean Corpuscular Volume 100 fL (79-100) Mean Corpuscular Hemoglobin 34 pg (25-35) Mean Corpuscular Hemoglobin Concent 34 g/dL (31-37) Red Cell Distribution Width 14.4 % (11.5-14.5) Platelet Count 189 x10^3/uL (140-400) Neutrophils (%) (Auto) 67 % (31-73) Lymphocytes (%) (Auto) 16 % (24-48) Monocytes (%) (Auto) 11 % (0-9) Eosinophils (%) (Auto) 5 % (0-3) Basophils (%) (Auto) 1 % (0-3) Neutrophils # (Auto) 4.8 x10^3/uL (1.8-7.7) Lymphocytes # (Auto) 1.2 x10^3/uL (1.0-4.8) Monocytes # (Auto) 0.8 x10^3/uL (0.0-1.1) Eosinophils # (Auto) 0.4 x10^3/uL (0.0-0.7) Basophils # (Auto) 0.0 x10^3/uL (0.0-0.2) Sodium Level 142 mmol/L (136-145) Potassium Level 3.8 mmol/L (3.5-5.1) Chloride Level 107 mmol/L (98-107) Carbon Dioxide Level 27 mmol/L (21-32) Anion Gap 8 (6-14) Blood Urea Nitrogen 20 mg/dL (8-26) Creatinine 1.6 mg/dL (0.7-1.3) Estimated GFR (Cockcroft-Gault) 41.4 Glucose Level 93 mg/dL (70-99) Calcium Level 7.7 mg/dL (8.5-10.1) Laboratory Tests Test 04/17/20 04:20 White Blood Count 7.2 x10^3/uL (4.0-11.0) Red Blood Count 3.95 x10^6/uL (4.30-5.70) Hemoglobin 13.5 g/dL (13.0-17.5) Hematocrit 39.5 % (39.0-53.0) Mean Corpuscular Volume 100 fL (79-100) Mean Corpuscular Hemoglobin 34 pg (25-35) Mean Corpuscular Hemoglobin Concent 34 g/dL (31-37) Red Cell Distribution Width 14.4 % (11.5-14.5) Platelet Count 189 x10^3/uL (140-400) Neutrophils (%) (Auto) 67 % (31-73) Lymphocytes (%) (Auto) 16 % (24-48) Monocytes (%) (Auto) 11 % (0-9) Eosinophils (%) (Auto) 5 % (0-3) Basophils (%) (Auto) 1 % (0-3) Neutrophils # (Auto) 4.8 x10^3/uL (1.8-7.7) Lymphocytes # (Auto) 1.2 x10^3/uL (1.0-4.8) Monocytes # (Auto) 0.8 x10^3/uL (0.0-1.1) Eosinophils # (Auto) 0.4 x10^3/uL (0.0-0.7) Basophils # (Auto) 0.0 x10^3/uL (0.0-0.2) Sodium Level 142 mmol/L (136-145) Potassium Level 3.8 mmol/L (3.5-5.1) Chloride Level 107 mmol/L (98-107) Carbon Dioxide Level 27 mmol/L (21-32) Anion Gap 8 (6-14) Blood Urea Nitrogen 20 mg/dL (8-26) Creatinine 1.6 mg/dL (0.7-1.3) Estimated GFR (Cockcroft-Gault) 41.4 Glucose Level 93 mg/dL (70-99) Calcium Level 7.7 mg/dL (8.5-10.1) Microbiology 04/15/20 Blood Culture - Preliminary, Resulted NO GROWTH AFTER 2 DAYS 04/15/20 Urine Culture - Final, Complete Medications Current Medications Iohexol (Omnipaque 240 Mg/ml) 30 ml 1X ONCE PO Last administered on 04/15/20at 14:10; Start 04/15/20 at 13:00; Stop 04/15/20 at 13:01; Status DC Info (CONTRAST GIVEN -- Rx MONITORING) 1 each PRN DAILY PRN MC SEE COMMENTS; Start 04/15/20 at 13:00; Stop 04/17/20 at 12:59; Status DC Gabapentin (Neurontin) 300 mg TID PO Last administered on 04/16/20at 13:17; Start 04/15/20 at 21:00; Stop 04/16/20 at 17:47; Status DC Gabapentin (Neurontin) 300 mg ONCE ONCE PO Last administered on 04/15/20at 13:48; Start 04/15/20 at 14:00; Stop 04/15/20 at 14:01; Status DC Atropine Sulfate (ATROPINE 0.5mg SYRINGE) 0.5 mg 1X ONCE IV Last administered on 04/15/20at 15:11; Start 04/15/20 at 14:30; Stop 04/15/20 at 14:37; Status DC Dopamine HCl/ Dextrose 250 ml @ 18.75 mls/ hr 1X ONCE IV Last administered on 04/15/20at 15:45; Start 04/15/20 at 15:00; Stop 04/16/20 at 04:19; Status DC Alprazolam (Xanax) 0.5 mg PRN BID PRN PO ANXIETY Last administered on 04/17/20at 10:07; Start 04/16/20 at 10:45 Aspirin (Aspirin Chewable) 81 mg DAILY PO Last administered on 04/17/20 07:52; Start 04/16/20 at 11:00 Atorvastatin Calcium (Lipitor) 20 mg QHS PO Last administered on 04/16/20 21: 21; Start 04/16/20 at 21:00 Lidocaine (Lidoderm) 1 patch DAILY TP Last administered on 04/16/20at 12:25; Start 04/16/20 at 11:00 Senna/Docusate Sodium (Senna Plus) 1 tab PRN QHS PRN PO CONSTIPATION; Start 04/16/20 at 10:45 Tamsulosin HCl (Flomax) 0.4 mg DAILY PO Last administered on 04/16/20at 12:22; Start 04/16/20 at 11:00; Stop 04/16/20 at 17:47; Status DC Topiramate (Topamax) 25 mg DAILY PO Last administered on 04/17/20 07:53; Start 04/16/20 at 11:00 Vitamin D (Vitamin D3) 4,000 unit DAILY PO Last administered on 04/17/20at 07:57; Start 04/16/20 at 11:00 Non-Formulary Medication (Imatinib Mesylate (Gleevec)) 400 mg DAILY PO ; Start 04/17/20 at 09:00; Stop 04/16/20 at 12:18; Status DC Pantoprazole Sodium (Protonix) 40 mg DAILYAC PO Last administered on 04/17/20 07:52; Start 04/16/20 at 11:00 Miscellaneous (Lidoderm Patch Removal) 1 ea QHS MC Last administered on 04/16/20 21:21; Start 04/16/20 at 21:00 Losartan Potassium (Cozaar) 25 mg DAILY PO Last administered on 8/31/20at 07:53; Start 04/16/20 at 13:00; Stop 04/17/20 at 09:51; Status DC Calcium Carbonate/ Glycine (Tums) 500 mg PRN AFTMEALHC PRN PO INDIGESTION; Start 04/16/20 at 16:45 Losartan Potassium (Cozaar) 12.5 mg DAILY PO Last administered on 04/17/20at 10:08; Start 04/17/20 at 10:00 Active Scripts Active Lidocaine PATCH (Lidocaine) 1 Each Adh..patch 1 Each TP DAILY 10 Days REMOVE AFTER 12 HOURS Cyclobenzaprine Hcl 5 Mg Tablet 1 Tab PO QHS Herreid 5-325 Tablet (Acetaminophen/Hydrocodone Bitart) 1 Each Tablet 1 Tab PO PRN Q6HRS PRN Cyclobenzaprine Hcl 5 Mg Tablet 5 Mg PO TID PRN Golytely Solution (Peg 3350/Na Sulf,Bicarb,Cl/Kcl) 4,000 Ml Soln.recon 4,000 Ml PO 1X PRN Colace 2-in-1 Tablet (Sennosides/Docusate Sodium) 1 Each Tablet 1-2 Each PO QHS PRN Flomax (Tamsulosin Hcl) 0.4 Mg Cap.er.24h 0.4 Mg PO DAILY Alprazolam 0.5 Mg Tablet 0.5 Mg PO PRN BID PRN Metoprolol Succinate ( Xl ) (Metoprolol Succinate) 25 Mg Tab.er.24h 1 Tab PO DAILY Reported Vitamin D (Cholecalciferol (Vitamin D3)) 2,000 Unit Capsule 2 Cap PO DAILY Topiramate 25 Mg Tablet 1 Tab PO DAILY Omeprazole 40 Mg Capsule.dr 1 Cap PO DAILY Atorvastatin Calcium 20 Mg Tablet 20 Mg PO DAILY Gleevec (Imatinib Mesylate) 400 Mg Tablet 400 Mg PO DAILY Amiodarone Hcl 200 Mg Tablet 1 Tab PO DAILY Aspirin 81 Mg Tab.chew 1 Tab PO DAILY Vitals/I & O Vital Sign - Last 24 Hours 04/16/20 04/16/20 04/16/20 04/16/20 17:00 18:00 19:00 20:00 Pulse 57 61 56 Resp 20 20 20 B/P (MAP) 103/62 (76) 102/54 (70) 91/51 (64) Pulse Ox 99 99 O2 Delivery Room Air Room Air Room Air Room Air 04/16/20 04/16/20 04/17/20/31/20 20:00 23:59 04:20 07:53 Temp 98.0 97.7 97.7 98.0 97.7 97.7 Pulse 54 51 44 46 Resp 20 18 16 B/P (MAP) 102/54 (70) 118/62 (80) 101/45 (63) 125/61 Pulse Ox 98 100 100 O2 Delivery Room Air Room Air Room Air 04/17/20 04/17/20 04/17/20 04/17/20 08:00 08:00 10:08 12:00 Temp 97.2 97.6 97.2 97.6 Pulse 46 51 54 Resp 16 16 B/P (MAP) 125/61 (82) 121/61 171/73 (105) Pulse Ox 100 100 O2 Delivery Room Air Room Air Room Air Intake and Output 04/16/20 04/16/20 04/17/20 15:00 23:00 07:00 Intake Total 650 ml 300 ml 540 ml Output Total 400 ml 250 ml Balance 250 ml 300 ml 290 ml Justifications for Admission Other Justification RAYO CHEUNG MD Apr 17, 2020 16:44
[2020-04-17 16:45] VITALS: BP 133/79
[2020-04-17 19:00] VITALS: BP 123/51
[2020-04-17] MEDS: ATORVASTATIN CALCIUM 20 MG TABLET PO SCH (20:07)
[2020-04-17] MEDS: PATCH REMOVAL. MC SCH (20:09)
[2020-04-17 22:43] VITALS: BP 115/50
[2020-04-18 02:53] VITALS: BP 97/42
[2020-04-18 07:00] VITALS: BP 112/64
[2020-04-18] MEDS: PANTOPRAZOLE 40 MG TABLET.DR. PO SCH (08:30)
[2020-04-18] MEDS: LIDOCAINE (700MG/PATCH) PATCH. TP SCH ×2 (08:30→08:35)
[2020-04-18] MEDS: TOPIRAMATE 25 MG TABLET. PO SCH (08:30)
[2020-04-18] MEDS: ASPIRIN CHEWABLE 81 MG TABLET. PO SCH (08:30)
[2020-04-18] MEDS: CHOLECALCIFEROL (VITAMIN D3) 1,000 UNIT TABLET PO SCH (08:30)
[2020-04-18] MEDS: LOSARTAN POTASSIUM 25 MG TABLET. PO SCH (08:34)
[2020-04-18] MEDS: ALPRAZolam 0.5 MG TABLET PO PRN (09:13)
--- NOTE | 2020-04-18 10:19 | PDOC ---
[facility] PROGRESS NOTE Date of Service DOS: DATE: 04/18/20 TIME: 10:03 Chief Complaint Chief Complaint Symptomatic bradycardia History of Present Illness History of Present Illness 04/18/2020 Patient seen and examined Discussed with RN Discussed with Case Management Reviewed chart Patient was sitting in NAD Pulse is still low at 49 bpm - beta celestino was discontinued but patient is still on Xanax Discharge disposition pending Identification/Chief Complaint Chief Complaint seen in er with bradycardia 84 yo M PMH CAD, COPD, gastric/pancreatic ca s/p chemo/rads (on gleevac), gerd, htn (meto succ 12.5daily) and HLD, presents to the ed bibems after son called daughter's complaining of leg pain shooting down both his legs, burning stomach pain that moved to his chest, weakness and difficulties walking (ambulates w/o assistance at baseline). Daughter does report patient has some memory problems. is also present in the ED and states the patient has not fallen and she gives him his medications daily. Pt took 2 Zantac's prior to coming to the ED. known history of bradycardia and is normally in the 30s Past Medical History Past Medical History Past Medical History Past Medical History: CAD, Cancer, COPD, [place], Other Additional Past Medical Histor: stomach CA TREATED W/ CHEMO,LEUKEMIA, pancreatic cancer Past Surgical History: Angioplasty, Lumbar Laminectomy Additional Past Surgical Histo: STENTS X'S 3, right port a cath,L KNEE SURG Smoking Status: Never Smoker Alcohol Use: Sober Drug Use: None FHX CAD Cardiovascular: CAD, CHF, HTN, Hyperlipidemia Pulmonary: COPD, Other CENTRAL NERVOUS SYSTEM: Other GI: GERD Heme/Onc: Other Hepatobiliary: No pertinent hx Psych: Anxiety Rheumatologic: No pertinent hx Infectious disease: No pertinent hx Renal/: Chronic renal insuff, Benign prostatic enlarg. Vitals/I&O Vitals/I&O: Vital Signs Date Time Temp Pulse Resp B/P (MAP) Pulse Ox O2 Delivery O2 Flow Rate FiO2 04/18/20 08:34 49 103/42 04/18/20 07:00 97.6 20 94 Room Air 97.6 I & O 04/17/20 04/17/20 04/18/20 15:00 23:00 07:00 Intake Total 0 ml 300 ml Balance 0 ml 300 ml Physical Exam Physical Exam: Constitutional: Well developed, well nourished, no acute distress, HENT: Normocephalic, atraumatic, no signs of head trauma, dry mucous membranes Eyes: PERRLA, EOMI, conjunctiva normal, no discharge. [] Neck: Normal range of motion, no tenderness, supple, no stridor. [] Cardiovascular:Heart rate regular rhythm, no murmur [] Lungs & Thorax: Bilateral breath sounds clear to auscultation [] Abdomen: Bowel sounds normal, soft, no tenderness, no masses, no pulsatile masses. [] Skin: Warm, dry, no erythema, no rash, no bruising or contusions Back: No tenderness, no CVA tenderness, right lumbar paraspinal ttp Extremities: No tenderness, no cyanosis, no clubbing, ROM intact, +1/4 equal LE edema Neurologic: Alert, normal motor function, normal sensory function, no focal deficits noted. [] Psychologic: Affect normal, judgment normal, mood normal. [] General: Cooperative, No acute distress mild confusion at baseline General: Alert, Cooperative, No acute distress Heart: Regular rate, Other (Rate 49) Lungs: Clear Abdomen: Normal bowel sounds Extremities: No clubbing Skin: No significant lesion Labs Labs: Laboratory Tests Test 04/18/20 09:04 Glucose (Fingerstick) 128 mg/dL (70-99) Review of Systems Review of Systems: Denies pain Denies weakness Assessment and Plan Assessmemt and Plan Problems Medical Problems: (1) Confusion Status: Acute (2) Renal insufficiency Status: Acute (3) Symptomatic bradycardia Status: Acute Assessment Symptomatic bradycardia echo 2019 septal motion is suggestive of conduction defect.mild aortic regu rgitation. ascending aorta is moderately dilated at 4.3cm. Left ventricle systolic function is mildly decreased. LVEF 45% hx mild-mod dementia Confusion AT BASELINE Renal insufficiency pancreatic cancer HX Stable ill-defined haziness about the pancreatic head and mesenteric vasculature. on ct HYPERTENSION, LABILE Mild chronic small vessel ischemic disease. Plan DVT prophylaxis Home meds Full code HOLD METOPROLOL FREE T4 Continue Losarten 12.5 mg po daily Discharge disposition pending Comment Review of Relevant I have reviewed the following items jannet (where applicable) has been applied. Justifications for Admission Other Justification CARY WILD III, DO Apr 18, 2020 10:19
[2020-04-18 11:00] VITALS: BP 107/53
--- NOTE | 2020-04-18 12:30 | NUR ---
SS following up with discharge planning. SS reviewed pt chart and discussed with pt RN. Pt is currently on room air. PT/OT recommended home at discharge. Discharge order on the chart for home with self care.
--- NOTE | 2020-04-18 14:03 | NUR ---
Discharge Note: HARSHIL MALONE Discharge instructions and discharge home medications reviewed with Patient and a copy given. All questions have been answered and understanding verbalized. The following instructions and handouts were given: Bradycardia Discontinued lines and drains: 2 IV catheters were remvoed intact. Tele monitor removed. Patient discharged to Home with Self care via wheelchair.
--- NOTE | 2020-04-18 16:34 | PDOC ---
CARD[facility] Progress Notes Date and Time Date of Service 04/18/2020 Time of Evaluation 1140 Subjective Subjective: No Chest Pain, No shortness of breath, No Palpitations Vitals Vitals Vital Signs Date Time Temp Pulse Resp B/P (MAP) Pulse Ox O2 Delivery O2 Flow Rate FiO2 04/18/20 11:00 97.5 62 20 107/53 (71) 98 Room Air 97.5 Weight Weight [ ] Input and Output Intake and Output Intake and Output 04/18/20 07:00 Intake Total 300 ml Balance 300 ml Intake Oral 300 ml # Voids 1 Laboratory Labs Laboratory Tests Test 04/18/20 09:04 Glucose (Fingerstick) 128 mg/dL (70-99) Microbiology Micro Microbiology 04/15/20 Blood Culture - Preliminary, Resulted NO GROWTH AFTER 3 DAYS 04/15/20 Urine Culture - Final, Complete Physical Exam HEENT: Neck Supple W Full Motion Chest: Symmetric LUNGS: Clear to Auscultation Heart: S1S2, RRR (SR) Abdomen: Soft N/T Extremities: No Calf Tenderness, Other (trace edema LE) Neurology: alert, oriented, follow commands Assessment Assessment 1. Sinus bradycardia: no pauses or high grade blocks. currently 50s to 60s. No symptoms. Likely induced by metoprolol. Rhythm stable 2. PAFIB: no episodes. 3. CAD: past stents, clinically stable 4. Hx of B cell lymphoma 5. HTN: controlled 6. HLP 7. Hx of COPD 8. CKD3 Recommendations 1. DC metoprolol. Continue amiodarone 2. ASA for stroke prevention. Anticoagulation was discussed in the past but repeatedly confirmed that he does not want it. 3. Continue secondary prevention. follow up in office as scheduled Justicifation of Admission Dx: Justifications for Admission: Justification of Admission Dx: Yes CHF: Cardiac Arrhythmias NOEMI GARCÍA AUDIOLOGIST Apr 18, 2020 16:34
== END 2020-04-18 13:45 | disposition home or self-care (01) | DRG 308 ==
LOC: ER 11:59 → 1 WEST ICU 16:02 → 2 SOUTH 04-17 16:44
PROVIDERS: ADMIT Family Medicine; ATTEND Family Medicine
DX: R00.1 Bradycardia, unspecified (principal); G93.41 Metabolic encephalopathy; C25.9 Malignant neoplasm of pancreas, unspecified; I13.0 Hypertensive heart and chronic kidney disease with heart failure and stage 1 through stage 4 chronic kidney disease, or unspecified chronic kidney disease; D17.9 Benign lipomatous neoplasm, unspecified; E78.5 Hyperlipidemia, unspecified; F03.90 Unspecified dementia, unspecified severity, without behavioral disturbance, psychotic disturbance, mood disturbance, and anxiety; I05.0 Rheumatic mitral stenosis; I25.10 Atherosclerotic heart disease of native coronary artery without angina pectoris; I48.0 Paroxysmal atrial fibrillation; I50.9 Heart failure, unspecified; J44.9 Chronic obstructive pulmonary disease, unspecified; K21.9 Gastro-esophageal reflux disease without esophagitis; K40.90 Unilateral inguinal hernia, without obstruction or gangrene, not specified as recurrent; K76.89 Other specified diseases of liver; N18.3 Chronic kidney disease, stage 3 (moderate); Z82.49 Family history of ischemic heart disease and other diseases of the circulatory system; Z85.028 Personal history of other malignant neoplasm of stomach; Z85.07 Personal history of malignant neoplasm of pancreas; Z85.6 Personal history of leukemia; Z85.72 Personal history of non-Hodgkin lymphomas; Z92.21 Personal history of antineoplastic chemotherapy; Z95.5 Presence of coronary angioplasty implant and graft; F41.9 Anxiety disorder, unspecified; I25.2 Old myocardial infarction
CPT/HCPCS: 36415; 70450; 71045; 74176; 80048; 80053; 80329; 81001; 82550; 82962; 83605; 83690; 83735; 84439; 84484; 85025; 85610; 85730; 87040; 87086; 93005; 96365; 96375; 99291; J0461; J1265; Q9966; 97530-GP; 97535-GO; G0378; G0480

== ENCOUNTER 2020-07-16 12:42 | Emergency (ER) | payer BC ==
[~2020-07-16] VITALS: Ht 190.5 cm; Wt 100.0 kg
[~2020-07-16 12:42] MED LIST changes: -AMIO200T4 PO; +AMIO200T6 PO
[2020-07-16] MEDS ORDERED: ONDANSETRON PF 4 MG/2 ML VIAL. IV ONE (13:30)
[2020-07-16] MEDS ORDERED: MORPHINE SULFATE 4 MG/ML VIAL. IV ONE (13:30)
[2020-07-16 13:31] LABS: BILIRUBIN,URINE NEGATIVE (NEG); CLARITY,URINE CLEAR; COLOR,URINE YELLOW; NITRITE,URINE NEGATIVE (NEG); PH,URINE 7.5 (<5.0-8.0); PROTEIN,URINE NEGATIVE (NEG-TRACE); UROBILINOGEN,URINE 0.2 mg/dL (0.2 mg/dL)
[2020-07-16 13:38] LABS: BACTERIA,URINE 0 /HPF (0-FEW); RBC,URINE 0 /HPF (0-2); WBC,URINE 0 /HPF (0-4)
[2020-07-16 13:39] LABS: AMORPHOUS SEDIMENT,UR PRESENT /HPF
[2020-07-16 13:40] LABS: BASO # 0.1 x10^3/uL (0.0-0.2); BASO % 1 % (0-3); EOS # 0.2 x10^3/uL (0.0-0.7); EOS % 3 % (0-3); HEMATOCRIT 41.3 % (39.0-53.0); HEMOGLOBIN 14.4 g/dL (13.0-17.5); LYMPH # 0.9 x10^3/uL (1.0-4.8); LYMPH % 12 % (24-48); MEAN CORPUSCULAR HEMOGLOBIN 35 pg (25-35); MEAN CORPUSCULAR HGB CONC 35 g/dL (31-37); MEAN CORPUSCULAR VOLUME 100 fL (79-100); MONO # 0.6 x10^3/uL (0.0-1.1); MONO % 8 % (0-9); NEUT % 77 % (31-73); PLATELET COUNT 196 x10^3/uL (140-400); RED BLOOD COUNT 4.15 x10^6/uL (4.30-5.70); RED CELL DISTRIBUTION WIDTH 12.1 % (11.5-14.5); WHITE BLOOD COUNT 7.8 x10^3/uL (4.0-11.0)
[2020-07-16 13:44] LABS: CALCIUM 8.4 mg/dL (8.5-10.1); CREATININE 1.6 mg/dL (0.7-1.3); GFR 41.4; POTASSIUM 4.1 mmol/L (3.5-5.1)
[2020-07-16 13:50] LABS: ALBUMIN 3.5 g/dL (3.4-5.0); ALBUMIN/GLOBULIN RATIO 1.5 (1.0-1.7); MAGNESIUM 2.3 mg/dL (1.8-2.4); TOTAL BILIRUBIN 0.3 mg/dL (0.2-1.0); TOTAL PROTEIN 5.9 g/dL (6.4-8.2)
--- NOTE | 2020-07-16 14:13 | RAD ---
EXAM: CT Abdomen and Pelvis without IV contrast INDICATION: Reason: w/runoff to evaluate R hip; R flank pain w/hematuria, recent fall / Spl. Instructions: / History: TECHNIQUE: Multi-detector row CT images were acquired from the lung bases through the abdomen and pelvis without the use of IV contrast. Sagittal and coronal images were acquired from the transaxial data. All CT scans performed at this facility utilize dose optimization techniques as appropriate to the exam, including the following: Automated exposure control and adjustment of the mA and/or KV according to patient size (this includes techniques or standardized protocols for targeted exams where dose is indication/reason for exam). ORAL CONTRAST: None COMPARISON: 04/15/[address] with oral only contrast. FINDINGS: The absence of IV contrast limits evaluation of soft tissue pathology. LOWER CHEST: Stable mild cardiomegaly and coronary calcifications. LIVER: Unremarkable BILIARY SYSTEM: Gallbladder is unremarkable. Bile ducts are not dilated. PANCREAS: Persistent or recurrent peripancreatic soft tissue stranding in the pancreatic head is present. No ductal dilation. SPLEEN: Unremarkable ADRENALS: Unremarkable KIDNEYS & URETERS: Unremarkable BLADDER: Unremarkable REPRODUCTIVE ORGANS: Mildly enlarged prostate measuring 4.9 x 4.7 cm in axial dimensions. GASTROINTESTINAL: Stomach and small bowel are unremarkable. Colon shows scattered colonic diverticuli. Third portion duodenum again demonstrates a 2.6 cm diverticulum No acute inflammation or findings of obstruction or perforation are evident. The appendix is normal. MESENTERY/PERITONEUM/RETROPERITONEUM: Unremarkable VASCULAR: The peripancreatic soft tissue stranding previously evident which has persisted or recurrent on this examination obscures the contours of both the splenic artery and the SMA. There are scattered arterial calcifications throughout the vessels of the abdomen with no aneurysmal dilation noted. There is mild ectasia of the distal infrarenal abdominal aorta to 2.4 cm AP diameter. LYMPH NODES: No adenopathy OSSEOUS & SOFT TISSUES: Intramuscular 8.8 x 4.6 x 6.0 cm lipoma in the right gluteus medius muscle is redemonstrated. No acute or aggressive appearing osseous lesions identified. Transitional vertebrae at the lumbosacral junction with a transitional vertebra present in the first sacral segment partially lumbarized. IMPRESSION: 1. No acute findings in the right hip or in the kidneys. No specific findings to explain hematuria. 2. Persistent or recurrent peripancreatic soft tissue stranding of the pancreatic head, obscuring the contours of the superior mesenteric artery and splenic artery. Also recurrent pancreatitis is possible, differential considerations could include duodenal peptic ulcer disease and medial vessel vasculopathy/vasculitis. CT angiography could be pursued in further evaluation if clinically warranted Electronically signed by: Fortino Ochoa MD (07/16/2020 2:10 PM) [id number]
[2020-07-16 14:21] VITALS: BP 154/70
--- NOTE | 2020-07-16 14:49 | ED.ADGEN ---
Past Medical History Past Medical History: CAD, Cancer, COPD, [place], Other Additional Past Medical Histor: stomach CA TREATED W/ CHEMO,LEUKEMIA, pa ncreatic cancer Past Surgical History: Angioplasty, Lumbar Laminectomy Additional Past Surgical Histo: STENTS X'S 3, right port a cath,L KNEE SURG Smoking Status: Former Smoker Alcohol Use: Sober Drug Use: None General Adult EDM: Chief Complaint: MECHANICAL FALL HPI: HPI: Patient is a 84 year old who presents to the emergency department via EMS with complaints of right lateral hip pain after falling on July [id number]. Patient states he is able to ambulate with a cane. He reports that on July 07 he had an episode of bloody urine. He was prescribed some ciprofloxacin and completed 5 days of that medication but stopped taking it yesterday because he thought it was making his leg hurt worse. He denies any fever, nausea, vomiting, diarrhea, shortness of breath, chest pain, fever, cough, or dizziness. Patient states that he has had some pain in his right lower quadrant, he denies any recent change in his bowel movements he reports that he has chronic constipation. She currently denies any dysuria, hematuria, or difficulty voiding. He currently rates his pain a 8 out of 10 on the pain scale, he denies any alleviating factors, the pain is worse with movement and palpation. Review of Systems: Review of Systems: Complete ROS is negative unless otherwise noted in HPI. Current Medications: Current Medications Medications (Trade) Dose Ordered Sig/[facility] Start Time Stop Time Status Last Admin Dose Admin Morphine Sulfate (Morphine Sulfate) 4 mg 1X ONCE 07/16/20 13:30 07/16/20 13:31 DC 07/16/20 14:24 4 MG Ondansetron HCl (Zofran) 4 mg 1X ONCE 07/16/20 13:30 07/16/20 13:31 DC 07/16/20 14:24 4 MG Allergies: Allergies: Allergies Coded Allergies Type Severity Reaction Last Updated Verified codeine Allergy Intermediate 05/11/17 Yes tetanus and diphtheria toxoids Allergy Intermediate 10/19/15 Yes Physical Exam: PE: See Above Constitutional: Well developed, well nourished, no acute distress, non-toxic appearance. [] HENT: Normocephalic, atraumatic, bilateral external ears normal, nose normal. [] Eyes: PERRLA, EOMI, conjunctiva normal, no discharge. [] Neck: Normal range of motion, no stridor. [] Cardiovascular:Heart rate regular rhythm Lungs & Thorax: Respirations even and unlabored, no retractions, no respiratory distress Abdomen: Bowel sounds normal, soft, no tenderness, no masses, no pulsatile masses; right flank tenderness to palpation. [] Skin: Warm, dry, no erythema, no rash. [] Extremities: Right hip: Lateral tenderness to palpation without crepitus, no obvious shortening or external rotation, 2+ pedal pulse, no cyanosis, no clubbing, ROM intact, no edema. [] Neurologic: Alert and oriented X 3, normal motor function, normal sensory funct ion, no focal deficits noted. [] Psychologic: Affect normal, judgement normal, mood normal. [] Current Patient Data: Labs: Laboratory Tests Test 07/16/20 13:05 07/16/20 13:30 Urine Collection Type Unknown Urine Color Yellow Urine Clarity Clear Urine pH 7.5 (<5.0-8.0) Urine Specific [place] 1.015 (1.000-1.030) Urine Protein Negative mg/dL (NEG-TRACE) Urine Glucose (UA) Negative mg/dL (NEG) Urine Ketones (Stick) Negative mg/dL (NEG) Urine Blood Negative (NEG) Urine Nitrite Negative (NEG) Urine Bilirubin Negative (NEG) Urine Urobilinogen Dipstick 0.2 mg/dL (0.2 mg/dL) Urine Leukocyte Esterase Negative (NEG) Urine RBC 0 /HPF (0-2) Urine WBC 0 /HPF (0-4) Urine Squamous Epithelial Cells Few /LPF Urine Amorphous Sediment Present /HPF Urine Bacteria 0 /HPF (0-FEW) Urine Mucus Mod /LPF White Blood Count 7.8 x10^3/uL (4.0-11.0) Red Blood Count 4.15 x10^6/uL (4.30-5.70) L Hemoglobin 14.4 g/dL (13.0-17.5) Hematocrit 41.3 % (39.0-53.0) Mean Corpuscular Volume 100 fL (79-100) Mean Corpuscular Hemoglobin 35 pg (25-35) Mean Corpuscular Hemoglobin Concent 35 g/dL (31-37) Red Cell Distribution Width 12.1 % (11.5-14.5) Platelet Count 196 x10^3/uL (140-400) Neutrophils (%) (Auto) 77 % (31-73) H Lymphocytes (%) (Auto) 12 % (24-48) L Monocytes (%) (Auto) 8 % (0-9) Eosinophils (%) (Auto) 3 % (0-3) Basophils (%) (Auto) 1 % (0-3) Neutrophils # (Auto) 6.0 x10^3/uL (1.8-7.7) Lymphocytes # (Auto) 0.9 x10^3/uL (1.0-4.8) L Monocytes # (Auto) 0.6 x10^3/uL (0.0-1.1) Eosinophils # (Auto) 0.2 x10^3/uL (0.0-0.7) Basophils # (Auto) 0.1 x10^3/uL (0.0-0.2) Sodium Level 141 mmol/L (136-145) Potassium Level 4.1 mmol/L (3.5-5.1) Chloride Level 105 mmol/L (98-107) Carbon Dioxide Level 29 mmol/L (21-32) Anion Gap 7 (6-14) Blood Urea Nitrogen 23 mg/dL (8-26) Creatinine 1.6 mg/dL (0.7-1.3) H Estimated GFR (Cockcroft-Gault) 41.4 BUN/Creatinine Ratio 14 (6-20) Glucose Level 87 mg/dL (70-99) Calcium Level 8.4 mg/dL (8.5-10.1) L Magnesium Level 2.3 mg/dL (1.8-2.4) Total Bilirubin 0.3 mg/dL (0.2-1.0) Aspartate Amino Transferase (AST) 22 U/L (15-37) Alanine Aminotransferase (ALT) 23 U/L (16-63) Alkaline Phosphatase 104 U/L (46-116) Total Protein 5.9 g/dL (6.4-8.2) L Albumin 3.5 g/dL (3.4-5.0) Albumin/Globulin Ratio 1.5 (1.0-1.7) Lipase 80 U/L (73-393) Laboratory Tests 07/16/20 13:30 Laboratory Tests 07/16/20 13:30 Vital Signs: Vital Signs Date Time Temp Pulse Resp B/P (MAP) Pulse Ox O2 Delivery O2 Flow Rate FiO2 07/16/20 14:21 44 16 97 07/16/20 13:00 98.4 175/84 (114) Room Air 98.4 EKG: EKG: [] Heart Score: Risk Factors: Risk Factors: DM, Current or recent (<one month) smoker, HTN, HLP, family history of CAD, obesity. Risk Scores: Score 0 - 3: 2.5% MACE over next 6 weeks - Discharge Home Score 4 - 6: 20.3% MACE over next 6 weeks - Admit for Clinical Observation Score 7 - 10: 72.7% MACE over next 6 weeks - Early Invasive Strategies Radiology/Procedures: Radiology/Procedures: PROCEDURE: CT ABDOMEN PELVIS WO CONTRAST EXAM: CT Abdomen and Pelvis without IV contrast INDICATION: Reason: w/runoff to evaluate R hip; R flank pain w/hematuria, recent fall / Spl. Instructions: / History: TECHNIQUE: Multi-detector row CT images were acquired from the lung bases through the abdomen and pelvis without the use of IV contrast. Sagittal and coronal images were acquired from the transaxial data. All CT scans performed at this facility utilize dose optimization techniques as appropriate to the exam, including the following: Automated exposure control and adjustment of the mA and/or KV according to patient size (this includes techniques or standardized protocols for targeted exams where dose is indication/reason for exam). ORAL CONTRAST: None COMPARISON: 04/15/[address] with oral only contrast. FINDINGS: The absence of IV contrast limits evaluation of soft tissue pathology. LOWER CHEST: Stable mild cardiomegaly and coronary calcifications. LIVER: Unremarkable BILIARY SYSTEM: Gallbladder is unremarkable. Bile ducts are not dilated. PANCREAS: Persistent or recurrent peripancreatic soft tissue stranding in the pancreatic head is present. No ductal dilation. SPLEEN: Unremarkable ADRENALS: Unremarkable KIDNEYS & URETERS: Unremarkable BLADDER: Unremarkable REPRODUCTIVE ORGANS: Mildly enlarged prostate measuring 4.9 x 4.7 cm in axial dimensions. GASTROINTESTINAL: Stomach and small bowel are unremarkable. Colon shows scattered colonic diverticuli. Third portion duodenum again demonstrates a 2.6 cm diverticulum No acute inflammation or findings of obstruction or perforation are evident. The appendix is normal. MESENTERY/PERITONEUM/RETROPERITONEUM: Unremarkable VASCULAR: The peripancreatic soft tissue stranding previously evident which has persisted or recurrent on this examination obscures the contours of both the splenic artery and the SMA. There are scattered arterial calcifications throughout the vessels of the abdomen with no aneurysmal dilation noted. There is mild ectasia of the distal infrarenal abdominal aorta to 2.4 cm AP diameter. LYMPH NODES: No adenopathy OSSEOUS & SOFT TISSUES: Intramuscular 8.8 x 4.6 x 6.0 cm lipoma in the right gluteus medius muscle is redemonstrated. No acute or aggressive appearing osseous lesions identified. Transitional vertebrae at the lumbosacral junction with a transitional vertebra present in the first sacral segment partially lumbarized. IMPRESSION: 1. No acute findings in the right hip or in the kidneys. No specific findings to explain hematuria. 2. Persistent or recurrent peripancreatic soft tissue stranding of the pancreatic head, obscuring the contours of the superior mesenteric artery and splenic artery. Also recurrent pancreatitis is possible, differential considerations could include duodenal peptic ulcer disease and medial vessel vasculopathy/vasculitis. CT angiography could be pursued in further evaluation if clinically warranted [] Course & Med Decision Making: Course & Med Decision Making Pertinent Labs and Imaging studies reviewed. (See chart for details) 84-year-old male presents emergency room with complaints of right flank and right hip pain. CT of the patient's abdomen revealed a normal-appearing appendix, no acute fractures or findings of the right hip. UA did not reveal any blood or infection.. CBC is unremarkable; CMP revealed a creatinine of 1.6 this is the same as the pa enzo's previous visit, otherwise unremarkable. Patient's vital signs are stable. I encouraged pt and his son to follow up with PCP for further evaluation and treatment of flank pain. Encouraged follow up with Dr. Sher if hip pain persists. [] Dragon Disclaimer: Mikey Disclaimer: This electronic medical record was generated, in whole or in part, using a voice recognition dictation system. Departure Departure Impression: Primary Impression: Acute right hip pain Additional Impression: Acute right flank pain Disposition: 01 DC HOME SELF CARE/HOMELESS Condition: STABLE Referrals: KVNG BADILLO DO (PCP) BHAVANI SHER MD Patient Instructions: Flank Pain, [id number], Hip Pain Additional Instructions: Take Tylenol every 6 hours as needed for pain. Follow up with your primary care doctor for further treatment and evaluation of pain. Return to the ER if symptoms worsen or you develop a fever. Problem Qualifiers BOGUSLAW,ADILIA D PHYTOPATHOLOGY TEACHER Jul 16, 2020 14:49
== END 2020-07-16 16:19 | disposition home or self-care (01) ==
LOC: ER 12:42
DX: M25.551 Pain in right hip (principal); R10.9 Unspecified abdominal pain; J44.9 Chronic obstructive pulmonary disease, unspecified; I25.2 Old myocardial infarction; I25.10 Atherosclerotic heart disease of native coronary artery without angina pectoris; Z87.891 Personal history of nicotine dependence; Z95.5 Presence of coronary angioplasty implant and graft; Z88.5 Allergy status to narcotic agent; Z88.7 Allergy status to serum and vaccine
CPT/HCPCS: 36415; 74176; 80053; 81001; 83690; 83735; 85025; 96374; 96375; 99284; J2270; J2405

== ENCOUNTER 2021-08-22 13:37 | Emergency (ER) | payer BC ==
[~2021-08-22] VITALS: Ht 190.5 cm; Wt 98.2 kg
[~2021-08-22 13:37] MED LIST changes: +AMIO200T53 PO; -AMIO200T6 PO; -ISOS30TA4 PO; +ISOS30TA68 PO; -LISI-338 PO; +LISI5TAB15 PO; -OMEP40CA45 PO; +OMEP40CA7 PO; +ONDA-85 PO; -ONDA8TAB17 PO
[2021-08-22] MEDS ORDERED: IV NORMAL SALINE 1000ML BAG 1,000 ML IV SCH (14:00)
[2021-08-22] MEDS ORDERED: ONDANSETRON PF 4 MG/2 ML VIAL. IVP ONE (14:00)
[2021-08-22 14:09] LABS: BASO # 0.1 x10^3/uL (0.0-0.2); BASO % 2 % (0-3); EOS # 0.2 x10^3/uL (0.0-0.7); EOS % 2 % (0-3); HEMATOCRIT 45.6 % (39.0-53.0); HEMOGLOBIN 15.7 g/dL (13.0-17.5); LYMPH # 1.7 x10^3/uL (1.0-4.8); LYMPH % 19 % (24-48); MEAN CORPUSCULAR HEMOGLOBIN 34 pg (25-35); MEAN CORPUSCULAR HGB CONC 34 g/dL (31-37); MEAN CORPUSCULAR VOLUME 98 fL (79-100); MONO # 0.7 x10^3/uL (0.0-1.1); MONO % 8 % (0-9); NEUT # 6.4 x10^3/uL (1.8-7.7); NEUT % 70 % (31-73); PLATELET COUNT 238 x10^3/uL (140-400); RED BLOOD COUNT 4.65 x10^6/uL (4.30-5.70); RED CELL DISTRIBUTION WIDTH 13.6 % (11.5-14.5); WHITE BLOOD COUNT 9.2 x10^3/uL (4.0-11.0)
--- NOTE | 2021-08-22 14:12 | PHYS DOC ---
Past Medical History Past Medical History: CAD, Cancer, COPD, [place], Other Additional Past Medical Histor: stomach CA TREATED W/ CHEMO,LEUKEMIA, pancreatic cancer Past Surgical History: Angioplasty, Lumbar Laminectomy Additional Past Surgical Histo: STENTS X'S 3, right port a cath,L KNEE SURG Smoking Status: Former Smoker Alcohol Use: Sober Drug Use: None General Adult EDM: Chief Complaint: NAUSEA/VOMITING/DIARRHEA HPI: HPI: Patient is an 85-year-old male who presents to the emergency department for 1 day history of nausea, vomiting and upper abdominal pain. Patient believes that he may be experiencing food poisoning after eating spaghetti last night. Patient denies any blood in his stools or vomit, urinary symptoms, fevers. He has a history of leukemia of stomach cancer and pancreatic cancer. Review of Systems: Review of Systems: Constitutional: See HPI GI: See HPI : See HPI Heart Score: C/O Chest Pain: N/A Risk Factors: Risk Factors: DM, Current or recent (<one month) smoker, HTN, HLP, family his tory of CAD, obesity. Risk Scores: Score 0 - 3: 2.5% MACE over next 6 weeks - Discharge Home Score 4 - 6: 20.3% MACE over next 6 weeks - Admit for Clinical Observation Score 7 - 10: 72.7% MACE over next 6 weeks - Early Invasive Strategies Current Medications: Current Medications Medications (Trade) Dose Ordered Sig/Winifred Start Time Stop Time Status Last Admin Dose Admin Ondansetron HCl (Zofran) 4 mg 1X ONCE 08/22/21 14:00 08/22/21 14:01 DC Sodium Chloride 1,000 ml @ 1,000 mls/hr Q1H 08/22/21 14:00 08/22/21 14:59 Allergies: Allergies: Allergies Coded Allergies Type Severity Reaction Last Updated Verified codeine Allergy Intermediate 05/11/17 Yes tetanus and diphtheria toxoids Allergy Intermediate 10/19/15 Yes Physical Exam: PE: Constitutional: Well developed, well nourished, no acute distress, non-toxic appearance. [] HENT: Normocephalic, atraumatic, bilateral external ears normal, oropharynx moist, no oral exudates, nose normal. [] Eyes: PERRL, EOMI, conjunctiva normal, no discharge. [] Neck: Normal range of motion, midline upper abdominal tenderness with palpation, no guarding, no rigidity, supple, no stridor. [] Cardiovascular:Heart rate regular rhythm, no murmur [] Lungs & Thorax: Bilateral breath sounds clear to auscultation [] Abdomen: Bowel sounds normal, soft, no tenderness, no masses, no pulsatile masses. [] Skin: Warm, dry, no erythema, no rash. [] Back: Normal range of motion Extremities: No tenderness, no cyanosis, no clubbing, ROM intact, no edema. [] Neurologic: Alert and oriented X 3, normal motor function, normal sensory function, no focal deficits noted. [] Psychologic: Affect normal, judgement normal, mood normal. [] Current Patient Data: Labs: Laboratory Tests Test 08/22/21 13:55 White Blood Count 9.2 x10^3/uL Red Blood Count 4.65 x10^6/uL Hemoglobin 15.7 g/dL Hematocrit 45.6 % Mean Corpuscular Volume 98 fL Mean Corpuscular Hemoglobin 34 pg Mean Corpuscular Hemoglobin Concent 34 g/dL Red Cell Distribution Width 13.6 % Platelet Count 238 x10^3/uL Neutrophils (%) (Auto) 70 % Lymphocytes (%) (Auto) 19 % Monocytes (%) (Auto) 8 % Eosinophils (%) (Auto) 2 % Basophils (%) (Auto) 2 % Neutrophils # (Auto) 6.4 x10^3/uL Lymphocytes # (Auto) 1.7 x10^3/uL Monocytes # (Auto) 0.7 x10^3/uL Eosinophils # (Auto) 0.2 x10^3/uL Basophils # (Auto) 0.1 x10^3/uL Sodium Level 137 mmol/L Potassium Level 3.8 mmol/L Chloride Level 102 mmol/L Carbon Dioxide Level 28 mmol/L Anion Gap 7 Blood Urea Nitrogen 20 mg/dL Creatinine 1.5 mg/dL Estimated GFR (Cockcroft-Gault) 44.5 BUN/Creatinine Ratio 13 Glucose Level 165 mg/dL Calcium Level 8.6 mg/dL Total Bilirubin 0.5 mg/dL Aspartate Amino Transf (AST/SGOT) 27 U/L Alanine Aminotransferase (ALT/SGPT) 34 U/L Alkaline Phosphatase 144 U/L Total Protein 7.1 g/dL Albumin 4.1 g/dL Albumin/Globulin Ratio 1.4 Lipase 77 U/L Current Medications Medications (Trade) Dose Ordered Sig/[facility]red Route PRN Reason Start Time Stop Time Status Last Admin Dose Admin Sodium Chloride 1,000 ml @ 1,000 mls/hr Q1H IV 08/22/21 14:00 08/22/21 14:59 DC 08/22/21 14:12 Ondansetron HCl (Zofran) 4 mg 1X ONCE IVP 08/22/21 14:00 08/22/21 14:01 DC 08/22/21 14:11 EKG: EKG: [] Radiology/Procedures: Radiology/Procedures: []PROCEDURE: CT ABDOMEN PELVIS WO CONTRAST Study: CT abdomen/pelvis without intravenous contrast Indication: Umbilical/epigastric abdominal pain. Nausea and vomiting. Comparison: Most recently on 07/16/2020 Technique: Helical CT imaging performed of the abdomen and pelvis without the use of intravenous contrast. Sagittal and coronal reformats were obtained. One or more of the following individualized dose reduction techniques were utilized for this examination: 1. Automated exposure control 2. Adjustment of the mA and/or kV according to patient size 3. Use of iterative reconstruction technique. Findings: Inherently limited evaluation without intravenous contrast. Vessel calcific coronary artery disease prior stenting. The heart is prominent in size. Mild bibasilar 1 loss and dementia component of scarring. No newly seen abnormality of the liver. Unremarkable gallbladder and biliary tree. Haziness of the fat along the proximal body segment of the pancreas extending downward along the central mesentery on the superior mesenteric vein and artery. The distribution of fatty stranding is similar to the prior but slightly less pronounced. No pancreatic ductal dilatation or discrete mass. Normal adrenal gland morphology. Several splenic granulomas. Partially atrophic kidneys with areas of cortical scarring most notably on the left. No hydronephrosis. Unremarkable bladder. Mild prominence of the prostate gland and hypertrophy of the median lobe. Mild constipation with well-formed stool in the rectum which is distended up to 6.3 cm transverse. No inflammatory changes along the expected course of the appendix. No pathologic dilatation of small bowel or pneumatosis. Unremarkable stomach. Multifocal calcific atherosclerosis to include the iliofemoral system and abdominal branch vessels. Lymph nodes below the diaphragm do not meet pathologic criteria based on size at under a centimeter short axis. Lipoma along the an terior margin of the right gluteus medius muscle is unchanged. No complex body wall hernia. Multifocal degenerative/chronic osseous findings with several levels exhibiting central canal narrowing such as at L1-L2, L4-L5 and L5-S1. Diffuse idiopathic skeletal hyperostosis. No newly seen abnormality. Impression: 1. Fatty stranding along the proximal body segment of the pancreas and extending downward into the mesentery along the vascular pedicle. Similar findings were present in 2019 but are slightly less pronounced. Mild active pancreatitis is possible but this could also be chronic. Recommend correlation with lipase levels. 2. Mild degree of constipation. 3. Several chronic/unchanged observations detailed above. Electronically signed by: OMEGA THORNTON MD (08/22/2021 4:10 PM) [facility] DICTATED and SIGNED BY: OMEGA THORNTON MD DATE: 08/22/21 [id number] 0 Course & Med Decision Making: Course & Med Decision Making Pertinent Labs and Imaging studies reviewed. (See chart for details) [] Patient presents to the emergency department for a 1 day history of nausea, vomiting and upper abdominal pain started after eating spaghetti. Work-up in the ER consisted analysis. Imaging was performed of patient's abdomen and pelvis as he does have a history of stomach cancer and pancreatic cancer. Patient treated with IV fluids and nausea medication. CBC was unremarkable. He had mild elevation in his creatinine but this is decreased from previous lab findings. His CT shows chronic pancreatitis which is improved from previous imaging, he does not have any elevated lipase. Patient be tested for COVID-19 prior to ER departure. He is advised to self isolate until he receives his results. I entered patients room for reassessment and he reports that he feels better and would like to go home. I offered patient nausea medication for home which he declined. Patient educated to increase fluids. Educated on brat diet. I discussed with patient all findings and diagnostic testing as well as the need to follow-up with PCP for further evaluation and treatment or return to the ER if any new or worsening symptoms. Strict return precautions were also discussed at length. Patient voiced understanding and agreement with the plan. Patient is hemodynamically stable at the time of disposition. Dragon Disclaimer: Dragon Disclaimer: This electronic medical record was generated, in whole or in part, using a voice recognition dictation system. Departure Departure Impression: Primary Impression: Nausea & vomiting Qualified Codes: R11.2 - Nausea with vomiting, unspecified Disposition: HOME / SELF CARE / HOMELESS Condition: GOOD Referrals: KVNG BADILLO DO (PCP) Patient Instructions: Nausea and Vomiting Additional Instructions: You were seen in the emergency department today for nausea, vomiting and abdominal pain. Your blood work is reassuring. Your CT scan did show chronic pancreatitis. You were tested in the emergency department for COVID-19 you will be notified of those results when they become available in approximately 1 to 2 days, please self isolate until you receive your results. Increase your fluids. I would stick to a clear liquid diet for the rest of today which includes broths, Jell-O, Gatorade. Following today please stick to a bland diet, we recommend a brat diet which includes bananas, rice, applesauce and toast. Avoid eating any spicy, greasy or fatty foods. Follow-up with your primary care provider tomorrow regarding your ER visit. Please return to the em ergency department if you develop worsening of your abdominal pain, intractable nausea or vomiting, shortness of breath, chest pain, high fevers refractory to treatment, blood in your stools or vomit or any new or worsening concerns. GERMÁN SULLIVAN POLITICAL THEORY PROFESSOR Aug 22, 2021 14:12
[2021-08-22 14:16] LABS: CALCIUM 8.6 mg/dL (8.5-10.1); CREATININE 1.5 mg/dL (0.7-1.3); GFR 44.5; POTASSIUM 3.8 mmol/L (3.5-5.1)
[2021-08-22 14:26] LABS: ALBUMIN 4.1 g/dL (3.4-5.0); ALBUMIN/GLOBULIN RATIO 1.4 (1.0-1.7); TOTAL BILIRUBIN 0.5 mg/dL (0.2-1.0); TOTAL PROTEIN 7.1 g/dL (6.4-8.2)
--- NOTE | 2021-08-22 16:12 | RAD ---
Study: CT abdomen/pelvis without intravenous contrast Indication: Umbilical/epigastric abdominal pain. Nausea and vomiting. Comparison: Most recently on 07/16/2020 Technique: Helical CT imaging performed of the abdomen and pelvis without the use of intravenous cont rast. Sagittal and coronal reformats were obtained. One or more of the following individualized dose reduction techniques were utilized for this examinat ion: 1. Automated exposure control 2. Adjustment of the mA and/or kV according to patient size 3. Use of iterative reconstruction technique. Findings: Inherently limited evaluation without intravenous contrast. Vessel calcific coronary artery disease prior stenting. The heart is prominent in size. Mild bibasila r 1 loss and dementia component of scarring. No newly seen abnormality of the liver. Unremarkable gallbladder and biliary tree. Haziness of the fa t along the proximal body segment of the pancreas extending downward along the central mesentery on t he superior mesenteric vein and artery. The distribution of fatty stranding is similar to the prior b ut slightly less pronounced. No pancreatic ductal dilatation or discrete mass. Normal adrenal gland m orphology. Several splenic granulomas. Partially atrophic kidneys with areas of cortical scarring mos t notably on the left. No hydronephrosis. Unremarkable bladder. Mild prominence of the prostate gland and hypertrophy of the median lobe. Mild constipation with well-formed stool in the rectum which is distended up to 6.3 cm transverse. No inflammatory changes along the expected course of the appendix. No pathologic dilatation of small ras wel or pneumatosis. Unremarkable stomach. Multifocal calcific atherosclerosis to include the iliofemoral system and abdominal branch vessels. L ymph nodes below the diaphragm do not meet pathologic criteria based on size at under a centimeter sh ort axis. Lipoma along the anterior margin of the right gluteus medius muscle is unchanged. No comple x body wall hernia. Multifocal degenerative/chronic osseous findings with several levels exhibiting c entral canal narrowing such as at L1-L2, L4-L5 and L5-S1. Diffuse idiopathic skeletal hyperostosis. N o newly seen abnormality. Impression: 1. Fatty stranding along the proximal body segment of the pancreas and extending downward into the m esentery along the vascular pedicle. Similar findings were present in 2019 but are slightly less pron ounced. Mild active pancreatitis is possible but this could also be chronic. Recommend correlation lipase levels. 2. Mild degree of constipation. 3. Several chronic/unchanged observations detailed above. Electronically signed by: OMEGA THORNTON MD (08/22/2021 4:10 PM) [facility]
[2021-08-22 17:06] VITALS: BP 201/51
--- NOTE | 2021-08-24 15:16 | NUR ---
IP: Attempted to contact pt concerning covid results. No answer, left a voicemail to return the call.
--- NOTE | 2021-08-25 14:32 | NUR ---
IP: Pt returned call. Informed pt of negative covid test. He verbalized understanding.
== END 2021-08-22 17:46 | disposition home or self-care (01) ==
LOC: ER 13:37
DX: R11.2 Nausea with vomiting, unspecified (principal); R10.10 Upper abdominal pain, unspecified; J44.9 Chronic obstructive pulmonary disease, unspecified; I25.10 Atherosclerotic heart disease of native coronary artery without angina pectoris; I25.2 Old myocardial infarction; Z87.891 Personal history of nicotine dependence; Z95.5 Presence of coronary angioplasty implant and graft; Z88.5 Allergy status to narcotic agent; Z88.7 Allergy status to serum and vaccine
CPT/HCPCS: 36415; 74176; 80053; 83690; 85025; 96361; 96374; 99284; J2405; J7030; U0003; U0005; 99285-25

== ENCOUNTER 2021-09-22 09:34 | Observation (INO) | payer BC ==
[~2021-09-22] VITALS: Ht 190.5 cm; Wt 97.1 kg
--- NOTE | 2021-09-22 10:03 | PHYS DOC ---
Past Medical History Past Medical History: CAD, Cancer, COPD, SC, Other Additional Past Medical Histor: stomach CA TREATED W/ CHEMO,LEUKEMIA, pancreatic cancer, BRADYCARDIA Past Surgical History: Angioplasty, Lumbar Laminectomy Additional Past Surgical Histo: STENTS X'S 3, right port a cath,L KNEE SURG Smoking Status: Former Smoker Alcohol Use: Sober Drug Use: None General Adult EDM: Chief Complaint: BRADYCARDIA HPI: HPI: Patient is a 85 year old male who presents with EMS for bradycardia. Patient states he woke up this morning after having a bad dream and felt like he was confused and did not know where he was at. Patient states at that time he also felt a little short of breath. Patient is alert and oriented on arrival with heart rate in the 40s. Denies chest pain, denies shortness of breath. Denies fever or recent illness. Patient has a history of bradycardia. Patient has history of COPD, SC, CAD. Patient is a former smoker. Denies alcohol or drug use. Patient has been fully vaccinated for COVID-19. Review of Systems: Review of Systems: Constitutional: Denies fever or chills. Eyes: Denies change in visual acuity. HENT: Denies nasal congestion or sore throat. Respiratory: Reports chronic cough, denies shortness of breath. Cardiovascular: Denies chest pain or edema. GI: Denies abdominal pain, nausea, vomiting, bloody stools or diarrhea : Denies dysuria. Musculoskeletal: Denies back pain or joint pain. Integument: Denies rash. Neurologic: Denies headache, focal weakness or sensory changes. Endocrine: Denies polyuria or polydipsia. Lymphatic: Denies swollen glands. Psychiatric: Denies depression or anxiety. Heart Score: C/O Chest Pain: No Risk Factors: Risk Factors: DM, Current or recent (<one month) smoker, HTN, HLP, family history of CAD, obesity. Risk Scores: Score 0 - 3: 2.5% MACE over next 6 weeks - Discharge Home Score 4 - 6: 20.3% MACE over next 6 weeks - Admit for Clinical Observation Score 7 - 10: 72.7% MACE over next 6 weeks - Early Invasive Strategies Allergies: Allergies: Allergies Coded Allergies Type Severity Reaction Last Updated Verified codeine Allergy Intermediate 05/11/17 Yes tetanus and diphtheria toxoids Allergy Intermediate 10/19/15 Yes Physical Exam: PE: Constitutional: Well developed, well nourished, no acute distress, non-toxic appearance. HENT: bilateral external ears normal, oropharynx moist, no oral exudates, nose normal. Eyes: PERRLA, conjunctiva normal, no discharge. Neck: Normal range of motion, no tenderness, supple, no stridor. Cardiovascular:Heart rate bradycardia Lungs & Thorax: Bilateral breath sounds clear to auscultation Abdomen: Bowel sounds normal, soft, no tenderness Skin: Warm, dry, no erythema, no rash. Back: No tenderness, no CVA tenderness. Extremities: No tenderness, no cyanosis, no clubbing, ROM intact, no edema. Neurologic: Alert and oriented X 3, normal motor function, normal sensory function, no focal deficits noted. Psychologic: Affect normal, judgement normal, mood normal. Current Patient Data: Vital Signs: Vital Signs Date Time Temp Pulse Resp B/P (MAP) Pulse Ox O2 Delivery O2 Flow Rate FiO2 09/22/21 09:34 98.5 46 12 197/89 (125) 100 Room Air 98.5 EKG: EKG: Sinus bradycardia. Trifasicular Block. Heart rate [address] Gongora. [] Radiology/Procedures: Radiology/Procedures: []EXAM: CHEST 1 VIEW History: Shortness of breath COMPARISON: 04/15/2020 TECHNIQUE: Single portable radiograph of the chest FINDINGS: The cardiac silhouette is unremarkable. Mild bibasilar lung atelectasis. Small calcified granuloma left upper lobe of the lung similar to prior exam.. The costophrenic sulci are clear and well demarcated. IMPRESSION: Mild bibasilar lung atelectasis. Electronically signed by: Kris Luther MD (09/22/2021 10:07 AM) [id number] Course & Med Decision Making: Course & Med Decision Making Pertinent Labs and Imaging studies reviewed. (See chart for details) 85-year-old male presents with bradycardia. Patient reports when he woke up he also had some shortness of breath. Patient is alert and oriented on arrival. Work-up in ER consisted of labs, urinalysis, EKG. BNP 1590, this is consistent with previous visits. All other labs unremarkable. EKG shows sinusbradycardia,Trifascicular block. Patient is asymptomatic. Spoke with and admission. will see patient and discuss possible pacemaker. Patients blood pressure elevated, 206/87. Patient given Hydralazine. Patient blood pressure improved after medication given. 159/71 Spoke with , who will accept patient for further management. Patient started complaining of mid sternal chest pain and left arm pain. Repeat EKG was performed. No changes from previous EKG. Patient is anxious and tearful. Patient given 0.5 Ativan. Mikey Disclaimer: Mikey Disclaimer: This electronic medical record was generated, in whole or in part, using a voice recognition dictation system. Departure Departure Impression: Primary Impression: Bradycardia Additional Impression: Trifascicular block Disposition: HOME / SELF CARE / HOMELESS Admitting Physician: DEYSI Condition: STABLE Referrals: KVNG BADILLO DO (PCP) KYLEE FRIEDMAN APRN Sep 22, 2021 10:03
[2021-09-22 10:04] LABS: BASO # 0.1 x10^3/uL (0.0-0.2); BASO % 2 % (0-3); EOS # 0.3 x10^3/uL (0.0-0.7); EOS % 4 % (0-3); HEMATOCRIT 44.2 % (39.0-53.0); HEMOGLOBIN 14.9 g/dL (13.0-17.5); LYMPH # 1.1 x10^3/uL (1.0-4.8); LYMPH % 18 % (24-48); MEAN CORPUSCULAR HEMOGLOBIN 33 pg (25-35); MEAN CORPUSCULAR HGB CONC 34 g/dL (31-37); MEAN CORPUSCULAR VOLUME 99 fL (79-100); MONO # 0.6 x10^3/uL (0.0-1.1); MONO % 10 % (0-9); NEUT # 4.1 x10^3/uL (1.8-7.7); NEUT % 67 % (31-73); PLATELET COUNT 205 x10^3/uL (140-400); RED BLOOD COUNT 4.47 x10^6/uL (4.30-5.70); RED CELL DISTRIBUTION WIDTH 13.2 % (11.5-14.5); WHITE BLOOD COUNT 6.1 x10^3/uL (4.0-11.0)
--- NOTE | 2021-09-22 10:09 | RAD ---
EXAM: CHEST 1 VIEW History: Shortness of breath COMPARISON: 04/15/2020 TECHNIQUE: Single portable radiograph of the chest FINDINGS: The cardiac silhouette is unremarkable. Mild bibasilar lung atelectasis. Small calcified granuloma left upper lobe of the lung similar to prior exam.. The costophrenic sulci are clear and well demarca rosa maria. IMPRESSION: Mild bibasilar lung atelectasis. Electronically signed by: Kris Luther MD (09/22/2021 10:07 AM) [id number]
[2021-09-22 10:15] LABS: CALCIUM 8.4 mg/dL (8.5-10.1); CREATININE 1.4 mg/dL (0.7-1.3); GFR 48.2; POTASSIUM 4.6 mmol/L (3.5-5.1)
[2021-09-22] MEDS ORDERED: hydrALAZINE 20 MG/ML VIAL. IVP ONE (10:15)
[2021-09-22 10:20] LABS: ALBUMIN 3.3 g/dL (3.4-5.0); ALBUMIN/GLOBULIN RATIO 1.2 (1.0-1.7); MAGNESIUM 2.5 mg/dL (1.8-2.4); TOTAL BILIRUBIN 0.4 mg/dL (0.2-1.0); TOTAL PROTEIN 6.1 g/dL (6.4-8.2)
[2021-09-22 11:50] VITALS: BP 158/77
--- NOTE | 2021-09-22 12:39 | HP ---
DATE OF SERVICE: 09/22/2021 ADMIT DATE: 09/22/2021 CHIEF COMPLAINT: Bradycardia. HISTORY OF PRESENT ILLNESS: The patient is a pleasant 85-year-old male well known to our service. His daughter is one of our ER nurses. Basically he presented with mental status change and weakness. This morning, he woke up from a bad dream and just did not feel well. EMS was called. They noticed that he was in trifascicular block and had bradycardia. I discussed the case with ER physician. We are going to admit the patient and we are consulting Cardiology. I just discussed the case with Cardiology as well. PAST MEDICAL HISTORY: CAD, COPD, stomach cancer, chemotherapy, leukemia, pancreatic cancer, bradycardia, lumbar laminotomy, cardiac stents x 3, right chest port, left knee surgery, previous tobacco abuse. ALLERGIES: CODEINE, TETANUS AND DIPHTHERIA TOXOIDS. FAMILY HISTORY: Diabetes. SOCIAL HISTORY: Does not drink, smoke or take drugs. He quit smoking. He is retired. MEDICATIONS: Reviewed, please refer to the MRAD. REVIEW OF SYSTEMS: GENERAL: No history of weight change or fevers. SKIN: No bruising, hair changes or rashes. EYES: No blurred, double or loss of vision. NOSE AND THROAT: No history of nosebleeds, hoarseness or sore throat. HEART: No history of palpitations, chest pain or shortness of breath on exertion. LUNGS: Denies cough, hemoptysis, wheezing or shortness of breath. GASTROINTESTINAL: Denies changes in appetite, nausea, vomiting, diarrhea or constipation. GENITOURINARY: No history of frequency, urgency, hesitancy or nocturia. NEUROLOGIC: Denies history of numbness, tingling, tremor or weakness. PSYCHIATRIC: No history of panic, anxiety or depression. ENDOCRINE: No history of heat or cold intolerance, polyuria or polydipsia. EXTREMITIES: Denies muscle weakness, joint pain, pain on walking or stiffness. PHYSICAL EXAMINATION: VITALS: Within normal limits and are stable. GENERAL: He is weak and frail. HEENT: Normal cephalic atraumatic, external auditory canals are patent EYES: Extraocular muscles are intact, pupils are equally round and reactive to light and accommodation MUSKULOSKELETAL: Well developed, well nourished, good range of motion ENDOCRINE: No thyromegaly was palpated LYMPHATICS: No cervical chain or axillary nodes were noted HEMATOPOIETIC: No bruising NECK: Supple, no JVD, no thyromegaly was noted. LUNGS: Clear to auscultation in all lung figueredo without rhonchi or wheezing. HEART: RRR, S1, S2 present. Peripheral pulses intact, no obvious murmurs were noted. ABDOMEN: Soft, nontender. Positive bowel sounds no organomegaly, normal bowel sounds. EXTREMITIES: Without any cyanosis, clubbing, or edema. Pedal pulses intact, Homans sign is negative. NEUROLOGIC: He is weak and frail. PSYCHIATRIC: He is weak and frail. SKIN: No ulcerations or rashes, good skin turgor, no jaundice. VASCULAR: Good capillary refill, neurovascular bundle appears to be intact. LABORATORY DATA: Hematology is normal. Electrolytes are normal other than a creatinine of 1.4, calcium is low at 8.4, magnesium is little high at 2.5. BNP is slightly high at 1590, alkaline phosphatase is slightly high at 134, albumin is slightly low at 3.3. EKG shows trifascicular block with a rate of 45 beats per minute. Chest x-ray showed some mild bibasilar lung atelectasis. ASSESSMENT AND PLAN: Bradyarrhythmia. The patient has been admitted. We are doing cardiac monitoring. We have consulted Cardiology. May need to consider permanent pacemaker, serial enzymes, serial EKGs, echocardiogram, home meds. DVT prophylaxis. Full code. ANDREIA/SINTIA DR: Cyn TID: [id number]
--- NOTE | 2021-09-22 13:43 | EKG ---
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
[2021-09-22 15:00] VITALS: BP 149/76
--- NOTE | 2021-09-22 17:54 | PDOC2 ---
CONSULT Date of Consult Date of Consult DATE: 09/22/21 TIME: 17:47 Reason for Consult Reason for Consult: Bradycardia. Referring Physician Referring Physician: Dr. Deleon Identification/Chief Complaint Chief Complaint Mental confusion and shortness of breath Source Source: Chart review, Patient History of Present Illness Reason for Visit: The patient is an 85-year-old male who developed some episodes of mental confusion and shortness of breath upon awakening this morning. He states that he had what he calls a bad dream and upon waking he remained somewhat mentally confused. Paramedics were called and found to have a heart rate in the 40s. He was transported to the emergency room. EKG showed a sinus bradycardia with a rate in the 40s. Initial troponins were normal at 26, 40 and 25. BNP was elevated at 1590. Blood pressure initially was 197/89. Chest x-ray showed mild bibasilar atelectasis. The patient was monitored and was feeling better in the emergency room. However in the setting of his bradycardia with trifascicular block he was admitted for monitoring and work-up. He is now resting fairly comfortably in bed and denies chest pain. Past Medical History Cardiovascular: CAD, CHF, HTN, Hyperlipidemia, Mitral valve stenosis Pulmonary: COPD, Other CENTRAL NERVOUS SYSTEM: Other GI: GERD Heme/Onc: Cancer, Other Hepatobiliary: No pertinent hx Psych: Anxiety Rheumatologic: No pertinent hx Infectious disease: No pertinent hx Renal/: Chronic renal insuff, Benign prostatic enlarg. Endocrine: No pertinent hx Past Surgical History Past Surgical History: Other (Coronary stents, laminectomy, left knee surgery.) Family History Family History: Coronary Artery Disease, Diabetes, Hypertension Social History Quit ALCOHOL: none Drugs: None Lives: with Family Domestic Violence: Neg Current Problem List Problem List Problems Medical Problems: (1) Bradycardia Status: Acute (2) Trifascicular block Status: Acute Current Medications Current Medications Current Medications Hydralazine HCl (Apresoline Inj) 10 mg 1X ONCE IVP Last administered on 09/22/21at 10:43; Start 09/22/21 at 10:15; Stop 09/22/21 at 10:19; Status DC Lorazepam (Ativan Inj) 0.5 mg 1X ONCE IVP Last administered on 09/22/21at 11:39; Start 09/22/21 at 11:30; Stop 09/22/21 at 11:31; Status DC Active Scripts Active Lidocaine PATCH (Lidocaine) 1 Each Adh..patch 1 Each TP DAILY 10 Days REMOVE AFTER 12 HOURS Cyclobenzaprine Hcl 5 Mg Tablet 1 Tab PO QHS [place]orton 5-325 Tablet (Acetaminophen/Hydrocodone Bitart) 1 Each Tablet 1 Tab PO PRN Q6HRS PRN Cyclobenzaprine Hcl 5 Mg Tablet 5 Mg PO TID PRN Golytely Solution (Peg 3350/Na Sulf,Bicarb,Cl/Kcl) 4,000 Ml Soln.recon 4,000 Ml PO 1X PRN Colace 2-in-1 Tablet (Sennosides/Docusate Sodium) 1 Each Tablet 1-2 Each PO QHS PRN Flomax (Tamsulosin Hcl) 0.4 Mg Cap.er.24h 0.4 Mg PO DAILY Alprazolam 0.5 Mg Tablet 0.5 Mg PO PRN BID PRN Reported Vitamin D (Cholecalciferol (Vitamin D3)) 2,000 Unit Capsule 2 Cap PO DAILY Topiramate 25 Mg Tablet 1 Tab PO DAILY Omeprazole 40 Mg Capsule.dr 1 Cap PO DAILY Atorvastatin Calcium 20 Mg Tablet 20 Mg PO DAILY Gleevec (Imatinib Mesylate) 400 Mg Tablet 400 Mg PO DAILY Amiodarone Hcl 200 Mg Tablet 1 Tab PO DAILY Aspirin 81 Mg Tab.chew 1 Tab PO DAILY Allergies Allergies: Coded Allergies: codeine (Verified Allergy, Intermediate, 05/11/17) Has tolerated Hydromorphone, Tramadol and Oxycodone in the past. tetanus and diphtheria toxoids (Verified Allergy, Intermediate, 10/19/15) immunocompromised ROS General: YES: Fatigue, Malaise PSYCHOLOGICAL ROS: YES: Anxiety Respiratory: YES: Shortness of breath Physical Exam General: No acute distress HEENT: Atraumatic Lungs: Other (Minimally decreased breath sounds) Heart: Regular rate Abdomen: Normal bowel sounds Vitals VITALS Vital Signs Date Time Temp Pulse Resp B/P (MAP) Pulse Ox O2 Delivery O2 Flow Rate FiO2 09/22/21 15:00 97.4 60 18 149/76 (100) 98 Room Air 97.4 Labs Labs Laboratory Tests Test 09/22/21 09:30 09/22/21 14:10 09/22/21 16:00 White Blood Count 6.1 x10^3/uL (4.0-11.0) Red Blood Count 4.47 x10^6/uL (4.30-5.70) Hemoglobin 14.9 g/dL (13.0-17.5) Hematocrit 44.2 % (39.0-53.0) Mean Corpuscular Volume 99 fL (79-100) Mean Corpuscular Hemoglobin 33 pg (25-35) Mean Corpuscular Hemoglobin Concent 34 g/dL (31-37) Red Cell Distribution Width 13.2 % (11.5-14.5) Platelet Count 205 x10^3/uL (140-400) Neutrophils (%) (Auto) 67 % (31-73) Lymphocytes (%) (Auto) 18 % (24-48) Monocytes (%) (Auto) 10 % (0-9) Eosinophils (%) (Auto) 4 % (0-3) Basophils (%) (Auto) 2 % (0-3) Neutrophils # (Auto) 4.1 x10^3/uL (1.8-7.7) Lymphocytes # (Auto) 1.1 x10^3/uL (1.0-4.8) Monocytes # (Auto) 0.6 x10^3/uL (0.0-1.1) Eosinophils # (Auto) 0.3 x10^3/uL (0.0-0.7) Basophils # (Auto) 0.1 x10^3/uL (0.0-0.2) Sodium Level 142 mmol/L (136-145) Potassium Level 4.6 mmol/L (3.5-5.1) Chloride Level 105 mmol/L (98-107) Carbon Dioxide Level 30 mmol/L (21-32) Anion Gap 7 (6-14) Blood Urea Nitrogen 21 mg/dL (8-26) Creatinine 1.4 mg/dL (0.7-1.3) Estimated GFR (Cockcroft-Gault) 48.2 BUN/Creatinine Ratio 15 (6-20) Glucose Level 100 mg/dL (70-99) Calcium Level 8.4 mg/dL (8.5-10.1) Magnesium Level 2.5 mg/dL (1.8-2.4) Total Bilirubin 0.4 mg/dL (0.2-1.0) Aspartate Amino Transf (AST/SGOT) 29 U/L (15-37) Alanine Aminotransferase (ALT/SGPT) 33 U/L (16-63) Alkaline Phosphatase 134 U/L (46-116) Troponin I High Sensitivity 26 ng/L (4-75) 40 ng/L (4-75) 25 ng/L (4-75) LF-Rri-U-Type Natriuretic Peptide 1590 pg/mL (0-449) Total Protein 6.1 g/dL (6.4-8.2) Albumin 3.3 g/dL (3.4-5.0) Albumin/Globulin Ratio 1.2 (1.0-1.7) Laboratory Tests Test 09/22/21 09:30 09/22/21 14:10 09/22/21 16:00 White Blood Count 6.1 x10^3/uL (4.0-11.0) Red Blood Count 4.47 x10^6/uL (4.30-5.70) Hemoglobin 14.9 g/dL (13.0-17.5) Hematocrit 44.2 % (39.0-53.0) Mean Corpuscular Volume 99 fL (79-100) Mean Corpuscular Hemoglobin 33 pg (25-35) Mean Corpuscular Hemoglobin Concent 34 g/dL (31-37) Red Cell Distribution Width 13.2 % (11.5-14.5) Platelet Count 205 x10^3/uL (140-400) Neutrophils (%) (Auto) 67 % (31-73) Lymphocytes (%) (Auto) 18 % (24-48) Monocytes (%) (Auto) 10 % (0-9) Eosinophils (%) (Auto) 4 % (0-3) Basophils (%) (Auto) 2 % (0-3) Neutrophils # (Auto) 4.1 x10^3/uL (1.8-7.7) Lymphocytes # (Auto) 1.1 x10^3/uL (1.0-4.8) Monocytes # (Auto) 0.6 x10^3/uL (0.0-1.1) Eosinophils # (Auto) 0.3 x10^3/uL (0.0-0.7) Basophils # (Auto) 0.1 x10^3/uL (0.0-0.2) Sodium Level 142 mmol/L (136-145) Potassium Level 4.6 mmol/L (3.5-5.1) Chloride Level 105 mmol/L (98-107) Carbon Dioxide Level 30 mmol/L (21-32) Anion Gap 7 (6-14) Blood Urea Nitrogen 21 mg/dL (8-26) Creatinine 1.4 mg/dL (0.7-1.3) Estimated GFR (Cockcroft-Gault) 48.2 BUN/Creatinine Ratio 15 (6-20) Glucose Level 100 mg/dL (70-99) Calcium Level 8.4 mg/dL (8.5-10.1) Magnesium Level 2.5 mg/dL (1.8-2.4) Total Bilirubin 0.4 mg/dL (0.2-1.0) Aspartate Amino Transf (AST/SGOT) 29 U/L (15-37) Alanine Aminotransferase (ALT/SGPT) 33 U/L (16-63) Alkaline Phosphatase 134 U/L (46-116) Troponin I High Sensitivity 26 ng/L (4-75) 40 ng/L (4-75) 25 ng/L (4-75) ZL-Lnx-K-Type Natriuretic Peptide 1590 pg/mL (0-449) Total Protein 6.1 g/dL (6.4-8.2) Albumin 3.3 g/dL (3.4-5.0) Albumin/Globulin Ratio 1.2 (1.0-1.7) Images Images Checks x-ray as above. Assessment/Plan Assessment/Plan 1. Mild mental status changes. These occurred earlier today. They have resolved. The patient is alert. He denies any headaches. We will continue to monitor. 2. Sinus bradycardia. Patient has a history of mild bradycardia but his rate on admission was 40. We will minimize medications. Of note troponins were all normal at 26, 40 and 25. We will continue to monitor. 3. Accelerated hypertension. Initial blood pressure of 197/89. This has improved. We will continue to monitor. 3. Mildly elevated BNP at 1590. Patient reports minimal shortness of breath. We will continue present treatments and check old records. 5. History of coronary disease and previous stenting. No chest pain. No acute ischemic changes. Continue present treatment. 6. COPD. No wheezing on examination. Continuing to monitor. RAYO CHEUNG MD Sep 22, 2021 17:53
[2021-09-22 19:30] VITALS: BP 149/73
[2021-09-22] MEDS ORDERED: PEG 3350/NA SULF,BICARB,CL/KCL 4,000 ML SOLUTION. PO PRN (19:45)
[2021-09-22] MEDS ORDERED: HYDROcodone/APAP 5/325MG 1 TAB TABLET PO PRN (19:45)
[2021-09-22] MEDS ORDERED: CYCLOBENZAPRINE 10 MG TABLET. PO PRN (19:45)
[2021-09-22] MEDS ORDERED: ALPRAZolam 0.5 MG TABLET PO PRN (19:45)
[2021-09-22] MEDS ORDERED: SENNOSIDES/DOCUSATE 8.6/50MG TABLET. PO PRN (19:45)
[2021-09-22] MEDS: ATORVASTATIN CALCIUM 20 MG TABLET PO SCH (20:03)
[2021-09-22] MEDS: PATCH REMOVAL. MC SCH (20:04)
[2021-09-22] MEDS ORDERED: CYCLOBENZAPRINE 10 MG TABLET. PO SCH (21:00)
[2021-09-22] MEDS ORDERED: ACETAMINOPHEN 325 MG TABLET. PO PRN (21:45)
[2021-09-22 23:00] VITALS: BP 120/60
[2021-09-23 02:29] VITALS: BP 127/72
[2021-09-23 07:00] VITALS: BP 123/65
[2021-09-23] MEDS: NON FORMULARY ITEM (Imatinib Mesylate (Gleevec) 400 MG) PO SCH (09:00)
[2021-09-23] MEDS ORDERED: TOPIRAMATE 25 MG TABLET. PO SCH (09:00)
[2021-09-23] MEDS: LIDOCAINE (700MG/PATCH) PATCH. TP SCH (09:00)
[2021-09-23] MEDS: CHOLECALCIFEROL (VITAMIN D3) 1,000 UNIT TABLET PO SCH (09:03)
[2021-09-23] MEDS: PANTOPRAZOLE 40 MG TABLET.DR. PO SCH (09:03)
[2021-09-23] MEDS: TAMSULOSIN 0.4 MG CAP.ER.24H. PO SCH (09:03)
[2021-09-23] MEDS: ASPIRIN CHEWABLE 81 MG TABLET. PO SCH (09:03)
--- NOTE | 2021-09-23 10:08 | PDOC ---
[employer] PROGRESS NOTE Date of Service DOS: DATE: 09/23/21 TIME: 09:48 Chief Complaint Chief Complaint Acute encephalopathy - possible metabolic, bradycardia Sinus bradycardia - no pauses or high grade blocks. currently 50s to 60s. No symptoms. Likely induced by metoprolol. 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 controlled HLD - on statin COPD - prn albuterol CKD3 - stable History of Present Illness History of Present Illness Mr Velez is an 85-year-old male w/ PMHx CAD s/p remote stenting, COPD, b cell lymphoma who comes to ED per his daughter with mental status change and weakness. EMS noticed that he was in trifascicular block and had bradycardia. Labs with CR 1.4, NT proBNP 1590, high-sensitivity troponins were 26, 40, 25 Chest radiograph calcified left upper lobe granuloma otherwise no acute findings. EKG sinus bradycardia 40 bpm with first-degree heart block CT 250, left axis deviation, left anterior fascicular block noted. QTc 433. Admitted with cardiology consultation. 09/23: Bradycardic in the 40s even on awakening. He is still confused but redirectable. No longer complaining of chest pain. No shortness of breath. Clears throat cough. Vitals/I&O Vitals/I&O: Vital Signs Date Time Temp Pulse Resp B/P (MAP) Pulse Ox O2 Delivery O2 Flow Rate FiO2 09/23/21 07:00 97.5 44 18 123/65 (84) 95 Room Air 97.5 I & O 09/22/21 09/22/21 09/23/21 15:00 23:00 07:00 Intake Total 240 ml Output Total 665 ml Balance -425 ml Physical Exam General: No acute distress Heart: Regular rate Lungs: Clear Abdomen: Normal bowel sounds Labs Labs: Laboratory Tests Test 09/22/21 14:10 09/22/21 16:00 Troponin I High Sensitivity 40 ng/L (4-75) 25 ng/L (4-75) Assessment and Plan Assessmemt and Plan Problems Medical Problems: (1) Bradycardia Status: Acute (2) Trifascicular block Status: Acute Comment Review of Relevant I have reviewed the following items jannet (where applicable) has been applied. Medications: Current Medications Medications (Trade) Dose Ordered Sig/Winifred Route PRN Reason Start Time Stop Time Status Last Admin Dose Admin Hydralazine HCl (Apresoline Inj) 10 mg 1X ONCE IVP 09/22/21 10:15 09/22/21 10:19 DC 09/22/21 10:43 Lorazepam (Ativan Inj) 0.5 mg 1X ONCE IVP 09/22/21 11:30 09/22/21 11:31 DC 09/22/21 11:39 Alprazolam (Xanax) 0.5 mg PRN BID PRN PO ANXIETY 09/22/21 19:45 09/22/21 20:04 Aspirin (Aspirin Chewable) 81 mg DAILY PO 09/23/21 09:00 09/23/21 09:03 Atorvastatin Calcium (Lipitor) 20 mg QHS PO 09/22/21 21:00 09/22/21 20:03 Tamsulosin HCl (Flomax) 0.4 mg DAILY PO 09/23/21 09:00 09/23/21 09:03 Topiramate (Topamax) 25 mg DAILY PO 09/23/21 09:00 09/23/21 09:03 Vitamin D (Vitamin D3) 4,000 unit DAILY PO 09/23/21 09:00 09/23/21 09:03 Cyclobenzaprine HCl (Flexeril) 5 mg QHS PO 09/22/21 21:00 09/22/21 20:04 Pantoprazole Sodium (Protonix) 40 mg DAILYAC PO 09/23/21 07:30 09/23/21 09:03 Acetaminophen (Tylenol) 650 mg PRN Q6HRS PRN PO MILD PAIN / TEMP > 100.3'F 09/22/21 21:45 09/22/21 22:05 Justifications for Admission Other Justification LUIS ALBERTO GOFF MD Sep 23, 2021 10:08
[2021-09-23] MEDS ORDERED: CYCLOBENZAPRINE 10 MG TABLET. PO PRN (10:15)
[2021-09-23] MEDS ORDERED: LISI5TAB15 PO (10:25)
[2021-09-23] MEDS ORDERED: DULO40CA2 PO (10:25)
[2021-09-23 11:00] VITALS: BP 159/68
--- NOTE | 2021-09-23 13:42 | EKG ---
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
[2021-09-23 15:00] VITALS: BP 155/77
--- NOTE | 2021-09-23 15:32 | PDOC ---
PROGRESS NOTES Date of Service DATE: 09/23/21 TIME: 15:31 Subjective Subjective Patient seen and examined Objective Objective Vital Signs Date Time Temp Pulse Resp B/P (MAP) Pulse Ox O2 Delivery O2 Flow Rate FiO2 09/23/21 11:00 97.2 53 18 159/68 (98) 96 Room Air 97.2 Intake and Output 09/23/21 07:00 Intake Total 240 ml Output Total 665 ml Balance -425 ml Intake Oral 240 ml Output Urine Total 665 ml # Voids 1 # Bowel Movements 1 Physical Exam Abdomen: Normal bowel sounds Heart: Regular rate General: No acute distress Lungs: Other (Slightly decreased breath sounds) Assessment Assessment Problems Medical Problems: (1) Bradycardia Status: Acute (2) Trifascicular block Status: Acute 1. Mild mental status changes. These occurred earlier today. The patient is more alert today. We will continue to monitor. 2. Sinus bradycardia. Patient has a history of mild bradycardia but his rate on admission was 40. We will minimize medications. Of note troponins were all normal at 26, 40 and 25. We will continue to monitor. 3. Accelerated hypertension. Initial blood pressure of 197/89. This has improved. We will continue to monitor. 3. Mildly elevated BNP at 1590. Patient reports minimal shortness of breath. We will continue present treatments and check old records. 5. History of coronary disease and previous stenting. No chest pain. No acute ischemic changes. Continue present treatment. 6. COPD. No wheezing on examination. Continuing to monitor. Comment Review of Relevant I have reviewed the following items jannet (where applicable) has been applied. Labs Laboratory Tests Test 09/22/21 09:30 09/22/21 14:10 09/22/21 16:00 White Blood Count 6.1 x10^3/uL (4.0-11.0) Red Blood Count 4.47 x10^6/uL (4.30-5.70) Hemoglobin 14.9 g/dL (13.0-17.5) Hematocrit 44.2 % (39.0-53.0) Mean Corpuscular Volume 99 fL (79-100) Mean Corpuscular Hemoglobin 33 pg (25-35) Mean Corpuscular Hemoglobin Concent 34 g/dL (31-37) Red Cell Distribution Width 13.2 % (11.5-14.5) Platelet Count 205 x10^3/uL (140-400) Neutrophils (%) (Auto) 67 % (31-73) Lymphocytes (%) (Auto) 18 % (24-48) Monocytes (%) (Auto) 10 % (0-9) Eosinophils (%) (Auto) 4 % (0-3) Basophils (%) (Auto) 2 % (0-3) Neutrophils # (Auto) 4.1 x10^3/uL (1.8-7.7) Lymphocytes # (Auto) 1.1 x10^3/uL (1.0-4.8) Monocytes # (Auto) 0.6 x10^3/uL (0.0-1.1) Eosinophils # (Auto) 0.3 x10^3/uL (0.0-0.7) Basophils # (Auto) 0.1 x10^3/uL (0.0-0.2) Sodium Level 142 mmol/L (136-145) Potassium Level 4.6 mmol/L (3.5-5.1) Chloride Level 105 mmol/L (98-107) Carbon Dioxide Level 30 mmol/L (21-32) Anion Gap 7 (6-14) Blood Urea Nitrogen 21 mg/dL (8-26) Creatinine 1.4 mg/dL (0.7-1.3) Estimated GFR (Cockcroft-Gault) 48.2 BUN/Creatinine Ratio 15 (6-20) Glucose Level 100 mg/dL (70-99) Calcium Level 8.4 mg/dL (8.5-10.1) Magnesium Level 2.5 mg/dL (1.8-2.4) Total Bilirubin 0.4 mg/dL (0.2-1.0) Aspartate Amino Transf (AST/SGOT) 29 U/L (15-37) Alanine Aminotransferase (ALT/SGPT) 33 U/L (16-63) Alkaline Phosphatase 134 U/L (46-116) Troponin I High Sensitivity 26 ng/L (4-75) 40 ng/L (4-75) 25 ng/L (4-75) SZ-Vku-S-Type Natriuretic Peptide 1590 pg/mL (0-449) Total Protein 6.1 g/dL (6.4-8.2) Albumin 3.3 g/dL (3.4-5.0) Albumin/Globulin Ratio 1.2 (1.0-1.7) Laboratory Tests Test 09/22/21 16:00 Troponin I High Sensitivity 25 ng/L (4-75) Medications Current Medications Hydralazine HCl (Apresoline Inj) 10 mg 1X ONCE IVP Last administered on 09/22/21at 10:43; Start 09/22/21 at 10:15; Stop 09/22/21 at 10:19; Status DC Lorazepam (Ativan Inj) 0.5 mg 1X ONCE IVP Last administered on 09/22/21at 11:39; Start 09/22/21 at 11:30; Stop 09/22/21 at 11:31; Status DC Alprazolam (Xanax) 0.5 mg PRN BID PRN PO ANXIETY Last administered on 09/22/21 20:04; Start 09/22/21 at 19:45; Stop 09/23/21 at 10:04; Status DC Aspirin (Aspirin Chewable) 81 mg DAILY PO Last administered on 09/23/21at 09:03; Start 09/23/21 at 09:00 Atorvastatin Calcium (Lipitor) 20 mg QHS PO Last administered on 09/22/21at 20:03; Start 09/22/21 at 21:00 Acetaminophen/ Hydrocodone Bitart (Lortab 5/325) 1 tab PRN Q6HRS PRN PO PAIN mod/sev; Start 09/22/21 at 19:45 Lidocaine (Lidoderm) 1 patch DAILY TP ; Start 09/23/21 at 09:00 Sodium Cl/Sod Bicarb/Potass Cl/ PEG (Golytely) 4,000 ml 1X PRN PO CONSTIPATION; Start 09/22/21 at 19:45; Status Cancel Senna/Docusate Sodium (Senna Plus) 1 tab QHS PRN PO CONSTIPATION; Start 09/22/21 at 19:45 Tamsulosin HCl (Flomax) 0.4 mg DAILY PO Last administered on 09/23/21at 09:03; Start 09/23/21 at 09:00 Topiramate (Topamax) 25 mg DAILY PO Last administered on 09/23/21at 09:03; Start 09/23/21 at 09:00; Stop 09/23/21 at 10:26; Status DC Vitamin D (Vitamin D3) 4,000 unit DAILY PO Last administered on 2/6/22at 09:03; Start 09/23/21 at 09:00 Cyclobenzaprine HCl (Flexeril) 5 mg QHS PO Last administered on 09/22/21at 20:04; Start 09/22/21 at 21:00; Stop 09/23/21 at 10:04; Status DC Cyclobenzaprine HCl (Flexeril) 5 mg TID PRN PO MUSCLE SPASMS; Start 09/22/21 at 19:45; Stop 09/23/21 at 10:26; Status DC Non-Formulary Medication (Imatinib Mesylate (Gleevec)) 400 mg DAILY PO ; Start 09/23/21 at 09:00; Status UNV Pantoprazole Sodium (Protonix) 40 mg DAILYAC PO Last administered on 09/23/21at 09:03; Start 09/23/21 at 07:30 Miscellaneous (Lidoderm Patch Removal) 1 ea QHS MC ; Start 09/22/21 at 21:00 Acetaminophen (Tylenol) 650 mg PRN Q6HRS PRN PO MILD PAIN / TEMP > 100.3'F Last administered on 09/22/21at 22:05; Start 09/22/21 at 21:45 Cyclobenzaprine HCl (Flexeril) 5 mg PRN QHS PRN PO MUSCLE SPASMS; Start 09/23/21 at 10:15 Olanzapine (ZyPREXA ZYDIS) 5 mg PRN BID PRN PO ANXIETY / AGITATION Last administered on 09/23/21at 12:29; Start 09/23/21 at 10:15 Alprazolam (Xanax) 0.25 mg PRN DAILY PRN PO ANXIETY / AGITATION; Start 09/23/21 at 10:30 Active Scripts Active Lidocaine PATCH (Lidocaine) 1 Each Adh..patch 1 Each TP DAILY 10 Days REMOVE AFTER 12 HOURS Cyclobenzaprine Hcl 5 Mg Tablet 1 Tab PO QHS [place] 5-325 Tablet (Acetaminophen/Hydrocodone Bitart) 1 Each Tablet 1 Tab PO PRN Q6HRS PRN Cyclobenzaprine Hcl 5 Mg Tablet 5 Mg PO TID PRN Golytely Solution (Peg 3350/Na Sulf,Bicarb,Cl/Kcl) 4,000 Ml Soln.recon 4,000 Ml PO 1X PRN Colace 2-in-1 Tablet (Sennosides/Docusate Sodium) 1 Each Tablet 1-2 Each PO QHS PRN Flomax (Tamsulosin Hcl) 0.4 Mg Cap.er.24h 0.4 Mg PO DAILY Alprazolam 0.5 Mg Tablet 0.5 Mg PO PRN BID PRN Reported Duloxetine HCl 40 Mg Capsule.dr 1 Cap PO DAILY 90 Days Lisinopril 5 Mg Tablet 1 Tab PO DAILY 90 Days Vitamin D (Cholecalciferol (Vitamin D3)) 2,000 Unit Capsule 2 Cap PO DAILY Topiramate 25 Mg Tablet 1 Tab PO DAILY Omeprazole 40 Mg Capsule.dr 1 Cap PO DAILY Atorvastatin Calcium 20 Mg Tablet 20 Mg PO DAILY Gleevec (Imatinib Mesylate) 400 Mg Tablet 400 Mg PO DAILY Amiodarone Hcl 200 Mg Tablet 1 Tab PO DAILY Aspirin 81 Mg Tab.chew 1 Tab PO DAILY Vitals/I & O Vital Sign - Last 24 Hours 09/22/21 09/22/21 09/22/21 09/23/21 19:30 19:36 23:00 02:29 Temp 97.6 98.0 97.5 97.6 98.0 97.5 Pulse 51 69 49 Resp 20 18 18 B/P (MAP) 149/73 (98) 120/60 (80) 127/72 (90) Pulse Ox 96 93 95 O2 Delivery Room Air Room Air Room Air Room Air 09/23/21 09/23/21 09/23/21 07:00 08:00 11:00 Temp 97.5 97.2 97.5 97.2 Pulse 44 53 Resp 18 18 B/P (MAP) 123/65 (84) 159/68 (98) Pulse Ox 95 96 O2 Delivery Room Air Room Air Room Air Intake and Output 09/22/21 09/22/21 09/23/21 15:00 23:00 07:00 Intake Total 240 ml Output Total 665 ml Balance -425 ml Justifications for Admission Other Justification RAYO CHEUNG MD Sep 23, 2021 15:32
[2021-09-23 19:30] VITALS: BP 128/70
[2021-09-23] MEDS: ATORVASTATIN CALCIUM 20 MG TABLET PO SCH (19:48)
[2021-09-23] MEDS: PATCH REMOVAL. MC SCH (19:48)
[2021-09-23] MEDS: ALPRAZolam 0.25 MG TABLET PO PRN (19:48)
[2021-09-23 22:50] VITALS: BP 133/70
[2021-09-24 02:45] VITALS: BP 114/62
--- NOTE | 2021-09-24 06:51 | EKG ---
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
[2021-09-24] MEDS: LIDOCAINE (700MG/PATCH) PATCH. TP SCH (06:57)
[2021-09-24 07:00] VITALS: BP 108/49
[2021-09-24] MEDS: ASPIRIN CHEWABLE 81 MG TABLET. PO SCH (08:27)
[2021-09-24] MEDS: CHOLECALCIFEROL (VITAMIN D3) 1,000 UNIT TABLET PO SCH (08:27)
[2021-09-24] MEDS: TAMSULOSIN 0.4 MG CAP.ER.24H. PO SCH (08:28)
[2021-09-24] MEDS: PANTOPRAZOLE 40 MG TABLET.DR. PO SCH (08:28)
[2021-09-24] MEDS: ALPRAZolam 0.25 MG TABLET PO PRN (08:30)
[2021-09-24] MEDS: NON FORMULARY ITEM (Imatinib Mesylate (Gleevec) 400 MG) PO SCH (08:32)
--- NOTE | 2021-09-24 09:23 | PDOC ---
[facility] PROGRESS NOTE Date of Service DOS: DATE: 09/24/21 TIME: 09:22 Chief Complaint Chief Complaint Acute encephalopathy - possible metabolic, bradycardia Sinus bradycardia - no pauses or high grade blocks. currently 50s to 60s. No symptoms. Likely induced by metoprolol. 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 controlled HLD - on statin COPD - prn albuterol CKD3 - stable History of Present Illness History of Present Illness Mr Velez is an 85-year-old male w/ PMHx CAD s/p remote stenting, COPD, b cell lymphoma who comes to ED per his daughter with mental status change and weakness. EMS noticed that he was in trifascicular block and had bradycardia. Labs with CR 1.4, NT proBNP 1590, high-sensitivity troponins were 26, 40, 25 Chest radiograph calcified left upper lobe granuloma otherwise no acute findings. EKG sinus bradycardia 40 bpm with first-degree heart block WI 250, left axis deviation, left anterior fascicular block noted. QTc 433. Admitted with cardiology consultation. 09/23: Bradycardic in the 40s even on awakening. He is still confused but redirectable. No longer complaining of chest pain. No shortness of breath. Clears throat cough. 09/24: Bradycardia improved. He is upset he is not able to eat meatloaf. Discussed at his breakfast time. He is easily redirected and does not know what hospital he is in his close on the year. He walked 100 feet therapy is recommended SNF Vitals/I&O Vitals/I&O: Vital Signs Date Time Temp Pulse Resp B/P (MAP) Pulse Ox O2 Delivery O2 Flow Rate FiO2 09/24/21 08:00 Room Air 09/24/21 07:00 98.0 50 18 108/49 (71) 93 98.0 I & O 09/23/21 09/23/21 09/24/21 15:00 23:00 07:00 Intake Total 300 ml 180 ml 340 ml Balance 300 ml 180 ml 340 ml Physical Exam General: No acute distress Heart: Regular rate Lungs: Clear Abdomen: Normal bowel sounds Assessment and Plan Assessmemt and Plan Problems Medical Problems: (1) Bradycardia Status: Acute (2) Trifascicular block Status: Acute Comment Review of Relevant I have reviewed the following items jannet (where applicable) has been applied. Medications: Current Medications Medications (Trade) Dose Ordered Sig/Winifred Route PRN Reason Start Time Stop Time Status Last Admin Dose Admin Olanzapine (ZyPREXA ZYDIS) 5 mg PRN BID PRN PO ANXIETY / AGITATION 09/23/21 10:15 09/23/21 12:29 Alprazolam (Xanax) 0.25 mg PRN DAILY PRN PO ANXIETY / AGITATION 09/23/21 10:30 09/24/21 08:30 Justifications for Admission Other Justification LUIS ALBERTO GOFF MD Sep 24, 2021 09:23
[2021-09-24 10:39] VITALS: BP 98/57
--- NOTE | 2021-09-24 13:20 | NUR ---
SS following for discharge planning. SS reviewed pt chart and discussed with pt RN. Pt is from home and is currently on room air. Cardiology following. PT/OT recommended [facility]. Pt walked 400 feet with therapy today on walker. SS met with pt and discussed discharge planning. SS spoke with pt's daughter via phone as well. Pt requesting to return to home with home healthcare at this time. Pt's daughter reported that pt has used [facility], ; fax [phone], in the past. Pt's daughter reported that family would transport pt to home when ready. Pt and pt's daughter reported that pt has 4WW at home. Referral phoned and faxed to [facility]. SS will continue to follow for discharge planning. Addendum: 09/24/21 at 1345 by OLENA GREGORIO SS Discharge orders phoned and faxed to [facility]. Addendum: 09/24/21 at 1607 by OLENA GREGORIO SS [facility].
--- NOTE | 2021-09-24 13:42 | SNU/HH DC ---
DISCHARGE WITH HOME HEALTH DISCHARGE INFORMATION: Discharge Date: Sep 24, 2021 Final Diagnosis: Problems Medical Problems: (1) Bradycardia Status: Acute (2) Trifascicular block Status: Acute Condition on Discharge: Stable CODE STATUS: Code Status: DNR/DNI HOME HEALTH: Face to Face: I certify this patient is under my care and that I, or a nurse practitioner or physician's assistant strength coach working with me, had a face to face encounter that meets the physician face to face encounter requirements with this patient on 09/24/2021. Medical Complications: HTN Care Home For: Assess Cardiopulm Status, Assess/Skilled Observatio RN For Eval/Treatment: Yes Physical Therapy For: Evalulation/Treatment Occupational Therapy For: Evaluation/Treatment Home Health Aide For: Self-care Pt Meets Homebound Status: Limited distance walking POST DISCHARGE ORDERS: Activity Instructions for Disc: Activity as tolerated Weight Bearing Status after Di: As tolerated Bathing Instructions: Shower-keep dressing dry Wound/Incision Care: No wound care needed CHECKS AFTER DISCHARGE: Checks after discharge: Check blood press - daily, Weigh Yourself Daily FOLLOW-UP: Additional Instructions: Call to follow up with cardiology [address] [facility] [place] [address] Avoid agents that would cause bradycardia such as cyclobenzaprine and amiodarone. TREATMENT/EQUIPMENT ORDERS: Adaptive Equipment Issued: None Discharge Respiratory Equipmen: CPAP CERTIFICATION STATEMENT: Certification Statement: Certification Statement: Based on the above finding, I certify that this patient is confined to the home and needs intermittent fdc care, physical therapy and/or speech therapy, or continues to need occupational therapy.~ This patient is under my care, and I have initiated the establishment of the plan of care.~ This patient will be followed by myself or a community physician who will periodically review the plan of care. Home Meds Active Scripts Lidocaine (Lidocaine PATCH ) 1 Each Adh..patch, 1 EACH TP DAILY for FOR LOCAL PAIN for 10 Days, #10 PATCH REMOVE AFTER 12 HOURS Prov:ANA CURTIS I DO 12/29/19 Peg 3350/Na Sulf,Bicarb,Cl/Kcl (GOLYTELY SOLUTION) 4,000 Ml Soln.recon, 4000 ML PO 1X PRN for CONSTIPATION, #1 BOT Prov:CAMI FERMIN DO 10/20/18 Sennosides/Docusate Sodium (Colace 2-in-1 Tablet) 1 Each Tablet, 1-2 EACH PO QHS PRN for CONSTIPATION, #30 TAB Prov:CAMI FERMIN DO 10/20/18 Tamsulosin Hcl (FLOMAX) 0.4 Mg Cap.er.24h, 0.4 MG PO DAILY, #30 CAP.SR Prov:BRITTNY PETERSON MD 05/30/17 Alprazolam (ALPRAZOLAM) 0.5 Mg Tablet, 0.5 MG PO PRN BID PRN for ANXIETY, #10 TAB Prov:BRITTNY PETERSON MD 05/30/17 Reported Medications Duloxetine HCl (Duloxetine HCl) 40 Mg Capsule.dr, 1 CAP PO DAILY for Depression for 90 Days, #90 CAP 3 Refills 09/23/21 Lisinopril (LISINOPRIL) 5 Mg Tablet, 1 TAB PO DAILY for HTN for 90 Days, #90 TAB 3 Refills 09/23/21 Cholecalciferol (Vitamin D3) (VITAMIN D) 2,000 Unit Capsule, 2 CAP PO DAILY, #30 CAP 3 Refills 08/25/17 Omeprazole (OMEPRAZOLE) 40 Mg Capsule.dr, 1 CAP PO DAILY, #30 CAP 3 Refills 08/25/17 Atorvastatin Calcium (ATORVASTATIN CALCIUM) 20 Mg Tablet, 20 MG PO DAILY for FOR CHOLESTEROL, #30 TAB 0 Refills 02/04/16 Imatinib Mesylate (GLEEVEC) 400 Mg Tablet, 400 MG PO DAILY 03/28/15 Aspirin (ASPIRIN) 81 Mg Tab.chew, 1 TAB PO DAILY, #30 TAB 3 Refills 03/28/15 Discontinued Reported Medications Topiramate (TOPIRAMATE) 25 Mg Tablet, 1 TAB PO DAILY, #90 TAB 1 Refill 08/25/17 Amiodarone Hcl (AMIODARONE HCL) 200 Mg Tablet, 1 TAB PO DAILY, #90 TAB 1 Refill 03/28/15 Discontinued Scripts Cyclobenzaprine Hcl (CYCLOBENZAPRINE HCL) 5 Mg Tablet, 1 TAB PO QHS, #20 TAB Prov:ANA CURTIS I DO 12/29/19 Hydrocodone/Apap 5-325 (NOR[place] 5-325 TABLET) 1 Each Tablet, 1 TAB PO PRN Q6HRS PRN for PAIN, #12 TAB 0 Refills Prov:KAELA SAGE DO 12/24/18 Cyclobenzaprine Hcl (CYCLOBENZAPRINE HCL) 5 Mg Tablet, 5 MG PO TID PRN for MUSCLE SPASMS, #20 TAB Prov:KAELA SAGE DO 12/24/18 LUIS ALBERTO GOFF MD Sep 24, 2021 13:42
--- NOTE | 2021-09-24 13:45 | PDOC3 ---
Discharge Summary Visit Information Date of Admission: Sep 22, 2021 Date of Discharge: Sep 24, 2021 Admitting Diagnosis: Bradycardia Final Diagnosis Problems Medical Problems: (1) Bradycardia Status: Acute (2) Trifascicular block Status: Acute Brief Hospital Course Allergies Allergies Coded Allergies Type Severity Reaction Last Updated Verified codeine Allergy Intermediate 05/11/17 Yes tetanus and diphtheria toxoids Adverse Reaction Intermediate 09/24/21 Yes Vital Signs Vital Signs Date Time Temp Pulse Resp B/P (MAP) Pulse Ox O2 Delivery O2 Flow Rate FiO2 09/24/21 10:39 97.4 71 20 98/57 (71) 97 Room Air 97.4 Lab Results Laboratory Tests Test 09/22/21 14:10 09/22/21 16:00 Troponin I High Sensitivity 40 ng/L (4-75) 25 ng/L (4-75) Brief Hospital Course Mr Velez is an 85-year-old male w/ PMHx CAD s/p remote stenting, COPD, b cell lymphoma who comes to ED per his daughter with mental status change and weakness. EMS noticed that he was in trifascicular block and had bradycardia. Labs with CR 1.4, NT proBNP 1590, high-sensitivity troponins were 26, 40, 25 Chest radiograph calcified left upper lobe granuloma otherwise no acute f indings. EKG sinus bradycardia 40 bpm with first-degree heart block [place] 250, left axis deviation, left anterior fascicular block noted. QTc 433. Admitted with cardiology consultation. 09/23: Bradycardic in the 40s even on awakening. He is still confused but redirectable. No longer complaining of chest pain. No shortness of breath. Clears throat cough. 09/24: Bradycardia improved. He is upset he is not able to eat meatloaf. Discussed at his breakfast time. He is easily redirected and does not know what hospital he is in his close on the year. He walked 100 feet therapy is recommended SNF however he and his daughter prefer to go to SNF. I am amenable to this as he had significant improvement in his bradycardia with holding his cyclobenzaprine and limiting the dosing on this. Consults: Cardiology Problem list: Acute encephalopathy - possible metabolic, bradycardia, resolved Sinus bradycardia - no pauses or high grade blocks. currently 50s to 60s. No symptoms. Likely induced by metoprolol/amio and cyclobenzaprine. 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 controlled HLD - on statin COPD - prn albuterol CKD3 - stable Greater than 30 minutes spent on d/c home with home health Discharge Information Condition at Discharge: Improved Follow Up: Weeks Disposition/Orders: D/C to Home w/ HH Scheduled Aspirin (Aspirin) 81 Mg Tab.chew, 1 TAB PO DAILY, #30 Ref 3 (Reported) Entered as Reported by: RILEY MURPHY on 03/28/15716 Last Action: Continued on 09/22/211935 by SHANA STEINBERG Atorvastatin Calcium (Atorvastatin Calcium) 20 Mg Tablet, 20 MG PO DAILY for FOR CHOLESTEROL, #30 Ref 0 (Reported) Entered as Reported by: ABDULAZIZ DAO on 02/04/162125 Last Action: Continued on 09/22/211935 by SHANA STEINBERG Cholecalciferol (Vitamin D3) (Vitamin D) 2,000 Unit Capsule, 2 CAP PO DAILY, #30 Ref 3 (Reported) Entered as Reported by: DEE COX on 08/25/17 0907 Last Action: Converted on 09/22/211935 by SHANA STEINBERG Duloxetine HCl (Duloxetine HCl) 40 Mg Capsule.dr, 1 CAP PO DAILY for Depression for 90 Days, #90 Ref 3 (Reported) Entered as Reported by: LUIS ALBERTO GOFF MD on 09/23/21 1025 Last Action: New Order on 09/23/211024 by LUIS ALBERTO GOFF MD Imatinib Mesylate (Gleevec) 400 Mg Tablet, 400 MG PO DAILY, (Reported) Entered as Reported by: RILEY MURPHY on 03/28/15716 Last Action: Converted on 09/22/211935 by SHANA STEINBERG Lidocaine (Lidocaine PATCH ) 1 Each Adh..patch, 1 EACH TP DAILY for FOR LOCAL PAIN for 10 Days, #10 REMOVE AFTER 12 HOURS Prescribed by: ANA CURTIS D.O. on 12/29/19 1831 Last Action: Continued on 09/22/211935 by SHANA STEINBERG Lisinopril (Lisinopril) 5 Mg Tablet, 1 TAB PO DAILY for HTN for 90 Days, #90 Ref 3 (Reported) Entered as Reported by: LUIS ALBERTO GOFF MD on 09/23/21 102 Last Action: New Order on 09/23/211024 by LUIS ALBERTO GOFF MD Omeprazole (Omeprazole) 40 Mg Capsule.dr, 1 CAP PO DAILY, #30 Ref 3 (Reported) Entered as Reported by: DEE COX on 08/25/17 0904 Last Action: Converted on 09/22/211935 by SHANA STEINBERG Tamsulosin Hcl (Flomax) 0.4 Mg Cap.er.24h, 0.4 MG PO DAILY, #30 Prescribed by: BRITTNY PETERSON MD on 05/30/17951 Last Action: Continued on 09/22/211935 by SHANA STEINBERG Scheduled PRN Alprazolam (Alprazolam) 0.5 Mg Tablet, 0.5 MG PO PRN BID PRN for ANXIETY, #10 Prescribed by: BRITTNY PETERSON MD on 05/30/17951 Last Action: Continued on 09/22/211935 by SHANA STEINBERG Peg 3350/Na Sulf,Bicarb,Cl/Kcl (Golytely Solution) 4,000 Ml Soln.recon, 4,000 ML PO 1X PRN for CONSTIPATION, #1 Prescribed by: CAMI FERMIN D.O. on 10/20/182001 Last Action: Continued on 09/22/211935 by SHANA STEINBERG Sennosides/Docusate Sodium (Colace 2-in-1 Tablet) 1 Each Tablet, 1-2 EACH PO QHS PRN for CONSTIPATION, #30 Prescribed by: CAMI FERMIN D.O. on 10/20/182001 Last Action: Continued on 09/22/211935 by SHANA STEINBERG Discontinued Medications Amiodarone Hcl (Amiodarone Hcl) 200 Mg Tablet, 1 TAB PO DAILY, #90 Ref 1 (Repor rosa maria) Entered as Reported by: RILEY MURPHY on 03/28/15 0717 Cyclobenzaprine Hcl (Cyclobenzaprine Hcl) 5 Mg Tablet, 5 MG PO TID PRN for MUSCLE SPASMS, #20 Prescribed by: KAELA SAGE D.O. on 12/24/18 1645 Last Action: Converted on 09/22/211935 by SHANA STEINBERG Cyclobenzaprine Hcl (Cyclobenzaprine Hcl) 5 Mg Tablet, 1 TAB PO QHS, #20 Prescribed by: ANA CURTIS D.O. on 12/29/19 1831 Last Action: Converted on 09/22/211935 by SHANA STEINBERG Hydrocodone/Apap 5-325 ([place] 5-325 Tablet) 1 Each Tablet, 1 TAB PO PRN Q6HRS PRN for PAIN, #12 Ref 0 Prescribed by: KAELA SAGE D.O. on 12/24/18 1645 Last Action: Continued on 09/22/211935 by SHANA STEINBERG Topiramate (Topiramate) 25 Mg Tablet, 1 TAB PO DAILY, #90 Ref 1 (Reported) Entered as Reported by: DEE COX on 08/25/17 0904 Last Action: Continued on 09/22/211935 by SHANA STEINBERG Justicifation of Admission Dx: Justifications for Admission: Justification of Admission Dx: Yes CHF: Cardiac Arrhythmias LUIS ALBERTO GOFF MD Sep 24, 2021 13:45
[2021-09-24 14:25] VITALS: BP 123/70
--- NOTE | 2021-09-24 16:48 | NUR ---
Pt received discharge instructions and was taken by wheelchair to daughters vehicle at main entrance
--- NOTE | 2021-09-24 17:59 | PDOC ---
PROGRESS NOTES Date of Service DATE: 09/24/21 TIME: 17:57 Subjective Subjective Patient seen and examined Objective Objective Vital Signs Date Time Temp Pulse Resp B/P (MAP) Pulse Ox O2 Delivery O2 Flow Rate FiO2 09/24/21 14:25 97.3 65 20 123/70 (87) 98 Room Air 97.3 Intake and Output 09/24/21 07:00 Intake Total 820 ml Balance 820 ml Intake Oral 820 ml # Voids 2 Physical Exam Abdomen: Normal bowel sounds Heart: Regular rate General: No acute distress Lungs: Clear to auscultation Assessment Assessment Problems Medical Problems: (1) Bradycardia Status: Acute (2) Trifascicular block Status: Acute 1. Mild mental status changes. Continues to improve. 2. Sinus bradycardia. Patient has a history of mild bradycardia but his rate on admission was 40. Medications decreased. Of note troponins were all normal at 26, 40 and 25. Patient's heart rate is improved and he is increasing his activity. 3. Accelerated hypertension. Initial blood pressure of 197/89. This has improved. We will continue to monitor. 3. Mildly elevated BNP at 1590. Patient reports minimal shortness of breath. We will continue present treatments and check old records. 5. History of coronary disease and previous stenting. No chest pain. No acute ischemic changes. Continue present treatment. 6. COPD. No wheezing on examination. Continuing to monitor. Comment Review of Relevant I have reviewed the following items jannet (where applicable) has been applied. Medications Current Medications Hydralazine HCl (Apresoline Inj) 10 mg 1X ONCE IVP Last administered on 09/22/21at 10:43; Start 09/22/21 at 10:15; Stop 09/22/21 at 10:19; Status DC Lorazepam (Ativan Inj) 0.5 mg 1X ONCE IVP Last administered on 09/22/21at 11:39; Start 09/22/21 at 11:30; Stop 09/22/21 at 11:31; Status DC Alprazolam (Xanax) 0.5 mg PRN BID PRN PO ANXIETY Last administered on 09/22/21at 20:04; Start 09/22/21 at 19:45; Stop 09/23/21 at 10:04; Status DC Aspirin (Aspirin Chewable) 81 mg DAILY PO Last administered on 09/24/21at 08:27; Start 09/23/21 at 09:00; Stop 09/24/21 at 16:49; Status DC Atorvastatin Calcium (Lipitor) 20 mg QHS PO Last administered on 09/23/21at 19:48; Start 09/22/21 at 21:00; Stop 09/24/21 at 16:49; Status DC Acetaminophen/ Hydrocodone Bitart (Lortab 5/325) 1 tab PRN Q6HRS PRN PO PAIN mod/sev; Start 09/22/21 at 19:45; Stop 09/24/21 at 16:49; Status DC Lidocaine (Lidoderm) 1 patch DAILY TP ; Start 09/23/21 at 09:00; Stop 09/24/21 at 16:49; Status DC Sodium Cl/Sod Bicarb/Potass Cl/ PEG (Golytely) 4,000 ml 1X PRN PO CONSTIPATION; Start 09/22/21 at 19:45; Status Cancel Senna/Docusate Sodium (Senna Plus) 1 tab QHS PRN PO CONSTIPATION; Start 09/22/21 at 19:45; Stop 09/24/21 at 16:49; Status DC Tamsulosin HCl (Flomax) 0.4 mg DAILY PO Last administered on 09/24/21at 08:28; Start 09/23/21 at 09:00; Stop 09/24/21 at 16:49; Status DC Topiramate (Topamax) 25 mg DAILY PO Last administered on 09/23/21at 09:03; Start 09/23/21 at 09:00; Stop 09/23/21 at 10:26; Status DC Vitamin D (Vitamin D3) 4,000 unit DAILY PO Last administered on 09/24/21at 08:27; Start 09/23/21 at 09:00; Stop 09/24/21 at 16:49; Status DC Cyclobenzaprine HCl (Flexeril) 5 mg QHS PO Last administered on 09/22/21at 20:04; Start 09/22/21 at 21:00; Stop 09/23/21 at 10:04; Status DC Cyclobenzaprine HCl (Flexeril) 5 mg TID PRN PO MUSCLE SPASMS; Start 09/22/21 at 19:45; Stop 09/23/21 at 10:26; Status DC Non-Formulary Medication (Imatinib Mesylate (Gleevec)) 400 mg DAILY PO ; Start 09/23/21 at 09:00; Stop 09/24/21 at 16:49; Status DC Pantoprazole Sodium (Protonix) 40 mg DAILYAC PO Last administered on 09/24/21at 08:28; Start 09/23/21 at 07:30; Stop 09/24/21 at 16:49; Status DC Miscellaneous (Lidoderm Patch Removal) 1 ea QHS MC ; Start 09/22/21 at 21:00; Stop 09/24/21 at 16:49; Status DC Acetaminophen (Tylenol) 650 mg PRN Q6HRS PRN PO MILD PAIN / TEMP > 100.3'F Last administered on 09/22/21at 22:05; Start 09/22/21 at 21:45; Stop 09/24/21 at 16:49; Status DC Cyclobenzaprine HCl (Flexeril) 5 mg PRN QHS PRN PO MUSCLE SPASMS; Start 09/23/21 at 10:15; Stop 09/24/21 at 16:49; Status DC Olanzapine (ZyPREXA ZYDIS) 5 mg PRN BID PRN PO ANXIETY / AGITATION Last administered on 09/23/21at 12:29; Start 09/23/21 at 10:15; Stop 09/24/21 at 16:49; Status DC Alprazolam (Xanax) 0.25 mg PRN DAILY PRN PO ANXIETY / AGITATION Last administered on 09/24/21at 08:30; Start 09/23/21 at 10:30; Stop 09/24/21 at 16:49; Status DC Active Scripts Active Lidocaine PATCH (Lidocaine) 1 Each Adh..patch 1 Each TP DAILY 10 Days REMOVE AFTER 12 HOURS Golytely Solution (Peg 3350/Na Sulf,Bicarb,Cl/Kcl) 4,000 Ml Soln.recon 4,000 Ml PO 1X PRN Colace 2-in-1 Tablet (Sennosides/Docusate Sodium) 1 Each Tablet 1-2 Each PO QHS PRN Flomax (Tamsulosin Hcl) 0.4 Mg Cap.er.24h 0.4 Mg PO DAILY Alprazolam 0.5 Mg Tablet 0.5 Mg PO PRN BID PRN Reported Duloxetine HCl 40 Mg Capsule.dr 1 Cap PO DAILY 90 Days Lisinopril 5 Mg Tablet 1 Tab PO DAILY 90 Days Vitamin D (Cholecalciferol (Vitamin D3)) 2,000 Unit Capsule 2 Cap PO DAILY Omeprazole 40 Mg Capsule.dr 1 Cap PO DAILY Atorvastatin Calcium 20 Mg Tablet 20 Mg PO DAILY Gleevec (Imatinib Mesylate) 400 Mg Tablet 400 Mg PO DAILY Aspirin 81 Mg Tab.chew 1 Tab PO DAILY Vitals/I & O Vital Sign - Last 24 Hours 09/23/21 09/23/21 09/23/21 09/24/21 19:27 19:30 22:50 02:45 Temp 98.0 97.7 98.1 98.0 97.7 98.1 Pulse 62 52 47 Resp 20 18 18 B/P (MAP) 128/70 (89) 133/70 (91) 114/62 (79) Pulse Ox 98 96 96 O2 Delivery Room Air Room Air Room Air Room Air 09/24/21 09/24/21 09/24/21 09/24/21 07:00 08:00 10:39 14:25 Temp 98.0 97.4 97.3 98.0 97.4 97.3 Pulse 50 71 65 Resp 18 20 20 B/P (MAP) 108/49 (68) 98/57 (71) 123/70 (87) Pulse Ox 93 97 98 O2 Delivery Room Air Room Air Room Air Room Air Intake and Output 09/23/21 09/23/21 09/24/21 15:00 23:00 07:00 Intake Total 300 ml 180 ml 340 ml Balance 300 ml 180 ml 340 ml Justifications for Admission Other Justification RAYO CHEUNG MD Sep 24, 2021 17:59
== END 2021-09-24 16:49 | disposition home health service (06) ==
LOC: ER 09:34 → INTOOBSV 10:04 → 6 SOUTH 10:04 → ER 11:45
PROVIDERS: ADMIT Internal Medicine; ATTEND Internal Medicine
DX: R00.1 Bradycardia, unspecified (principal); I45.3 Trifascicular block; I13.0 Hypertensive heart and chronic kidney disease with heart failure and stage 1 through stage 4 chronic kidney disease, or unspecified chronic kidney disease; E11.22 Type 2 diabetes mellitus with diabetic chronic kidney disease; N18.30 Chronic kidney disease, stage 3 unspecified; I50.9 Heart failure, unspecified; G92.8 Other toxic encephalopathy; R41.82 Altered mental status, unspecified; I25.10 Atherosclerotic heart disease of native coronary artery without angina pectoris; J98.11 Atelectasis; R53.1 Weakness; E78.5 Hyperlipidemia, unspecified; J44.9 Chronic obstructive pulmonary disease, unspecified; I48.0 Paroxysmal atrial fibrillation; Z98.890 Other specified postprocedural states; Z88.5 Allergy status to narcotic agent; Z88.7 Allergy status to serum and vaccine; Z83.3 Family history of diabetes mellitus; Z87.891 Personal history of nicotine dependence; Z95.5 Presence of coronary angioplasty implant and graft; Z85.72 Personal history of non-Hodgkin lymphomas; Z85.07 Personal history of malignant neoplasm of pancreas; Z85.6 Personal history of leukemia; Z85.028 Personal history of other malignant neoplasm of stomach; Z82.49 Family history of ischemic heart disease and other diseases of the circulatory system
CPT/HCPCS: 36415; 71045; 80053; 83735; 83880; 84484; 85025; 93005; 96374; 96375; 97110; 97116; 97162; 97166; 97535; 99285; G0378; J0360; J2060; G0379

== ENCOUNTER 2021-11-26 15:04 | Emergency (ER) | payer BC ==
[~2021-11-26] VITALS: Ht 190.5 cm; Wt 100.1 kg
[~2021-11-26 15:04] MED LIST changes: +DULO40CA2 PO
[2021-11-26] MEDS ORDERED: HYDROmorphone 2 MG/ML INJ. IV ONE (15:15)
[2021-11-26 15:30] LABS: BASO % 0 % (0-3); EOS # 0.3 x10^3/uL (0.0-0.7); EOS % 5 % (0-3); HEMATOCRIT 40.6 % (39.0-53.0); HEMOGLOBIN 13.8 g/dL (13.0-17.5); LYMPH # 0.9 x10^3/uL (1.0-4.8); LYMPH % 15 % (24-48); MEAN CORPUSCULAR HEMOGLOBIN 34 pg (25-35); MEAN CORPUSCULAR HGB CONC 34 g/dL (31-37); MEAN CORPUSCULAR VOLUME 99 fL (79-100); MONO # 0.6 x10^3/uL (0.0-1.1); MONO % 10 % (0-9); NEUT # 4.2 x10^3/uL (1.8-7.7); NEUT % 70 % (31-73); PLATELET COUNT 192 x10^3/uL (140-400); RED BLOOD COUNT 4.12 x10^6/uL (4.30-5.70); RED CELL DISTRIBUTION WIDTH 12.9 % (11.5-14.5)
[2021-11-26] MEDS ORDERED: IOHEXOL 350 MG/ML 100 ML VIAL. IV ONE (15:30)
--- NOTE | 2021-11-26 15:39 | RAD ---
CT brain without contrast. HISTORY: Headaches CT scan of the brain was done without contrast. Comparison is made with a study from March 2020. The re is chronic mucosal thickening in the right maxillary sinus. Remaining sinuses are clear. There is mild chronic partial opacification of left mastoid air cells. There is no skull fracture. There is no mass effect or shift of the midline. Lateral ventricles are normal in size. There is mild diffuse at rophy. There is no intracranial hemorrhage or subdural hematoma. An acute CVA is not identified. IMPRESSION: 1. No intracranial hemorrhage or acute finding noted. 2. Chronic right sinusitis, chronic partial opacification of the left mastoid air cells. PQRS Compliance Statement: One or more of the following individualized dose reduction techniques were utilized for this examinat ion: 1. Automated exposure control 2. Adjustment of the mA and/or kV according to patient size 3. Use of iterative reconstruction technique Electronically signed by: Vel Easton MD (11/26/2021 3:36 PM) [facility]
[2021-11-26] MEDS ORDERED: CONTRAST GIVEN. MC PRN (15:45)
[2021-11-26 15:46] LABS: CALCIUM 8.8 mg/dL (8.5-10.1); CREATININE 1.5 mg/dL (0.7-1.3); GFR 44.4; POTASSIUM 4.5 mmol/L (3.5-5.1)
[2021-11-26 15:47] LABS: PROTHROMBIN TIME PATIENT 12.8 SEC (11.7-14.0)
[2021-11-26 15:53] LABS: ALBUMIN 3.7 g/dL (3.4-5.0); ALBUMIN/GLOBULIN RATIO 1.5 (1.0-1.7); D-DIMER 0.82 ug/mlFEU (0.00-0.50); TOTAL BILIRUBIN 0.4 mg/dL (0.2-1.0); TOTAL PROTEIN 6.2 g/dL (6.4-8.2)
--- NOTE | 2021-11-26 16:04 | PHYS DOC ---
Past Medical History Past Medical History: CAD, Cancer, COPD, GA, Other Additional Past Medical Histor: stomach CA TREATED W/ CHEMO,LEUKEMIA, pa ncreatic cancer, BRADYCARDIA Past Surgical History: Angioplasty, Lumbar Laminectomy Additional Past Surgical Histo: STENTS X'S 3, right port a cath,L KNEE SURG Smoking Status: Former Smoker Alcohol Use: None Drug Use: None General Adult EDM: Chief Complaint: HEADACHE HPI: HPI: Patient is a 86 year old male presents to the ER with a sudden onset headache chest pain that radiates down to the right arm. Patient denies any diaphoresis. States that he has pain in his mid back flank area. Denies any focal weakness denies any numbness or tingling. Patient was picked up by medics with a blood pressure 197/90. Patient denies any shortness of breath. Denies any diaphoresis. Review of Systems: Review of Systems: Constitutional: Denies fever or chills. [] Eyes: Denies change in visual acuity. [] HENT: Denies nasal congestion or sore throat. [] Respiratory: Denies cough or shortness of breath. [] Cardiovascular: Denies chest pain or edema. [] GI: Denies abdominal pain, nausea, vomiting, bloody stools or diarrhea. [] : Denies dysuria. [] Musculoskeletal: Denies back pain or joint pain. [] Integument: Denies rash. [] Neurologic: Denies headache, focal weakness or sensory changes. [] Endocrine: Denies polyuria or polydipsia. [] Lymphatic: Denies swollen glands. [] Psychiatric: Denies depression or anxiety. [] Heart Score: C/O Chest Pain: Yes HEART Score for Chest Pain: HEART Score for Chest Pain Response (Comments) Value History Moderately Suspicious 1 ECG Nonspecific Repolarizatio 1 Age > 65 2 Risk Factors >3 Risk Factors or Hx CAD 2 Total 6 Risk Factors: Risk Factors: DM, Current or recent (<one month) smoker, HTN, HLP, family history of CAD, obesity. Risk Scores: Score 0 - 3: 2.5% MACE over next 6 weeks - Discharge Home Score 4 - 6: 20.3% MACE over next 6 weeks - Admit for Clinical Observation Score 7 - 10: 72.7% MACE over next 6 weeks - Early Invasive Strategies Current Medications: Current Medications Medications (Trade) Dose Ordered Sig/Winifred Start Time Stop Time Status Last Admin Dose Admin Hydromorphone HCl (Dilaudid) 0.5 mg 1X ONCE 11/26/21 15:15 11/26/21 15:16 DC Info (CONTRAST GIVEN -- Rx MONITORING) 1 each PRN DAILY PRN 11/26/21 15:45 11/28/21 15:44 Iohexol (Omnipaque 350 Mg/ml) 80 ml 1X ONCE 11/26/21 15:30 11/26/21 15:31 DC 11/26/21 15:38 80 ML Allergies: Allergies: Allergies Coded Allergies Type Severity Reaction Last Updated Verified codeine Allergy Intermediate 11/26/21 Yes tetanus and diphtheria toxoids Adverse Reaction Intermediate 11/26/21 Yes Physical Exam: PE: Constitutional: Uncomfortable well developed, well nourished, no acute distress, non-toxic appearance. HENT: Normocephalic, atraumatic, bilateral external ears normal, oropharynx moist, no oral exudates, nose normal. Eyes: PERRLA, EOMI, conjunctiva normal, no discharge. Neck: Normal range of motion, no tenderness, supple, no stridor. Cardiovascular:Heart rate regular rhythm, no murmur Lungs & Thorax: Bilateral breath sounds clear to auscultation Abdomen: Bowel sounds normal, soft, no tenderness, no masses, no pulsatile masses. Skin: Warm, dry, no erythema, no rash. Back: Limited range of motion secondary to pain of the lower back. Patient has mild right CVA tenderness. Extremities: No tenderness, no cyanosis, no clubbing, ROM intact, no edema. Neurologic: Alert and oriented X 3, normal motor function, normal sensory function, no focal deficits noted. Psychologic: Affect normal, judgement normal, mood normal. Current Patient Data: Labs: Laboratory Tests Test 11/26/21 15:10 White Blood Count 6.0 x10^3/uL (4.0-11.0) Red Blood Count 4.12 x10^6/uL (4.30-5.70) L Hemoglobin 13.8 g/dL (13.0-17.5) Hematocrit 40.6 % (39.0-53.0) Mean Corpuscular Volume 99 fL (79-100) Mean Corpuscular Hemoglobin 34 pg (25-35) Mean Corpuscular Hemoglobin Concent 34 g/dL (31-37) Red Cell Distribution Width 12.9 % (11.5-14.5) Platelet Count 192 x10^3/uL (140-400) Neutrophils (%) (Auto) 70 % (31-73) Lymphocytes (%) (Auto) 15 % (24-48) L Monocytes (%) (Auto) 10 % (0-9) H Eosinophils (%) (Auto) 5 % (0-3) H Basophils (%) (Auto) 0 % (0-3) Neutrophils # (Auto) 4.2 x10^3/uL (1.8-7.7) Lymphocytes # (Auto) 0.9 x10^3/uL (1.0-4.8) L Monocytes # (Auto) 0.6 x10^3/uL (0.0-1.1) Eosinophils # (Auto) 0.3 x10^3/uL (0.0-0.7) Basophils # (Auto) 0.0 x10^3/uL (0.0-0.2) Prothrombin Time 12.8 SEC (11.7-14.0) Prothrombin Time INR 1.0 (0.8-1.1) D-Dimer (Carolyn) 0.82 ug/mlFEU (0.00-0.50) H Sodium Level 141 mmol/L (136-145) Potassium Level 4.5 mmol/L (3.5-5.1) Chloride Level 105 mmol/L (98-107) Carbon Dioxide Level 29 mmol/L (21-32) Anion Gap 7 (6-14) Blood Urea Nitrogen 23 mg/dL (8-26) Creatinine 1.5 mg/dL (0.7-1.3) H Estimated GFR (Cockcroft-Gault) 44.4 BUN/Creatinine Ratio 15 (6-20) Glucose Level 94 mg/dL (70-99) Calcium Level 8.8 mg/dL (8.5-10.1) Total Bilirubin 0.4 mg/dL (0.2-1.0) Aspartate Amino Transferase (AST) 29 U/L (15-37) Alanine Aminotransferase (ALT) 31 U/L (16-63) Alkaline Phosphatase 130 U/L (46-116) H Troponin I High Sensitivity 32 ng/L (4-75) EO-Hpd-J-Type Natriuretic Peptide 784 pg/mL (0-449) H Total Protein 6.2 g/dL (6.4-8.2) L Albumin 3.7 g/dL (3.4-5.0) Albumin/Globulin Ratio 1.5 (1.0-1.7) Lipase 71 U/L (73-393) L Laboratory Tests 11/26/21 15:10 Laboratory Tests 11/26/21 15:10 Vital Signs: Vital Signs Date Time Temp Pulse Resp B/P (MAP) Pulse Ox O2 Delivery O2 Flow Rate FiO2 11/26/21 15:05 97.8 46 17 208/93 (131) 100 Room Air 97.8 EKG: EKG: [] Sinus bradycardia with left axis deviation. Patient is a QTC of 466. Patient is aware that he has sinus bradycardia and states that he has had it his whole life. Repeat EKG is a heart rate of 47 no new changes. Incomplete right bundle branch Radiology/Procedures: Radiology/Procedures: []PQRS Compliance Statement: One or more of the following individualized dose reduction techniques were utilized for this examination: 1. Automated exposure control 2. Adjustment of the mA and/or kV according to patient size 3. Use of iterative reconstruction technique CTA CHEST_ABDOMEN_AND PELVIS Clinical Indication: back pain , Headache. History of lymphoma and prostate cancer. Comparison: CT chest abdomen and pelvis without contrast, May 13, 2017. CT abdomen and pelvis without contrast August 22, 2021. Technique: Helical CT imaging of the chest, abdomen, and pelvis is performed before and after 80 cc of Omnipaque [address] angiogram protocol. 3-D volume rendering reconstructions of the aorta. Findings: There is aneurysm of the ascending thoracic aorta, diameter is 4.5 cm. No acute intramural hematoma of the aorta is identified on the precontrast images. There is moderate aortoiliac atherosclerotic calcification. There is no abdominal aortic aneurysm. There is no high-grade stenosis of the iliac or visualized femoral arteries. Abdominal aorta branches are patent. Aortic arch branches are patent. There is three-vessel coronary artery disease. There is no adenopathy in the chest. Cardiac size is upper limits of normal. No pericardial effusion. There is no pleural abnormality. The central airways are patent. There are several calcified granulomas in the left upper lobe. There is minimal bilateral dependent atelectasis. Small cysts in the liver are stable. Calcified granulomas in the spleen. The gallbladder and adrenal glands are normal. There is cortical scarring of the bilateral kidneys. No hydronephrosis. Mild induration of the central mesentery along the vascular pedicle just inferior to the pancreas body is similar to prior study from August 2021. Finding is improved compared to 2017. The stomach is unremarkable. There is no small bowel obstruction. There is sigmoid colon diverticulosis. The appendix is normal. No colon wall thickening is seen. No abdominal adenopathy is seen. Mild dilation of the distal left ureter is unchanged. The urinary bladder is normal. The prostate shape is irregular. There is no pelvic free fluid. Suggestion of small fat-containing left inguinal hernia. There is lateral right hip intramuscular lipoma. There are degenerative changes of the thoracolumbar spine. There is multilevel vacuum disc phenomenon. IMPRESSION: 1. There is no aortic dissection. 2. There is aneurysm of the ascending thoracic aorta. 3. There is induration of the central mesentery along the vascular pedicle just inferior to the pancreas body, unchanged compared to August 2021. Finding may be chronic. Suggest correlation with lipase to exclude acute pancreatitis. 4. Sigmoid colon diverticulosis. CT brain without contrast. HISTORY: Headaches CT scan of the brain was done without contrast. Comparison is made with a study from March 2020. There is chronic mucosal thickening in the right maxillary sinus. Remaining sinuses are clear. There is mild chronic partial opacification of left mastoid air cells. There is no skull fracture. There is no mass effect or shift of the midline. Lateral ventricles are normal in size. There is mild diffuse atrophy. There is no intracranial hemorrhage or subdural hematoma. An acute CVA is not identified. IMPRESSION: 1. No intracranial hemorrhage or acute finding noted. 2. Chronic right sinusitis, chronic partial opacification of the left mastoid ai r cells. PQRS Compliance Statement: One or more of the following individualized dose reduction techniques were utilized for this examination: 1. Automated exposure control 2. Adjustment of the mA and/or kV according to patient size 3. Use of iterative reconstruction technique XR CHEST 1V History: Chest pain Comparison: CT chest 11/26/2021, chest x-ray 04/15/2020 Technique: Portable AP radiograph of the chest. Findings: The lungs are adequately and symmetrically inflated. There is calcified left upper lobe granuloma. No airspace consolidation, pleural effusion or pneumothorax. The cardiac silhouette and pulmonary vasculature are within normal limits. Flowing osteophytes in the thoracic spine. Soft tissues are unremarkable. Impression: 1. No acute cardiopulmonary process. Course & Med Decision Making: Course & Med Decision Making Pertinent Labs and Imaging studies reviewed. (See chart for details) [] After discussing the results with the patient patient elects not to stay in the hospital. I explained the patient the risks and benefits and patient is AAO x3 and understands. States that he would like to go home. I offered patient observation. Patient states that he has family in the area and would rather go home with the other choice. Patient given strict return precautions Dragon Disclaimer: Dragalpesh Disclaimer: This electronic medical record was generated, in whole or in part, using a voice recognition dictation system. Departure Departure Referrals: KVNG BADILLO DO (PCP) BRADLY GARCIA DO Nov 26, 2021 16:04
--- NOTE | 2021-11-26 16:08 | RAD ---
PQRS Compliance Statement: One or more of the following individualized dose reduction techniques were utilized for this examinat ion: 1. Automated exposure control 2. Adjustment of the mA and/or kV according to patient size 3. Use of iterative reconstruction technique CTA CHEST_ABDOMEN_AND PELVIS Clinical Indication: back pain , Headache. History of lymphoma and prostate cancer. Comparison: CT chest abdomen and pelvis without contrast, May 13, 2017. CT abdomen and pelvis without contrast August 22, 2021. Technique: Helical CT imaging of the chest, abdomen, and pelvis is performed before and after 80 cc o f Omnipaque [address] angiogram protocol. 3-D volume rendering reconstructions of the aorta. Findings: There is aneurysm of the ascending thoracic aorta, diameter is 4.5 cm. No acute intramural hematoma o f the aorta is identified on the precontrast images. There is moderate aortoiliac atherosclerotic jorge luis cification. There is no abdominal aortic aneurysm. There is no high-grade stenosis of the iliac or vi sualized femoral arteries. Abdominal aorta branches are patent. Aortic arch branches are patent. There is three-vessel coronary artery disease. There is no adenopathy in the chest. Cardiac size is u pper limits of normal. No pericardial effusion. There is no pleural abnormality. The central airways are patent. There are several calcified granulom as in the left upper lobe. There is minimal bilateral dependent atelectasis. Small cysts in the liver are stable. Calcified granulomas in the spleen. The gallbladder and adrenal glands are normal. There is cortical scarring of the bilateral kidneys. No hydronephrosis. Mild induration of the central mesentery along the vascular pedicle just inferior to the pancreas bod y is similar to prior study from August 2021. Finding is improved compared to 2017. The stomach is unremarkable. There is no small bowel obstruction. There is sigmoid colon diverticulos is. The appendix is normal. No colon wall thickening is seen. No abdominal adenopathy is seen. Mild dilation of the distal left ureter is unchanged. The urinary bladder is normal. The prostate sha pe is irregular. There is no pelvic free fluid. Suggestion of small fat-containing left inguinal franklyn ia. There is lateral right hip intramuscular lipoma. There are degenerative changes of the thoracolumbar spine. There is multilevel vacuum disc phenomenon. IMPRESSION: 1. There is no aortic dissection. 2. There is aneurysm of the ascending thoracic aorta. 3. There is induration of the central mesentery along the vascular pedicle just inferior to the panc reas body, unchanged compared to August 2021. Finding may be chronic. Suggest correlation with lipas e to exclude acute pancreatitis. 4. Sigmoid colon diverticulosis. Electronically signed by: Froilan Horton MD (11/26/2021 4:05 PM) [facility]
--- NOTE | 2021-11-26 16:09 | RAD ---
XR CHEST 1V History: Chest pain Comparison: CT chest 11/26/2021, chest x-ray 04/15/2020 Technique: Portable AP radiograph of the chest. Findings: The lungs are adequately and symmetrically inflated. There is calcified left upper lobe granuloma. No airspace consolidation, pleural effusion or pneumothorax. The cardiac silhouette and pulmonary vascu lature are within normal limits. Flowing osteophytes in the thoracic spine. Soft tissues are unremark able. Impression: 1. No acute cardiopulmonary process. Electronically signed by: Jeronimo Mac MD (11/26/2021 4:07 PM) [id number]
[2021-11-26] MEDS ORDERED: DEXAMETHASONE 4 MG TABLET PO ONE (17:15)
[2021-11-26 17:16] LABS: BACTERIA,URINE 0 /HPF (0-FEW); RBC,URINE 0 /HPF (0-2); WBC,URINE 0 /HPF (0-4)
[2021-11-26] MEDS ORDERED: AZIT250T6 PO (17:17)
[2021-11-26 17:40] VITALS: BP 209/93
--- NOTE | 2021-11-26 18:53 | EKG ---
[facility] [address] [place] [address] Test Date: 2021-11-26 Test Time: 16:15:18 Pat Name: HARSHIL MALONE Department: Room: Gender: M [employer]: : 1935 Requested By: BRADLY GARCIA Order Number: [id number] Reading MD: Jasiel Yang Measurements Intervals [place] Rate: 44 P: 0 [place]: 258 QRS: -41 QRSD: 140 T: -25 QT: 540 QTc: 466 Interpretive Statements SINUS BRADYCARDIA PROLONGED [place] INTERVAL ABNORMAL LEFT AXIS DEVIATION LEFT ANTERIOR FASCICULAR BLOCK RIGHT BUNDLE BRANCH BLOCK BIFASCICULAR BLOCK ABNORMAL ECG RI6.01 Compared to ECG 09/23/2021 08:38:02 Electronically Signed On 11-30-2021 13:48:19 CDT by Jasiel Yang
--- NOTE | 2021-11-26 18:55 | EKG ---
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
== END 2021-11-26 18:15 | disposition home or self-care (01) ==
LOC: ER 15:04
DX: R07.89 Other chest pain (principal); J44.9 Chronic obstructive pulmonary disease, unspecified; I25.2 Old myocardial infarction; I25.10 Atherosclerotic heart disease of native coronary artery without angina pectoris; Z95.1 Presence of aortocoronary bypass graft; Z95.5 Presence of coronary angioplasty implant and graft; Z87.891 Personal history of nicotine dependence; Z88.5 Allergy status to narcotic agent; Z88.7 Allergy status to serum and vaccine
CPT/HCPCS: 36415; 70450; 71045; 80053; 81001; 83690; 83880; 84484; 85025; 85379; 85610; 93005; 99285; Q9967

== ENCOUNTER 2021-12-25 10:00 | Inpatient (IN) | payer BC ==
[~2021-12-25] VITALS: Ht 190.5 cm; Wt 98.0 kg
[~2021-12-25 10:00] MED LIST changes: +AZIT250T6 PO
--- NOTE | 2021-12-25 10:29 | PHYS DOC ---
Past Medical History Past Medical History: Anxiety, CAD, Cancer, COPD, High Cholesterol, Hyper tension, [place], Other Additional Past Medical Histor: stomach CA TREATED W/ CHEMO,LEUKEMIA, pancreatic cancer, BRADYCARDIA (MAYTE CALDWELL APRN) Past Surgical History: Other Additional Past Surgical Histo: knee surgries, back surgeries (MAYTE CALDWELL APRN) Smoking Status: Former Smoker Alcohol Use: None Drug Use: None (MAYTE CALDWELL APRN) General Adult EDM: Chief Complaint: HYPERTENSION HPI: HPI: Patient is an 86-year-old male who presents today via [facility] with high blood pressure. Patient states that he was seen by his primary care physician yesterday for high blood pressure, he states that the blood pressure was normal while he was in the office today he checked his blood pressure and his blood pressure is was in the 190s systolically and he called 911 for further evaluation and management. Patient states he does have some pain in the throat area but no chest pain as per se, no shortness of breath, no fever or chills. Patient states he is very anxious, he says he has been very anxious for a while due to the fact that his approximately 17 months ago. Patient states he does live alone and does have family in the area. Patient does have a past medical history of coronary artery disease with stents placements as well as hypertension, high cholesterol, and cancer. (MAYTE CALDWELL APRN) Review of Systems: Review of Systems: Constitutional: Denies fever or chills. [] Eyes: Denies change in visual acuity. [] HENT: Denies nasal congestion or sore throat. [] Respiratory: Denies cough or shortness of breath. [] Cardiovascular: Hypertension and throat pain GI: Denies abdominal pain, nausea, vomiting, bloody stools or diarrhea. [] : Denies dysuria. [] Musculoskeletal: Denies back pain or joint pain. [] Integument: Denies rash. [] Neurologic: Denies headache, focal weakness or sensory changes. [] Endocrine: Denies polyuria or polydipsia. [] Lymphatic: Denies swollen glands. [] Psychiatric: Denies depression or anxiety. [] (MAYTE CALDWELL APRN) Heart Score: C/O Chest Pain: Yes HEART Score for Chest Pain: HEART Score for Chest Pain Response (Comments) Value History Slighlty/Non-Suspicious 0 Age > 65 2 Risk Factors >3 Risk Factors or Hx CAD 2 Troponin < Normal Limit 0 Total 4 Risk Factors: Risk Factors: DM, Current or recent (<one month) smoker, HTN, HLP, family history of CAD, obesity. Risk Scores: Score 0 - 3: 2.5% MACE over next 6 weeks - Discharge Home Score 4 - 6: 20.3% MACE over next 6 weeks - Admit for Clinical Observation Score 7 - 10: 72.7% MACE over next 6 weeks - Early Invasive Strategies (MAYTE CALDWELL BERRY GROWER) Allergies: Allergies: Allergies Coded Allergies Type Severity Reaction Last Updated Verified codeine Allergy Intermediate 11/26/21 Yes tetanus and diphtheria toxoids Adverse Reaction Intermediate 11/26/21 Yes (MAYTE CALDWELL APRN) Physical Exam: PE: Constitutional: Well developed, well nourished, mild distress, non-toxic appeara nce. [] HENT: Normocephalic, atraumatic, bilateral external ears normal, oropharynx moist, no oral exudates, nose normal. [] Eyes: PERRLA, EOMI, conjunctiva normal, no discharge. [] Neck: Normal range of motion, no tenderness, supple, no stridor. [] Cardiovascular:Heart rate bradycardia no murmur [] Lungs & Thorax: Bilateral breath sounds clear to auscultation [] Abdomen: Bowel sounds normal, soft, no tenderness, no masses, no pulsatile masses. [] Skin: Warm, dry, no erythema, no rash. [] Back: No tenderness, no CVA tenderness. [] Extremities: No tenderness, no cyanosis, no clubbing, ROM intact, no edema. [] Neurologic: Alert and oriented X 3, normal motor function, normal sensory function, no focal deficits noted. [] Psychologic: Affect normal, judgement normal, mood axious. [] (MAYTE CALDWELL BERRY GROWER) Current Patient Data: Labs: Laboratory Tests Test 12/25/21 10:22 White Blood Count 7.4 x10^3/uL Red Blood Count 4.16 x10^6/uL Hemoglobin 13.8 g/dL Hematocrit 40.7 % Mean Corpuscular Volume 98 fL Mean Corpuscular Hemoglobin 33 pg Mean Corpuscular Hemoglobin Concent 34 g/dL Red Cell Distribution Width 12.8 % Platelet Count 241 x10^3/uL Neutrophils (%) (Auto) 77 % Lymphocytes (%) (Auto) 11 % Monocytes (%) (Auto) 10 % Eosinophils (%) (Auto) 2 % Basophils (%) (Auto) 1 % Neutrophils # (Auto) 5.7 x10^3/uL Lymphocytes # (Auto) 0.8 x10^3/uL Monocytes # (Auto) 0.7 x10^3/uL Eosinophils # (Auto) 0.1 x10^3/uL Basophils # (Auto) 0.0 x10^3/uL Prothrombin Time 13.1 SEC Prothromb Time International Ratio 1.0 Sodium Level 145 mmol/L Potassium Level 3.9 mmol/L Chloride Level 107 mmol/L Carbon Dioxide Level 29 mmol/L Anion Gap 9 Blood Urea Nitrogen 20 mg/dL Creatinine 1.4 mg/dL Estimated GFR (Cockcroft-Gault) 48.1 BUN/Creatinine Ratio 14 Glucose Level 89 mg/dL Calcium Level 8.7 mg/dL Magnesium Level 2.4 mg/dL Total Bilirubin 0.3 mg/dL Aspartate Amino Transf (AST/SGOT) 26 U/L Alanine Aminotransferase (ALT/SGPT) 29 U/L Alkaline Phosphatase 123 U/L Creatine Kinase 180 U/L Troponin I High Sensitivity 43 ng/L EN-Dtp-L-Type Natriuretic Peptide 1712 pg/mL Total Protein 5.9 g/dL Albumin 3.4 g/dL Albumin/Globulin Ratio 1.4 Lipase 80 U/L Current Medications Medications (Trade) Dose Ordered Sig/Winifred Route PRN Reason Start Time Stop Time Status Last Admin Dose Admin Hydralazine HCl (Apresoline Inj) 10 mg 1X ONCE IVP 12/25/21 11:45 12/25/21 11:46 DC 12/25/21 12:04 Vital Signs: Vital Signs Date Time Temp Pulse Resp B/P (MAP) Pulse Ox O2 Delivery O2 Flow Rate FiO2 12/25/21 14:42 52 123/58 12/25/21 13:00 52 18 176/85 (115) 100 Room Air 12/25/21 12:04 55 211/107 12/25/21 11:49 55 18 182/94 (123) 100 Room Air 12/25/21 11:00 53 18 176/97 (123) 100 Room Air 12/25/21 10:05 98.5 51 18 187/87 (120) 100 Room Air 98.5 Vital Signs Date Time Temp Pulse Resp B/P (MAP) Pulse Ox O2 Delivery O2 Flow Rate FiO2 12/25/21 12:04 55 211/107 12/25/21 11:49 55 18 182/94 (123) 100 Room Air 12/25/21 11:00 53 18 176/97 (123) 100 Room Air 12/25/21 10:05 98.5 51 18 187/87 (120) 100 Room Air 98.5 Vital Signs Date Time Temp Pulse Resp B/P (MAP) Pulse Ox O2 Delivery O2 Flow Rate FiO2 12/25/21 10:05 98.5 51 18 187/87 (120) 100 Room Air 98.5 (MAYTE CALDWELL APRN) EKG: EKG: EKG done at [address] Fermin at 1129 shows sinus bradycardia at a rate of 47 with a RI interval of 244 ms with a QTC of 462 ms no STEMI [] (MAYTE CALDWELL APRN) Radiology/Procedures: Radiology/Procedures: []REASON: chest pain, HTN PROCEDURE: PORTABLE CHEST 1V EXAM: Chest, single view. HISTORY: Chest pain. Hypertension. COMPARISON: 11/26/2021 FINDINGS: Frontal views of the chest are obtained. There is no infiltrate, pleur al infusion or pneumothorax. There is cardiomegaly. There is a calcified granuloma within the lateral left upper lobe. There is a calcified right paratracheal granuloma. Note is made that a thoracic aortic aneurysm demonstrated on the recent CT dated 11/26/2021 is not well seen radiographically. IMPRESSION: 1. Cardiomegaly. 2. No acute pulmonary finding. Electronically signed by: Anastasiia Paris MD (12/25/2021 10:42 AM) [id number] (MAYTE CALDWELL APRN) Course & Med Decision Making: Course & Med Decision Making Pertinent Labs and Imaging studies reviewed. (See chart for details) [address] Segundo in regards to this patient's case and he is agreeable to admitting this patient for hypertension exacerbation of CHF and bradycardia and anxiety. Patient was informed of the findings on the radiological and laboratory results and he is agreeable to being admitted. Patient states that he is very anxious he is having some issues with his anxiety and when I talked with him about being placed on a long-term antianxiety medication he states he took himself off of it approximately 7 months ago because he did not think he needed it, I said when he needs to speak to his primary care physician about further evaluation and management of that. (MAYTE CALDWELL APRN) Dragon Disclaimer: Dragon Disclaimer: This electronic medical record was generated, in whole or in part, using a voice recognition dictation system. (MAYTE CALDWELL APRN) Departure Departure Impression: Primary Impression: Hypertension Qualified Codes: I10 - Essential (primary) hypertension Additional Impressions: Acute exacerbation of CHF (congestive heart failure) Qualified Codes: I50.9 - Heart failure, unspecified Bradycardia Anxiety Disposition: ADMITTED INPATIENT Admitting Physician: DEYSI (MAYTE CALDWELL APRN) Condition: STABLE Referrals: KVNG BADILLO DO (PCP) Scripts Lisinopril (LISINOPRIL) 40 Mg Tablet 20 MG PO DAILY for . for 90 Days, #45 TAB Prov: CARY WILD III, DO 12/27/21 Attending Signature Attending Signature I have reviewed the PA/FOOD SERVICES COORDINATOR's note and plan of care. I was available for consultation as needed during the patient's visit in the emergency department. I agree with the clinical impression, plan, and disposition. (CAMI FERMIN DO) MAYTE CALDWELL APRN December 25, 2021 10:29 CAMI FERMIN DO December 31, 2021 16:29
[2021-12-25 10:38] LABS: BASO % 1 % (0-3); EOS # 0.1 x10^3/uL (0.0-0.7); EOS % 2 % (0-3); HEMATOCRIT 40.7 % (39.0-53.0); HEMOGLOBIN 13.8 g/dL (13.0-17.5); LYMPH # 0.8 x10^3/uL (1.0-4.8); LYMPH % 11 % (24-48); MEAN CORPUSCULAR HEMOGLOBIN 33 pg (25-35); MEAN CORPUSCULAR HGB CONC 34 g/dL (31-37); MEAN CORPUSCULAR VOLUME 98 fL (79-100); MONO # 0.7 x10^3/uL (0.0-1.1); MONO % 10 % (0-9); NEUT # 5.7 x10^3/uL (1.8-7.7); NEUT % 77 % (31-73); PLATELET COUNT 241 x10^3/uL (140-400); RED BLOOD COUNT 4.16 x10^6/uL (4.30-5.70); RED CELL DISTRIBUTION WIDTH 12.8 % (11.5-14.5); WHITE BLOOD COUNT 7.4 x10^3/uL (4.0-11.0)
[2021-12-25 10:45] LABS: PROTHROMBIN TIME PATIENT 13.1 SEC (11.7-14.0)
[2021-12-25 10:50] LABS: CALCIUM 8.7 mg/dL (8.5-10.1); CREATININE 1.4 mg/dL (0.7-1.3); GFR 48.1; POTASSIUM 3.9 mmol/L (3.5-5.1)
[2021-12-25 10:55] LABS: ALBUMIN 3.4 g/dL (3.4-5.0); ALBUMIN/GLOBULIN RATIO 1.4 (1.0-1.7); MAGNESIUM 2.4 mg/dL (1.8-2.4); TOTAL BILIRUBIN 0.3 mg/dL (0.2-1.0); TOTAL PROTEIN 5.9 g/dL (6.4-8.2)
--- NOTE | 2021-12-25 11:27 | PDOC2 ---
CARDIAC CONSULT DATE OF CONSULT Date of Consult DATE: 12/25/21 TIME: 11:21 REASON FOR CONSULT Reason for Consult: HTN SOURCE Source: Chart review, Patient HISTORY OF PRESENT ILLNESS HISTORY OF PRESENT ILLNESS This is an 86 yo male who presented secondary to elevated blood pressure. Patient reports blood pressure has been significantly elevated over the last month or so. Yesterday, blood pressure was in the 180 range sp he called EMS. Reports that he is very concerned about his blood pressure being elevated. C/o SAUER and pressure in his chest when his blood pressure in high. No associated dizziness, diaphoresis, palpitations or nausea/vomiting. PAST MEDICAL HISTORY Past Medical History Cardiovascular: CAD, CHF, HTN, Hyperlipidemia, Mitral valve stenosis Pulmonary: COPD, Other CENTRAL NERVOUS SYSTEM: Other GI: GERD Heme/Onc: Cancer, Other Hepatobiliary: No pertinent hx Psych: Anxiety Rheumatologic: No pertinent hx Infectious disease: No pertinent hx Renal/: Chronic renal insuff, Benign prostatic enlarg. Endocrine: No pertinent hx PAST SURGICAL HISTORY Past Surgical History Other (Coronary stents, laminectomy, left knee surgery.) FAMILY HISTORY Family History: Heart Disease SOCIAL HISTORY Smoke: Quit ALCOHOL: none Drugs: None Lives: Alone ALLERGIES ALLERGIES: Coded Allergies: codeine (Verified Allergy, Intermediate, 11/26/21) Has tolerated Hydromorphone, Tramadol and Oxycodone in the past. tetanus and diphtheria toxoids (Verified Adverse Reaction, Intermediate, 11/26/21) immunocompromised ROS Review of System 14 point ROS conducted with pertinent positives noted above in HPI PHYSICAL EXAM General: Alert, Oriented X3, Cooperative, No acute distress HEENT: Atraumatic Lungs: Clear to auscultation Heart: Regular rate Abdomen: Soft, No tenderness Extremities: Other (trace pedal edema ) Skin: No significant lesion Neuro: Normal speech, Sensation intact Psych/Mental Status: Mental status NL, Other (anxious ) MUSCULOSKELETAL: Osteoarthritic changes both hands VITALS/I&O VITALS/I&O: Vital Signs Date Time Temp Pulse Resp B/P (MAP) Pulse Ox O2 Delivery O2 Flow Rate FiO2 12/25/21 11:00 53 18 176/97 (123) 100 Room Air 12/25/21 10:05 98.5 98.5 LABS Lab: Laboratory Tests Test 12/25/21 10:22 White Blood Count 7.4 x10^3/uL (4.0-11.0) Red Blood Count 4.16 x10^6/uL (4.30-5.70) L Hemoglobin 13.8 g/dL (13.0-17.5) Hematocrit 40.7 % (39.0-53.0) Mean Corpuscular Volume 98 fL (79-100) Mean Corpuscular Hemoglobin 33 pg (25-35) Mean Corpuscular Hemoglobin Concent 34 g/dL (31-37) Red Cell Distribution Width 12.8 % (11.5-14.5) Platelet Count 241 x10^3/uL (140-400) Neutrophils (%) (Auto) 77 % (31-73) H Lymphocytes (%) (Auto) 11 % (24-48) L Monocytes (%) (Auto) 10 % (0-9) H Eosinophils (%) (Auto) 2 % (0-3) Basophils (%) (Auto) 1 % (0-3) Neutrophils # (Auto) 5.7 x10^3/uL (1.8-7.7) Lymphocytes # (Auto) 0.8 x10^3/uL (1.0-4.8) L Monocytes # (Auto) 0.7 x10^3/uL (0.0-1.1) Eosinophils # (Auto) 0.1 x10^3/uL (0.0-0.7) Basophils # (Auto) 0.0 x10^3/uL (0.0-0.2) Sodium Level 145 mmol/L (136-145) Potassium Level 3.9 mmol/L (3.5-5.1) Chloride Level 107 mmol/L (98-107) Carbon Dioxide Level 29 mmol/L (21-32) Anion Gap 9 (6-14) Blood Urea Nitrogen 20 mg/dL (8-26) Creatinine 1.4 mg/dL (0.7-1.3) H Estimated GFR (Cockcroft-Gault) 48.1 BUN/Creatinine Ratio 14 (6-20) Glucose Level 89 mg/dL (70-99) Calcium Level 8.7 mg/dL (8.5-10.1) Magnesium Level 2.4 mg/dL (1.8-2.4) Total Bilirubin 0.3 mg/dL (0.2-1.0) Aspartate Amino Transferase (AST) 26 U/L (15-37) Alanine Aminotransferase (ALT) 29 U/L (16-63) Alkaline Phosphatase 123 U/L (46-116) H Creatine Kinase 180 U/L (39-308) Troponin I High Sensitivity 43 ng/L (4-75) MA-Jhn-J-Type Natriuretic Peptide 1712 pg/mL (0-449) H Total Protein 5.9 g/dL (6.4-8.2) L Albumin 3.4 g/dL (3.4-5.0) Albumin/Globulin Ratio 1.4 (1.0-1.7) Lipase 80 U/L (73-393) Laboratory Tests 12/25/21 10:22 Laboratory Tests 12/25/21 10:22 ECHOCARDIOGRAM ECHOCARDIOGRAM <Conclusion> The septal motion is suggestive of conduction defect. Doppler and Color Flow revealed mild aortic regurgitation. The ascending aorta is moderately dilated at 4.3cm. Left ventricle systolic function is mildly decreased. LVEF 45% DATE: 06/03/19 1426 STRESS TEST STRESS TEST Conclusion 1. No EKG evidence of stressed induced ischemia. 2. Nuclear images show a area of partially reversible ischemia in the inferior wall. 3. Left ventricular systolic function is decreased at 39%. 4. Moderate risk Lexiscan nuclear stress test showing partially reversible ischemia in the inferior wall and decreased ejection fraction at 39%. 5. Of note, a Lexiscan test performed on 07/21/2013 showed an ejection fraction of 42%. It also showed an area of partially reversible ischemia in the inferior wall that is similar to today's study. DATE: 04/17/14 1422 ASSESSMENT/PLAN ASSESSMENT/PLAN 1. Accelerated hypertension 2. Sinus bradycardia: no pauses or high grade blocks. currently 50s to 60s. asymptomatic 3. PAFIB: on amiodarone for rhythm maintenance . 4. 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 Chronic systolic CHF; clinically compensated 6. Cardiomyopathy; Echo 06/05 with LVEF 45% 7. Hx of B cell lymphoma 8. HLP 9. Hx of COPD 10. CKD3 Recommendations Increase lisinopril for better BP control Hydralazine IV PRN Avoid AV iman blocking agents Continue amiodarone for rhythm maintenance ASA for stroke prevention. Anticoagulation was discussed in the past but re peatedly declined Continue secondary prevention Consider outpatient ischemic evaluation EBONI SCHULTZ APRN December 25, 2021 11:27
[2021-12-25] MEDS ORDERED: hydrALAZINE 20 MG/ML VIAL. IVP ONE (11:45)
--- NOTE | 2021-12-25 12:23 | EKG ---
[facility] [address] [place] [address] Test Date: 2021-12-25 Test Time: 11:20:49 Pat Name: HARSHIL MALONE Department: Room: Gender: M Bell Person: : 1935 Requested By: MAYTE CALDWELL Order Number: [id number] Reading MD: Jasiel Yang Measurements Intervals Standard Rate: 47 P: -51 VA: 244 QRS: -47 QRSD: 134 T: -40 QT: 522 QTc: 462 Interpretive Statements SINUS BRADYCARDIA PROLONGED VA INTERVAL ABNORMAL LEFT AXIS DEVIATION NON SPECIFIC INTRAVENTRICULAR BLOCK QRS(T) CONTOUR ABNORMALITY CONSISTENT WITH INFERIOR INFARCT AGE UNDETERMINED ABNORMAL ECG Electronically Signed On 12-26-2021 17:11:59 CDT by Jasiel Yang
--- NOTE | 2021-12-25 12:23 | RAD ---
EXAM: Chest, single view. HISTORY: Chest pain. Hypertension. COMPARISON: 11/26/2021 FINDINGS: Frontal views of the chest are obtained. There is no infiltrate, pleural infusion or pneumo thorax. There is cardiomegaly. There is a calcified granuloma within the lateral left upper lobe. The re is a calcified right paratracheal granuloma. Note is made that a thoracic aortic aneurysm demonst rated on the recent CT dated 11/26/2021 is not well seen radiographically. IMPRESSION: 1. Cardiomegaly. 2. No acute pulmonary finding. Electronically signed by: Anastasiia Paris MD (12/25/2021 10:42 AM) [id number]
[2021-12-25] MEDS ORDERED: ALPRAZolam 0.25 MG TABLET PO ONE (13:15)
[2021-12-25] MEDS ORDERED: hydrALAZINE 20 MG/ML VIAL. IVP PRN (14:00)
[2021-12-25] MEDS: LISINOPRIL 20 MG TABLET PO SCH (14:42)
[2021-12-25 19:00] VITALS: BP 154/70
--- NOTE | 2021-12-25 21:02 | HP ---
DATE OF SERVICE: 12/25/2021 ADMIT DATE: 12/25/2021 CHIEF COMPLAINT: Hypertension. HISTORY OF PRESENT ILLNESS: The patient is a pleasant 86-year-old male well known to my service. He is the grandfather of one of our nurses, Bekah. Basically, he presented with elevated blood pressure. He states they had been adjusting his medications and he thinks they may have discontinued his lisinopril. He did bring a card ____ with his medications on it. I reviewed that. The patient also has elevated BNP, appears to be in some heart failure. His BNP level 1700. His creatinine is at 1.4, which is near his baseline. I discussed the case with ER physician. We are going to admit the patient and consult Cardiology. PAST MEDICAL HISTORY: CAD, CHF, hypertension, hyperlipidemia, mitral valve stenosis, COPD, GERD, chronic renal insufficiency, BPH, some type of cancer. ALLERGIES: CODEINE, TETANUS AND DIPHTHERIA TOXOIDS. FAMILY HISTORY: Coronary artery disease. SOCIAL HISTORY: He is retired. He quit smoking. No drink or drugs. MEDICATIONS: Reviewed, please refer to the MRAD. REVIEW OF SYSTEMS: GENERAL: No history of weight change, weakness or fevers. SKIN: No bruising, hair changes or rashes. EYES: No blurred, double or loss of vision. NOSE AND THROAT: No history of nosebleeds, hoarseness or sore throat. HEART: No history of palpitations, chest pain or shortness of breath on exertion. LUNGS: Denies cough, hemoptysis, wheezing or shortness of breath. GASTROINTESTINAL: Denies changes in appetite, nausea, vomiting, diarrhea or constipation. GENITOURINARY: No history of frequency, urgency, hesitancy or nocturia. NEUROLOGIC: Denies history of numbness, tingling, tremor or weakness. PSYCHIATRIC: No history of panic, anxiety or depression. ENDOCRINE: No history of heat or cold intolerance, polyuria or polydipsia. EXTREMITIES: Denies muscle weakness, joint pain, pain on walking or stiffness. PHYSICAL EXAMINATION: VITALS: His pressure has run as high as 187/87. He is down to 125/50. GENERAL: No apparent distress. Alert and oriented. HEENT: Normal cephalic atraumatic, external auditory canals are patent. EYES: Extraocular muscles are intact, pupils are equally round and reactive to light and accommodation. MUSCULOSKELETAL: Well developed, well nourished, good range of motion. ENDOCRINE: No thyromegaly was palpated. LYMPHATICS: No cervical chain or axillary nodes were noted. HEMATOPOIETIC: No bruising. NECK: Supple, no JVD, no thyromegaly was noted. LUNGS: Clear to auscultation in all lung figueredo without rhonchi or wheezing. HEART: RRR, S1, S2 present. Peripheral pulses intact, no obvious murmurs were noted. ABDOMEN: Soft, nontender. Positive bowel sounds no organomegaly, normal bowel sounds. EXTREMITIES: Without any cyanosis, clubbing, or edema. Pedal pulses intact, Homans sign is negative. NEUROLOGIC: Normal speech, normal tone. A and O x 3, moves all extremities, no obvious focal deficits. PSYCHIATRIC: Normal affect, normal mood. Stable. SKIN: No ulcerations or rashes, good skin turgor, no jaundice. VASCULAR: Good capillary refill, neurovascular bundle appears to be intact. ASSESSMENT AND PLAN: Accelerated hypertension, acute on chronic systolic and diastolic heart failure, history of arrhythmias, coronary artery disease and multiple comorbidities. The patient has been admitted. We are consulting Cardiology. Home meds. Deep venous thrombosis prophylaxis. Full code. Cardiology has recommended increasing his lisinopril. We certainly agree and appreciate that. Suspect he will need to be diuresed. Trend his labs. Encourage p.o. intake. Physical therapy, occupational therapy. YASMEEN/CARL DR: Cyn TID: [id number]
[2021-12-25] MEDS: ATORVASTATIN CALCIUM 20 MG TABLET PO SCH (21:03)
[2021-12-25] MEDS: ACETAMINOPHEN 325 MG TABLET. PO PRN (21:04)
[2021-12-25] MEDS ORDERED: AMIO100T4 PO (22:51)
[2021-12-25] MEDS ORDERED: LANS30CA PO (22:51)
--- NOTE | 2021-12-25 22:53 | NUR ---
Patient arrived to room 115 prior to shift change. Patient A&O but very talkative, SB on monitor, BP in 150s. Patent IV present, SL. Patient able to use urinal when awake and uses briefs for incontinence at night. Patient complaining of headache, states he generally takes tylenol before he goes to bed. Patient seems to be very depressed. Patient's August 2020 at [facility] and patient now lives alone. Patient states he does not want extensive measures and would like to be DNR. Patient oriented to unit routines, call light, bed controls, tv controls, activity, diet, and general POC. Patient resting in bed at this time, VSS, will continue to monitor.
[2021-12-25 23:00] VITALS: BP 132/60
[2021-12-26 03:00] VITALS: BP 111/51
[2021-12-26 07:00] VITALS: BP 126/62
[2021-12-26] MEDS: ASPIRIN CHEWABLE 81 MG TABLET. PO SCH (09:21)
[2021-12-26] MEDS: LISINOPRIL 20 MG TABLET PO SCH (09:21)
--- NOTE | 2021-12-26 10:23 | PDOC ---
CARDIO Progress Notes Date and Time Date of Service 12/26/2021 Time of Evaluation 1010 Subjective Subjective: No Chest Pain, No shortness of breath, No Palpitations Vitals Vitals Vital Signs Date Time Temp Pulse Resp B/P (MAP) Pulse Ox O2 Delivery O2 Flow Rate FiO2 12/26/21 09:21 50 156/75 12/26/21 08:00 Room Air 12/26/21 07:00 97.2 21 94 97.2 Weight Weight [ ] Input and Output Intake and Output Intake and Output 12/26/21 07:00 Intake Total 200 ml Output Total 250 ml Balance -50 ml Intake Oral 200 ml Output Urine Total 250 ml Laboratory Labs Laboratory Tests Test 12/25/21 10:22 12/25/21 13:30 12/25/21 16:34 White Blood Count 7.4 x10^3/uL (4.0-11.0) Red Blood Count 4.16 x10^6/uL (4.30-5.70) Hemoglobin 13.8 g/dL (13.0-17.5) Hematocrit 40.7 % (39.0-53.0) Mean Corpuscular Volume 98 fL (79-100) Mean Corpuscular Hemoglobin 33 pg (25-35) Mean Corpuscular Hemoglobin Concent 34 g/dL (31-37) Red Cell Distribution Width 12.8 % (11.5-14.5) Platelet Count 241 x10^3/uL (140-400) Neutrophils (%) (Auto) 77 % (31-73) Lymphocytes (%) (Auto) 11 % (24-48) Monocytes (%) (Auto) 10 % (0-9) Eosinophils (%) (Auto) 2 % (0-3) Basophils (%) (Auto) 1 % (0-3) Neutrophils # (Auto) 5.7 x10^3/uL (1.8-7.7) Lymphocytes # (Auto) 0.8 x10^3/uL (1.0-4.8) Monocytes # (Auto) 0.7 x10^3/uL (0.0-1.1) Eosinophils # (Auto) 0.1 x10^3/uL (0.0-0.7) Basophils # (Auto) 0.0 x10^3/uL (0.0-0.2) Prothrombin Time 13.1 SEC (11.7-14.0) Prothromb Time International Ratio 1.0 (0.8-1.1) Sodium Level 145 mmol/L (136-145) Potassium Level 3.9 mmol/L (3.5-5.1) Chloride Level 107 mmol/L (98-107) Carbon Dioxide Level 29 mmol/L (21-32) Anion Gap 9 (6-14) Blood Urea Nitrogen 20 mg/dL (8-26) Creatinine 1.4 mg/dL (0.7-1.3) Estimated GFR (Cockcroft-Gault) 48.1 BUN/Creatinine Ratio 14 (6-20) Glucose Level 89 mg/dL (70-99) Calcium Level 8.7 mg/dL (8.5-10.1) Magnesium Level 2.4 mg/dL (1.8-2.4) Total Bilirubin 0.3 mg/dL (0.2-1.0) Aspartate Amino Transf (AST/SGOT) 26 U/L (15-37) Alanine Aminotransferase (ALT/SGPT) 29 U/L (16-63) Alkaline Phosphatase 123 U/L (46-116) Creatine Kinase 180 U/L (39-308) Troponin I High Sensitivity 43 ng/L (4-75) 41 ng/L (4-75) 39 ng/L (4-75) SG-Ozx-V-Type Natriuretic Peptide 1712 pg/mL (0-449) Total Protein 5.9 g/dL (6.4-8.2) Albumin 3.4 g/dL (3.4-5.0) Albumin/Globulin Ratio 1.4 (1.0-1.7) Lipase 80 U/L (73-393) Physical Exam HEENT: Neck Supple W Full Motion Chest: Symmetric LUNGS: Clear to Auscultation Heart: S1S2, RRR (SR/SB) Abdomen: Soft N/T Extremities: No Edema, No Calf Tenderness Neurology: alert, oriented, follow commands Assessment Assessment 1. Accelerated hypertension: better 2. Sinus bradycardia: no pauses or high grade blocks. currently 50s to 60s. asymptomatic 3. PAFIB: on amiodarone for rhythm maintenance .SR/SB lowest mid 40s no pauses 4. 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 Chronic systolic CHF; clinically compensated 6. Cardiomyopathy; Echo 10/19 with LVEF 45% 7. Hx of B cell lymphoma 8. HLP 9. Hx of COPD 10. CKD3 Recommendations Increase lisinopril for better BP control Hydralazine IV PRN Avoid AV iman blocking agents Continue amiodarone for rhythm maintenance ASA for stroke prevention. Anticoagulation was discussed in the past but repeatedly declined Continue secondary prevention Consider outpatient ischemic evaluation May DC today Justicifation of Admission Dx: Justifications for Admission: Justification of Admission Dx: Yes CHF: Cardiac Arrhythmias NOEMI GARCÍA FLAME BURNER December 26, 2021 10:23
--- NOTE | 2021-12-26 10:56 | PDOC ---
[facility] PROGRESS NOTE Date of Service DOS: DATE: 12/26/21 TIME: 10:55 Chief Complaint Chief Complaint Hypertensive urgency CHF CAD,hypertension, hyperlipidemia, mitral valve stenosis, COPD, GERD, chronic renal insufficiency, BPH, some type of cancer. History of Present Illness History of Present Illness 12/26/2021 Patient seen and examined Discussed with RN Chart reviewed He is slowly improved Vitals/I&O Vitals/I&O: Vital Signs Date Time Temp Pulse Resp B/P (MAP) Pulse Ox O2 Delivery O2 Flow Rate FiO2 12/26/21 09:21 50 156/75 12/26/21 08:00 Room Air 12/26/21 07:00 97.2 21 94 97.2 I & O 12/25/21 12/25/21 12/26/21 15:00 23:00 07:00 Intake Total 200 ml Output Total 250 ml Balance 200 ml -250 ml Physical Exam General: Alert, Oriented X3, Cooperative, No acute distress Heart: Regular rate Lungs: Clear Abdomen: Soft, No tenderness Extremities: Other (trace pedal edema ) Skin: No significant lesion Labs Labs: Laboratory Tests Test 12/25/21 13:30 12/25/21 16:34 12/26/21 10:37 Troponin I High Sensitivity 41 ng/L (4-75) 39 ng/L (4-75) Glucose (Fingerstick) 118 mg/dL (70-99) Assessment and Plan Assessmemt and Plan Problems Medical Problems: (1) Acute exacerbation of CHF (congestive heart failure) Status: Acute (2) Anxiety Status: Acute (3) Hypertension Status: Acute Hypertensive urgency CHF CAD, CHF, hypertension, hyperlipidemia, mitral valve stenosis, COPD, GERD, chronic renal insufficiency, BPH, some type of cancer. Plan Continue antihypertensives IV Lasix Home meds DVT prophylaxis Full code Trend labs Encourage p.o. intake PT OT He might need fdc although he prefers to go home (his nurse explains he is extremely weak and does not walk well) Comment Review of Relevant I have reviewed the following items jannet (where applicable) has been applied. Medications: Current Medications Medications (Trade) Dose Ordered Sig/Winifred Route PRN Reason Start Time Stop Time Status Last Admin Dose Admin Hydralazine HCl (Apresoline Inj) 10 mg 1X ONCE IVP 12/25/21 11:45 12/25/21 11:46 DC 12/25/21 12:04 Alprazolam (Xanax) 0.25 mg 1X ONCE PO 12/25/21 13:15 12/25/21 13:21 DC 12/25/21 13:29 Aspirin (Aspirin Chewable) 81 mg DAILY PO 12/26/21 09:00 12/26/21 09:21 Atorvastatin Calcium (Lipitor) 20 mg QHS PO 12/25/21 21:00 12/25/21 21:03 Lisinopril (Prinivil) 20 mg DAILY PO 12/25/21 14:00 12/26/21 09:21 Acetaminophen (Tylenol) 650 mg PRN Q6HRS PRN PO MILD PAIN / TEMP > 100.3'F 12/25/21 21:00 12/25/21 21:04 Justifications for Admission Other Justification CARY WILD III DO December 26, 2021 10:56
[2021-12-26 11:00] VITALS: BP 153/78
[2021-12-26 15:00] VITALS: BP 145/79
[2021-12-26 19:00] VITALS: BP 160/79
[2021-12-26] MEDS: ATORVASTATIN CALCIUM 20 MG TABLET PO SCH (21:10)
[2021-12-26 23:00] VITALS: BP 180/85
[2021-12-27] MEDS: ACETAMINOPHEN 325 MG TABLET. PO PRN ×2 (00:53→10:40)
[2021-12-27 03:00] VITALS: BP 121/48
[2021-12-27 07:00] VITALS: BP 156/73
[2021-12-27] MEDS: ASPIRIN CHEWABLE 81 MG TABLET. PO SCH (08:31)
[2021-12-27] MEDS: LISINOPRIL 20 MG TABLET PO SCH (08:32)
--- NOTE | 2021-12-27 08:56 | PDOC ---
NOEMI GARCÍA DIRECTOR OF RADIOLOGY 12/27/21 0856: CARDIO Progress Notes Date and Time Date of Service 12/27/2021 Time of Evaluation 0920 Subjective Subjective: No Chest Pain, No shortness of breath, No Palpitations Vitals Vitals Vital Signs Date Time Temp Pulse Resp B/P (MAP) Pulse Ox O2 Delivery O2 Flow Rate FiO2 12/27/21 08:32 53 156/73 12/27/21 07:59 Room Air 12/27/21 07:00 98.0 18 98 98.0 Weight Weight [ ] Input and Output Intake and Output Intake and Output 12/27/21 07:00 Output Total 2690 ml Balance -2690 ml Output Urine Total 2690 ml # Voids 1 # Bowel Movements 1 Laboratory Labs Laboratory Tests Test 12/26/21 10:37 Glucose (Fingerstick) 118 mg/dL (70-99) Physical Exam HEENT: Neck Supple W Full Motion Chest: Symmetric LUNGS: Clear to Auscultation Heart: S1S2, RRR (SR/SB) Abdomen: Soft N/T Extremities: No Edema, No Calf Tenderness Neurology: alert, oriented, follow commands Assessment Assessment 1. Accelerated hypertension: better 2. Sinus bradycardia: no pauses or high grade blocks. currently 50s to 60s. asymptomatic 3. PAFIB: on amiodarone for rhythm maintenance .SR/SB lowest mid 40s no pauses 4. CAD: past stents, known [employer] of RCA, clinically stable 5. Chronic systolic CHF; clinically compensated 6. Cardiomyopathy; Echo 06/05 with LVEF 45% 7. Hx of B cell lymphoma 8. HLP 9. Hx of COPD 10. CKD3 Recommendations Continue lisinopril. HBPM. BMP today Hydralazine IV PRN Avoid AV iman blocking agents Continue amiodarone for rhythm maintenance ASA for stroke prevention. Anticoagulation was discussed in the past but repeatedly declined Continue secondary prevention Consider outpatient ischemic evaluation May DC today Justicifation of Admission Dx: Justifications for Admission: Justification of Admission Dx: Yes CHF: Cardiac Arrhythmias RAYO CHEUNG MD 12/27/21 1651: CARDIO Progress Notes Assessment Assessment Patient seen and examined The patient reports feeling better today. I agree with our nurse practitioners assessment and plan. 1. Accelerated hypertension: significantly improved on present medical treatment. 2. Sinus bradycardia: no pauses or high grade blocks. currently 50s to 60s. asymptomatic 3. PAFIB: on amiodarone for rhythm maintenance .SR/SB lowest mid 40s no pauses 4. CAD: past stents, known [employer] of RCA, clinically stable 5. Chronic systolic CHF; clinically compensated 6. Cardiomyopathy; Echo 06/05 with LVEF 45% 7. Hx of B cell lymphoma 8. HLP 9. Hx of COPD 10. CKD3 Continuing present treatments with office follow-up. : NOEMI GARCÍA APRN December 27, 2021 08:56 RAYO CHEUNG MD December 27, 2021 16:51
--- NOTE | 2021-12-27 09:51 | PDOC ---
[facility] PROGRESS NOTE Date of Service DOS: DATE: 12/27/21 TIME: 09:50 Chief Complaint Chief Complaint Hypertensive urgency CHF CAD,hypertension, hyperlipidemia, mitral valve stenosis, COPD, GERD, chronic renal insufficiency, BPH, some type of cancer. History of Present Illness History of Present Illness 12/27/2021 Patient seen and examined He seems to be at his baseline Discussed with case management Discussed with RN We will go ahead and discharge 12/26/2021 Patient seen and examined Discussed with RN Chart reviewed He is slowly improved Vitals/I&O Vitals/I&O: Vital Signs Date Time Temp Pulse Resp B/P (MAP) Pulse Ox O2 Delivery O2 Flow Rate FiO2 12/27/21 08:32 53 156/73 12/27/21 07:59 Room Air 12/27/21 07:00 98.0 18 98 98.0 I & O 12/26/21 12/26/21 12/27/21 15:00 23:00 07:00 Output Total 220 ml 770 ml 1700 ml Balance -220 ml -770 ml -1700 ml Physical Exam General: Alert, Oriented X3, Cooperative, No acute distress Heart: Regular rate Lungs: Clear Abdomen: Soft, No tenderness Extremities: Other (trace pedal edema ) Skin: No significant lesion Labs Labs: Laboratory Tests Test 12/26/21 10:37 Glucose (Fingerstick) 118 mg/dL (70-99) Assessment and Plan Assessmemt and Plan Problems Medical Problems: (1) Acute exacerbation of CHF (congestive heart failure) Status: Acute (2) Anxiety Status: Acute (3) Hypertension Status: Acute Hypertensive urgency CHF CAD, CHF, hypertension, hyperlipidemia, mitral valve stenosis, COPD, GERD, chronic renal insufficiency, BPH, some type of cancer. Plan Discharge later this afternoon For now continue the following; Continue antihypertensives IV Lasix Home meds DVT prophylaxis Full code Trend labs Encourage p.o. intake PT OT He refuses [facility] so we will discharge with home health Comment Review of Relevant I have reviewed the following items jannet (where applicable) has been applied. Justifications for Admission Other Justification CARY WILD III DO December 27, 2021 09:51
[2021-12-27] MEDS ORDERED: LISI-130 PO (09:52)
--- NOTE | 2021-12-27 09:53 | SNU/HH DC ---
DISCHARGE WITH HOME HEALTH DISCHARGE INFORMATION: Final Diagnosis: Problems Medical Problems: (1) Acute exacerbation of CHF (congestive heart failure) Status: Acute (2) Anxiety Status: Acute (3) Hypertension Status: Acute Condition on Discharge: Stable CODE STATUS: Code Status: DNR/DNI HOME HEALTH: Face to Face: I certify this patient is under my care and that I, or a nurse practitioner or physician's optometric assistant working with me, had a face to face encounter that meets the physician face to face encounter requirements with this patient on []. Medical Complications: CHF, HTN Care Home For: Assess Cardiopulm Status RN For Eval/Treatment: Yes Physical Therapy For: Evalulation/Treatment Occupational Therapy For: Evaluation/Treatment Home Health Aide For: Self-care MACHINE WASHER For: Community Resources Pt Meets Homebound Status: Unsteady balance w/ amb, POST DISCHARGE ORDERS: Activity Instructions for Disc: Activity as tolerated Weight Bearing Status after Di: As tolerated Bathing Instructions: Shower-keep dressing dry DIET AFTER DISCHARGE: Cardiac Wound/Incision Care: No wound care needed CHECKS AFTER DISCHARGE: Checks after discharge: Check blood press - daily, Weigh Yourself Daily TREATMENT/EQUIPMENT ORDERS: Adaptive Equipment Issued: None Discharge Respiratory Equipmen: CPAP CERTIFICATION STATEMENT: Certification Statement: Certification Statement: Based on the above finding, I certify that this patient is confined to the home and needs intermittent [facility] care, physical therapy and/or speech therapy, or continues to need occupational therapy.~ This patient is under my care, and I have initiated the establishment of the plan of care.~ This patient will be followed by myself or a community physician who will periodically review the plan of care. Home Meds Active Scripts Lisinopril (LISINOPRIL) 40 Mg Tablet, 20 MG PO DAILY for . for 90 Days, #45 TAB Prov:CARY WILD III DO 12/27/21 Alprazolam (ALPRAZOLAM) 0.5 Mg Tablet, 0.5 MG PO PRN BID PRN for ANXIETY, #10 TAB Prov:BRITTNY PETERSON MD 05/30/17 Reported Medications Amiodarone Hcl (AMIODARONE HCL) 100 Mg Tablet, PO DAILY for Heart rate/rhythm, TAB 12/25/21 Lansoprazole (LANSOPRAZOLE) 30 Mg Capsule.dr, 30 MG PO PRN BID PRN for gerd, CAP 12/25/21 Cholecalciferol (Vitamin D3) (VITAMIN D) 2,000 Unit Capsule, 2 CAP PO DAILY, #30 CAP 3 Refills 08/25/17 Atorvastatin Calcium (ATORVASTATIN CALCIUM) 20 Mg Tablet, 20 MG PO DAILY for FOR CHOLESTEROL, #30 TAB 0 Refills 02/04/16 Imatinib Mesylate (GLEEVEC) 400 Mg Tablet, 400 MG PO DAILY 03/28/15 Aspirin (ASPIRIN) 81 Mg Tab.chew, 1 TAB PO DAILY, #30 TAB 3 Refills 03/28/15 Discontinued Reported Medications Lisinopril (LISINOPRIL) 5 Mg Tablet, 1 TAB PO DAILY for HTN for 90 Days, #90 TAB 3 Refills 09/23/21 CARY WILD III DO December 27, 2021 09:53
[2021-12-27 11:00] VITALS: BP 143/73
[2021-12-27 11:12] LABS: CALCIUM 8.3 mg/dL (8.5-10.1); CREATININE 1.3 mg/dL (0.7-1.3); GFR 52.3; POTASSIUM 3.9 mmol/L (3.5-5.1)
--- NOTE | 2021-12-27 12:47 | NUR ---
SS following for discharge planning. SS reviewed pt chart and discussed with pt RN. Pt is from home alone and is currently on room air. PT/OT recommended shelter unit. Pt declining shelter unit and requesting to discharge to home. Discharge orders received for home with home healthcare. Discharge orders and referral sent to [facility], ; fax [phone]. Pt accepted on services. DCF hotline report made due to RN reports for safety with mobility and medication management concerns. Intake#[id number]. Pt needing transportation to home. Pt will discharge to home at 1430 via [facility] transport, [id number]. Pt's RN notified.
--- NOTE | 2021-12-27 14:46 | NUR ---
Patient discharged at 1435 via [facility] transportation. Discharge education given to the patient and notified patient's daughter of discharge and education. Patient reminded to take blood pressure twice a day and if >150 sustaining, call the cardiology office. Patient also reminded to use his walker when ambulating anywhere at any time. Patient discharged with all belongings. Notified patient's daughter of time of discharge.
--- NOTE | 2021-12-28 10:57 | DS ---
DATE OF DISCHARGE: 12/27/2021 ADMISSION DIAGNOSES: Hypertensive urgency, acute on chronic systolic and diastolic heart failure. DISCHARGE DIAGNOSES: Resolving heart failure, resolving hypertensive urgency, coronary artery disease, hypertension, hyperlipidemia, mitral valve stenosis, chronic obstructive pulmonary disease, gastroesophageal reflux disease, chronic renal insufficiency, benign prostatic hypertrophy and some type of cancer. CONSULTATIONS: Cardiology. PROCEDURES: None. HOSPITAL COURSE: The patient is a pleasant middle-aged male who presented with volume overload, acute on chronic systolic and diastolic heart failure and hypertensive urgency. We admitted him to the ICU. We gave him IV Lasix and antihypertensives. We consulted Cardiology. Yesterday, I saw and examined him. He is back to his baseline. We discharged to home with home health. DISPOSITION: Home with home health. ACTIVITY: As tolerated. DIET: Low sodium. DISCHARGE MEDICATIONS: Please see the MRAD. Lisinopril 20 a day, Xanax 0.5 b.i.d., amiodarone 100 a day, aspirin 81 a day, atorvastatin 20 a day, vitamin D, Gleevec and Protonix 30 a day. Total time [address]: Cyn TID: [id number]
== END 2021-12-27 14:35 | disposition home health service (06) | DRG 291 ==
LOC: ER 10:00 → ED HOLD 12:58 → 1 WEST ICU 18:40
PROVIDERS: ADMIT Internal Medicine; ATTEND Internal Medicine
DX: I13.0 Hypertensive heart and chronic kidney disease with heart failure and stage 1 through stage 4 chronic kidney disease, or unspecified chronic kidney disease (principal); I50.43 Acute on chronic combined systolic (congestive) and diastolic (congestive) heart failure; I48.0 Paroxysmal atrial fibrillation; E78.00 Pure hypercholesterolemia, unspecified; E78.5 Hyperlipidemia, unspecified; F41.9 Anxiety disorder, unspecified; I05.0 Rheumatic mitral stenosis; I16.0 Hypertensive urgency; I25.10 Atherosclerotic heart disease of native coronary artery without angina pectoris; I25.82 Chronic total occlusion of coronary artery; I42.9 Cardiomyopathy, unspecified; J44.9 Chronic obstructive pulmonary disease, unspecified; K21.9 Gastro-esophageal reflux disease without esophagitis; N18.30 Chronic kidney disease, stage 3 unspecified; N40.0 Benign prostatic hyperplasia without lower urinary tract symptoms; Z82.49 Family history of ischemic heart disease and other diseases of the circulatory system; Z85.028 Personal history of other malignant neoplasm of stomach; Z85.07 Personal history of malignant neoplasm of pancreas; Z85.6 Personal history of leukemia; Z85.72 Personal history of non-Hodgkin lymphomas; Z87.891 Personal history of nicotine dependence; Z95.5 Presence of coronary angioplasty implant and graft; Z63.4 Disappearance and death of family member; Z88.8 Allergy status to other drugs, medicaments and biological substances
CPT/HCPCS: 36415; 71045; 80048; 80053; 82550; 82962; 83690; 83735; 83880; 84484; 85025; 85610; 93005; 96374; J0360; 97116-GP; 97530-GP; 99285-25; G0378